=== PATIENT | male | born 1945 | race Caucasian/White ===

== ENCOUNTER → 2020-05-21 13:03 | Outpatient (BNVA) | payer OTHER, SELFPAY | PROVIDERS: PCP Physician Assistant; Visit Provider Urology | DX: N40.1 Benign prostatic hyperplasia with lower urinary tract symptoms (principal); R33.8 Other retention of urine | CPT/HCPCS: 51798; 81002; 99212 ==

== ENCOUNTER → 2020-06-05 10:03 | Outpatient (BNVA) | payer OTHER, SELFPAY | PROVIDERS: PCP Physician Assistant; Visit Provider Urology | DX: N40.1 Benign prostatic hyperplasia with lower urinary tract symptoms (principal); R33.8 Other retention of urine | CPT/HCPCS: 51798; 81002; 99212 ==

== ENCOUNTER → 2020-07-08 15:34 | Outpatient (BNVA) | payer OTHER, SELFPAY | PROVIDERS: PCP Physician Assistant; Visit Provider Urology | DX: R33.9 Retention of urine, unspecified (principal) | CPT/HCPCS: 51798; 81002; 99212 ==

== ENCOUNTER → 2020-08-11 13:32 | Outpatient (BNVA) | payer OTHER, SELFPAY | PROVIDERS: PCP Physician Assistant; Visit Provider Urology | DX: N40.1 Benign prostatic hyperplasia with lower urinary tract symptoms (principal); R33.8 Other retention of urine | CPT/HCPCS: 51798; 99212 ==

== ENCOUNTER 2021-01-05 13:12 | Outpatient (REF) | payer OTHER, SELFPAY ==
--- NOTE | ~2021-01-05 | US_ITS ---
EXAMINATION: US RETROPERITONEAL LIMITED (RENAL ONLY) CLINICAL INFORMATION: Calculus of kidney. COMPARISON: CT abdomen and pelvis with intravenous contrast only dated 03/18/2018. TECHNIQUE: Real-time imaging of the kidneys. FINDINGS: RIGHT KIDNEY: 8.7 x 6.7 x 6.5 cm (SAG x AP x TRV). The kidney is normal in size, contour, and echogenicity. There is severe right hydronephrosis. There is right renal cortical thinning suggestive of long-standing obstruction. The visualized right ureter is dilated. No renal calculi or focal parenchymal lesions. LEFT KIDNEY: 10.1 x 9.6 x 4.6 cm (SAG x AP x TRV). The kidney is normal in size, contour, and echogenicity. Renal cortical thickness is normal. There is moderate to severe left hydronephrosis. The visualized left ureter is dilated. There is a 4.5 x 4.9 x 3.2 cm cyst in the lower pole. No renal calculi or mass. BLADDER: The bladder is well-distended. The bladder wall appears thickened and trabeculated. There are multiple bladder diverticuli seen. Bilateral ureteral jets are not demonstrated. Prevoid bladder volume is 1199 mL. Post void bladder volume is 1158 mL. Prostate volume is 29 mL. US/US renal BI IMPRESSION: Bilateral hydronephrosis and ureteral dilatation, right greater than left. Hydronephrosis is increased from March 2018 scan. 4.5 x 4.9 x 3.2 cm left renal cyst. Very distended bladder with bladder wall thickening, trabeculation and multiple bladder diverticuli. Large 1.2 L post void bladder residual.
== END 2021-01-05 13:13 | disposition home or self-care (01) ==
LOC: HO.US 13:12
PROVIDERS: PCP Physician Assistant; Visit Provider Physician Assistant
DX: N20.0 Calculus of kidney (principal); R33.9 Retention of urine, unspecified; N40.1 Benign prostatic hyperplasia with lower urinary tract symptoms
CPT/HCPCS: 76775

== ENCOUNTER 2021-02-02 14:17 | Inpatient (IN) | payer OTHER, SELFPAY ==
--- NOTE | ~2021-02-02 | XR_ITS ---
EXAMINATION: XR CHEST CLINICAL INFORMATION: Hypertension COMPARISON: Previous chest x-ray May [address] of the abdomen and pelvis March 2018 TECHNIQUE: Frontal view of the chest was obtained. FINDINGS: The cardiac silhouette does not appear enlarged. There is increased density are spine questionable tortuous thoracic aorta versus esophageal hernia. Hilar and mediastinal contours are otherwise unremarkable. The lungs are clear. There is no pleural effusion or pneumothorax. There are degenerative changes of the spine. There are old right posterior fourth and sixth rib fractures. XR/XR chest 1V IMPRESSION: Increased density over the heart and spine questionable ectatic thoracic aorta versus esophageal hernia. Otherwise unremarkable exam.
--- NOTE | ~2021-02-02 | CT_ITS ---
EXAMINATION: CT HEAD WITHOUT CONTRAST CLINICAL INFORMATION: High blood pressure and headache rule out bleed. COMPARISON: None. TECHNIQUE: Contiguous axial imaging was performed from the skull base to vertex without intravenous administration of contrast. Coronal and sagittal reformatted images are performed at the CT scanner. [This CT examination was performed using dose optimization techniques as appropriate, variously including the following: *Automated exposure control *Adjustment of mA and/or kV according to patient size (this includes techniques or standardized protocols for targeted exams where dose is matched to indication/reason for exam; i.e. extremities or head) *Use of iterative reconstruction technique] DLP: 688 mGy-cm. FINDINGS: There is no evidence of acute intracranial hemorrhage or territorial infarction. No abnormal mass-effect or midline shift is seen. Nicole to white matter differentiation is well preserved. No extra-axial fluid collections are identified. There is generalized global volume loss. There is mild prominence of the ventricles and the sulci . There is mild hypodensity of the periventricular white matter due to chronic small vessel ischemic disease. There are vascular calcifications of the internal carotid arteries bilaterally. There is no osseous abnormality. The mastoid air cells and visualized portions of the paranasal sinuses are well-aerated. CT/CT head/brain wo con IMPRESSION: No acute intracranial pathology.
--- NOTE | ~2021-02-02 | CT_ITS ---
EXAMINATION: CT ABDOMEN AND PELVIS WITHOUT CONTRAST CLINICAL INFORMATION: Acute renal failure. Rule out obstructive uropathy COMPARISON: CT abdomen pelvis 03/18/2018 TECHNIQUE: Multidetector volumetric imaging was performed from the superior aspect of the liver through the pubic symphysis. Sagittal and coronal reformatted images were obtained on the technologist's workstation. This CT examination was performed using dose optimization techniques as appropriate, variously including the following: *Automated exposure control *Adjustment of mA and/or kV according to patient size (this includes techniques or standardized protocols for targeted exams where dose is matched to indication/reason for exam; i.e. extremities or head) *Use of iterative reconstruction technique DLP: 491 mGy-cm FINDINGS: LUNG BASES: The visualized lung bases are unremarkable. LIVER, GALLBLADDER, AND BILIARY TREE: The liver is normal in size, shape, and attenuation. No focal hepatic lesion or biliary ductal dilatation is present. The gallbladder is unremarkable with no evidence of radiopaque gallstones, gallbladder wall thickening, or obvious pericholecystic inflammatory changes. PANCREAS: Unremarkable. SPLEEN: Unremarkable. ADRENAL GLANDS: Unremarkable. KIDNEYS, URETERS and BLADDER: There is marked bilateral hydronephrosis with dilatation of both ureters down to the level of the bladder. The bladder is markedly distended, extending above the level of the umbilicus with a huge diverticulum extending up towards the left upper quadrant. There is some trabeculation of the bladder wall. No renal calculi are seen and no ureteral calculi are seen. There is a 4.3 cm lower pole left renal cyst present along with a smaller 2 cm cyst as well. There is abnormality seen at the base of the bladder with asymmetric soft tissue density seen along the right wall of the bladder. GASTROINTESTINAL TRACT: A moderate-sized hiatal hernia is present. Diverticular changes are present in the colon and without evidence of diverticulitis. The small and large bowel are otherwise unremarkable. The appendix is unremarkable. ABDOMINAL WALL: No significant hernia is appreciated. LYMPH NODES: Normal. VASCULAR: Calcific atherosclerotic changes present in the aorta and iliac vessels without aneurysm. PELVIC VISCERA: It is difficult to evaluate the prostate is distortion by the markedly distended bladder. No free fluid is seen. No other pelvic mass is seen. OSSEOUS STRUCTURES: There is marked compression of T9 with the mid vertebral fracture and a kyphosis centered at that level. Similar findings were present on the 03/18/[address]/CT abdomen pelvis wo con IMPRESSION: Severe bilateral hydronephrosis with dilatation of the ureters and marked dilatation of the bladder. Abnormality may be present at the base of the right bladder and cystoscopy is recommended once this patient is stable. The patient's acute renal failure is most likely on the basis of bladder outlet obstruction. Other incidental findings described above including left renal cysts, moderate hiatal hernia and stable compression fracture T9 This critical result was discussed with Dr. Heart at 7:30 PM on the evening of the exam and it was ascertained that the content and urgency of the report was understood at the time of direct communication.
[2021-02-02 14:45] VITALS: BP 194/95; PULSE 91; RESP 18; TEMP 36.1; O2SAT 99; BMI 25.0
--- NOTE | 2021-02-02 15:58 | ECG_ITS ---
Test Reason : GENERAL MEDICAL Blood Pressure : / mmHG Vent. Rate : 076 BPM Atrial Rate : 076 BPM P-R Int : 142 ms QRS Dur : 068 ms QT Int : 356 ms P-R-T Axes : 036 -25 011 degrees QTc Int : 400 ms Normal sinus rhythm Normal ECG When compared with ECG of 12-MAY-2018 12:31, Vent. rate has decreased BY 61 BPM Criteria for Inferior infarct are no longer Present Referred By: Kae Heart Electronically Signed By:LENA HUNTER
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
[2021-02-02 16:09] VITALS: BP 193/97; PULSE 88; O2SAT 99
[2021-02-02 16:23] VITALS: BP 193/97; PULSE 88
[2021-02-02] MEDS: amLODIPine Besylate 10 MG TABLET PO (16:23)
[2021-02-02 16:24] LABS: Eosinophils Absolute Auto 0.3 X10*3/uL (0.0-0.4); Hemoglobin 11.2 g/dl (14.0-18.0); MANUAL DIFF FLAG SCAN; SCAN SMEAR FLAG 1
[2021-02-02 16:25] LABS: Basophils Absolute Auto 0.1 X10*3/uL (0.0-0.2); Basophils Percent Auto 0.9 % (0-2); Hematocrit 33.9 % (42-52); Imm Gran Abs Auto 0.03 X10*3/uL (0.00-0.03); Imm Gran Pct Auto 0.2 % (0.0-0.4); Lymphocytes Absolute Auto 1.6 X10*3/uL (1.2-4.9); Lymphocytes Percent Auto 12.6 % (20-40); Mean Corpuscular Hemoglobin 28.4 pg (27.0-33.0); Mean Corpuscular Volume 85.8 fL (80-98); Monocytes Absolute Auto 0.8 X10*3/uL (0.1-1.2); Monocytes Percent Auto 6.2 % (2-11); Neutrophils Percent Auto 78.1 % (45-73); Red Blood Count 3.95 X10*6/uL (4.60-5.80); Red Cell Distribution Width 13.3 % (11.0-16.0)
[2021-02-02 16:28] LABS: PLT ABN DIST 1
[2021-02-02 16:42] LABS: White Blood Count 12.8 X10*3/uL (4.8-10.8)
[2021-02-02 16:44] LABS: Platelet Count 13 X10*3/uL (160-400); SLIDE REVIEW VERIFIED
[2021-02-02 16:45] LABS: B Type Natriuretic Peptide 31 pg/mL (<100)
[2021-02-02 16:46] LABS: Alanine Aminotransferase 10 U/L (0-40); Albumin Level 4.5 g/dL (3.5-5.0); Alkaline Phosphatase 42 U/L (39-117); Anion Gap 17 (12-20); Aspartate Amino Transferase 12 U/L (5-37); Bilirubin Direct < 0.2 mg/dL (0.0-0.5); Bilirubin Total 0.3 mg/dL (0.0-1.0); Blood Urea Nitrogen 74 mg/dL (9-16); Calcium 9.3 mg/dL (8.4-10.2); Carbon Dioxide 20 mmol/L (22-29); Chloride 110 mmol/L (96-108); Creatinine Clr Calc Pharmacy 11.9; Estimated Glomerular Filt Rate 11; Glucose Random 111 mg/dL (60-115); Lipase 46 U/L (8-78); Potassium 5.7 mmol/L (3.3-5.1); Sodium 141 mmol/L (135-145); Total Protein 7.4 g/dL (6.5-8.0)
[2021-02-02 18:55] VITALS: BP 210/88; PULSE 85; RESP 18; TEMP 36.4; O2SAT 98
[2021-02-02] MEDS: 0.9 % Sodium Chloride 1,000 ML 999 ML IVCONT (19:05)
[2021-02-02 19:12] LABS: Appearance Urine CLEAR; Color Urine YELLOW; Glucose Urine UA NEG (NEG); Leukocyte Esterase Urine NEG (NEG); Nitrite Urine NEG (NEG); Urine Blood NEG (NEG); Urine Ketones NEG (NEG); Urine Protein NEG (NEG-TRACE)
--- NOTE | 2021-02-02 20:19 | P.HPHOSP_ITS ---
History of Present Illness Date of Service: 02/02/21 Chief Complaint: Elevated blood pressure 75-year-old male with a past medical history BPH, severe thrombocytopenia- attributes to agent orange exposure, hypertension presented to the hospital with a chief complaint elevated blood pressure. Patient reports that this morning he went to his PCP where he was noted have elevated blood. Subsequently sent to the ER for further evaluation Patient reports that episodes headaches denies any associated blurry visions d enies any numbness tingling or focal weakness. Mentions that he has a history severe thrombocytopenia many years admitted to boots to agent orange exposure in the past and his levels usually been around 5- 15. Has been following test eng at [facility] Patient reports that he has problems with his prostate and follows with Dr. palencia as outpatient; mentions that he is still able to pee but has pressure sensation in his abdomen; Denies any fever chills cough. Denies any nausea vomiting diarrhea. Denies any frequency urgency or burning. By the time I went in to see the patient patient had a Baker in place and drained about 1800 cc of urine. Review of all other systems is negative except mentioned above ER course: Per ER team patient had a CT head that showed no acute findings; exam was nonfocal; on abdominal examination patient's abdomen is CT abdomen showed severe hydronephrosis urinary bladder distension; labs noted to have severe JESSICA with a creatinine of 5.7 compared to baseline of 1.0. ER team discussed with Dr. palencia Urology who suggested to place the Baker in. ER team placed a Baker successfully and patient drained about 1800-2000ml urine. Admitted to the hospital for further management. [facility] Medical History Benign prostatic hyperplasia with urinary retention Pertinent family history: Reviewed and noncontributory for the current presentation Surgical History (Updated 08/11/20 @ 12:02 by Hannah Shrestha [facility]) No pertinent past surgical history Social History Household Members: None Patient Tobacco Use Status: Never used Tobacco Use of substances other than those prescribed or required for medical reasons: No Have you been hit, kicked, punched, or otherwise hurt by someone within the past year? If so, by whom?: No Do you feel safe in your current relationship?: No Is there a partner from a previous relationship who is making you feel unsafe now?: No Are you made to feel afraid or neglected: No Advance Directives: No Advance Directives Information Provided: No Do you have thoughts of harming others: None Do you have a plan to hurt others: No Plan Recently lost weight without trying: No Nutrition Risks: No Nutritional Risk Poor oral hygiene: No service: Yes Current occupational status: retired Meds Allergies Allergy/AdvReac Type Severity Reaction Status Date / Time No Known Allergies Allergy Verified 02/02/21 14:44 [No Known Allergies*] Active Medications: Current Medications Acetaminophen (Acetaminophen 325 Mg Tablet) 650 mg PO Q6H PRN PRN Reason: Pain, Mild (Pain Scale 1-3) Dextrose/Sodium Chloride (D51/2ns) 1,000 mls @ 75 mls/hr IVCONT .[id number] [facility] Labetalol HCl (Labetalol Hcl 100 Mg/20 Ml Vial) 10 mg IVPUSH Q4H PRN PRN Reason: BP>180/90 Melatonin (Melatonin 3 Mg Tablet) 6 mg PO BEDTIME PRN PRN Reason: Insomnia Oxycodone HCl (Oxycodone Hcl Immed Release 5 Mg Tablet) 5 mg PO Q6H PRN PRN Reason: Pain, Severe (Pain Scale 7-10) Pharmacy Consult (Consult Rx Perform Med Rec) 1 each MISCELLANE ONCE PRN PRN Reason: Consult order Senna (Sennosides 8.6 Mg Tablet) 17.2 mg PO BEDTIME PRN PRN Reason: Constipation Sodium Chloride (0.9 % Sodium Chloride Flush 3 Ml Syringe) 3 ml IVFLUSH QSHIFT [facility] Home Medications Medication Instructions Recorded Confirmed Last Taken Type Lactobacillus acidophilus 1 cap PO DAILY 02/02/21 02/02/21 02/01/21 History beta carotene 25,000 unit capsule 25,000 unit PO DAILY 02/02/21 02/02/21 02/01/21 History glucosamine sulf dipot 1 cap PO DAILY 02/02/21 02/02/21 02/01/21 History chlr,msm,chond 550 mg-C 30 mg-marshal 1 mg capsule (Glucosamine Chondroitin) mirabegron 25 mg tablet,extended 25 mg PO DAILY 02/02/21 02/02/21 02/01/21 History release 24 hr multivitamin 1 tab PO DAILY 02/02/21 02/02/21 02/01/21 History phytonadione (vitamin K1) 100 mcg 100 mcg PO DAILY 02/02/21 02/02/21 02/01/21 History tablet Physical Exam Vital Signs and Narrative: Vital Signs: Last Vital Signs Temp 97.6 F 02/02/21 18:55 Pulse 85 02/02/21 18:55 Resp 18 02/02/21 18:55 BP 210/88 H 02/02/21 18:55 Pulse Ox 98 02/02/21 18:55 Body Mass Index 25.0 Gen: Appears be in no acute distress HEENT: NCAT, Moist mucosa. Pulmonary: Vesicular breath sounds, fair air entry CVS: Normal S1-S2 Abdomen: BS+, Soft, Nontender Extremities: Warm well perfused Neuro: Alert and awake. Grossly nonfocal Results Labs CBC and Chem 7: 02/02/21 22:57 02/02/21 20:29 Labs: Laboratory Results - last 24 hr 02/02/21 02/02/21 02/02/21 16:16 16:16 16:16 MCV 85.8 MCH 28.4 MCHC 33.0 RDW 13.3 Plt Count 13 L* MPV TNP Immature Gran % (Auto) 0.2 Neut % (Auto) 78.1 H Lymph % (Auto) 12.6 L [place] % (Auto) 6.2 Eos % (Auto) 2.0 Baso % (Auto) 0.9 Lymph # (Auto) 1.6 [place] # (Auto) 0.8 Eos # (Auto) 0.3 Baso # (Auto) 0.1 Abs Immat Gran (auto) 0.03 Absolute Neuts (auto) 10.0 H Absolute Nucleated RBC 0.000 Nucleated RBC % (auto) 0.0 Smear Tech's Comments VERIFIED Anion Gap 17 Estim Creat Clear Calc 11.9 Estimated GFR 11 Random Glucose 111 Calcium 9.3 Total Bilirubin 0.3 Direct Bilirubin < 0.2 AST 12 ALT 10 Alkaline Phosphatase 42 B-Natriuretic Peptide 31 Total Protein 7.4 Albumin 4.5 Lipase 46 Urine Color Urine Appearance Urine pH Ur Specific [place] Urine Protein Urine Glucose (UA) Urine Ketones Urine Blood Urine Nitrite Ur Leukocyte Esterase 02/02/21 18:57 MCV MCH MCHC RDW Plt Count MPV Immature Gran % (Auto) Neut % (Auto) Lymph % (Auto) [place] % (Auto) Eos % (Auto) Baso % (Auto) Lymph # (Auto) [place] # (Auto) Eos # (Auto) Baso # (Auto) Abs Immat Gran (auto) Absolute Neuts (auto) Absolute Nucleated RBC Nucleated RBC % (auto) Smear Tech's Comments Anion Gap Estim Creat Clear Calc Estimated GFR Random Glucose Calcium Total Bilirubin Direct Bilirubin AST ALT Alkaline Phosphatase B-Natriuretic Peptide Total Protein Albumin Lipase Urine Color YELLOW Urine Appearance CLEAR Urine pH 6.0 Ur Specific [place] 1.010 Urine Protein NEG Urine Glucose (UA) NEG Urine Ketones NEG Urine Blood NEG Urine Nitrite NEG Ur Leukocyte Esterase NEG Imaging Radiologist's Impressions: Impressions Chest X-Ray 02/02/21 15:58 IMPRESSION: Increased density over the heart and spine questionable ectatic thoracic aorta versus esophageal hernia. Otherwise unremarkable exam. Head CT 02/02/21 16:02 IMPRESSION: No acute intracranial pathology. Abdomen/Pelvis CT 02/02/21 18:18 IMPRESSION: Severe bilateral hydronephrosis with dilatation of the ureters and marked dilatation of the bladder. Abnormality may be present at the base of the right bladder and cystoscopy is recommended once this patient is stable. The patient's acute renal failure is most likely on the basis of bladder outlet obstruction. Other incidental findings described above including left renal cysts, moderate hiatal hernia and stable compression fracture T9 This critical result was discussed with Dr. Heart at 7:30 PM on the evening of the exam and it was ascertained that the content and urgency of the report was understood at the time of direct communication. Assessment and Plan (1) Urinary retention with incomplete bladder emptying: Status: Acute (2) Benign prostatic hyperplasia with urinary retention: Status: Acute (3) JESSICA (acute kidney injury): Status: Acute (4) Hyperkalemia: Status: Acute (5) Thrombocytopenia: Status: Acute 75-year-old male with past medical history of BPH, and severe thrombocytopenia, agent [place] exposure presented chief complaint abdominal discomfort/headaches; noted to urgency urinary retention. Admitted management. Hypertensive urgency: Patient complained of headaches exam nonfocal. CT head showed no acute findings. Symptoms improving. Labetalol p.r.n. for blood pressure than 180/90. Nephrology consulted. Patient was just prescribed clonidine but patient has not picked up yet. JESSICA: Baseline creatinine 1.0 Postrenal. Scan showed hydronephrosis/dilation. Also noted to mild hyperkalemia 5.7 and creatinine 5.7; Discussed with on-call facilities operator who suggested start patient on 2amps of 100 meq sodium bicarb in D5 water. Renal function and improving. Continue to monitor. Urinary retention /BPH: Baker catheter. Urology consult of aware the patient. Patient drained about 2 L of urine Baker placement. Followed by mentioned that patient started to gross hematuria. Gross hematuria: Likely secondary to rapid decompression off urinary bladder in the ER. Will transfuse platelets Serial H&H Renal cysts: urology follow up. Severe thrombocytopenia: Denies any signs of reports been chronic. Patient developed hematuria. Will transfuse platelets 2 units of platelets. Spoke to the blood bank , reported the platelets will be available in couple hours; Hematology consult. Prophylaxis SCD boots Code status: DNR/DNI. Discussed with the patient in detail. Quality Stroke Does the patient have a stroke diagnosis?: No VTE Prior VTE?: No VTE Risk Level:: Medical - moderate - high VTE Device Contraindication: N/A - Device Ordered VTE Drug Contraindication: Treatment Not Indicated
[2021-02-02] MEDS: Lidocaine HCl 2 % Urojet 10 ML JEL.PF.APP TOPICAL (20:54)
--- NOTE | 2021-02-02 20:57 | PHA.MEDREC ---
Pharmacy Consult ? Medication Reconciliation Pharmacy has completed the medication reconciliation. Patient report that he just received a prescription for clonidine 0.2 mg today. He has not started it.
[2021-02-02] MEDS: Dextrose 5 % and 0.45 % NaCl 1,000 ML 75 ML IVCONT (21:00)
[2021-02-02 21:01] LABS: Anion Gap 14 (12-20); Blood Urea Nitrogen 71 mg/dL (9-16); Calcium 8.6 mg/dL (8.4-10.2); Carbon Dioxide 18 mmol/L (22-29); Chloride 115 mmol/L (96-108); Creatinine Clr Calc Pharmacy 12.5; Estimated Glomerular Filt Rate 12; Glucose Random 101 mg/dL (60-115); Potassium 5.3 mmol/L (3.3-5.1); Sodium 142 mmol/L (135-145)
[2021-02-02 21:07] VITALS: BP 154/71; PULSE 85; O2SAT 97
--- NOTE | 2021-02-02 21:09 | PC.NURSE ---
emptied 1849 from [facility] at 2105
[2021-02-02 21:38] LABS: COVID-19 Test Negative (Negative)
--- NOTE | 2021-02-02 22:27 | MHC.CM.PN ---
Addendum entered by Rina Griffith 02/02/21 22:30: Pt uses the [facility] pharmacy in [place] and on [facility] in [facility]. Dr. Garcia is his urologist. HCP is not on file. Copy requested. HCP/son Sam Bianchi ([phone]). Alternate HCP/nephew Thomas Wharton ([phone]). Pt lives alone, uses no DME and has no services. Pt is fully vaccinated with Moderna. D/C plan is home without services. Transportation arranged by pt. CM to follow for d/c needs. Original Note: CM met with admitted patient, with bed assignment pending. A&O x3. Very pleasant [place], who is 100% [employer] and only has Veterans insurance. Pt knox not have Medicare. Pt was exposed to Agent [place] and has his care at the [facility]
--- NOTE | 2021-02-02 22:37 | PC.NURSE ---
Pt roasrio bag putting our bloody urine. call to Dr. Olson who will be down to assess the pt.
[2021-02-02] MEDS: Sodium Bicarbonate 8.4% 100 MEQ in Dextrose 5 % 900 ML IV (22:38)
[2021-02-02 23:06] LABS: Imm Gran Abs Auto 0.03 X10*3/uL (0.00-0.03); Imm Gran Pct Auto 0.3 % (0.0-0.4); Lymphocytes Absolute Auto 1.8 X10*3/uL (1.2-4.9); MANUAL DIFF FLAG SCAN; Mean Corpuscular Volume 85.4 fL (80-98); Red Cell Distribution Width 13.4 % (11.0-16.0); SCAN SMEAR FLAG 1
[2021-02-02 23:08] LABS: Basophils Absolute Auto 0.1 X10*3/uL (0.0-0.2); Basophils Percent Auto 0.9 % (0-2); Eosinophils Absolute Auto 0.3 X10*3/uL (0.0-0.4); Eosinophils Percent Auto 2.7 % (0-4); Hematocrit 30.9 % (42-52); Hemoglobin 10.6 g/dl (14.0-18.0); Lymphocytes Percent Auto 15.5 % (20-40); Mean Corpuscular HGB Conc 34.3 g/dl (31.0-36.0); Mean Corpuscular Hemoglobin 29.3 pg (27.0-33.0); Mean Platelet Volume 13.1 fL (9.4-12.4); Monocytes Absolute Auto 0.8 X10*3/uL (0.1-1.2); Monocytes Percent Auto 6.8 % (2-11); Neutrophils Absolute Auto 8.7 X10*3/uL (2.0-8.3); Neutrophils Percent Auto 73.8 % (45-73); Red Blood Count 3.62 X10*6/uL (4.60-5.80); White Blood Count 11.7 X10*3/uL (4.8-10.8)
[2021-02-02 23:12] LABS: PLT ABN DIST 1
[2021-02-02 23:14] LABS: Platelet Count 12 X10*3/uL (160-400)
[2021-02-03] VITALS (16 sets, daily range): BP systolic 136–187; BP diastolic 62–81; PULSE 79–94; RESP 16–18; TEMP 36.4–37.4; O2SAT 96–99
[2021-02-03 05:44] LABS: MANUAL DIFF FLAG NO
[2021-02-03 05:53] LABS: Basophils Absolute Auto 0.1 X10*3/uL (0.0-0.2); Basophils Percent Auto 0.6 % (0-2); Eosinophils Absolute Auto 0.3 X10*3/uL (0.0-0.4); Eosinophils Percent Auto 2.1 % (0-4); Hemoglobin 9.7 g/dl (14.0-18.0); Imm Gran Abs Auto 0.08 X10*3/uL (0.00-0.03); Imm Gran Pct Auto 0.5 % (0.0-0.4); Lymphocytes Absolute Auto 1.8 X10*3/uL (1.2-4.9); Lymphocytes Percent Auto 11.4 % (20-40); Mean Corpuscular HGB Conc 34.6 g/dl (31.0-36.0); Mean Corpuscular Volume 83.8 fL (80-98); Mean Platelet Volume 12.8 fL (9.4-12.4); Monocytes Absolute Auto 1.1 X10*3/uL (0.1-1.2); Monocytes Percent Auto 7.2 % (2-11); Neutrophils Absolute Auto 12.3 X10*3/uL (2.0-8.3); Neutrophils Percent Auto 78.2 % (45-73); Red Blood Count 3.34 X10*6/uL (4.60-5.80); Red Cell Distribution Width 13.3 % (11.0-16.0); White Blood Count 15.7 X10*3/uL (4.8-10.8)
[2021-02-03 05:55] LABS: Platelet Count 22 X10*3/uL (160-400)
[2021-02-03 06:08] LABS: Anion Gap 12 (12-20); Blood Urea Nitrogen 61 mg/dL (9-16); Calcium 7.9 mg/dL (8.4-10.2); Carbon Dioxide 22 mmol/L (22-29); Chloride 112 mmol/L (96-108); Creatinine Clr Calc Pharmacy 13.9; Estimated Glomerular Filt Rate 13; Glucose Random 117 mg/dL (60-115); Potassium 4.4 mmol/L (3.3-5.1); Sodium 142 mmol/L (135-145)
--- NOTE | 2021-02-03 08:26 | PM.UROCN ---
History of Present Illness Consult details Consult date: 02/03/21 Narrative: Grabiel is a pleasant male known to Urology. He is followed for a large dilated bladder with high residual. Has failed bethanechol previously and currently on tamsulosin. Admitted to hospital last night with elevated creatinine Baker catheter placed Hematuria started hematuria resolving with platelets - did discuss use of tranexamic acid with attending physician hold mirabegron add finasteride Voiding trial once creatinine has normalized Review of Systems Constitutional: Constitutional: Denies chills and Denies fever(s) Cardiovascular: Cardiovascular: Reports no additional cardiovascular complaints and Denies syncope Respiratory: Respiratory: Denies cough Gastrointestinal: Gastrointestinal: Denies abdominal pain and Denies heartburn Genitourinary: Genitourinary: Reports as per HPI and Denies change in libido Neurologic: Denies syncope Psychiatric: Psychiatric: Denies change in libido Endocrine: Endocrine: Denies change in libido [facility] Past Medical History Medical History Benign prostatic hyperplasia with urinary retention Surgical History Surgical History (Updated 08/11/20 @ 12:02 by Hannah Shrestha [facility]) No pertinent past surgical history Social History Social History Household Members: None Patient Tobacco Use Status: Never used Tobacco Use of substances other than those prescribed or required for medical reasons: No Have you been hit, kicked, punched, or otherwise hurt by someone within the past year? If so, by whom?: No Do you feel safe in your current relationship?: No Is there a partner from a previous relationship who is making you feel unsafe now?: No Are you made to feel afraid or neglected: No Advance Directives: No Advance Directives Information Provided: No Do you have thoughts of harming others: None Do you have a plan to hurt others: No Plan Recently lost weight without trying: No Nutrition Risks: No Nutritional Risk Poor oral hygiene: No service: Yes Current occupational status: retired [employer] Allergies Allergy/AdvReac Type Severity Reaction Status Date / Time No Known Allergies Allergy Verified 02/02/21 14:44 [No Known Allergies*] Active Medications: Current Medications Acetaminophen (Acetaminophen 325 Mg Tablet) 650 mg PO Q6H PRN PRN Reason: Pain, Mild (Pain Scale 1-3) Labetalol HCl (Labetalol Hcl 100 Mg/20 Ml Vial) 10 mg IVPUSH Q4H PRN PRN Reason: BP>180/90 Melatonin (Melatonin 3 Mg Tablet) 6 mg PO BEDTIME PRN PRN Reason: Insomnia Mirabegron (Mirabegron 25 Mg Tab.Er.24h) 25 mg PO DAILY [facility] Multivitamins/Vitamin C (Multivitamin Tablet) 1 tab PO DAILY [facility] Oxycodone HCl (Oxycodone Hcl Immed Release 5 Mg Tablet) 5 mg PO Q6H PRN PRN Reason: Pain, Severe (Pain Scale 7-10) Pharmacy Consult (Consult Rx Perform Med Rec) 1 each MISCELLANE ONCE PRN PRN Reason: Consult order Senna (Sennosides 8.6 Mg Tablet) 17.2 mg PO BEDTIME PRN PRN Reason: Constipation Simethicone (Simethicone 80 Mg Tab.Chew) 80 mg PO QIDWMHS PRN PRN Reason: Gas Sodium Chloride (0.9 % Sodium Chloride Flush 3 Ml Syringe) 3 ml IVFLUSH QSHIFT [facility] Last Admin: 02/03/21 00:51 Dose: Not Given Documented by: Tamsulosin HCl (Tamsulosin Hcl 0.4 Mg Capsule) 0.8 mg PO BEDTIME [facility] Home Medications Medication Instructions Recorded Confirmed Last Taken Type Lactobacillus acidophilus 1 cap PO DAILY 02/02/21 02/02/21 02/01/21 History beta carotene 25,000 unit capsule 25,000 unit PO DAILY 02/02/21 02/02/21 02/01/21 History glucosamine sulf dipot 1 cap PO DAILY 02/02/21 02/02/21 02/01/21 History chlr,msm,chond 550 mg-C 30 mg-marshal 1 mg capsule (Glucosamine Chondroitin) mirabegron 25 mg tablet,extended 25 mg PO DAILY 02/02/21 02/02/21 02/01/21 History release 24 hr multivitamin 1 tab PO DAILY 02/02/21 02/02/21 02/01/21 History phytonadione (vitamin K1) 100 mcg 100 mcg PO DAILY 02/02/21 02/02/21 02/01/21 History tablet Physical Exam Vital Signs: Vital Signs: Last Vital Signs Temp 97.6 F 02/03/21 08:00 Pulse 80 02/03/21 08:00 Resp 16 02/03/21 08:00 BP 161/100 H 02/03/21 08:00 Pulse Ox 99 02/03/21 08:00 Body Mass Index 25.0 Const: General: cooperative, healthy appearing, comfortable and no acute distress Orientation/consciousness: patient oriented x3 HENMT: Face and sinus: Yes normal facial exam Mouth: moist mucous membranes Neck: Neck: Yes normal visual inspection, Yes full ROM and Yes trachea midline Chest: Chest palpation & inspection: normal inspection of the chest Resp: Effort & Inspection: normal respiratory effort, able to speak in complete sentences and no respiratory distress GI: Inspection: Yes normal to inspection Back/Spine/Pelvis: Cervical Spine: normal cervical lordosis Thoracic/Lumbar Spine: thoracic and lumbar spine normal to inspection Skin: General skin exam: no rashes or lesions noted Neuro: General: patient oriented x3, gait normal, tone normal and moves all extremities Extrem: General: Yes normal to inspection and Yes capillary refill normal Results Labs Result diagrams: 02/03/21 05:20 02/03/21 05:20 Labs: Abnormal lab results 02/02/21 02/02/21 02/02/21 Range/Units 16:16 16:16 20:29 WBC 12.8 H (4.8-10.8) X10*3/uL RBC 3.95 L (4.60-5.80) X10*6/uL Hgb 11.2 L (14.0-18.0) g/dl Hct 33.9 L (42-52) % Plt Count 13 L* (160-400) X10*3/uL MPV (9.4-12.4) fL Immature Gran % (Auto) (0.0-0.4) % Neut % (Auto) 78.1 H (45-73) % Lymph % (Auto) 12.6 L (20-40) % Abs Immat Gran (auto) (0.00-0.03) X10*3/uL Absolute Neuts (auto) 10.0 H (2.0-8.3) X10*3/uL Potassium 5.7 H 5.3 H (3.3-5.1) mmol/L Chloride 110 H 115 H (96-108) mmol/L Carbon Dioxide 20 L 18 L (22-29) mmol/L BUN 74 H 71 H (9-16) mg/dL Creatinine 5.17 H* 4.92 H* (0.5-1.4) mg/dL Random Glucose (60-115) mg/dL Calcium (8.4-10.2) mg/dL 02/02/21 02/03/21 02/03/21 Range/Units 22:57 05:20 05:20 WBC 11.7 H 15.7 H (4.8-10.8) X10*3/uL RBC 3.62 L 3.34 L (4.60-5.80) X10*6/uL Hgb 10.6 L 9.7 L (14.0-18.0) g/dl Hct 30.9 L 28.0 L (42-52) % Plt Count 12 L* 22 L D (160-400) X10*3/uL MPV 13.1 H 12.8 H (9.4-12.4) fL Immature Gran % (Auto) 0.5 H (0.0-0.4) % Neut % (Auto) 73.8 H 78.2 H (45-73) % Lymph % (Auto) 15.5 L 11.4 L (20-40) % Abs Immat Gran (auto) 0.08 H (0.00-0.03) X10*3/uL Absolute Neuts (auto) 8.7 H 12.3 H (2.0-8.3) X10*3/uL Potassium (3.3-5.1) mmol/L Chloride 112 H (96-108) mmol/L Carbon Dioxide (22-29) mmol/L BUN 61 H (9-16) mg/dL Creatinine 4.44 H* (0.5-1.4) mg/dL Random Glucose 117 H (60-115) mg/dL Calcium 7.9 L D (8.4-10.2) mg/dL Short CBC 02/02/21 02/02/21 02/03/21 Range/Units 16:16 22:57 05:20 WBC 12.8 H 11.7 H 15.7 H (4.8-10.8) X10*3/uL Hgb 11.2 L 10.6 L 9.7 L (14.0-18.0) g/dl Hct 33.9 L 30.9 L 28.0 L (42-52) % Plt Count 13 L* 12 L* 22 L D (160-400) X10*3/uL BMP 02/02/21 02/02/21 02/03/21 16:16 20:29 05:20 Sodium 141 142 142 Potassium 5.7 H 5.3 H 4.4 Chloride 110 H 115 H 112 H Carbon Dioxide 20 L 18 L 22 BUN 74 H 71 H 61 H Creatinine 5.17 H* 4.92 H* 4.44 H* Calcium 9.3 8.6 D 7.9 L D Liver Function 02/02/21 Range/Units 16:16 Total Bilirubin 0.3 (0.0-1.0) mg/dL Direct Bilirubin < 0.2 (0.0-0.5) mg/dL AST 12 (5-37) U/L ALT 10 (0-40) U/L Alkaline Phosphatase 42 (39-117) U/L Albumin 4.5 (3.5-5.0) g/dL Urine 02/02/21 Range/Units 18:57 Urine Color YELLOW Urine Appearance CLEAR Urine pH 6.0 (5.0-8.0) Ur Specific [place] 1.010 (1.005-1.025) Urine Protein NEG (NEG-TRACE) MG/DL Urine Glucose (UA) NEG (NEG) MG/DL All other labs normal. Assessment and Plan (1) Urinary retention with incomplete bladder emptying: Status: Acute (2) JESSICA (acute kidney injury): Status: Acute Baker catheter until normalization of creatinine Stop Myrbetriq Add finasteride Procedures Date of Service Date of Service: 02/03/21
[2021-02-03] MEDS: Acetaminophen 325 MG TABLET 650 MG PO ×2 (08:42→23:46)
[2021-02-03] MEDS: Multivitamin TABLET 1 TAB PO (08:42)
--- NOTE | 2021-02-03 09:44 | HO.PM.IMPN ---
Subjective Subjective Date of Service: 02/03/21 Interval History: cc: headache, sent for high bp interval history: feeling weak Cardiovascular Cardiovascular: Reports no additional cardiovascular complaints Respiratory Respiratory: Reports no additional respiratory complaints Physical Exam Vital Signs: Vital Signs: Last Vital Signs Temp 97.6 F 02/03/21 09:32 Pulse 94 02/03/21 09:32 Resp 18 02/03/21 09:32 BP 153/70 H 02/03/21 09:32 Pulse Ox 97 02/03/21 08:00 Body Mass Index 25.0 General: AO X 3, no acute distress, weak appearing Resp: CTA bilateral, no accessory muscles used CVS: S1,S2,RRR GI: soft, non tender, non distended : rosario in place, draining dark yellow urine, no gross hematuria Neuro: motor grossly intact, alert Psych: appropriate affect, appropriate insight Objective Data Active Medications Acetaminophen (Acetaminophen 325 Mg Tablet) 650 mg PO Q6H PRN PRN Reason: Pain, Mild (Pain Scale 1-3) Last Admin: 02/03/21 08:42 Dose: 650 mg Documented by: JESUS Finasteride (Finasteride 5 Mg Tablet) 5 mg PO DAILY [facility] Labetalol HCl (Labetalol Hcl 100 Mg/20 Ml Vial) 10 mg IVPUSH Q4H PRN PRN Reason: BP>180/90 Melatonin (Melatonin 3 Mg Tablet) 6 mg PO BEDTIME PRN PRN Reason: Insomnia Multivitamins/Vitamin C (Multivitamin Tablet) 1 tab PO DAILY [facility] Last Admin: 02/03/21 08:42 Dose: 1 tab Documented by: JESUS Oxycodone HCl (Oxycodone Hcl Immed Release 5 Mg Tablet) 5 mg PO Q6H PRN PRN Reason: Pain, Severe (Pain Scale 7-10) Pharmacy Consult (Consult Rx Perform Med Rec) 1 each MISCELLANE ONCE PRN PRN Reason: Consult order Senna (Sennosides 8.6 Mg Tablet) 17.2 mg PO BEDTIME PRN PRN Reason: Constipation Simethicone (Simethicone 80 Mg Tab.Chew) 80 mg PO QIDWMHS PRN PRN Reason: Gas Sodium Chloride (0.9 % Sodium Chloride Flush 3 Ml Syringe) 3 ml IVFLUSH QSHIFT [facility] Last Admin: 09/29/21 08:39 Dose: Not Given Documented by: JESUS Non-Admin Reason: Headache Tamsulosin HCl (Tamsulosin Hcl 0.4 Mg Capsule) 0.8 mg PO BEDTIME [facility] Labs CBC & Chem 7: 02/03/21 05:20 02/03/21 05:20 Labs: Laboratory Results - last 24 hr 02/02/21 02/02/21 02/02/21 16:16 16:16 16:16 MCV 85.8 MCH 28.4 MCHC 33.0 RDW 13.3 Plt Count 13 L* MPV TNP Immature Gran % (Auto) 0.2 Neut % (Auto) 78.1 H Lymph % (Auto) 12.6 L [place] % (Auto) 6.2 Eos % (Auto) 2.0 Baso % (Auto) 0.9 Lymph # (Auto) 1.6 [place] # (Auto) 0.8 Eos # (Auto) 0.3 Baso # (Auto) 0.1 Abs Immat Gran (auto) 0.03 Absolute Neuts (auto) 10.0 H Absolute Nucleated RBC 0.000 Nucleated RBC % (auto) 0.0 Smear Tech's Comments VERIFIED Smear Path Review SEE NOTE Anion Gap 17 Estim Creat Clear Calc 11.9 Estimated GFR 11 Random Glucose 111 Calcium 9.3 Total Bilirubin 0.3 Direct Bilirubin < 0.2 AST 12 ALT 10 Alkaline Phosphatase 42 B-Natriuretic Peptide 31 Total Protein 7.4 Albumin 4.5 Lipase 46 Urine Color Urine Appearance Urine pH Ur Specific [place] Urine Protein Urine Glucose (UA) Urine Ketones Urine Blood Urine Nitrite Ur Leukocyte Esterase COVID-19 ([facility]) COVID-19 Clin Com Blood Type Antibody Screen 02/02/21 02/02/21 02/02/21 18:57 20:29 21:20 MCV MCH MCHC RDW Plt Count MPV Immature Gran % (Auto) Neut % (Auto) Lymph % (Auto) [place] % (Auto) Eos % (Auto) Baso % (Auto) Lymph # (Auto) [place] # (Auto) Eos # (Auto) Baso # (Auto) Abs Immat Gran (auto) Absolute Neuts (auto) Absolute Nucleated RBC Nucleated RBC % (auto) Smear Tech's Comments Smear Path Review Anion Gap 14 Estim Creat Clear Calc 12.5 Estimated GFR 12 Random Glucose 101 Calcium 8.6 D Total Bilirubin Direct Bilirubin AST ALT Alkaline Phosphatase B-Natriuretic Peptide Total Protein Albumin Lipase Urine Color YELLOW Urine Appearance CLEAR Urine pH 6.0 Ur Specific [place] 1.010 Urine Protein NEG Urine Glucose (UA) NEG Urine Ketones NEG Urine Blood NEG Urine Nitrite NEG Ur Leukocyte Esterase NEG COVID-19 ([facility]) Negative COVID-19 Clin Com See Note Blood Type Antibody Screen 02/02/21 02/02/21 02/03/21 22:57 22:57 05:20 MCV 85.4 83.8 MCH 29.3 29.0 MCHC 34.3 34.6 RDW 13.4 13.3 Plt Count 12 L* 22 L D MPV 13.1 H 12.8 H Immature Gran % (Auto) 0.3 0.5 H Neut % (Auto) 73.8 H 78.2 H Lymph % (Auto) 15.5 L 11.4 L [place] % (Auto) 6.8 7.2 Eos % (Auto) 2.7 2.1 Baso % (Auto) 0.9 0.6 Lymph # (Auto) 1.8 1.8 [place] # (Auto) 0.8 1.1 Eos # (Auto) 0.3 0.3 Baso # (Auto) 0.1 0.1 Abs Immat Gran (auto) 0.03 0.08 H Absolute Neuts (auto) 8.7 H 12.3 H Absolute Nucleated RBC 0.000 0.000 Nucleated RBC % (auto) 0.0 0.0 Smear Tech's Comments Smear Path Review Anion Gap Estim Creat Clear Calc Estimated GFR Random Glucose Calcium Total Bilirubin Direct Bilirubin AST ALT Alkaline Phosphatase B-Natriuretic Peptide Total Protein Albumin Lipase Urine Color Urine Appearance Urine pH Ur Specific [place] Urine Protein Urine Glucose (UA) Urine Ketones Urine Blood Urine Nitrite Ur Leukocyte Esterase COVID-19 ([facility]) COVID-19 Clin Com Blood Type A Positive Antibody Screen NEGATIVE 02/03/21 05:20 MCV MCH MCHC RDW Plt Count MPV Immature Gran % (Auto) Neut % (Auto) Lymph % (Auto) [place] % (Auto) Eos % (Auto) Baso % (Auto) Lymph # (Auto) [place] # (Auto) Eos # (Auto) Baso # (Auto) Abs Immat Gran (auto) Absolute Neuts (auto) Absolute Nucleated RBC Nucleated RBC % (auto) Smear Tech's Comments Smear Path Review Anion Gap 12 Estim Creat Clear Calc 13.9 Estimated GFR 13 Random Glucose 117 H Calcium 7.9 L D Total Bilirubin Direct Bilirubin AST ALT Alkaline Phosphatase B-Natriuretic Peptide Total Protein Albumin Lipase Urine Color Urine Appearance Urine pH Ur Specific [place] Urine Protein Urine Glucose (UA) Urine Ketones Urine Blood Urine Nitrite Ur Leukocyte Esterase COVID-19 ([facility]) COVID-19 Clin Com Blood Type Antibody Screen Assessment and Plan (1) Obstructed, uropathy: Status: Acute (2) JESSICA (acute kidney injury): Status: Acute (3) Thrombocytopenia: Status: Acute Assessment and Plan: 75M presented with headache and htn, found to have severe obstructive uropathy severe JESSICA due to obstructive uropathy from bph continue rosario monitor bmp, is and os, nephro IV fluids added proscar, stopped mirabegron hematuria resolved voiding trial when creatinine normalized hypertension will start daily amlodipine 10mg chronic thrombocytopenia s/p platelets around baseline dvt prophylaxis - mechanical due to thrombocytopenia Quality Stroke Does the patient have a stroke diagnosis?: No VTE Prior VTE?: No VTE Risk Level:: Medical - moderate - high VTE Device Contraindication: N/A - Device Ordered VTE Drug Contraindication: Treatment Not Tolerated
[2021-02-03] MEDS: Finasteride 5 MG TABLET PO (10:34)
[2021-02-03] MEDS: Lactated Ringers 1,000 ML 100 ML IVCONT ×2 (10:34→19:56)
[2021-02-03] MEDS: amLODIPine Besylate 10 MG TABLET PO (10:34)
--- NOTE | 2021-02-03 15:00 | CONS_ITS ---
DATE OF SERVICE: 02/03/2021 REASON FOR CONSULTATION: I was asked to see the patient to assist in evaluation and management of the patient's acute kidney injury as reflected by a serum creatinine of 4.4 today, on admission yesterday was 5.17. His baseline creatinine back in May 2018 was 1.0. HISTORY OF PRESENT ILLNESS: In summary, the patient is a 75-year-old gentleman with a history of BPH, severe thrombocytopenia, for which he sees Dr. Karimi at [facility] and says it has been ongoing for over 10 years and probably much longer, not requiring any specific treatment other than occasional platelet transfusions when he has bleeding problems, history of hypertension, who presented to the hospital with several days of feeling unwell, decreased urine output and urinary incontinence. He does see Dr. Garcia for his urologic issues and on admission was noted to have significant obstructive uropathy with acute kidney injury and bilateral hydro, and a Baker was placed. He was given some platelets because he had gross hematuria. He is overall feeling a bit better today. He denies any chest pain, shortness of breath, fever, sweats, or chills. PAST MEDICAL HISTORY: As mentioned, includes BPH with history of urinary retention along with hypertension and thrombocytopenia, which he attributes to exposure to Agent [place]. MEDICATIONS: His medications on admission are listed as including labetalol. His home medications apparently include mirabegron, this is only home medication. Current medications are noted in the MAR and include, he is getting some LR infusion along with Flomax and Proscar and amlodipine 10 mg once a day. ALLERGIES: HE HAS NO KNOWN DRUG ALLERGIES. SOCIAL HISTORY: He is a nonsmoker, nondrinker. No illicit drug use. Denies taking NSAIDs. PHYSICAL EXAMINATION: VITAL SIGNS: Blood pressure 150/70 with a heart rate in the 90s. HEENT: Head is atraumatic and normocephalic. NECK: Supple. Mucous membranes are moist. LUNGS: Clear. CARDIAC: Regular rate and rhythm without rub. ABDOMEN: Soft, nontender. Good bowel sounds. No CVA tenderness. EXTREMITIES: Show no edema. LABORATORY DATA: Show sodium 142, potassium 4.4, chloride 112, bicarb 22, BUN 61, creatinine 4.4 that is from today and as mentioned, it was 5.17 on admission yesterday, and his creatinine back in May 2018 was 1.0. His calcium today was 7.9, albumin 4.5. Hemoglobin 9.7, hematocrit 28, white blood cell count 15, platelet count 22,000, was as low as 12,000 yesterday before transfusion. He had a CAT scan of the abdomen and pelvis, which showed severe bilateral hydronephrosis with dilatation of the ureters and marked dilatation of bladder with an abnormality in the right part of the bladders and they recommended getting cystoscopy at some point. IMPRESSION: A 75-year-old with acute kidney injury due to bladder outlet obstruction with bilateral obstructive uropathy and gradual renal improvement with Baker catheter in place. 1. Acute kidney injury. This is due to obstructive uropathy and now Baker in place and good urine output. We would anticipate continued renal improvement. 1. Risk of hypovolemia from postobstructive diuresis. Need to monitor his urine output to make sure he does not become intravascularly volume depleted. At this point, we would continue which is maintenance IV fluids and not replace his ongoing urine output as this can perpetuate the polyuric postobstructive state. 2. Thrombocytopenia. 3. Anemia. We will monitor his hemoglobin. SUGGESTIONS: At this time include continue on LR. Monitor his electrolytes and renal function. Avoid nephrotoxins. We will see over what time course his renal function improves. Often it can be very rapid, other times it could be more delayed. Urology is on the case in terms of further interventions, for now he has a Baker. MD [facility]/WILL / [id number]
--- NOTE | 2021-02-03 15:04 | MHC.CM.PN ---
PER PHYSICIAN ROUNDS, PLAN IS FOR PATIENT TO REMAIN ONE MORE DAY AND DC HOME Monday02/04/21
[2021-02-03] MEDS: Calcium Carbonate 750 MG TAB.CHEW PO (17:54)
[2021-02-03] MEDS: Tamsulosin HCL 0.4 MG CAPSULE 0.8 MG PO (19:56)
[2021-02-04] MEDS: Lactated Ringers 1,000 ML 100 ML IVCONT ×2 (03:09→15:54)
[2021-02-04 03:36] VITALS: BP 103/48; PULSE 75; RESP 14; TEMP 36.4; O2SAT 97
[2021-02-04 05:54] LABS: Mean Corpuscular HGB Conc 33.7 g/dl (31.0-36.0); PLT ABN DIST 1
[2021-02-04 05:56] LABS: Hematocrit 28.5 % (42-52); Hemoglobin 9.6 g/dl (14.0-18.0); Mean Corpuscular Hemoglobin 28.5 pg (27.0-33.0); Mean Corpuscular Volume 84.6 fL (80-98); Red Blood Count 3.37 X10*6/uL (4.60-5.80); Red Cell Distribution Width 13.4 % (11.0-16.0); White Blood Count 10.7 X10*3/uL (4.8-10.8)
[2021-02-04 06:28] LABS: Anion Gap 13 (12-20); Blood Urea Nitrogen 51 mg/dL (9-16); Calcium 8.4 mg/dL (8.4-10.2); Carbon Dioxide 22 mmol/L (22-29); Chloride 110 mmol/L (96-108); Creatinine Clr Calc Pharmacy 15.1; Estimated Glomerular Filt Rate 14; Glucose Fasting 101 mg/dL (60-99); Potassium 4.4 mmol/L (3.3-5.1); Sodium 141 mmol/L (135-145)
[2021-02-04 06:34] LABS: Platelet Count 14 X10*3/uL (160-400)
--- NOTE | 2021-02-04 06:39 | MHC.PIE ---
p; critical lab; cr 4.08, plt 14. i dr zapata notified e; will cont to monitor
[2021-02-04 07:56] VITALS: BP 145/67; PULSE 83; RESP 16; TEMP 36.3; O2SAT 98
--- NOTE | 2021-02-04 09:29 | HO.PM.IMPN ---
Subjective Subjective Date of Service: 02/04/21 Interval History: cc: htn interval history: continues to have punch colored hematuria, overall weak Cardiovascular Cardiovascular: Reports no additional cardiovascular complaints Respiratory Respiratory: Reports no additional respiratory complaints Physical Exam Vital Signs: Vital Signs: Last Vital Signs Temp 97.3 F 02/04/21 07:56 Pulse 83 02/04/21 07:56 Resp 16 02/04/21 07:56 BP 145/67 H 02/04/21 07:56 Pulse Ox 98 02/04/21 07:56 Body Mass Index 25.0 General: AO X 3, no acute distress, weak appearing Resp:? CTA bilateral, no accessory muscles used CVS: S1,S2,RRR GI: soft, non tender, non distended : rosario in place, fruit punch colored urine Neuro:? motor grossly intact, alert Psych: appropriate affect, appropriate insight? Objective Data Active Medications Acetaminophen (Acetaminophen 325 Mg Tablet) 650 mg PO Q6H PRN PRN Reason: Pain, Mild (Pain Scale 1-3) Last Admin: 02/03/21 23:46 Dose: 650 mg Documented by: JUNIOR Amlodipine Besylate (Amlodipine Besylate 10 Mg Tablet) 10 mg PO DAILY [facility]; Protocol Last Admin: 02/03/21 10:34 Dose: 10 mg Documented by: MG Finasteride (Finasteride 5 Mg Tablet) 5 mg PO DAILY [facility] Last Admin: 02/03/21 10:34 Dose: 5 mg Documented by: MG Lactated Ringer's (Lr) 1,000 mls @ 100 mls/hr IVCONT .Q10H [facility] Last Admin: 02/04/21 03:09 Dose: 100 mls/hr Documented by: JUNIOR Melatonin (Melatonin 3 Mg Tablet) 6 mg PO BEDTIME PRN PRN Reason: Insomnia Multivitamins/Vitamin C (Multivitamin Tablet) 1 tab PO DAILY [facility] Last Admin: 02/03/21 08:42 Dose: 1 tab Documented by: JESUS Oxycodone HCl (Oxycodone Hcl Immed Release 5 Mg Tablet) 5 mg PO Q6H PRN PRN Reason: Pain, Severe (Pain Scale 7-10) Pharmacy Consult (Consult Rx Perform Med Rec) 1 each MISCELLANE ONCE PRN PRN Reason: Consult order Senna (Sennosides 8.6 Mg Tablet) 17.2 mg PO BEDTIME PRN PRN Reason: Constipation Simethicone (Simethicone 80 Mg Tab.Chew) 80 mg PO QIDWMHS PRN PRN Reason: Gas Sodium Chloride (0.9 % Sodium Chloride Flush 3 Ml Syringe) 3 ml IVFLUSH QSHIFT [facility] Last Admin: 02/03/21 19:59 Dose: Not Given Documented by: JUNIOR Non-Admin Reason: IV Running Tamsulosin HCl (Tamsulosin Hcl 0.4 Mg Capsule) 0.8 mg PO BEDTIME [facility] Last Admin: 02/03/21 19:56 Dose: 0.8 mg Documented by: JUNIOR Labs CBC & Chem 7: 02/04/21 05:16 02/04/21 05:16 Labs: Laboratory Results - last 24 hr 02/02/21 02/04/21 02/04/21 16:16 05:16 05:16 MCV 84.6 MCH 28.5 MCHC 33.7 RDW 13.4 Plt Count 14 L* MPV Not Reportable Absolute Nucleated RBC 0.000 Nucleated RBC % (auto) 0.0 Smear Path Review SEE NOTE Anion Gap 13 Estim Creat Clear Calc 15.1 Estimated GFR 14 Fasting Glucose 101 H Calcium 8.4 D Assessment and Plan (1) Obstructed, uropathy: Status: Acute (2) JESSICA (acute kidney injury): Status: Acute (3) Thrombocytopenia: Status: Acute Assessment and Plan: 75M presented with headache and htn, found to have severe obstructive uropathy severe JESSICA due to obstructive uropathy from bph continue rosario monitor bmp -iproving slowly, is and os, nephro IV fluids added proscar, stopped mirabegron hematuria recurred, monitor cbc, no significant blood loss voiding trial when creatinine normalized hypertension started amlodipine 10mg improved chronic thrombocytopenia s/p platelets back down to 14, would hold off on transfusion unless significant bleeding or procedure planned as patient appears to quickly consume platelets dvt prophylaxis - mechanical due to thrombocytopenia Quality Stroke Does the patient have a stroke diagnosis?: No VTE Prior VTE?: No VTE Risk Level:: Medical - moderate - high VTE Device Contraindication: N/A - Device Ordered VTE Drug Contraindication: Treatment Not Tolerated
[2021-02-04] MEDS: Multivitamin TABLET 1 TAB PO (09:31)
[2021-02-04] MEDS: Finasteride 5 MG TABLET PO (09:31)
[2021-02-04] MEDS: amLODIPine Besylate 10 MG TABLET PO (09:31)
[2021-02-04 11:50] VITALS: BP 141/69; PULSE 86; RESP 16; TEMP 37.1; O2SAT 97
--- NOTE | 2021-02-04 12:40 | PM.PNNEP ---
Subjective Subjective Date of Service: 02/04/21 Principal diagnosis: jessica Interval history: Seen and examined, events noted Physical Exam Vital Signs: Vital Signs: Last Vital Signs Temp 98.7 F 02/04/21 11:50 Pulse 86 02/04/21 11:50 Resp 16 02/04/21 11:50 BP 141/69 H 02/04/21 11:50 Pulse Ox 97 02/04/21 11:50 Body Mass Index 25.0 Const: General: cooperative, healthy appearing, comfortable and no acute distress Orientation/consciousness: patient oriented x3 HENMT: Face and sinus: Yes normal facial exam Mouth: moist mucous membranes Neck: Neck: Yes normal visual inspection, Yes full ROM and Yes trachea midline Chest: Chest palpation & inspection: normal inspection of the chest Resp: Effort & Inspection: normal respiratory effort, able to speak in complete sentences and no respiratory distress GI: Inspection: Yes normal to inspection Back/Spine/Pelvis: Cervical Spine: normal cervical lordosis Thoracic/Lumbar Spine: thoracic and lumbar spine normal to inspection Skin: General skin exam: no rashes or lesions noted Neuro: General: patient oriented x3, gait normal, tone normal and moves all extremities Extrem: General: Yes normal to inspection and Yes capillary refill normal Objective Data Labs CBC & Chem 7: 02/04/21 05:16 02/04/21 05:16 Labs: Laboratory Results - last 24 hr 02/04/21 02/04/21 05:16 05:16 WBC 10.7 RBC 3.37 L Hgb 9.6 L Hct 28.5 L MCV 84.6 MCH 28.5 MCHC 33.7 RDW 13.4 Plt Count 14 L* MPV Not Reportable Absolute Nucleated RBC 0.000 Nucleated RBC % (auto) 0.0 Sodium 141 Potassium 4.4 Chloride 110 H Carbon Dioxide 22 Anion Gap 13 BUN 51 H Creatinine 4.08 H* Estim Creat Clear Calc 15.1 Estimated GFR 14 Fasting Glucose 101 H Calcium 8.4 D Procedures Date of Service Date of Service: 02/04/21 Assessment & Plan Assessment and plan (1) Obstructed, uropathy: Start date: 02/04/21 Start time: 12:41 Status: Acute (2) JESSICA (acute kidney injury): Start date: 02/04/21 Start time: 12:41 Status: Acute Assessment and Plan: 1. JESSICA d/t WATERMAN with derick hydroureternephrosis and now s/p foly and grad renal func improvement---may take several days ovr even longer to get to SCr nuria; unlikely any superimposed contributor as does NOT seem hypovolemic 2. CKD ?: only prior SCr is from 2019 of 1.0 ---SO, its possible he has develop some degree of CKD over the past 2 yrs prior to this adm where SCr was 5 3. Hematuria: d/t low PLTS and BPH 4.Thrombocytopenia: longstandingprob ( see Brodyt and has not beengetting any specific Tx so presunmably TTPandaHUS have been r/o. REC: cont to track uop and renal func; heme consult to r/o TMA (aHUS, TTP) etc (3) Thrombocytopenia: Start date: 02/04/21 Start time: 12:49 Status: Acute Assessment and Plan: a Time Spent With Patient Time: Total time spent is greater than 50% in coordination of care (as documented) at patient's floor/unit and/or counseling patient: Progress Note: Quality Stroke Does the patient have a stroke diagnosis?: No
[2021-02-04 14:26] LABS: Lactate Dehydrogenase 157 U/L (118-273)
--- NOTE | 2021-02-04 15:07 | P.CNHO_ITS ---
Subjective - Subjective Chief complaint: Consult for: Thrombocytopenia. Patient: new to practice Consult date: 02/04/21 Requesting Physician: Wesley. Primary Care Provider: BRADLEY Smart Medical Summary: DIAGNOSIS: THROMBOCYTOPENIA. HPI - Consult Narrative Reason for consult: Consult for: Thrombocytopenia. Narrative: Grabiel Bianchi is a pleasant 75 year old gentleman, presented to the hospital with a chief complaint elevated blood pressure. Patient reports that the morning of admission, he went to his PCP where he was noted have elevated blood. Subsequently sent to the ER for further evaluation He reported episodic headaches. Denies any associated blurry visions. Denies any numbness tingling or focal weakness. Neurologic exam was nonfocal. Serial CBC: 02/02: 19/04/22. Labs also noted to have severe JESSICA with a creatinine of 5.7, compared to baseline of 1.0. He had a CT head that showed no acute findings. CAT scan of abdomen: Showed severe hydronephrosis urinary bladder distension; ER team discussed with Dr. palencia Urology who suggested to place the Baker in. ER team placed a Baker successfully and patient drained about 1800-2000ml urine. Admitted to the hospital for further management. Mentions that he has a history severe thrombocytopenia many years, admitted to having been exposed to Agent orange in the past. His platelet level usually runs around 5-15. 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 Review of all other systems: Denies any fever chills cough. Denies any nausea vomiting diarrhea. Denies any frequency urgency or burning. He had a Baker in place and drained about 1800 cc of urine. Past medical history: BPH, Severe thrombocytopenia-attributes to agent orange exposure, Hypertension. Patient reports that he has problems with his prostate and follows with Dr. palencia as outpatient; mentions that he is still able to pee but has pressure sensation in his abdomen; Review of Systems - Constitutional Reports system reviewed and no additional complaints, except as documented, Reports lack of energy, Reports malaise - Eyes Reports system reviewed and no additional complaints, except as documented - ENT Reports system reviewed and no additional complaints, except as documented - Cardiovascular Reports system reviewed and no additional complaints, except as documented - Respiratory Reports no additional respiratory complaints - Gastrointestinal Reports system reviewed and no additional complaints, except as documented - Genitourinary Genitourinary: Reports no additional male genitourinary complaints - Musculoskeletal Reports system reviewed and no additional complaints, except as documented - Integumentary/Breasts Skin/Breast: Reports no additional skin complaints - Neurologic Denies syncope - Psychiatric Reports system reviewed and no additional complaints, except as documented - Endocrine Reports no additional endocrine complaints - Hematologic/Lymphatic Reports system reviewed and no additional complaints, except as documented - Allergic/Immunologic Reports system reviewed and no additional complaints, except as documented Oncology Screenings - ECOG Performance Status ECOG Performance Status: 1 [facility] Medical History: Medical History (Last Reviewed 02/02/21 @ 16:07 by Kae Heart MD) Benign prostatic hyperplasia with urinary retention Functional capacity: uses cane/walker Patient : No Surgical History: Surgical History (Last Updated 08/11/20 @ 12:02 by Hannah Shrestha [facility]) No pertinent past surgical history Social History: Social History (Last Reviewed 02/02/21 @ 16:07 by Kae Heart MD) Living Situation History: Household Members: None Alcohol History Details: Alcohol intake frequency: holiday/special occasion Tobacco History: Patient Tobacco Use Status: Never used Tobacco 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 Home Medications and Allergies Current Medications: Current Medications Acetaminophen (Acetaminophen 325 Mg Tablet) 650 mg PO Q6H PRN PRN Reason: Pain, Mild (Pain Scale 1-3) Last Admin: 02/03/21 23:46 Dose: 650 mg Documented by: Amlodipine Besylate (Amlodipine Besylate 10 Mg Tablet) 10 mg PO DAILY [facility]; Protocol Last Admin: 02/04/21 09:31 Dose: 10 mg Documented by: Finasteride (Finasteride 5 Mg Tablet) 5 mg PO DAILY [facility] Last Admin: 02/04/21 09:31 Dose: 5 mg Documented by: Lactated Ringer's (Lr) 1,000 mls @ 100 mls/hr IVCONT .Q10H [facility] Last Admin: 02/04/21 15:06 Dose: Not Given Documented by: Melatonin (Melatonin 3 Mg Tablet) 6 mg PO BEDTIME PRN PRN Reason: Insomnia Multivitamins/Vitamin C (Multivitamin Tablet) 1 tab PO DAILY [facility] Last Admin: 02/04/21 09:31 Dose: 1 tab Documented by: Oxycodone HCl (Oxycodone Hcl Immed Release 5 Mg Tablet) 5 mg PO Q6H PRN PRN Reason: Pain, Severe (Pain Scale 7-10) Pharmacy Consult (Consult Rx Perform Med Rec) 1 each MISCELLANE ONCE PRN PRN Reason: Consult order Senna (Sennosides 8.6 Mg Tablet) 17.2 mg PO BEDTIME PRN PRN Reason: Constipation Simethicone (Simethicone 80 Mg Tab.Chew) 80 mg PO QIDWMHS PRN PRN Reason: Gas Sodium Chloride (0.9 % Sodium Chloride Flush 3 Ml Syringe) 3 ml IVFLUSH QSHIFT [facility] Last Admin: 02/04/21 15:06 Dose: Not Given Documented by: Tamsulosin HCl (Tamsulosin Hcl 0.4 Mg Capsule) 0.8 mg PO BEDTIME [facility] Last Admin: 02/03/21 19:56 Dose: 0.8 mg Documented by: Home Medications Medication Instructions Recorded Confirmed Type Lactobacillus acidophilus 1 cap PO DAILY 02/02/21 02/02/21 History beta carotene 25,000 unit capsule 25,000 unit PO DAILY 02/02/21 02/02/21 History glucosamine sulf dipot 1 cap PO DAILY 02/02/21 02/02/21 History chlr,msm,chond 550 mg-C 30 mg-marshal 1 mg capsule (Glucosamine Chondroitin) multivitamin 1 tab PO DAILY 02/02/21 02/02/21 History phytonadione (vitamin K1) 100 mcg 100 mcg PO DAILY 02/02/21 02/02/21 History tablet Allergies Allergy/AdvReac Type Severity Reaction Status Date / Time No Known Allergies Allergy Verified 02/02/21 14:44 [No Known Allergies*] Physical Exam Vital signs: Vital Signs Temp 98.7 F 02/04/21 11:50 Pulse 86 02/04/21 11:50 Resp 16 02/04/21 11:50 BP 141/69 H 02/04/21 11:50 Pulse Ox 97 02/04/21 11:50 Intake & Output 02/03/21 02/04/21 02/04/21 18:59 06:59 18:59 Intake Total 2454 / 4592.334 2138.334 / 4592.334 720 / 720 Output Total 1800 / 3650 1850 / 3650 1800 / 1800 Balance 654 / 942.334 288.334 / 942.334 -1080 / -1080 Urine Output (Average ml/kg/hr) 2.00 2.06 2.00 Intake: Intake, Oral Amount 360 / 840 480 / 840 720 / 720 Intake (Blood Product) Amount 214 / 214 Aph Plts Pas Lvds ([id number]) Unit 214 / 214 [id number] Intake, IV Amount 1880 / 3538.334 1658.334 / 3538.334 Sodium Bicarbonate 8.4% 100 meq 1000 / 1000 In Dextrose 5 % 900 ml @ 100 mls/hr IV .Q10H [facility] Rx#: [id number] Dextrose 5 % and 0.45 % NaCl 1, 880 / 880 000 ml @ 75 mls/hr IVCONT . [id number] [facility] Rx#:[id number] Lactated Ringers 1,000 ml @ 100 1658.334 / 1658.334 mls/hr IVCONT .Q10H [facility] Rx#: [id number] Output: Output, Urine Amount 150 / 150 Output, Urine Amount (Catheter) 1800 / 3500 1700 / 3500 1800 / 1800 Urethral 1800 / 3500 1700 / 3500 1800 / 1800 Other: Meal Refused No NPO No Breakfast % Eaten 75% 100% Lunch % Eaten 50% 100% Dinner % Eaten 100% Urine Urinal Urine Color Red Tinged Yellow Punch Weight 74.843 kg - Constitutional Present: mild distress - Routine HEENT Exam Head: Present: normal inspection, normocephalic Eye: Present: normal appearance ENT: Present: mucous membranes moist - Routine Neck Exam Present: supple. Absent: lymphadenopathy - Routine Respiratory Exam Present: CTAB - Routine Cardiovascular Exam Cardiovascular: Present: RRR, S1, S2 - Routine Abdominal Exam Present: nontender - Routine Extremities Exam Present: nontender - Routine Neurological Exam Present: alert, oriented X3 - Detailed Neurological Exam: Coma Scale Eye Opening: Spontaneous (4) Verbal Response: Oriented (5) - Routine Psychiatric Exam Present: normal mood Hem/Onc Consult Result - Labs CBC & Chem 7: 02/08/21 05:26 02/08/21 05:26 Labs: Short CBC 02/04/21 Range/Units 05:16 WBC 10.7 (4.8-10.8) X10*3/uL Hgb 9.6 L (14.0-18.0) g/dl Hct 28.5 L (42-52) % Plt Count 14 L* (160-400) X10*3/uL BMP 02/04/21 05:16 Sodium 141 Potassium 4.4 Chloride 110 H Carbon Dioxide 22 BUN 51 H Creatinine 4.08 H* Calcium 8.4 D Assessment and Plan Patient Active problem list reviewed?: Yes (1) Thrombocytopenia Start date: 02/04/21 Status: Acute Assessment and plan: 75-year-old gentleman with a history of chronic Thrombocytopenia. Allegedly related to agent orange exposure. He does not have any obvious bruising nor bleeding problems. He did have some hematuria but that was related to the Baker insertion. He was given platelet transfusion however the platelets went up transiently and then came down to the baseline, 10-20 again. It has been quite Longstanding. It appears that he has had such a low platelet count chronically. Without it being of clinical significance. He has been following with Dr. Karimi and has not been getting any specific Tx. So presumably, any serious underlying cause like TTP and HUS have been ruled out. PLAN: I will get records from [facility] hematology. He will continue to be monitored. He will follow-up with Dr. Thais randolph as an outpatient. Thank you for the consult, Will follow along with you. CC: - Time Spent With Patient Time Spent with Patient (in minutes): 30
[2021-02-04 15:16] VITALS: BP 110/58; PULSE 93; RESP 18; TEMP 37; O2SAT 97
[2021-02-04 19:41] VITALS: BP 152/72; PULSE 93; RESP 18; TEMP 36.8; O2SAT 98
[2021-02-04] MEDS: Tamsulosin HCL 0.4 MG CAPSULE 0.8 MG PO (22:53)
[2021-02-04 23:53] VITALS: BP 123/61; PULSE 83; RESP 16; TEMP 36.7; O2SAT 98
[2021-02-05] MEDS: Lactated Ringers 1,000 ML 100 ML IVCONT ×2 (01:42→16:07)
[2021-02-05 04:00] VITALS: BP 124/58; PULSE 77; RESP 16; TEMP 37.2; O2SAT 98
[2021-02-05 06:13] LABS: Red Cell Distribution Width 13.2 % (11.0-16.0)
[2021-02-05 06:15] LABS: Hematocrit 31.6 % (42-52); Mean Corpuscular HGB Conc 34.8 g/dl (31.0-36.0); Mean Corpuscular Hemoglobin 29.3 pg (27.0-33.0); Red Blood Count 3.76 X10*6/uL (4.60-5.80); White Blood Count 11.8 X10*3/uL (4.8-10.8)
[2021-02-05 06:36] LABS: PLT ABN DIST 1
[2021-02-05 06:40] LABS: Platelet Count 15 X10*3/uL (160-400)
[2021-02-05 06:55] LABS: Anion Gap 13 (12-20); Blood Urea Nitrogen 44 mg/dL (9-16); Calcium 8.7 mg/dL (8.4-10.2); Carbon Dioxide 24 mmol/L (22-29); Chloride 108 mmol/L (96-108); Creatinine Clr Calc Pharmacy 16.3; Estimated Glomerular Filt Rate 16; Glucose Fasting 94 mg/dL (60-99); Potassium 4.7 mmol/L (3.3-5.1); Sodium 140 mmol/L (135-145)
[2021-02-05 07:44] VITALS: BP 156/77; PULSE 82; RESP 16; TEMP 36.4; O2SAT 99
[2021-02-05 08:28] VITALS: BP 156/77; PULSE 82
[2021-02-05] MEDS: Multivitamin TABLET 1 TAB PO (08:28)
[2021-02-05] MEDS: Finasteride 5 MG TABLET PO (08:28)
[2021-02-05] MEDS: amLODIPine Besylate 10 MG TABLET PO (08:28)
--- NOTE | 2021-02-05 09:10 | HO.PM.IMPN ---
Subjective Subjective Date of Service: 02/05/21 Interval History: cc: htn no pain, no headache Cardiovascular Cardiovascular: Reports no additional cardiovascular complaints Respiratory Respiratory: Reports no additional respiratory complaints Physical Exam Vital Signs: Vital Signs: Last Vital Signs Temp 97.6 F 02/05/21 07:44 Pulse 82 02/05/21 08:28 Resp 16 02/05/21 07:44 BP 156/77 H 02/05/21 08:28 Pulse Ox 99 02/05/21 07:44 Body Mass Index 25.0 General: AO X 3, no acute distress, weak appearing Resp:? CTA bilateral, no accessory muscles used CVS: S1,S2,RRR GI: soft, non tender, non distended : rosario in place, hematuria more clear today Neuro:? motor grossly intact, alert Psych: appropriate affect, appropriate insight? Objective Data Active Medications Acetaminophen (Acetaminophen 325 Mg Tablet) 650 mg PO Q6H PRN PRN Reason: Pain, Mild (Pain Scale 1-3) Last Admin: 02/03/21 23:46 Dose: 650 mg Documented by: JUNIOR Amlodipine Besylate (Amlodipine Besylate 10 Mg Tablet) 10 mg PO DAILY [facility]; Protocol Last Admin: 02/05/21 08:28 Dose: 10 mg Documented by: MIKIE Finasteride (Finasteride 5 Mg Tablet) 5 mg PO DAILY [facility] Last Admin: 02/05/21 08:28 Dose: 5 mg Documented by: MIKIE Lactated Ringer's (Lr) 1,000 mls @ 100 mls/hr IVCONT .Q10H [facility] Last Admin: 02/05/21 01:42 Dose: 100 mls/hr Documented by: LEONARD Melatonin (Melatonin 3 Mg Tablet) 6 mg PO BEDTIME PRN PRN Reason: Insomnia Multivitamins/Vitamin C (Multivitamin Tablet) 1 tab PO DAILY [facility] Last Admin: 02/05/21 08:28 Dose: 1 tab Documented by: MIKIE Oxycodone HCl (Oxycodone Hcl Immed Release 5 Mg Tablet) 5 mg PO Q6H PRN PRN Reason: Pain, Severe (Pain Scale 7-10) Pharmacy Consult (Consult Rx Perform Med Rec) 1 each MISCELLANE ONCE PRN PRN Reason: Consult order Senna (Sennosides 8.6 Mg Tablet) 17.2 mg PO BEDTIME PRN PRN Reason: Constipation Simethicone (Simethicone 80 Mg Tab.Chew) 80 mg PO QIDWMHS PRN PRN Reason: Gas Sodium Chloride (0.9 % Sodium Chloride Flush 3 Ml Syringe) 3 ml IVFLUSH QSHIFT [facility] Last Admin: 02/05/21 08:22 Dose: Not Given Documented by: COTEMA Non-Admin Reason: IV Running Tamsulosin HCl (Tamsulosin Hcl 0.4 Mg Capsule) 0.8 mg PO BEDTIME [facility] Last Admin: 02/04/21 22:53 Dose: 0.8 mg Documented by: LEONARD Labs CBC & Chem 7: 02/05/21 05:42 02/05/21 05:42 Labs: Laboratory Results - last 24 hr 02/04/21 02/04/21 02/05/21 05:16 14:04 05:42 MCV 84.0 MCH 29.3 MCHC 34.8 RDW 13.2 Plt Count 15 L* MPV Not Reportable Absolute Nucleated RBC 0.000 Nucleated RBC % (auto) 0.0 Smear Path Review Cancelled Anion Gap Estim Creat Clear Calc Estimated GFR Fasting Glucose Calcium Lactate Dehydrogenase 157 02/05/21 05:42 MCV MCH MCHC RDW Plt Count MPV Absolute Nucleated RBC Nucleated RBC % (auto) Smear Path Review Anion Gap 13 Estim Creat Clear Calc 16.3 Estimated GFR 16 Fasting Glucose 94 Calcium 8.7 Lactate Dehydrogenase Assessment and Plan (1) Obstructed, uropathy: Status: Acute (2) JESSICA (acute kidney injury): Status: Acute (3) Thrombocytopenia: Status: Acute Assessment and Plan: 75M presented with headache and htn, found to have severe obstructive uropathy severe JESSICA due to obstructive uropathy from bph continue rosario monitor bmp -iproving slowly, is and os, nephro IV fluids added proscar, stopped mirabegron hematuria improved, monitor cbc, no significant blood loss voiding trial when creatinine normalized hypertension started amlodipine 10mg improved chronic thrombocytopenia s/p platelets stable around 10-20, would hold off on transfusion unless significant bleeding or procedure planned as patient appears to quickly consume platelets dvt prophylaxis - mechanical due to thrombocytopenia Quality Stroke Does the patient have a stroke diagnosis?: No VTE Prior VTE?: No VTE Risk Level:: Medical - moderate - high VTE Device Contraindication: N/A - Device Ordered VTE Drug Contraindication: Treatment Not Tolerated
--- NOTE | 2021-02-05 10:41 | PM.PNNEP ---
Subjective Subjective Date of Service: 02/05/21 Principal diagnosis: jessica Physical Exam Vital Signs: Vital Signs: Last Vital Signs Temp 97.6 F 02/05/21 07:44 Pulse 82 02/05/21 08:28 Resp 16 02/05/21 07:44 BP 156/77 H 02/05/21 08:28 Pulse Ox 99 02/05/21 07:44 Body Mass Index 25.0 Const: General: cooperative, healthy appearing, comfortable and no acute distress Orientation/consciousness: patient oriented x3 HENMT: Face and sinus: Yes normal facial exam Mouth: moist mucous membranes Neck: Neck: Yes normal visual inspection, Yes full ROM and Yes trachea midline Chest: Chest palpation & inspection: normal inspection of the chest Resp: Effort & Inspection: normal respiratory effort, able to speak in complete sentences and no respiratory distress GI: Inspection: Yes normal to inspection Back/Spine/Pelvis: Cervical Spine: normal cervical lordosis Thoracic/Lumbar Spine: thoracic and lumbar spine normal to inspection Skin: General skin exam: no rashes or lesions noted Neuro: General: patient oriented x3, gait normal, tone normal and moves all extremities Extrem: General: Yes normal to inspection and Yes capillary refill normal Objective Data Labs CBC & Chem 7: 02/05/21 05:42 02/05/21 05:42 Labs: Laboratory Results - last 24 hr 02/04/21 02/04/21 02/05/21 05:16 14:04 05:42 WBC 11.8 H RBC 3.76 L Hgb 11.0 L Hct 31.6 L MCV 84.0 MCH 29.3 MCHC 34.8 RDW 13.2 Plt Count 15 L* MPV Not Reportable Absolute Nucleated RBC 0.000 Nucleated RBC % (auto) 0.0 Smear Path Review Cancelled Sodium Potassium Chloride Carbon Dioxide Anion Gap BUN Creatinine Estim Creat Clear Calc Estimated GFR Fasting Glucose Calcium Lactate Dehydrogenase 157 02/05/21 05:42 WBC RBC Hgb Hct MCV MCH MCHC RDW Plt Count MPV Absolute Nucleated RBC Nucleated RBC % (auto) Smear Path Review Sodium 140 Potassium 4.7 Chloride 108 Carbon Dioxide 24 Anion Gap 13 BUN 44 H Creatinine 3.78 H Estim Creat Clear Calc 16.3 Estimated GFR 16 Fasting Glucose 94 Calcium 8.7 Lactate Dehydrogenase Assessment & Plan Assessment and plan (1) Obstructed, uropathy: Status: Acute (2) JESSICA (acute kidney injury): Status: Acute Assessment and Plan: 1. JESSICA d/t WATERMAN with derick hydroureternephrosis and now s/p foly and grad renal func improvement---may take several days ovr even longer to get to SCr nuria; unlikely any superimposed contributor as does NOT seem hypovolemic 2. CKD ?: only prior SCr is from 2019 of 1.0 ---SO, its possible he has develop some degree of CKD over the past 2 yrs prior to this adm where SCr was 5 3. Hematuria: d/t low PLTS and BPH 4.Thrombocytopenia: longstandingprob ( see Brodyt and has not beengetting any specific Tx so presunmably TTPandaHUS have been r/o. REC: cont to track uop and renal func; heme consult to r/o TMA (aHUS, TTP) etc (3) Thrombocytopenia: Status: Acute Assessment and Plan: a Time Spent With Patient Time: Total time spent is greater than 50% in coordination of care (as documented) at patient's floor/unit and/or counseling patient: Progress Note: Quality Stroke Does the patient have a stroke diagnosis?: No
--- NOTE | 2021-02-05 10:42 | PM.PNNEP ---
Subjective Subjective Date of Service: 02/05/21 Principal diagnosis: jessica Interval history: Seen and examined, events noted Physical Exam Vital Signs: Vital Signs: Last Vital Signs Temp 97.6 F 02/05/21 07:44 Pulse 82 02/05/21 08:28 Resp 16 02/05/21 07:44 BP 156/77 H 02/05/21 08:28 Pulse Ox 99 02/05/21 07:44 Body Mass Index 25.0 Const: General: cooperative, healthy appearing, comfortable and no acute distress Orientation/consciousness: patient oriented x3 HENMT: Face and sinus: Yes normal facial exam Mouth: moist mucous membranes Neck: Neck: Yes normal visual inspection, Yes full ROM and Yes trachea midline Chest: Chest palpation & inspection: normal inspection of the chest Resp: Effort & Inspection: normal respiratory effort, able to speak in complete sentences and no respiratory distress GI: Inspection: Yes normal to inspection Back/Spine/Pelvis: Cervical Spine: normal cervical lordosis Thoracic/Lumbar Spine: thoracic and lumbar spine normal to inspection Skin: General skin exam: no rashes or lesions noted Neuro: General: patient oriented x3, gait normal, tone normal and moves all extremities Extrem: General: Yes normal to inspection and Yes capillary refill normal Objective Data Labs CBC & Chem 7: 02/05/21 05:42 02/05/21 05:42 Labs: Laboratory Results - last 24 hr 02/04/21 02/04/21 02/05/21 05:16 14:04 05:42 WBC 11.8 H RBC 3.76 L Hgb 11.0 L Hct 31.6 L MCV 84.0 MCH 29.3 MCHC 34.8 RDW 13.2 Plt Count 15 L* MPV Not Reportable Absolute Nucleated RBC 0.000 Nucleated RBC % (auto) 0.0 Smear Path Review Cancelled Sodium Potassium Chloride Carbon Dioxide Anion Gap BUN Creatinine Estim Creat Clear Calc Estimated GFR Fasting Glucose Calcium Lactate Dehydrogenase 157 02/05/21 05:42 WBC RBC Hgb Hct MCV MCH MCHC RDW Plt Count MPV Absolute Nucleated RBC Nucleated RBC % (auto) Smear Path Review Sodium 140 Potassium 4.7 Chloride 108 Carbon Dioxide 24 Anion Gap 13 BUN 44 H Creatinine 3.78 H Estim Creat Clear Calc 16.3 Estimated GFR 16 Fasting Glucose 94 Calcium 8.7 Lactate Dehydrogenase Procedures Date of Service Date of Service: 02/05/21 Assessment & Plan Assessment and plan (1) Obstructed, uropathy: Start date: 02/05/21 Start time: 10:43 Status: Acute (2) JESSICA (acute kidney injury): Start date: 02/05/21 Start time: 10:43 Status: Acute Assessment and Plan: 1. JESSICA d/t WATERMAN with derick hydroureternephrosis and now s/p foly and grad renal func improvement---may take several days ovr even longer to get to SCr nuria; unlikely any superimposed contributor as does NOT seem hypovolemic 2. CKD ?: only prior SCr is from 2019 of 1.0 ---SO, its possible he has develop some degree of CKD over the past 2 yrs prior to this adm where SCr was 5 3. Hematuria: d/t low PLTS and BPH 4.Thrombocytopenia: longstandingprob ( see Brodyt and has not beengetting any specific Tx so presunmably TTPandaHUS have been r/o. Doubt DDAVP will help with bleeding given main issue is low PLT not dysfunctional ply assoc with uremia REC: cont to track uop and renal func; heme consult to r/o TMA (aHUS, TTP) (3) Thrombocytopenia: Status: Acute Assessment and Plan: a Time Spent With Patient Time: Total time spent is greater than 50% in coordination of care (as documented) at patient's floor/unit and/or counseling patient: Progress Note: Quality Stroke Does the patient have a stroke diagnosis?: No
--- NOTE | 2021-02-05 10:43 | PM.UROPN ---
Subjective Subjective Date of Service: 02/05/21 Interval history: Hematuria has resolved Discussion regarding large bladder Options are only intermittent catheterization versus catheter for a week Given situation with platelets we can trial a catheter with a catheter cap This will allow him to empty his bladder every 3-4 hrs in get sufficient bladder rest before a voiding trial in a week's time Physical Exam Vital Signs: Vital Signs: Last Vital Signs Temp 97.6 F 02/05/21 07:44 Pulse 82 02/05/21 08:28 Resp 16 02/05/21 07:44 BP 156/77 H 02/05/21 08:28 Pulse Ox 99 02/05/21 07:44 Body Mass Index 25.0 Const: General: cooperative, healthy appearing, comfortable and no acute distress Orientation/consciousness: patient oriented x3 HENMT: Face and sinus: Yes normal facial exam Mouth: moist mucous membranes Neck: Neck: Yes normal visual inspection, Yes full ROM and Yes trachea midline Chest: Chest palpation & inspection: normal inspection of the chest Resp: Effort & Inspection: normal respiratory effort, able to speak in complete sentences and no respiratory distress GI: Inspection: Yes normal to inspection Back/Spine/Pelvis: Cervical Spine: normal cervical lordosis Thoracic/Lumbar Spine: thoracic and lumbar spine normal to inspection Skin: General skin exam: no rashes or lesions noted Neuro: General: patient oriented x3, gait normal, tone normal and moves all extremities Extrem: General: Yes normal to inspection and Yes capillary refill normal Urology Results Labs CBC & Chem 7: 02/05/21 05:42 02/05/21 05:42 Labs: Laboratory Results - last 24 hr 02/04/21 02/04/21 02/05/21 05:16 14:04 05:42 WBC 11.8 H RBC 3.76 L Hgb 11.0 L Hct 31.6 L MCV 84.0 MCH 29.3 MCHC 34.8 RDW 13.2 Plt Count 15 L* MPV Not Reportable Absolute Nucleated RBC 0.000 Nucleated RBC % (auto) 0.0 Smear Path Review Cancelled Sodium Potassium Chloride Carbon Dioxide Anion Gap BUN Creatinine Estim Creat Clear Calc Estimated GFR Fasting Glucose Calcium Lactate Dehydrogenase 157 02/05/21 05:42 WBC RBC Hgb Hct MCV MCH MCHC RDW Plt Count MPV Absolute Nucleated RBC Nucleated RBC % (auto) Smear Path Review Sodium 140 Potassium 4.7 Chloride 108 Carbon Dioxide 24 Anion Gap 13 BUN 44 H Creatinine 3.78 H Estim Creat Clear Calc 16.3 Estimated GFR 16 Fasting Glucose 94 Calcium 8.7 Lactate Dehydrogenase Progress Note: A&P Assessment and plan (1) Obstructed, uropathy: Status: Acute (2) JESSICA (acute kidney injury): Status: Acute Assessment and Plan: Baker catheter cap Fall Risk Details Current Medications: Current Medications Acetaminophen (Acetaminophen 325 Mg Tablet) 650 mg PO Q6H PRN PRN Reason: Pain, Mild (Pain Scale 1-3) Last Admin: 02/03/21 23:46 Dose: 650 mg Documented by: Amlodipine Besylate (Amlodipine Besylate 10 Mg Tablet) 10 mg PO DAILY [facility]; Protocol Last Admin: 02/05/21 08:28 Dose: 10 mg Documented by: Finasteride (Finasteride 5 Mg Tablet) 5 mg PO DAILY [facility] Last Admin: 02/05/21 08:28 Dose: 5 mg Documented by: Lactated Ringer's (Lr) 1,000 mls @ 100 mls/hr IVCONT .Q10H [facility] Last Admin: 02/05/21 01:42 Dose: 100 mls/hr Documented by: Melatonin (Melatonin 3 Mg Tablet) 6 mg PO BEDTIME PRN PRN Reason: Insomnia Multivitamins/Vitamin C (Multivitamin Tablet) 1 tab PO DAILY [facility] Last Admin: 02/05/21 08:28 Dose: 1 tab Documented by: Oxycodone HCl (Oxycodone Hcl Immed Release 5 Mg Tablet) 5 mg PO Q6H PRN PRN Reason: Pain, Severe (Pain Scale 7-10) Pharmacy Consult (Consult Rx Perform Med Rec) 1 each MISCELLANE ONCE PRN PRN Reason: Consult order Senna (Sennosides 8.6 Mg Tablet) 17.2 mg PO BEDTIME PRN PRN Reason: Constipation Simethicone (Simethicone 80 Mg Tab.Chew) 80 mg PO QIDWMHS PRN PRN Reason: Gas Sodium Chloride (0.9 % Sodium Chloride Flush 3 Ml Syringe) 3 ml IVFLUSH QSHIFT [facility] Last Admin: 02/05/21 08:22 Dose: Not Given Documented by: Tamsulosin HCl (Tamsulosin Hcl 0.4 Mg Capsule) 0.8 mg PO BEDTIME [facility] Last Admin: 02/04/21 22:53 Dose: 0.8 mg Documented by: Time Spent With Patient Time: Total time spent is greater than 50% in coordination of care (as documented) at patient's floor/unit and/or counseling patient: Time with patient: less than 15 minutes Progress Note: Quality Stroke Does the patient have a stroke diagnosis?: No
[2021-02-05 11:16] LABS: Complement C3 76 mg/dL (82-185)
[2021-02-05 11:41] VITALS: BP 144/63; PULSE 88; RESP 17; TEMP 36.2; O2SAT 98
[2021-02-05 15:34] VITALS: BP 153/79; PULSE 93; RESP 19; TEMP 37.2; O2SAT 99
[2021-02-05 19:57] VITALS: BP 147/72; PULSE 89; RESP 19; TEMP 37.2; O2SAT 97
[2021-02-05] MEDS: Tamsulosin HCL 0.4 MG CAPSULE 0.8 MG PO (20:46)
[2021-02-06] VITALS: BP 139/66; PULSE 85; RESP 19; TEMP 36.5; O2SAT 98
[2021-02-06] MEDS: Lactated Ringers 1,000 ML 100 ML IVCONT ×3 (00:26→20:16)
[2021-02-06 04:00] VITALS: BP 114/57; PULSE 80; RESP 19; TEMP 36.5; O2SAT 97
[2021-02-06 06:08] LABS: PLT ABN DIST 1; Red Blood Count 4.01 X10*6/uL (4.60-5.80)
[2021-02-06 06:10] LABS: Hemoglobin 11.4 g/dl (14.0-18.0); Mean Corpuscular HGB Conc 33.5 g/dl (31.0-36.0); Mean Corpuscular Hemoglobin 28.4 pg (27.0-33.0); Mean Corpuscular Volume 84.8 fL (80-98); Mean Platelet Volume 15.4 fL (9.4-12.4); Red Cell Distribution Width 13.1 % (11.0-16.0); White Blood Count 11.6 X10*3/uL (4.8-10.8)
[2021-02-06 06:20] LABS: Platelet Count 14 X10*3/uL (160-400)
[2021-02-06 06:45] LABS: Anion Gap 16 (12-20); Blood Urea Nitrogen 46 mg/dL (9-16); Calcium 8.6 mg/dL (8.4-10.2); Carbon Dioxide 19 mmol/L (22-29); Chloride 108 mmol/L (96-108); Creatinine Clr Calc Pharmacy 18.2; Estimated Glomerular Filt Rate 18; Glucose Fasting 102 mg/dL (60-99); Potassium 4.4 mmol/L (3.3-5.1); Sodium 139 mmol/L (135-145)
[2021-02-06 07:08] VITALS: BP 134/71; PULSE 84; RESP 18; TEMP 36.7; O2SAT 99
--- NOTE | 2021-02-06 08:15 | HO.PM.IMPN ---
Subjective Subjective Date of Service: 02/06/21 Interval History: cc: htn, headache interval history: headache resolved Cardiovascular Cardiovascular: Reports no additional cardiovascular complaints Respiratory Respiratory: Reports no additional respiratory complaints Physical Exam Vital Signs: Vital Signs: Last Vital Signs Temp 98.1 F 02/06/21 07:08 Pulse 84 02/06/21 07:08 Resp 18 02/06/21 07:08 BP 134/71 02/06/21 07:08 Pulse Ox 99 02/06/21 07:08 Body Mass Index 25.0 General: AO X 3, no acute distress Resp:? CTA bilateral, no accessory muscles used CVS: S1,S2,RRR GI: soft, non tender, non distended : rosario in place, clamped, bag unattatched Neuro:? motor grossly intact, alert Psych: appropriate affect, appropriate insight? Objective Data Active Medications Acetaminophen (Acetaminophen 325 Mg Tablet) 650 mg PO Q6H PRN PRN Reason: Pain, Mild (Pain Scale 1-3) Last Admin: 02/03/21 23:46 Dose: 650 mg Documented by: JUNIOR Amlodipine Besylate (Amlodipine Besylate 10 Mg Tablet) 10 mg PO DAILY [facility]; Protocol Last Admin: 02/05/21 08:28 Dose: 10 mg Documented by: COTBLAS Finasteride (Finasteride 5 Mg Tablet) 5 mg PO DAILY [facility] Last Admin: 02/05/21 08:28 Dose: 5 mg Documented by: MIKIE Lactated Ringer's (Lr) 1,000 mls @ 100 mls/hr IVCONT .Q10H [facility] Last Admin: 02/06/21 00:26 Dose: 100 mls/hr Documented by: ODRISM Melatonin (Melatonin 3 Mg Tablet) 6 mg PO BEDTIME PRN PRN Reason: Insomnia Multivitamins/Vitamin C (Multivitamin Tablet) 1 tab PO DAILY [facility] Last Admin: 02/05/21 08:28 Dose: 1 tab Documented by: MIKIE Oxycodone HCl (Oxycodone Hcl Immed Release 5 Mg Tablet) 5 mg PO Q6H PRN PRN Reason: Pain, Severe (Pain Scale 7-10) Pharmacy Consult (Consult Rx Perform Med Rec) 1 each MISCELLANE ONCE PRN PRN Reason: Consult order Senna (Sennosides 8.6 Mg Tablet) 17.2 mg PO BEDTIME PRN PRN Reason: Constipation Simethicone (Simethicone 80 Mg Tab.Chew) 80 mg PO QIDWMHS PRN PRN Reason: Gas Sodium Chloride (0.9 % Sodium Chloride Flush 3 Ml Syringe) 3 ml IVFLUSH QSHIFT [facility] Last Admin: 02/06/21 00:02 Dose: Not Given Documented by: CARLA Non-Admin Reason: IV Running Tamsulosin HCl (Tamsulosin Hcl 0.4 Mg Capsule) 0.8 mg PO BEDTIME [facility] Last Admin: 02/05/21 20:46 Dose: 0.8 mg Documented by: CARLA Labs CBC & Chem 7: 02/06/21 05:11 02/06/21 05:11 Labs: Laboratory Results - last 24 hr 02/04/21 02/06/21 02/06/21 14:04 05:11 05:11 MCV 84.8 MCH 28.4 MCHC 33.5 RDW 13.1 Plt Count 14 L* MPV 15.4 H Absolute Nucleated RBC 0.000 Nucleated RBC % (auto) 0.0 Anion Gap 16 Estim Creat Clear Calc 18.2 Estimated GFR 18 Fasting Glucose 102 H Calcium 8.6 Complement C3 76 L Complement C4 26 Assessment and Plan (1) Obstructed, uropathy: Status: Acute (2) JESSICA (acute kidney injury): Status: Acute (3) Thrombocytopenia: Status: Acute Assessment and Plan: 75M presented with headache and htn, found to have severe obstructive uropathy severe JESSICA due to obstructive uropathy from bph continue rosario monitor bmp -improving slowly (creatinine 5.17 on admission, 3.39 today), is and os IV fluids added proscar, stopped mirabegron hematuria improved, monitor cbc, no significant blood loss following hypertension started amlodipine 10mg improved chronic thrombocytopenia s/p platelets stable around 10-20, would hold off on transfusion unless significant bleeding or procedure planned as patient appears to quickly consume platelets dvt prophylaxis - mechanical due to thrombocytopenia Quality Stroke Does the patient have a stroke diagnosis?: No VTE Prior VTE?: No VTE Risk Level:: Medical - moderate - high VTE Device Contraindication: N/A - Device Ordered VTE Drug Contraindication: Treatment Not Tolerated
[2021-02-06] MEDS: Multivitamin TABLET 1 TAB PO (08:52)
[2021-02-06] MEDS: Finasteride 5 MG TABLET PO (08:52)
[2021-02-06] MEDS: amLODIPine Besylate 10 MG TABLET PO (08:52)
--- NOTE | 2021-02-06 11:33 | PM.PNNEP ---
Subjective Subjective Date of Service: 02/07/21 Principal diagnosis: jessica Interval history: Events noted Physical Exam Vital Signs: Vital Signs: Last Vital Signs Temp 98.1 F 02/06/21 07:08 Pulse 84 02/06/21 07:08 Resp 18 02/06/21 07:08 BP 134/71 02/06/21 07:08 Pulse Ox 99 02/06/21 07:08 Body Mass Index 25.0 Const: General: comfortable and no acute distress Orientation/consciousness: patient oriented x3 HENMT: Face and sinus: Yes normal facial exam Mouth: moist mucous membranes Neck: Neck: Yes normal visual inspection and Yes full ROM Resp: Effort & Inspection: normal respiratory effort and no respiratory distress GI: Inspection: Yes normal to inspection Back/Spine/Pelvis: Cervical Spine: normal cervical lordosis Thoracic/Lumbar Spine: thoracic and lumbar spine normal to inspection Skin: General skin exam: no rashes or lesions noted Neuro: General: patient oriented x3, gait normal, tone normal and moves all extremities Extrem: General: Yes normal to inspection and Yes capillary refill normal Objective Data Labs CBC & Chem 7: 02/07/21 05:41 02/07/21 05:41 Labs: Laboratory Results - last 24 hr 02/06/21 02/06/21 05:11 05:11 WBC 11.6 H RBC 4.01 L Hgb 11.4 L Hct 34.0 L MCV 84.8 MCH 28.4 MCHC 33.5 RDW 13.1 Plt Count 14 L* MPV 15.4 H Absolute Nucleated RBC 0.000 Nucleated RBC % (auto) 0.0 Sodium 139 Potassium 4.4 Chloride 108 Carbon Dioxide 19 L Anion Gap 16 BUN 46 H Creatinine 3.39 H Estim Creat Clear Calc 18.2 Estimated GFR 18 Fasting Glucose 102 H Calcium 8.6 Procedures Date of Service Date of Service: 02/06/21 Assessment & Plan Assessment and plan (1) JESSICA (acute kidney injury): Status: Acute Assessment and Plan: 1. JESSICA d/t WATERMAN with derick hydroureternephrosis and now s/p rosario and grad renal func improvement---may take several days over even longer to get to SCr nuria; unlikely any superimposed contributor as does NOT seem hypovolemic 2. CKD ?: only prior SCr is from 2019 of 1.0 ---SO, its possible he has develop some degree of CKD over the past 2 yrs prior to this adm where SCr was 5 3. Hematuria: d/t low PLTS and BPH 4.Thrombocytopenia: longstanding prob ( see Trev and has not been getting any specific Tx so presunmably TTPandaHUS have been r/o. Doubt DDAVP will help with bleeding given main issue is low PLT not dysfunctional ply assoc with uremia REC: Cont to track uop and renal func; Keep I > O Concur with rest of the management Time Spent With Patient Time: Total time spent is greater than 50% in coordination of care (as documented) at patient's floor/unit and/or counseling patient: Time with patient: 15 - 24 minutes Progress Note: Quality Stroke Does the patient have a stroke diagnosis?: No
[2021-02-06 11:40] VITALS: BP 141/72; PULSE 112; RESP 18; TEMP 37; O2SAT 98
[2021-02-06 13:40] LABS: Haptoglobin 131 mg/dL (43-212)
[2021-02-06 16:00] VITALS: BP 135/61; PULSE 83; RESP 18; TEMP 37.1; O2SAT 98
[2021-02-06 19:45] VITALS: BP 141/65; PULSE 93; RESP 18; TEMP 36.9; O2SAT 97
[2021-02-06] MEDS: Tamsulosin HCL 0.4 MG CAPSULE 0.8 MG PO (20:43)
[2021-02-07] VITALS (7 sets, daily range): BP systolic 123–149; BP diastolic 59–68; PULSE 65–92; RESP 16–18; TEMP 36.3–37.2; O2SAT 97–99
[2021-02-07 05:59] LABS: Hemoglobin 9.9 g/dl (14.0-18.0)
[2021-02-07] MEDS: Lactated Ringers 1,000 ML 100 ML IVCONT ×2 (06:00→16:53)
[2021-02-07 06:01] LABS: Mean Corpuscular HGB Conc 34.1 g/dl (31.0-36.0); Mean Corpuscular Hemoglobin 28.9 pg (27.0-33.0); Mean Corpuscular Volume 84.5 fL (80-98); Red Blood Count 3.43 X10*6/uL (4.60-5.80); Red Cell Distribution Width 13.1 % (11.0-16.0); White Blood Count 9.9 X10*3/uL (4.8-10.8)
[2021-02-07 06:16] LABS: Anion Gap 12 (12-20); Blood Urea Nitrogen 47 mg/dL (9-16); Calcium 8.2 mg/dL (8.4-10.2); Carbon Dioxide 24 mmol/L (22-29); Chloride 110 mmol/L (96-108); Creatinine Clr Calc Pharmacy 19.1; Estimated Glomerular Filt Rate 19; Glucose Fasting 101 mg/dL (60-99); Potassium 4.6 mmol/L (3.3-5.1); Sodium 141 mmol/L (135-145)
[2021-02-07 06:21] LABS: PLT ABN DIST 1
[2021-02-07 06:22] LABS: Platelet Count 10 X10*3/uL (160-400)
--- NOTE | 2021-02-07 09:25 | P.PNIM_ITS ---
Subjective Subjective Date of Service: 02/07/21 Interval History: cc: headache no further headaches Cardiovascular Cardiovascular: Reports no additional cardiovascular complaints Respiratory Respiratory: Reports no additional respiratory complaints Physical Exam Vital Signs: Vital Signs: Last Vital Signs Temp 98.9 F 02/07/21 07:13 Pulse 90 02/07/21 07:13 Resp 18 02/07/21 07:13 BP 126/67 02/07/21 07:13 Pulse Ox 98 02/07/21 07:13 Body Mass Index 25.0 General: AO X 3, no acute distress Resp:? CTA bilateral, no accessory muscles used CVS: S1,S2,RRR GI: soft, non tender, non distended : rosario in place, clamped, bag unattatched Neuro:? motor grossly intact, alert Psych: appropriate affect, appropriate insight? Objective Data Active Medications Acetaminophen (Acetaminophen 325 Mg Tablet) 650 mg PO Q6H PRN PRN Reason: Pain, Mild (Pain Scale 1-3) Last Admin: 02/03/21 23:46 Dose: 650 mg Documented by: JUNIOR Amlodipine Besylate (Amlodipine Besylate 10 Mg Tablet) 10 mg PO DAILY [facility]; Protocol Last Admin: 02/06/21 08:52 Dose: 10 mg Documented by: JENNY Finasteride (Finasteride 5 Mg Tablet) 5 mg PO DAILY [facility] Last Admin: 02/06/21 08:52 Dose: 5 mg Documented by: JENNY Lactated Ringer's (Lr) 1,000 mls @ 100 mls/hr IVCONT .Q10H [facility] Last Admin: 02/07/21 06:00 Dose: 100 mls/hr Documented by: ODRISM Melatonin (Melatonin 3 Mg Tablet) 6 mg PO BEDTIME PRN PRN Reason: Insomnia Multivitamins/Vitamin C (Multivitamin Tablet) 1 tab PO DAILY [facility] Last Admin: 02/06/21 08:52 Dose: 1 tab Documented by: JENNY Oxycodone HCl (Oxycodone Hcl Immed Release 5 Mg Tablet) 5 mg PO Q6H PRN PRN Reason: Pain, Severe (Pain Scale 7-10) Pharmacy Consult (Consult Rx Perform Med Rec) 1 each MISCELLANE ONCE PRN PRN Reason: Consult order Senna (Sennosides 8.6 Mg Tablet) 17.2 mg PO BEDTIME PRN PRN Reason: Constipation Simethicone (Simethicone 80 Mg Tab.Chew) 80 mg PO QIDWMHS PRN PRN Reason: Gas Sodium Chloride (0.9 % Sodium Chloride Flush 3 Ml Syringe) 3 ml IVFLUSH QSHIFT [facility] Last Admin: 02/07/21 00:18 Dose: Not Given Documented by: CARLA Non-Admin Reason: IV Running Tamsulosin HCl (Tamsulosin Hcl 0.4 Mg Capsule) 0.8 mg PO BEDTIME [facility] Last Admin: 02/06/21 20:43 Dose: 0.8 mg Documented by: CARLA Labs CBC & Chem 7: 02/07/21 05:41 02/07/21 05:41 Labs: Laboratory Results - last 24 hr 02/04/21 02/07/21 02/07/21 14:04 05:41 05:41 MCV 84.5 MCH 28.9 MCHC 34.1 RDW 13.1 Plt Count 10 L* MPV Not Reportable Absolute Nucleated RBC 0.000 Nucleated RBC % (auto) 0.0 Haptoglobin 131 Anion Gap 12 Estim Creat Clear Calc 19.1 Estimated GFR 19 Fasting Glucose 101 H Calcium 8.2 L Assessment and Plan (1) Obstructed, uropathy: Status: Acute (2) JESSICA (acute kidney injury): Status: Acute (3) Thrombocytopenia: Status: Acute Assessment and Plan: 75M presented with headache and htn, found to have severe obstructive uropathy severe JESSICA due to obstructive uropathy from bph continue rosario monitor bmp -improving slowly (creatinine 5.17 on admission, 3.22 today), is and os IV fluids added proscar, stopped mirabegron hematuria improved, monitor cbc, no significant blood loss following hypertension started amlodipine 10mg improved chronic thrombocytopenia s/p platelets stable around 10-20, would hold off on transfusion unless significant bleeding or procedure planned as patient appears to quickly consume platelets dvt prophylaxis - mechanical due to thrombocytopenia Quality Stroke Does the patient have a stroke diagnosis?: No VTE Prior VTE?: No VTE Risk Level:: Medical - moderate - high VTE Device Contraindication: N/A - Device Ordered VTE Drug Contraindication: Treatment Not Tolerated
[2021-02-07] MEDS: amLODIPine Besylate 10 MG TABLET PO (09:36)
[2021-02-07] MEDS: Multivitamin TABLET 1 TAB PO (09:36)
[2021-02-07] MEDS: Finasteride 5 MG TABLET PO (09:36)
--- NOTE | 2021-02-07 11:35 | P.PNNP_ITS ---
Subjective Subjective Date of Service: 02/22/21 Principal diagnosis: jessica Interval history: cc: headache no further headaches Physical Exam Vital Signs: Vital Signs: Last Vital Signs Temp 98.9 F 02/07/21 07:13 Pulse 90 02/07/21 07:13 Resp 18 02/07/21 07:13 BP 126/67 02/07/21 07:13 Pulse Ox 98 02/07/21 07:13 Body Mass Index 25.0 Const: General: comfortable and no acute distress Orientation/consciousness: patient oriented x3 HENMT: Face and sinus: Yes normal facial exam Mouth: moist mucous membranes Neck: Neck: Yes normal visual inspection and Yes full ROM Resp: Effort & Inspection: normal respiratory effort and no respiratory d istress GI: Inspection: Yes normal to inspection Back/Spine/Pelvis: Cervical Spine: normal cervical lordosis Thoracic/Lumbar Spine: thoracic and lumbar spine normal to inspection Skin: General skin exam: no rashes or lesions noted Neuro: General: patient oriented x3, gait normal, tone normal and moves all extremities Extrem: General: Yes normal to inspection and Yes capillary refill normal Objective Data Labs CBC & Chem 7: 02/08/21 05:26 02/08/21 05:26 Labs: Laboratory Results - last 24 hr 02/04/21 02/07/21 02/07/21 14:04 05:41 05:41 WBC 9.9 RBC 3.43 L Hgb 9.9 L Hct 29.0 L MCV 84.5 MCH 28.9 MCHC 34.1 RDW 13.1 Plt Count 10 L* MPV Not Reportable Absolute Nucleated RBC 0.000 Nucleated RBC % (auto) 0.0 Haptoglobin 131 Sodium 141 Potassium 4.6 Chloride 110 H Carbon Dioxide 24 Anion Gap 12 BUN 47 H Creatinine 3.22 H Estim Creat Clear Calc 19.1 Estimated GFR 19 Fasting Glucose 101 H Calcium 8.2 L Procedures Date of Service Date of Service: 02/07/21 Assessment & Plan Assessment and plan (1) JESSICA (acute kidney injury): Status: Acute Assessment and Plan: 1. JESSICA d/t WATERMAN with derick hydroureternephrosis and now s/p rosario and grad renal func improvement---may take several days over even longer to get to SCr nuria; unlikely any superimposed contributor as does NOT seem hypovolemic 2. CKD ?: only prior SCr is from 2019 of 1.0 ---SO, its possible he has develop some degree of CKD over the past 2 yrs prior to this adm where SCr was 5 3. Hematuria: d/t low PLTS and BPH 4.Thrombocytopenia: longstanding prob ( see Brodyt and has not been getting any specific Tx so presunmably TTPandaHUS have been r/o. Renal fx is slowly improving REC: Cont to track uop and renal func; Keep I > O Concur with rest of the management Time Spent With Patient Time: Total time spent is greater than 50% in coordination of care (as documented) at patient's floor/unit and/or counseling patient: Time with patient: 15 - 24 minutes Progress Note: Quality Stroke Does the patient have a stroke diagnosis?: No
[2021-02-07] MEDS: Tamsulosin HCL 0.4 MG CAPSULE 0.8 MG PO (21:53)
[2021-02-08 00:05] VITALS: BP 118/69; PULSE 84; RESP 17; TEMP 37.1; O2SAT 98
[2021-02-08 05:47] LABS: Hemoglobin 10.1 g/dl (14.0-18.0); Red Cell Distribution Width 13.1 % (11.0-16.0)
[2021-02-08 05:49] LABS: Hematocrit 29.4 % (42-52); Mean Corpuscular HGB Conc 34.4 g/dl (31.0-36.0); Mean Corpuscular Hemoglobin 28.7 pg (27.0-33.0); Mean Corpuscular Volume 83.5 fL (80-98); Mean Platelet Volume 14.1 fL (9.4-12.4); Red Blood Count 3.52 X10*6/uL (4.60-5.80); White Blood Count 10.9 X10*3/uL (4.8-10.8)
[2021-02-08 05:57] LABS: PLT ABN DIST 1; Platelet Count 10 X10*3/uL (160-400)
[2021-02-08 06:15] LABS: Anion Gap 13 (12-20); Blood Urea Nitrogen 42 mg/dL (9-16); Calcium 8.4 mg/dL (8.4-10.2); Carbon Dioxide 24 mmol/L (22-29); Chloride 109 mmol/L (96-108); Creatinine Clr Calc Pharmacy 20.7; Estimated Glomerular Filt Rate 21; Glucose Fasting 96 mg/dL (60-99); Potassium 4.5 mmol/L (3.3-5.1); Sodium 141 mmol/L (135-145)
[2021-02-08] MEDS: 0.9 % Sodium Chloride Flush 3 ML SYRINGE IVFLUSH (07:50)
[2021-02-08] MEDS: Lactated Ringers 1,000 ML 100 ML IVCONT (07:50)
[2021-02-08 07:51] VITALS: BP 159/76; PULSE 92; RESP 18; TEMP 37.2; O2SAT 99
[2021-02-08 09:17] VITALS: BP 159/76; PULSE 93
[2021-02-08] MEDS: amLODIPine Besylate 10 MG TABLET PO (09:17)
[2021-02-08] MEDS: Multivitamin TABLET 1 TAB PO (09:18)
[2021-02-08] MEDS: Finasteride 5 MG TABLET PO (09:18)
[2021-02-08 11:38] VITALS: BP 130/60; PULSE 89; RESP 18; TEMP 37.3; O2SAT 98
--- NOTE | 2021-02-08 13:52 | W.MHC.F2F ---
Service Date Service Date: 02/08/21 Reasons for Services Reason for residential: teach disease management and GI/ assessment (flush with 30-60cc steril h2o for increased sediment/blockage, if comes out, contact urology - dr Garcia) Homebound: Leaving the home is medically contraindicated at this time without the asist of a device and/or another person due th the listed conditions above and below. Certification: Based on the above findings, I certify that this patient is confined to the home and needs intermittent residential care, physical therapy and/or speech therapy, or continues to need occupational therapy. The patient is under my care, and I have initiated the establishment of the plan of care. The patient will be followed by a physician who will periodically review the plan of care.
--- NOTE | 2021-02-08 13:53 | PM.DS ---
DS: Providers Provider Date of Service: 02/08/21 Date of admission: 02/02/21 20:12 Primary care physician: BRADLEY Smart Consults: 02/02/21 20:09 Consult to Hematology / Oncology Routine Consulting Provider: Stefan Sutton Reason for consultation: severe thrombocytopenia Consult to Urology Routine Consulting Provider: Jose Garcia Reason for consultation: Hydronephrosis; 02/02/21 20:11 Consult to Nephrology Stat Consulting Provider: Francisco Davis Reason for consultation: JESSICA DS: Diagnosis Discharge Diagnosis (1) JESSICA (acute kidney injury): Status: Acute DS: Summary Hospital Course Hospital Course: Patient was admitted for severe acute kidney injury due to obstructive uropathy. Creatinine at admission was 5.17, his baseline is unknown, his last creatinine in our system is from 2019 was 1. At discharge creatinine is 2.9. Baker was inserted, he was given IV fluids, Proscar was added, Mirabegron was discontinued. Patient did have some hematuria due to longstanding thrombocytopenia and Baker insertion. This cleared up without significant blood loss. He did receive some platelets, however, post decreased again and have remained stable around 10-20 which patient states is his baseline. He was seen by Urology, due to high risk of hematuria because of chronic thrombocytopenia decision was made to keep Baker catheter in with cap on and to drain every 3-4 hours. He will follow up with Urology this week for voiding trial. Patient was also noted to have uncontrolled hypertension was started on amlodipine 10 mg daily. Time Spent with Patient Time attestation: Total time spent providing and/or coordinating discharge services: Discharge coordination time: Greater than 30 minutes Quality: Stroke Does the patient have a stroke diagnosis?: No Physical Exam Vital Signs: Vital Signs: Last Vital Signs Temp 99.2 F 02/08/21 11:38 Pulse 89 02/08/21 11:38 Resp 18 02/08/21 11:38 BP 130/60 02/08/21 11:38 Pulse Ox 98 02/08/21 11:38 Body Mass Index 25.0 General: AO X 3, no acute distress Resp: CTA bilateral, no accessory muscles used CVS: S1,S2,RRR GI: soft, non tender, non distended Neuro: motor grossly intact, alert Psych: appropriate affect, appropriate insight DS: Data Data Completed and Pending Labs on day of discharge: Laboratory Results - last 24 hr 02/08/21 02/08/21 05:26 05:26 WBC 10.9 H RBC 3.52 L Hgb 10.1 L Hct 29.4 L MCV 83.5 MCH 28.7 MCHC 34.4 RDW 13.1 Plt Count 10 L* MPV 14.1 H Absolute Nucleated RBC 0.000 Nucleated RBC % (auto) 0.0 Sodium 141 Potassium 4.5 Chloride 109 H Carbon Dioxide 24 Anion Gap 13 BUN 42 H Creatinine 2.98 H Estim Creat Clear Calc 20.7 Estimated GFR 21 Fasting Glucose 96 Calcium 8.4 Discharge Plan Discharge Patient Disposition: Home Health Service Discharge Diagnosis: jessica Referrals: Jose Garcia MD [Physician] - 1 Week Francisco Davis MD [Physician] - 1 Week Enrique Arrington PA [Primary Care Provider] - 1 Week Discharge Medications: New amlodipine 10 mg Tablet 10 mg PO DAILY Qty: 30 RF: 0 finasteride [Proscar] 5 mg Tablet 5 mg PO DAILY Qty: 30 RF: 0 Continued multivitamin Tablet 1 tab PO DAILY RF: 0 beta carotene 25,000 unit Capsule 25,000 unit PO DAILY RF: 0 phytonadione (vitamin K1) 100 mcg Tablet 100 mcg PO DAILY RF: 0 Lactobacillus acidophilus Capsule 1 cap PO DAILY RF: 0 Glucosamine Chondroitin 550-30-1 mg Capsule 1 cap PO DAILY RF: 0 mirabegron 25 mg Tablet Extended Release 24 Hr 25 mg PO DAILY RF: 0 tamsulosin 0.4 mg capsule 0.8 mg PO BEDTIME Qty: 60 RF: 6 Discharge Orders: Discharge Order (Routine); Ordered 02/08/21 Ordered By: Saturnino Infante Diet: advance to usual diet Activity on Discharge: As tolerated Stand Alone Forms: Patient Portal Discharge page Other Ambulatory Orders: Basic Metabolic Panel Fasting (Routine) Timeframe: 1 Week Facility: [facility] - Location: Laboratory Ordered By: Saturnino Infante Care Plan Goals: manage jessica, obstruction Health Concerns: jessica, obstruction, htn Plan of Treatment: Started amlodipine 10 mg daily, keep Baker catheter with cap on, drain every 3-4 hours, follow-up with Urology this week for voiding trial, follow-up with Nephrology, check BMP Assessment: see above
--- NOTE | 2021-02-08 14:09 | MHC.CM.PN ---
PATIENT IS DISCHARGED HOME WITH [facility] FOR MENDOZA CARE. PATIENT IS AWARE THAT IF MENDOZA BECOMES DISLODGED, HE IS TO LEAVE IT OUT AND FOLLOW UP WITH UROLOGIST. VNA MADE AWARE WELL.
[2021-02-09 15:07] LABS: ADAMTS13 Activity 0.81 IU/mL (0.68-1.63)
== END 2021-02-08 14:40 | disposition home health service (06) | DRG 683 ==
LOC: HO.ED 20:44 → HO.EDOVER 20:54 → HO.S3 23:25
PROVIDERS: Internal Medicine Nephrology; Admitting Provider Hospitalist; Emergency Provider Emergency Medicine; PCP Physician Assistant; Visit Provider Internal Medicine
DX: N17.9 Acute kidney failure, unspecified (principal); N13.8 Other obstructive and reflux uropathy; E87.5 Hyperkalemia; D69.6 Thrombocytopenia, unspecified; R31.9 Hematuria, unspecified; N40.1 Benign prostatic hyperplasia with lower urinary tract symptoms; N18.9 Chronic kidney disease, unspecified; R33.8 Other retention of urine; R39.14 Feeling of incomplete bladder emptying; Z20.822 Contact with and (suspected) exposure to COVID-19; Z77.098 Contact with and (suspected) exposure to other hazardous, chiefly nonmedicinal, chemicals; Z79.899 Other long term (current) drug therapy; Z66 Do not resuscitate
CPT/HCPCS: 36415; 70450; 71045; 74176; 80048; 80076; 81003; 83010; 83615; 83690; 83880; 85025; 85027; 85335; 85397; 86160; 86850; 86900; 86901; 87635; 93005; 96360; 99285; P9035; P9073

== ENCOUNTER 2021-02-12 13:05 | Outpatient (REF) | payer OTHER, SELFPAY ==
[2021-02-12 13:49] LABS: Anion Gap 15 (12-20); Blood Urea Nitrogen 67 mg/dL (9-16); Calcium 8.7 mg/dL (8.4-10.2); Carbon Dioxide 20 mmol/L (22-29); Chloride 105 mmol/L (96-108); Estimated Glomerular Filt Rate 17; Glucose Random 156 mg/dL (60-115); Potassium 4.1 mmol/L (3.3-5.1); Sodium 136 mmol/L (135-145)
== END 2021-02-12 13:06 | disposition home or self-care (01) ==
LOC: HO.HVNA 13:05
PROVIDERS: Visit Provider Urology
DX: S37.009A Unspecified injury of unspecified kidney, initial encounter (principal)
CPT/HCPCS: 36415; 80048

== ENCOUNTER → 2021-02-16 08:43 | Outpatient (BNVA) | payer OTHER, SELFPAY | PROVIDERS: PCP Physician Assistant; Visit Provider Urology | DX: N40.1 Benign prostatic hyperplasia with lower urinary tract symptoms (principal); R33.8 Other retention of urine | CPT/HCPCS: 51700; 51798 ==

== ENCOUNTER → 2021-03-24 13:11 | Outpatient (BNVA) | payer OTHER, SELFPAY | PROVIDERS: PCP Physician Assistant; Visit Provider Urology ==

== ENCOUNTER → 2021-09-28 10:00 | Outpatient (BNVA) | payer OTHER, SELFPAY | PROVIDERS: PCP Physician Assistant; Visit Provider Urology | DX: N31.9 Neuromuscular dysfunction of bladder, unspecified (principal); N40.1 Benign prostatic hyperplasia with lower urinary tract symptoms; R33.8 Other retention of urine | CPT/HCPCS: 51798; 99212 ==

== ENCOUNTER 2022-02-16 14:26 | Emergency (ER) | payer OTHER, SELFPAY ==
--- NOTE | ~2022-02-16 | XR_ITS ---
EXAMINATION: XR CHEST CLINICAL INFORMATION: Fever, rule out pneumonia. COMPARISON: 01/25/[address] scan of the abdomen and pelvis dated 01/25/2021. TECHNIQUE: 2 views of the chest were obtained. FINDINGS: The lungs are clear. There are no pleural effusions. The heart and mediastinal structures are unremarkable. There is a moderate-sized hiatal hernia. T9 vertebral body anterior compression deformity without interval change. XR/XR chest 2V IMPRESSION: 1. No acute cardiopulmonary process. 2. Moderate hiatal hernia.
[2022-02-16 15:34] VITALS: BP 138/99; PULSE 120; RESP 16; TEMP 36.9; O2SAT 98; BMI 25.0
[2022-02-16 16:26] LABS: Appearance Urine Clear; Color Urine Yellow; Glucose Urine UA Negative (Negative); Leukocyte Esterase Urine Negative (Negative); Nitrite Urine Negative (Negative); PH 6.5 (5.0-9.0); Urine Blood Negative (Negative); Urine Ketones Negative (Negative); Urine Protein Trace mg/dL (Neg-Trace)
[2022-02-16 16:37] LABS: Lactic Acid 1.9 mmol/L (0.5-2.0)
[2022-02-16 16:39] LABS: COVID-19 Test Negative (Negative)
[2022-02-16 16:41] LABS: Alanine Aminotransferase 28 U/L (0-40); Albumin Level 4.2 g/dL (3.5-5.0); Alkaline Phosphatase 53 U/L (39-117); Anion Gap 19 (12-20); Aspartate Amino Transferase 20 U/L (5-37); Bilirubin Total 0.5 mg/dL (0.0-1.0); Blood Urea Nitrogen 27 mg/dL (9-16); C Reactive Protein 10.91 mg/dL (< or = 0.50); Calcium 9.1 mg/dL (8.4-10.2); Carbon Dioxide 20 mmol/L (22-29); Chloride 104 mmol/L (96-108); Creatinine Clr Calc Pharmacy 26.3; Estimated Glomerular Filt Rate 29; Glucose Random 125 mg/dL (60-115); Lipase 13 U/L (8-78); Potassium 4.5 mmol/L (3.3-5.1); Sodium 138 mmol/L (135-145); Total Protein 7.5 g/dL (6.5-8.0)
[2022-02-16 16:44] LABS: IDNOW Serial# 55D5AD1C; Influenza A Negative (Negative); Influenza B2 Negative (Negative)
[2022-02-16 17:01] LABS: Erythrocyte Sedimentation Rate 10 MM/HR (0-15)
[2022-02-16 17:06] VITALS: BP 163/92; PULSE 104; RESP 18; TEMP 36.9; O2SAT 99
--- NOTE | 2022-02-16 17:16 | ED.FEVER ---
HPI - Fever General Chief Complaint: Fever Stated Complaint: sent from doctors. unsure what hes here for Time Seen by Provider: 02/16/22 16:43 Source: patient and family (Son, Sam) Mode of arrival: ambulatory Limitations: no limitations History of Present Illness HPI Narrative: 76-year-old male referred to emergency department from urgent care for evaluation of fever, chills, nausea, weakness, myalgias arthralgias for approximately 10-12 days. The patient states that 10-12 days prior he had a sudden onset of shaking chills and subjective fever. He states that he also developed nausea, vomiting. He states that he has been vomiting daily and has only been able to eat small amounts of food and fluid. He has not noticed any diarrhea. He states that he does have abdominal pain any points to the right side of his abdomen. He describes as a pressure pain the trip beats the pain to the fact that he has been vomiting. The pain is 6/10 at its worst. He denied cough, chest pain or shortness of breath. He states that he has urinary frequency but no dysuria. He believes that he has lost 10-12 lb over the past 12 days. He states that his whole body hurts including his muscles in his joints. He has not noticed any rash. 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 He has not noticed any tick bites. 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 ) Exacerbating factors: nothing Relieving factors: nothing Associated symptoms: chills, myalgias, abdominal pain, nausea, vomiting and weight loss Treatments prior to arrival fever: none Related Data Home Medications Medication Instructions Recorded Confirmed Lactobacillus acidophilus 1 cap PO DAILY 02/02/21 02/02/21 beta carotene 25,000 unit capsule 25,000 unit PO DAILY 02/02/21 02/02/21 glucosamine sulf dipot 1 cap PO DAILY 02/02/21 02/02/21 chlr,msm,chond 550 mg-C 30 mg-marshal 1 mg capsule (Glucosamine Chondroitin) multivitamin 1 tab PO DAILY 02/02/21 02/02/21 phytonadione (vitamin K1) 100 mcg 100 mcg PO DAILY 02/02/21 02/02/21 tablet Previous Rx's Medication Instructions Recorded tamsulosin 0.4 mg capsule 0.8 mg PO BEDTIME #60 caps 05/21/20 amlodipine 10 mg tablet 10 mg PO DAILY #30 tabs 02/08/21 finasteride 5 mg tablet (Proscar) 5 mg PO DAILY #30 tabs 02/08/21 doxycycline hyclate 100 mg tablet 100 mg PO Q12H 10 days #20 tabs 02/16/22 ondansetron 4 mg disintegrating 4 mg PO Q6-8H PRN nausea and 02/16/22 tablet vomiting #14 tabs Allergies Allergy/AdvReac Type Severity Reaction Status Date / Time No Known Allergies Allergy Verified 09/28/21 10:13 [No Known Allergies*] [facility] Past Medical History [facility] Narrative: Past medical history: Hypertension, obstructive uropathy, thrombocytopenia, elevated potassium, BPH, fall with multiple rib fractures and T9 vertebral fracture. Social history: He denies tobacco, alcohol and drug use. Medical History Benign prostatic hyperplasia with urinary retention Hypertension Surgical History No pertinent past surgical history Social History Social History Household Members: None Alcohol intake: current Alcohol intake frequency: a few times a month Alcohol type: beer Patient Tobacco Use Status: Never used Tobacco Use of substances other than those prescribed or required for medical reasons: No Advance Directives: No Advance Directives Information Provided: No service: Yes Current occupational status: retired Physical Exam Vital Signs: Vital Signs: Last Vital Signs Temp 98.4 F 02/16/22 17:06 Pulse 104 H 02/16/22 17:06 Resp 18 02/16/22 17:06 BP 163/92 H 02/16/22 17:06 Pulse Ox 99 02/16/22 17:06 O2 Del Method 02/16/22 17:06 BMI result Body Mass Index 25.0 Const: General: cooperative and no acute distress Orientation/consciousness: oriented to person and oriented to place Limitations: no limitations HEENT: Head: Yes normal to inspection, Yes normocephalic and Yes atraumatic Ears: external ears normal General nose exam: Normal external nose present Face and sinus: Yes normal facial exam Mouth: Normal oral and palatal mucosa present Throat: Yes posterior oropharynx normal Eyes: General: appearance normal, both eyes and all related structures Pupils: Equal, round and reactive pupils present Neck: Neck: Yes normal visual inspection, Yes no lymphadenopathy, Yes trachea midline and Yes supple Chest: Chest palpation & inspection: normal inspection of the chest and normal palpation of entire chest wall Resp: Effort & Inspection: normal respiratory effort and able to speak in complete sentences Auscultation: clear to auscultation bilaterally Cardio: Rate: regular rate Rhythm: regular rhythm Heart sounds: S1 normal heart sound present, S2 normal heart sound present and no murmurs GI: Inspection: Yes normal to inspection Palpation (GI): Soft to palpation, nontender and no guarding Auscultation: normal bowel sounds : General: Yes no CVA tenderness Back/Spine/Pelvis: Back: no CVA tenderness Skin: General skin exam: no rashes or lesions noted Neuro: General: oriented to person and oriented to place Cranial nerves: Yes CN's II-XII intact bilaterally and Yes Equal, round and reactive pupils present Cognition (Neuro): normal cognition Motor exam (neuro): 5/5 motor strength present throughout Extrem: General: Yes normal to inspection Psych: Appearance: grossly normal Speech and movement: Normal speech and movement present Affect: normal affect Attitude: cooperative Thought process: Normal thought process present Thought content: Normal thought content present Course Course Course Narrative: 76-year-old male who presents emergency department for evaluation fever, chills, nausea, vomiting, abdominal pain, myalgias and arthralgias times 10-12 days. Patient did have a documented fever at home as high as 101 degrees F. the patient's vital signs here in the emergency department significant for tachycardia with a pulse of 120 otherwise unremarkable. The patient physical examination was unremarkable did not reveal a clear cause for his fever. Did order laboratory evaluation to include CBC, CMP, PT/INR, PTT, lipase, lactate, troponin, CK, CRP, ESR, urinalysis, tick-borne illness panel. 1830: Laboratory evaluation: WBC elevated 12,600. Platelet count low 2000, this is chronic. BUN creatinine elevated 27 and 2.23, this is chronic but improved compared to previous values. Glucose elevated 123. LFTs normal. Lipase normal. Lactate normal 1.9. CK normal 21. Urinalysis negative. COVID-19 and influenza negative. ESR normal 10, CRP elevated 10.9. Radiology evaluation: Chest x-ray no acute pulmonary process. The patient's laboratory evaluation is consistent with his chronic kidney disease and chronic thrombocytopenia. Patient told me that he has gotten platelet transfusions in the past but she usually does not bring up his platelet count. At this time I do not think the patient is actively bleeding and I do not think that he needs platelets. My impression is the patient has a tick-borne illness most likely and applies most likely anaplasmosis. The patient is feeling better after the above treatment. He was able to eat saltine crackers and drinking belia gauri pain. I ordered a 2 L of lactated Ringer's. MDM - Fever Lab Data Result diagrams: 02/16/22 17:38 02/16/22 16:12 Labs: Lab Results 02/16/22 02/16/22 02/16/22 Range/Units 16:12 16:12 16:12 WBC (4.8-10.8) X10*3/uL RBC (4.60-5.80) X10*6/uL Hgb (14.0-18.0) g/dl Hct (42.0-52.0) % MCV (80.0-98.0) fL MCH (27.0-33.0) pg MCHC (31.0-36.0) g/dl RDW (11.0-16.0) % Plt Count (160-400) X10*3/uL MPV Immature Gran % (Auto) (0.0-0.4) % Neut % (Auto) (45-73) % Lymph % (Auto) (20-40) % [place] % (Auto) (2-11) % Eos % (Auto) (0-4) % Baso % (Auto) (0-2) % Lymph # (Auto) (1.2-4.9) X10*3/uL [place] # (Auto) (0.1-1.2) X10*3/uL Eos # (Auto) (0.0-0.4) X10*3/uL Baso # (Auto) (0.0-0.2) X10*3/uL Abs Immat Gran (auto) (0.00-0.03) X10*3/uL Absolute Neuts (auto) (2.0-8.3) x10*3/uL Absolute Nucleated RBC (0.0-0.012) X10*3/uL Nucleated RBC % (auto) (0.0-0.2) /100WBC Smear Tech's Comments ESR 10 (0-15) MM/HR Sodium 138 (135-145) mmol/L Potassium 4.5 (3.3-5.1) mmol/L Chloride 104 (96-108) mmol/L Carbon Dioxide 20 L (22-29) mmol/L Anion Gap 19 (12-20) BUN 27 H (9-16) mg/dL Creatinine 2.23 H (0.5-1.4) mg/dL Estim Creat Clear Calc 26.3 Estimated GFR 29 Random Glucose 125 H (60-115) mg/dL Lactic Acid (0.5-2.0) mmol/L Calcium 9.1 (8.4-10.2) mg/dL Total Bilirubin 0.5 (0.0-1.0) mg/dL AST 20 D (5-37) U/L ALT 28 (0-40) U/L Alkaline Phosphatase 53 D (39-117) U/L Total Creatine Kinase 21 L (38-174) U/L Troponin I High Sens (<3.5-35.0) ng/L C-Reactive Protein 10.91 H (< or = 0.50) mg/dL Total Protein 7.5 (6.5-8.0) g/dL Albumin 4.2 (3.5-5.0) g/dL Lipase 13 (8-78) U/L Urine Color Urine Appearance Urine pH (5.0-9.0) Ur Specific [place] (1.005-1.025) Urine Protein (Neg-Trace) mg/dL Urine Glucose (UA) (Negative) mg/dL Urine Ketones (Negative) mg/dL Urine Blood (Negative) Urine Nitrite (Negative) Ur Leukocyte Esterase (Negative) COVID-19 (MASON) Negative (Negative) COVID-19 Clin Com See Note Influenza Type A (JESSICA) (Negative) Influenza Type B (JESSICA) (Negative) Influenza A & B Note 02/16/22 02/16/22 02/16/22 Range/Units 16:12 16:12 16:12 WBC (4.8-10.8) X10*3/uL RBC (4.60-5.80) X10*6/uL Hgb (14.0-18.0) g/dl Hct (42.0-52.0) % MCV (80.0-98.0) fL MCH (27.0-33.0) pg MCHC (31.0-36.0) g/dl RDW (11.0-16.0) % Plt Count (160-400) X10*3/uL MPV Immature Gran % (Auto) (0.0-0.4) % Neut % (Auto) (45-73) % Lymph % (Auto) (20-40) % [place] % (Auto) (2-11) % Eos % (Auto) (0-4) % Baso % (Auto) (0-2) % Lymph # (Auto) (1.2-4.9) X10*3/uL [place] # (Auto) (0.1-1.2) X10*3/uL Eos # (Auto) (0.0-0.4) X10*3/uL Baso # (Auto) (0.0-0.2) X10*3/uL Abs Immat Gran (auto) (0.00-0.03) X10*3/uL Absolute Neuts (auto) (2.0-8.3) x10*3/uL Absolute Nucleated RBC (0.0-0.012) X10*3/uL Nucleated RBC % (auto) (0.0-0.2) /100WBC Smear Tech's Comments ESR (0-15) MM/HR Sodium (135-145) mmol/L Potassium (3.3-5.1) mmol/L Chloride (96-108) mmol/L Carbon Dioxide (22-29) mmol/L Anion Gap (12-20) BUN (9-16) mg/dL Creatinine (0.5-1.4) mg/dL Estim Creat Clear Calc Estimated GFR Random Glucose (60-115) mg/dL Lactic Acid 1.9 (0.5-2.0) mmol/L Calcium (8.4-10.2) mg/dL Total Bilirubin (0.0-1.0) mg/dL AST (5-37) U/L ALT (0-40) U/L Alkaline Phosphatase (39-117) U/L Total Creatine Kinase (38-174) U/L Troponin I High Sens (<3.5-35.0) ng/L C-Reactive Protein (< or = 0.50) mg/dL Total Protein (6.5-8.0) g/dL Albumin (3.5-5.0) g/dL Lipase (8-78) U/L Urine Color Yellow Urine Appearance Clear Urine pH 6.5 (5.0-9.0) Ur Specific [place] 1.010 (1.005-1.025) Urine Protein Trace (Neg-Trace) mg/dL Urine Glucose (UA) Negative (Negative) mg/dL Urine Ketones Negative (Negative) mg/dL Urine Blood Negative (Negative) Urine Nitrite Negative (Negative) Ur Leukocyte Esterase Negative (Negative) COVID-19 (MASON) (Negative) COVID-19 Clin Com Influenza Type A (JESSICA) Negative (Negative) Influenza Type B (JESSICA) Negative (Negative) Influenza A & B Note See Note 02/16/22 02/16/22 Range/Units 16:12 17:38 WBC 12.6 H (4.8-10.8) X10*3/uL RBC 5.75 (4.60-5.80) X10*6/uL Hgb 15.7 (14.0-18.0) g/dl Hct 46.8 (42.0-52.0) % MCV 81.4 (80.0-98.0) fL MCH 27.3 (27.0-33.0) pg MCHC 33.5 (31.0-36.0) g/dl RDW 13.2 (11.0-16.0) % Plt Count 2 L* (160-400) X10*3/uL MPV TNP Immature Gran % (Auto) 0.8 H (0.0-0.4) % Neut % (Auto) 78.2 H (45-73) % Lymph % (Auto) 10.4 L (20-40) % [place] % (Auto) 10.2 (2-11) % Eos % (Auto) 0.0 (0-4) % Baso % (Auto) 0.4 (0-2) % Lymph # (Auto) 1.3 (1.2-4.9) X10*3/uL [place] # (Auto) 1.3 H (0.1-1.2) X10*3/uL Eos # (Auto) 0.0 (0.0-0.4) X10*3/uL Baso # (Auto) 0.1 (0.0-0.2) X10*3/uL Abs Immat Gran (auto) 0.10 H (0.00-0.03) X10*3/uL Absolute Neuts (auto) 9.8 H (2.0-8.3) x10*3/uL Absolute Nucleated RBC 0.000 (0.0-0.012) X10*3/uL Nucleated RBC % (auto) 0.0 (0.0-0.2) /100WBC Smear Tech's Comments VERIFIED ESR (0-15) MM/HR Sodium (135-145) mmol/L Potassium (3.3-5.1) mmol/L Chloride (96-108) mmol/L Carbon Dioxide (22-29) mmol/L Anion Gap (12-20) BUN (9-16) mg/dL Creatinine (0.5-1.4) mg/dL Estim Creat Clear Calc Estimated GFR Random Glucose (60-115) mg/dL Lactic Acid (0.5-2.0) mmol/L Calcium (8.4-10.2) mg/dL Total Bilirubin (0.0-1.0) mg/dL AST (5-37) U/L ALT (0-40) U/L Alkaline Phosphatase (39-117) U/L Total Creatine Kinase (38-174) U/L Troponin I High Sens 5.3 (<3.5-35.0) ng/L C-Reactive Protein (< or = 0.50) mg/dL Total Protein (6.5-8.0) g/dL Albumin (3.5-5.0) g/dL Lipase (8-78) U/L Urine Color Urine Appearance Urine pH (5.0-9.0) Ur Specific [place] (1.005-1.025) Urine Protein (Neg-Trace) mg/dL Urine Glucose (UA) (Negative) mg/dL Urine Ketones (Negative) mg/dL Urine Blood (Negative) Urine Nitrite (Negative) Ur Leukocyte Esterase (Negative) COVID-19 (MASON) (Negative) COVID-19 Clin Com Influenza Type A (JESSICA) (Negative) Influenza Type B (JESSICA) (Negative) Influenza A & B Note Discharge Plan Discharge Clinical Impression: Myalgia, At high risk for tick borne illness Fever Qualifiers: Encounter type: initial encounter Nausea & vomiting Qualifiers: Vomiting type: unspecified Qualified Code(s): R11.2 - Nausea with vomiting, unspecified Patient Disposition: Home, Self-Care Additional Instructions: Your blood work did reveal a very low platelet count however I think this is consistent with your chronic thrombocytopenia and I do not think that you need platelets at this time since you are not bleeding. Your kidney function is slightly better than your baseline values. Your COVID-19 and influenza tests were negative. Your urine test were negative for urine infection. Your CRP (an inflammatory marker) was elevated at 10.9 with a normal value being less than 0.5. Your sedimentation rate (an inflammatory marker) was normal. Your chest x-ray was unremarkable. At this time, I suspect that you have a tick-borne illness. There are 3 common tick-borne illnesses in [place] (Lyme disease, Anaplasmsis,erhlicosis). All through treated with doxycycline. We tested you for these illnesses, these tests come back in 1-2 weeks. Take doxycycline 100 mg pills, 1 pill twice a day for 10 days. If you have Lyme disease then you need to be on this medication for 21 days. Take Tylenol (acetaminophen) 500 mg pills, 2 pills every 4 to 6 hours as needed for pain or fever. Take Zofran ODT 4 mg pills, 1 pill dissolved in your mouth every 8 hours as needed for nausea and vomiting. Follow-up with your doctor in 2 days. Please return to the emergency department if your symptoms get worse or if you develop any symptoms that are concerning to you. Prescriptions: New doxycycline hyclate 100 mg tablet 100 mg PO Q12H 10 Days Qty: 20 0RF ondansetron 4 mg tablet,disintegrating 4 mg PO Q6-8H PRN (Reason: nausea and vomiting) Qty: 14 0RF No Action multivitamin Tablet 1 tab PO DAILY beta carotene 25,000 unit Capsule 25,000 unit PO DAILY phytonadione (vitamin K1) 100 mcg Tablet 100 mcg PO DAILY Lactobacillus acidophilus Capsule 1 cap PO DAILY Glucosamine Chondroitin 550-30-1 mg Capsule 1 cap PO DAILY amlodipine 10 mg Tablet 10 mg PO DAILY Qty: 30 0RF Protocol: Hold for SBP< HOLD for SBP < : 90 finasteride [Proscar] 5 mg Tablet 5 mg PO DAILY Qty: 30 0RF tamsulosin 0.4 mg capsule 0.8 mg PO BEDTIME Qty: 60 6RF
[2022-02-16 17:50] LABS: MANUAL DIFF FLAG SCAN; Mean Corpuscular HGB Conc 33.5 g/dl (31.0-36.0); Mean Corpuscular Hemoglobin 27.3 pg (27.0-33.0); Red Cell Distribution Width 13.2 % (11.0-16.0); SCAN SMEAR FLAG 1
[2022-02-16] MEDS: Acetaminophen 325 MG TABLET 975 MG PO (17:50)
[2022-02-16] MEDS: 0.9 % Sodium Chloride 1,000 ML 999 ML IV (17:50)
[2022-02-16] MEDS: ondansetron HCL 4 MG/2 ML VIAL IVPUSH (17:51)
[2022-02-16 17:52] LABS: Basophils Absolute Auto 0.1 X10*3/uL (0.0-0.2); Basophils Percent Auto 0.4 % (0-2); Hematocrit 46.8 % (42.0-52.0); Hemoglobin 15.7 g/dl (14.0-18.0); Imm Gran Pct Auto 0.8 % (0.0-0.4); Lymphocytes Absolute Auto 1.3 X10*3/uL (1.2-4.9); Lymphocytes Percent Auto 10.4 % (20-40); Mean Corpuscular Volume 81.4 fL (80.0-98.0); Monocytes Absolute Auto 1.3 X10*3/uL (0.1-1.2); Monocytes Percent Auto 10.2 % (2-11); Neutrophils Absolute Auto 9.8 x10*3/uL (2.0-8.3); Neutrophils Percent Auto 78.2 % (45-73); Red Blood Count 5.75 X10*6/uL (4.60-5.80); White Blood Count 12.6 X10*3/uL (4.8-10.8)
--- NOTE | 2022-02-16 17:54 | PC.NURSE ---
patient a&ox3, iv inserted, labs previously drawn, ivf started per order, pt medicated per order, will hold off on doxy until rusty kicks in, call gonzales within reach, will continue to monitor
[2022-02-16 17:59] VITALS: TEMP 38.3
[2022-02-16 18:11] LABS: PLT ABN DIST 1; Platelet Count 2 X10*3/uL (160-400)
[2022-02-16 18:12] LABS: SLIDE REVIEW VERIFIED
[2022-02-16 18:16] LABS: Troponin-I High Sensitivity 5.3 ng/L (<3.5-35.0)
[2022-02-16] MEDS: Lactated Ringers 1,000 ML 999 ML IV (18:43)
[2022-02-24 17:06] LABS: A. Phagocytphilium DNA,RT-PCR DETECTED (NOT DETECTED); Babesia Microti DNA, RT-PCR NOT DETECTED (NOT DETECTED); Borrelia Miyamotoi,DNA RT-PCR NOT DETECTED (NOT DETECTED); E.Chaffeensis DNA RT-PCR NOT DETECTED (NOT DETECTED); Lyme(Borrelia ssp)DNA RT-PCR NOT DETECTED (NOT DETECTED)
[2022-02-25 12:52] LABS: Source-Tick borne disease BLOOD
== END 2022-02-16 19:31 | disposition home or self-care (01) ==
PROVIDERS: Emergency Provider Emergency Medicine Emergency Medical Services; PCP Physician Assistant
DX: R50.9 Fever, unspecified (principal); M79.10 Myalgia, unspecified site; R11.2 Nausea with vomiting, unspecified; Z20.822 Contact with and (suspected) exposure to COVID-19; Z79.899 Other long term (current) drug therapy
CPT/HCPCS: 71046; 80053; 81003; 82550; 83605; 83690; 84484; 85025; 85652; 86140; 87040; 87502; 87635; 87798; 87801; 96361; 96374; 99284; J2405

== ENCOUNTER 2022-02-26 11:56 | Emergency (ER) | payer OTHER, SELFPAY ==
[2022-02-26 12:07] VITALS: BP 165/88; PULSE 69; RESP 18; TEMP 36.9; O2SAT 98; BMI 25.0
--- NOTE | 2022-02-26 12:46 | ED_ITS ---
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 complaint: abnormal lab Initial visit (ago): day(s) (10) Initial visit for: other (tick bite) Returns today for: called because of abnormal lab/test (feeling unwell last visit 2,000) Symptoms since prior visit: no new symptoms (body aches) Context: other Associated symptoms: malaise (body aches) Treatments prior to arrival: other (doxycycline 100mg BID ) Related Data Home Medications Medication Instructions Recorded Confirmed Lactobacillus acidophilus 1 cap PO DAILY 02/02/21 02/02/21 beta carotene 25,000 unit capsule 25,000 unit PO DAILY 02/02/21 02/02/21 glucosamine sulf dipot 1 cap PO DAILY 02/02/21 02/02/21 chlr,msm,chond 550 mg-C 30 mg-marshal 1 mg capsule (Glucosamine Chondroitin) multivitamin 1 tab PO DAILY 02/02/21 02/02/21 phytonadione (vitamin K1) 100 mcg 100 mcg PO DAILY 02/02/21 02/02/21 tablet Previous Rx's Medication Instructions Recorded tamsulosin 0.4 mg capsule 0.8 mg PO BEDTIME #60 caps 05/21/20 amlodipine 10 mg tablet 10 mg PO DAILY #30 tabs 02/08/21 finasteride 5 mg tablet (Proscar) 5 mg PO DAILY #30 tabs 02/08/21 doxycycline hyclate 100 mg tablet 100 mg PO Q12H 10 days #20 tabs 02/16/22 ondansetron 4 mg disintegrating 4 mg PO Q6-8H PRN nausea and 02/16/22 tablet vomiting #14 tabs doxycycline hyclate 100 mg capsule 100 mg PO BID 4 days #8 caps 02/26/22 Allergies Allergy/AdvReac Type Severity Reaction Status Date / Time No Known Allergies Allergy Verified 02/26/22 12:07 [No Known Allergies*] Review of Systems Review of Systems: Constitutional : No Fever, No Chills, pos Fatigue, No Malaise Cardiovascular : No Chest Pain, No SOB Respiratory : No Cough, No Sputum, No Wheezing Gastrointestinal : No Nausea, No Vomiting, No Diarrhea, No Constipation, No abdominal Pain, No Hematochezia, No Melena Musculoskeletal : No joint pain, pos Myalgias, No Joint Swelling Skin : No Skin Lesions, No rash Neuro : No Weakness, No Numbness, No Dizziness, No Headache PMFSH Past Medical History Attestation statement: The following information was validated with the patient. Medical History Benign prostatic hyperplasia with urinary retention CKD (chronic kidney disease) Hypertension Thrombocytopenia Surgical History No pertinent past surgical history Social History Social History Household Members: None Alcohol intake: current Alcohol intake frequency: a few times a month Alcohol type: beer Patient Tobacco Use Status: Never used Tobacco Advance Directives: No Advance Directives Information Provided: Yes service: Yes Current occupational status: retired Physical Exam Vital Signs: Vital Signs: Last Vital Signs Temp 98.4 F 02/26/22 12:07 Pulse 69 02/26/22 12:07 Resp 18 02/26/22 12:07 BP 165/88 H 02/26/22 12:07 Pulse Ox 98 02/26/22 12:07 O2 Del Method 02/26/22 12:07 BMI result Body Mass Index 25.0 Appearance: Alert. Oriented X3. No acute distress. Eyes: Pupils equal, round and reactive to light. ENT: Pharynx normal. Neck: Normal inspection. Neck supple. CVS: Normal heart rate and rhythm. Pulses normal. Respiratory: No respiratory distress. Breath sounds normal. Abdomen: Soft and non-tender. Skin: Skin warm and dry. Normal skin color. Normal skin turgor. Extremities: No lower extremity edema. No calf ttp Neuro: Oriented X 3. No motor deficit. No sensory deficit. Course Course Course Narrative: plts 15, CRP improved, Cr improved other than body aches he is feeling well can be discharged at this time afebrile VS stable, has declined pain medications MDM - Recheck/Abnormal Lab/Rx MDM Narrative Medical decision making narrative: 76 yo male with hx of CKD, BPH, chronic low plts here with c/o feeling unwell from tick bite known anaplasmosis told to come back in given last visit 2,000 plts denies headaches. At this time will repeat labs, plts and likely increase course to 14 days. Has good outpatient follow up if labs stable, declines pain medications. Lab Data Result diagrams: 02/26/22 12:54 02/26/22 12:54 Labs: Lab Results 02/26/22 02/26/22 02/26/22 Range/Units 12:54 12:54 12:54 WBC 12.1 H (4.8-10.8) X10*3/uL RBC 5.14 (4.60-5.80) X10*6/uL Hgb 13.9 L (14.0-18.0) g/dl Hct 42.8 (42.0-52.0) % MCV 83.3 (80.0-98.0) fL MCH 27.0 (27.0-33.0) pg MCHC 32.5 (31.0-36.0) g/dl RDW 13.3 (11.0-16.0) % Plt Count 15 L* D (160-400) X10*3/uL MPV 12.6 H (9.4-12.4) fL Immature Gran % (Auto) 0.7 H (0.0-0.4) % Neut % (Auto) 69.1 (45-73) % Lymph % (Auto) 19.6 L (20-40) % [place] % (Auto) 7.7 (2-11) % Eos % (Auto) 1.4 (0-4) % Baso % (Auto) 1.5 (0-2) % Lymph # (Auto) 2.4 (1.2-4.9) X10*3/uL [place] # (Auto) 0.9 (0.1-1.2) X10*3/uL Eos # (Auto) 0.2 (0.0-0.4) X10*3/uL Baso # (Auto) 0.2 (0.0-0.2) X10*3/uL Abs Immat Gran (auto) 0.09 H (0.00-0.03) X10*3/uL Absolute Neuts (auto) 8.4 H (2.0-8.3) x10*3/uL Absolute Nucleated RBC 0.000 (0.0-0.012) X10*3/uL Nucleated RBC % (auto) 0.0 (0.0-0.2) /100WBC ESR 6 (0-15) MM/HR PT 11.1 (10.0-13.1) SEC INR 1.0 (0.9-1.1) Sodium (135-145) mmol/L Potassium (3.3-5.1) mmol/L Chloride (96-108) mmol/L Carbon Dioxide (22-29) mmol/L Anion Gap (12-20) BUN (9-16) mg/dL Creatinine (0.5-1.4) mg/dL Estim Creat Clear Calc Estimated GFR Random Glucose (60-115) mg/dL Calcium (8.4-10.2) mg/dL Magnesium (1.6-2.6) mg/dL Total Bilirubin (0.0-1.0) mg/dL Direct Bilirubin (0.0-0.5) mg/dL AST (5-37) U/L ALT (0-40) U/L Alkaline Phosphatase (39-117) U/L Total Creatine Kinase (38-174) U/L C-Reactive Protein (< or = 0.50) mg/dL Total Protein (6.5-8.0) g/dL Albumin (3.5-5.0) g/dL Blood Type Antibody Screen 02/26/22 02/26/22 02/26/22 Range/Units 12:54 12:54 12:58 WBC (4.8-10.8) X10*3/uL RBC (4.60-5.80) X10*6/uL Hgb (14.0-18.0) g/dl Hct (42.0-52.0) % MCV (80.0-98.0) fL MCH (27.0-33.0) pg MCHC (31.0-36.0) g/dl RDW (11.0-16.0) % Plt Count (160-400) X10*3/uL MPV (9.4-12.4) fL Immature Gran % (Auto) (0.0-0.4) % Neut % (Auto) (45-73) % Lymph % (Auto) (20-40) % [place] % (Auto) (2-11) % Eos % (Auto) (0-4) % Baso % (Auto) (0-2) % Lymph # (Auto) (1.2-4.9) X10*3/uL [place] # (Auto) (0.1-1.2) X10*3/uL Eos # (Auto) (0.0-0.4) X10*3/uL Baso # (Auto) (0.0-0.2) X10*3/uL Abs Immat Gran (auto) (0.00-0.03) X10*3/uL Absolute Neuts (auto) (2.0-8.3) x10*3/uL Absolute Nucleated RBC (0.0-0.012) X10*3/uL Nucleated RBC % (auto) (0.0-0.2) /100WBC ESR (0-15) MM/HR PT (10.0-13.1) SEC INR (0.9-1.1) Sodium 139 (135-145) mmol/L Potassium 4.8 (3.3-5.1) mmol/L Chloride 103 (96-108) mmol/L Carbon Dioxide 25 (22-29) mmol/L Anion Gap 16 (12-20) BUN 38 H (9-16) mg/dL Creatinine 1.98 H (0.5-1.4) mg/dL Estim Creat Clear Calc 30.7 Estimated GFR 33 Random Glucose 98 (60-115) mg/dL Calcium 9.3 (8.4-10.2) mg/dL Magnesium 2.1 (1.6-2.6) mg/dL Total Bilirubin 0.5 (0.0-1.0) mg/dL Direct Bilirubin 0.2 (0.0-0.5) mg/dL AST 17 (5-37) U/L ALT 21 (0-40) U/L Alkaline Phosphatase 49 (39-117) U/L Total Creatine Kinase 31 L D (38-174) U/L C-Reactive Protein 0.18 (< or = 0.50) mg/dL Total Protein 7.0 (6.5-8.0) g/dL Albumin 4.1 (3.5-5.0) g/dL Blood Type A Positive Antibody Screen NEGATIVE Discharge Plan Discharge Clinical Impression: Anaplasmosis Patient Disposition: Home, Self-Care Instructions: Tick Bite (ED) Additional Instructions: return to ED for any worsening symptoms or concerns your labs plts 15, Creatinine 1.98 otherwise all stable please follow up with your doctor Prescriptions: New doxycycline hyclate 100 mg capsule 100 mg PO BID 4 Days Qty: 8 0RF No Action multivitamin Tablet 1 tab PO DAILY beta carotene 25,000 unit Capsule 25,000 unit PO DAILY phytonadione (vitamin K1) 100 mcg Tablet 100 mcg PO DAILY Lactobacillus acidophilus Capsule 1 cap PO DAILY Glucosamine Chondroitin 550-30-1 mg Capsule 1 cap PO DAILY amlodipine 10 mg Tablet 10 mg PO DAILY Qty: 30 0RF Protocol: Hold for SBP< HOLD for SBP < : 90 finasteride [Proscar] 5 mg Tablet 5 mg PO DAILY Qty: 30 0RF doxycycline hyclate 100 mg tablet 100 mg PO Q12H 10 Days Qty: 20 0RF ondansetron 4 mg tablet,disintegrating 4 mg PO Q6-8H PRN (Reason: nausea and vomiting) Qty: 14 0RF tamsulosin 0.4 mg capsule 0.8 mg PO BEDTIME Qty: 60 6RF Referrals: Enrique Arrington PA [Primary Care Provider] - 5 days Interventions: ED Discharge Assessment Last Done: 02/26/22 13:48 Discharge Date/Time: 02/26/22 13:49
[2022-02-26 12:58] LABS: Basophils Absolute Auto 0.2 X10*3/uL (0.0-0.2); Basophils Percent Auto 1.5 % (0-2); Hemoglobin 13.9 g/dl (14.0-18.0)
[2022-02-26 13:00] LABS: Eosinophils Absolute Auto 0.2 X10*3/uL (0.0-0.4); Eosinophils Percent Auto 1.4 % (0-4); Hematocrit 42.8 % (42.0-52.0); Imm Gran Abs Auto 0.09 X10*3/uL (0.00-0.03); Imm Gran Pct Auto 0.7 % (0.0-0.4); Lymphocytes Absolute Auto 2.4 X10*3/uL (1.2-4.9); Lymphocytes Percent Auto 19.6 % (20-40); Mean Corpuscular HGB Conc 32.5 g/dl (31.0-36.0); Mean Corpuscular Volume 83.3 fL (80.0-98.0); Mean Platelet Volume 12.6 fL (9.4-12.4); Monocytes Absolute Auto 0.9 X10*3/uL (0.1-1.2); Monocytes Percent Auto 7.7 % (2-11); Neutrophils Absolute Auto 8.4 x10*3/uL (2.0-8.3); Neutrophils Percent Auto 69.1 % (45-73); Red Blood Count 5.14 X10*6/uL (4.60-5.80); Red Cell Distribution Width 13.3 % (11.0-16.0); White Blood Count 12.1 X10*3/uL (4.8-10.8)
[2022-02-26 13:04] LABS: Platelet Count 15 X10*3/uL (160-400)
[2022-02-26 13:08] LABS: Prothrombin Time 11.1 SEC (10.0-13.1)
[2022-02-26 13:16] LABS: Alanine Aminotransferase 21 U/L (0-40); Albumin Level 4.1 g/dL (3.5-5.0); Alkaline Phosphatase 49 U/L (39-117); Anion Gap 16 (12-20); Aspartate Amino Transferase 17 U/L (5-37); Bilirubin Direct 0.2 mg/dL (0.0-0.5); Bilirubin Total 0.5 mg/dL (0.0-1.0); Blood Urea Nitrogen 38 mg/dL (9-16); C Reactive Protein 0.18 mg/dL (< or = 0.50); Calcium 9.3 mg/dL (8.4-10.2); Carbon Dioxide 25 mmol/L (22-29); Chloride 103 mmol/L (96-108); Creatinine Clr Calc Pharmacy 30.7; Estimated Glomerular Filt Rate 33; Glucose Random 98 mg/dL (60-115); Magnesium 2.1 mg/dL (1.6-2.6); Potassium 4.8 mmol/L (3.3-5.1); Sodium 139 mmol/L (135-145)
[2022-02-26 13:34] LABS: Erythrocyte Sedimentation Rate 6 MM/HR (0-15)
== END 2022-02-26 13:49 | disposition home or self-care (01) ==
PROVIDERS: Physician Assistant; Emergency Provider Emergency Medicine; PCP Physician Assistant
DX: A79.82 Anaplasmosis [A. phagocytophilum] (principal); D69.6 Thrombocytopenia, unspecified; Z79.899 Other long term (current) drug therapy
CPT/HCPCS: 36415; 80048; 80076; 82550; 83735; 85025; 85610; 85652; 86140; 86850; 86900; 86901; 99283

== ENCOUNTER → 2022-04-06 10:01 | Outpatient (BNVA) | payer OTHER, SELFPAY | PROVIDERS: PCP Physician Assistant; Visit Provider Urology | DX: N17.9 Acute kidney failure, unspecified (principal); R33.9 Retention of urine, unspecified | CPT/HCPCS: 51798 ==

== ENCOUNTER → 2022-10-20 11:31 | Outpatient (BNVA) | payer OTHER, SELFPAY | PROVIDERS: PCP Physician Assistant; Visit Provider Urology | DX: R33.9 Retention of urine, unspecified (principal) | CPT/HCPCS: 51798; 99212 ==

== ENCOUNTER 2022-12-28 08:19 | Outpatient (AMB) | payer OTHER, SELFPAY ==
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
== END 2022-12-28 09:28 | disposition home or self-care (01) ==
PROVIDERS: PCP Physician Assistant; Visit Provider Urology
DX: N40.1 Benign prostatic hyperplasia with lower urinary tract symptoms (principal); R33.8 Other retention of urine; R33.9 Retention of urine, unspecified; Z13.9 Encounter for screening, unspecified
CPT/HCPCS: 99213

== ENCOUNTER → 2022-12-28 08:19 | Outpatient (BNVA) | payer OTHER, SELFPAY | PROVIDERS: PCP Physician Assistant; Visit Provider Urology | DX: N40.1 Benign prostatic hyperplasia with lower urinary tract symptoms (principal); R33.8 Other retention of urine | CPT/HCPCS: 51798; 81003; 99212 ==

== ENCOUNTER 2023-07-04 14:49 | Outpatient (AMB) | payer OTHER, SELFPAY ==
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
== END 2023-07-04 16:03 | disposition home or self-care (01) ==
PROVIDERS: PCP Physician Assistant; Referring Provider Physician Assistant; Visit Provider Urology
DX: N40.1 Benign prostatic hyperplasia with lower urinary tract symptoms (principal); R33.8 Other retention of urine; R33.9 Retention of urine, unspecified
CPT/HCPCS: 99213

== ENCOUNTER → 2023-07-04 14:49 | Outpatient (BNVA) | payer OTHER, SELFPAY | PROVIDERS: PCP Physician Assistant; Visit Provider Urology | DX: N40.1 Benign prostatic hyperplasia with lower urinary tract symptoms (principal); R33.8 Other retention of urine | CPT/HCPCS: 51798; 99212 ==

== ENCOUNTER 2024-01-05 09:18 | Outpatient (AMB) | payer OTHER, SELFPAY ==
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
== END 2024-01-05 10:26 | disposition home or self-care (01) ==
PROVIDERS: PCP Physician Assistant; Referring Provider Physician Assistant; Visit Provider Urology
DX: R33.9 Retention of urine, unspecified (principal); N17.9 Acute kidney failure, unspecified; N40.1 Benign prostatic hyperplasia with lower urinary tract symptoms; R33.8 Other retention of urine
CPT/HCPCS: 99213

== ENCOUNTER → 2024-01-05 09:18 | Outpatient (BNVA) | payer OTHER, SELFPAY | PROVIDERS: PCP Physician Assistant; Visit Provider Urology | DX: N40.1 Benign prostatic hyperplasia with lower urinary tract symptoms (principal); R33.8 Other retention of urine; N31.9 Neuromuscular dysfunction of bladder, unspecified; N17.9 Acute kidney failure, unspecified | CPT/HCPCS: 51798; 99212 ==

== ENCOUNTER 2024-07-09 08:46 | Outpatient (AMB) | payer OTHER, SELFPAY ==
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
--- OUTSIDE RECORDS SUMMARY | 2024-07-09 09:25 | XMS_ITS | Encounter Summary ---
Author Name [facility] [place] [facility] [place] Address [address] [place] [address] Care Team Providers Care Hay Stacker Name Role Phone ENRIQUE BHANDARI Primary Care Provider Unavail able Insurance Providers: All historical and current Section Date Range: From patient's date of to the date document was created. This section includes the names of all active insurance providers for the patient. Insurance Provider Type of Coverage Plan Name Start of Policy Coverage End of Policy Coverage Group Number Member ID Insurance Provider's Telephone Number Policy Ordaz's Name Patient's Relationship to Policy Ordaz [facility] ([facility] MEDICARE ADVANTAGE [facility] ([facility]) May 08, 2002 [id number] ALEXIS RIVERA PATIENT MEDICARE ([facility]) MEDICARE () PART A Jun 08, 2010 PART A [id number] [phone] ALEXIS RIVERA PATIENT MEDICARE ([facility]) MEDICARE (M) PART B Jun 08, 2010 PART B [id number] [phone] ALEXIS RIVERA PATIENT MEDICARE ([facility]) MEDICARE () PART A Jun 08, 2010 PART A [id number] [phone] [id number] MIGUEL ALEXIS PATIENT MEDICARE (R) MEDICARE (M) PART B Jun 08, 2010 PART B [id number] ALEXIS RIVERA PATIENT MEDICARE ([facility]) MEDICARE (M) PART A Jun 08, 2010 PART A [id number] ALEXIS RIVERA PATIENT MEDICARE (WNR) MEDICARE (M) PART A Jun 08, 2010 PART A [id number] ALEXIS RIVERA PATIENT MEDICARE (WNR) MEDICARE (M) PART B Jun 08, 2010 PART B [id number] ALEXIS RIVERA PATIENT MEDICARE (WNR) MEDICARE (M) PART A Jun 08, 2010 PART A [id number] ALEXIS RIVERA PATIENT MEDICARE (WNR) MEDICARE (M) PART B Jun 08, 2010 PART B [id number] ALEXIS RIVERA PATIENT MEDICARE (WNR) MEDICARE (M) PART B Jun 08, 2010 PART B [id number] ALEXIS RIVERA PATIENT Selected Encounter This section includes the information on record at [place] for the Encounter. Date/Time Encounter Type Encounter Description Reason Provider Source Jun 12, 2024 09:30 AM OFFICE O/P EST LOW 20 MIN PRIMARY CARE/MEDICINE ICD-10-CM I10 Essential (primary) hypertension TIKI BHANDARI [facility] Encounter Template Text not used by [place] Assessments - Encounter Diagnoses This section includes the primary and secondary diagnoses documented for the Encounter. Date/Time Primary/Secondary Diagnosis Diagnosis Name Provider Source Jun 12, 2024 09:57 AM PRIMARY Essential (primary) hypertension [facility] [place] [facility] Jun 12, 2024 09:57 AM SECONDARY Other primary thrombocytopenia TIKI BHANDARI [facility] [place] [facility] Plan of Treatment: Future Appointments (+ 6 months) and Future Tests (+/- 45 days) The Plan of Treatment section includes future care activities for the patient from all [place] treatmentfacilities. This section includes future appointments and future orders which are active, pending or scheduled. Future Appointments This section includes appointments that were scheduled to occur 6 months from the date of the Encounter, up to a maximum of 20 appointments. The data comes from all [place] treatment facilities. Appointment Date/Time Appointment Type Appointme nt Facility Name Jun 19, 2024 10:15 AM AMBULATORY - MEDICINE [place] [facility] 09:00 AM AMBULATORY - PSYCHIATRY [facility] Jul 09, 2024 09:00 AM AMBULATORY - MEDICINE [place] [facility] [place] [facility] September 16, 2024 09:45 AM AMBULATORY - MEDICINE [place] [facility] Dec 10, 2024 09:00 AM AMBULATORY - PSYCHIATRY [facility] Active, Pending, and Scheduled Orders This section includes a listing of several types of active, pending, and scheduled orders, including clinic medications orders, diagnostic test orders, procedure orders and consult orders; where the start date of the order is 45 days before the date of the Encounter or 45 days after the date of theEncounter. The data comes from all [place] treatment facilities. Test Date/Time Test Type Test Details Facility Name Jun 21, 2024 01:15 PM Consult Order [facility] Cons Screen [facility] Jul 08, 2024 09:42 AM Consult Order [facility] Cons Screen Maker's [facility] Lab Results: +/- 30 days of the encounter This section includes the Chemistry and Hematology Lab Results on record with [place] for the patient. Radiology Reports and Pathology Reports are provided separately, in subsequent sections. Lab Results This section contains the Chemistry/Hematology Results that were resulted 30 days before or 30 daysafter the date of the Encounter. Date/Time Source Result Type Result - Unit Interpretation Reference Range Comment Jun 05, 2024 12:38 PM [facility] PSA Specimen Type: SERUM No comment entered. Ordering Provider: TIKI BHANDARI Report Released Date/Time: Dec 19, 2023 09:37 AM Reporting Lab: [address] [address] Performing Lab: [address] [address] PSA 0.81 ng/mL 0.00-4.00 Jun 05, 2024 12:38 PM [facility] LIPID PANEL FASTING Specimen Type: SERUM No comment entered. Ordering Provider: TIKI BHANDARI Report Released Date/Time: Dec 19, 2023 09:37 AM Reporting Lab: [facility] [address] [facility] [address] Performing Lab: [facility] [address] [facility] [facility] [address] CHOLESTEROL 206 mg/dL H TRIGLYCERIDE 114 mg/dL 0-150 LDL calculated 119 mg/dL 0-129 CHOL/HDL 3.2 HDL CHOLESTEROL 64 mg/dL H 40-60 Jun 05, 2024 12:38 PM [facility] LIVER FUNCTION Specimen Type: SERUM No comment entered. Ordering Provider: TIKI BHANDARI Report Released Date/Time: Dec 19, 2023 09:37 AM Reporting Lab: [facility] [address] [facility] [address] Performing Lab: [address] [address] PROTEIN,TOTAL 7.0 g/dL 6.0-8.3 ALBUMIN 3.9 g/dL 3.5-5.0 ALKALINE PHOSPHATASE 50 U/L 40-150 AST 14 U/L 5-34 ALT 15 U/L BILIRUBIN, TOTAL 0.4 mg/dL 0.2-1.2 Jun 05, 2024 12:38 PM [facility] BASIC METABOLIC PANEL (fasting) Specimen Type: SERUM No comment entered. Ordering Provider: TIKI BHANDARI Report Released Date/Time: Dec 19, 2023 09:37 AM Reporting Lab: [facility] [address] [facility] [address] Performing Lab: [address] [address] UREA NITROGEN 27 mg/dL H 7-25 GLUCOSE 104 mg/dL H 65-100 SODIUM 139 mmol/L 135-145 POTASSIUM 5.0 mmol/L 3.5-5.0 CHLORIDE 106 mmol/L 100-110 CO2 26 meq/L 20-30 CREATININE, Serum 1.98 mg/dL H 0.50-1.40 eGFR(CKD-EPI 2020) 34 mL/min L >60 Jun 05, 2024 12:38 PM [facility] CBC AND DIFF (AUTO) Specimen Type: BLOOD Comment: Verified by repeat analysis. Platelet. Ordering Provider: TIKI BHANDARI Report Released Date/Time: Dec 19, 2023 09:37 AM Reporting Lab: [facility] [address] [facility] [address] Performing Lab: [facility] [address] [facility] [address] WBC 11.26 10*3/uL H 4.50-11.00 RBC 5.17 10*6/uL 4.23-5.66 HGB 14.3 g/dL 12.8-17 HCT 42.9 39.2-50.4 MCV 83.0 fL 82-99 MCHC 33.3 g/dL 30.8-35.1 PLT 18 10*3/uL LL 140-360 RDW-CV 13.7 12.0-16.0 MONO, ABS 1.01 10*3/uL 0.30-1.10 MCH 27.7 pg 26.2-32.6 NEUT % 68.9 43.7-75.8 LYMPH % 18.5 14.0-42.3 MONO % 9.0 5.1-13.7 EOS % 1.9 0.4-6.8 BASO % 1.3 0.1-2.0 NEUT, ABS 7.76 10*3/uL H 2.20-7.60 LYMPH, ABS 2.08 10*3/uL 1.00-3.20 EOS, ABS 0.21 10*3/uL 0.03-0.44 BASO, ABS 0.15 10*3/uL H 0.01-0.13 IMMATURE GRAN % 0.4 0.0-0.7 IMMATURE GRAN, ABS 0.05 10*3/uL 0.00-0.06 NRBC % 0.0 0.0-0.0 NRBC, ABS 0.00 10*3/uL 0.00-0.00 Vital Signs: All taken on the encounter date This section contains inpatient and outpatient Vital Signs collected on the date of the Encounter. Date/Time Temperature Pulse Blood Pressure Respiratory Rate SP02 Pain Height Weight Body Mass Index Source Jun 12, 2024 09:28 AM 97.9 61 164/82 16 98 7 170 26 [place] [facility] [place] [facility] Social History: Smoking Status (Most current) and Tobacco Use (All prior to encounter date) This section includes the most current, and the historical, smoking and tobacco- related health factors from the [place] facility where the Encounter took place. Current Smoking Status This section includes the most current smoking, or tobacco-related health factor, from the [place] facility where the Encounter took place. Date/Time Current Smoking Status Comment Facil ity September 22, 2023 11:23 AM [facility]ACCO [facility] Tobacco Use History This section includes a history of the smoking, or tobacco-related health factors, that were collected on or before the date of the Encounter. The data comes from the [place] facility where the Encounter took place. Date/Time Smoking Status/Tobacco Use Comment F acility September 22, 2023 11:23 AM VA-TOBACCO QUIT 15 YRS OR MORE [facility] [place] [facility] Aug 22, 2022 11:35 AM VA-TOBACCO FORMER USER [facility] [place] [facility] Aug 22, 2022 11:35 AM VA-TOBACCO QUIT 15 YRS OR MORE [place] [facility] [place] [facility] Aug 02, 2021 03:30 PM VA-TOBACCO FORMER USER [facility] [place] [facility] Aug 02, 2021 03:30 PM VA-TOBACCO QUIT 15 YRS OR MORE [place] [facility] [place] [facility] Jun 27, 2018 10:47 AM VA-TOBACCO FORMER USER [facility] [place] [facility] Jun 27, 2018 10:47 AM VA-TOBACCO QUIT 15 YRS OR MORE [facility] [place] [facility] September 06, 2017 08:50 AM CURRENT SMOKER [facility] [place] [facility] September 06, 2017 08:50 AM V1-PT NOT INTEREST ED IN QUIT TOBACCO USE [facility] [place] [facility] Jun 03, 2015 10:19 AM LIFETIME NON-TOBACCO USER [place] [facility] [place] [facility] Advance Directives: All historical and current Section Date Range: From patient's date of to the date document was created. This section includes ALL of a patient's completed or amended [place] Advance and Rescinded Directives. The entries below indicate that a directive exists for the patient, but an actual copy is not included with this document. The data comes from all [place] facilities. Date Advance Directives Provider Source Dec 14, 2022 ADVANCE DIRECTIVE KEELEY JONES [facility] Radiology Reports: +/- 30 days of the encounter Radiology Reports For cases when an order for radiology services may have been completed prior to the date of the Encounter, the report list includes the Radiology Reports that were completed up to 30 days before dateof the Encounter. For cases when an order for radiology services may have been completed after the date of the Encounter, the report list also includes the Radiology Reports that were completed up to30 days after date of the Encounter. The data comes from all [place] treatment facilities. Date/Time Radiology Report Provider Source Jun 05, 2024 01:19 PM FLUOROSCOPIC MARIA INES NCE OF NEEDLE/SPINE: ALEXIS RIVERA [id number] -[phone] M Exm Date: JUN 05, 2024@13:19 Req Phys: LIT MCKEON THI Pat Loc: [facility] MED REHAB SPN INJ (Req' Img Loc: [facility]/BUILDING 1 Service: [place] [address] (Case [id number] COMPLETE) FLUOROSCOPIC GUIDANCE OF NEEDLE/S(RAD Detailed) CPT:88962 Reason for Study: Facet joint injections Clinical History: Report Status: Verified Date Reported: JUN 05, 2024 Date Verified: JUN 05, 2024 Skates Operator E-Sig:/ES/DEJAN TENORIO JR Report: Study: Pain injection of the lumbar spine. Findings: Fluoroscopic guidance was provided to Pain Management for interventional pain injection. No dictation provided for this study. Images captured for documentation only. Total fluoroscopy time used was 52.7 seconds. Total cumulative air kerma dose is 30.51 mGy. Impression: Fluoroscopic guidance for interventional pain injection. Primary Diagnostic Code: No immediate attention required Primary Interpreting Staff: DEJAN TENORIO JR, Radiologist (Skates Operator) /DEJAN VAZQUEZ JR [facility] Encounter Notes: All associated encounter notes This section contains the clinical notes associated to the Encounter. Date/Time Encounter Note(s) Provider Source Jun 12, 2024 09:41 AM PHYSICIAN GERMAN TEACHER NOTE: LOCAL TITLE: [place] NOTE STANDARD TITLE: PHYSICIAN GERMAN TEACHER NOTE DATE OF NOTE: JUN 12, 2024@09:41 ENTRY DATE: JUN 12, 2024@09:42:02 AUTHOR: ENRIQUE BHANDARI COSIGNER: URGENCY: STATUS: COMPLETED CC/HPI/A/P: 78 year old MALE here in follow-up for; htn, he thinks he stopped clonidine, will check and let me know. Low dose of CCB MAY be the cause of mild edema. labs reviewed. He will double check our medlist, let me know about clonidine, then I will address htn. Review of systems: Patient reports no changes from [facility], in meds or any admissions. Active problems - Computerized Problem List is the source for the followin. HTN - Hypertension ([facility] [id number]) 2. Exposure to potentially hazardous substance 3. Acute nontraumatic kidney injury 4. Benign Prostatic Hypertrophy With Outflow Obstruction ([facility] [id number]) 5. PTSD - Post-Traumatic Stress Disorder ([facility] [id number]) 6. Injury - disorder Polytrauma/fractures 03/2018. 7. Urticarial rash 8. Calcific tendinitis ([facility] CT [id number]) 9. Thrombocytopenia Dr Karimi, [facility], [phone]. SERVICE CONNECTED % - 80 VA and Non VA meds were reconciled with the patient who left with a corrected copy. See medication page for details. Active and Recently Outpatient Medications (excluding Supplies): Active Outpatient Medications Status 1) AMLODIPINE BESYLATE 2.5MG TAB TAKE ONE TABLET BY MOUTH ONCE ACTIVE DAILY FOR BLOOD PRESSURE/HEART, DO NOT TAKE WITH GRAPEFRUIT JUICE Indication: FOR HIGH BLOOD PRESSURE 2) CLONIDINE HCL 0.2MG TAB TAKE ONE TABLET BY MOUTH EVERY ACTIVE MORNING TO CONTROL BLOOD PRESSURE Indication: FOR HIGH BLOOD PRESSURE 3) FINASTERIDE 5MG TAB TAKE ONE TABLET BY MOUTH ONCE DAILY FOR ACTIVE PROSTATE 4) LIDOCAINE 5% PATCH APPLY 1 PATCH TOPICALLY ONCE DAILY ACTIVE (LEAVE PATCH ON FOR 12 HOURS, THEN REMOVE PATCH) Indication: FOR PAIN 5) MIRTAZAPINE 30MG TAB TAKE ONE-HALF TABLET BY MOUTH AT ACTIVE BEDTIME FOR DEPRESSION/MOOD 6) PREGABALIN 25MG ORAL CAP TAKE ONE CAPSULE BY MOUTH ONCE ACTIVE DAILY CALL OR MESSAGE AFTER A MONTH TO CONSIDER DOSE INCREASE. Indication: FOR PAIN 7) TAMSULOSIN HCL 0.4MG CAP TAKE TWO CAPSULES BY MOUTH AT ACTIVE BEDTIME DIRECTED BY PROVIDER 8) TRAZODONE HCL 100MG TAB TAKE TWO TABLETS BY MOUTH AT BEDTIME ACTIVE Active Non-VA Medications Status 1) Non-VA BETA CAROTENE 39605 UNT CAP [id number] BY MOUTH DAILY ACTIVE 2) Non-VA FISH OIL CAP/TAB 1200MG TWICE DAILY ACTIVE 3) Non-VA FLAXSEED MISCELLANEOUS DAILY ACTIVE 4) Non-VA GLUCOSAMINE/CHONDROITIN CAP/TAB + HYALURONIC ACID. ACTIVE DAILY 5) Non-VA LACTOBACILLUS ACIDOPHILUS TAB 1 CAPSULE BY MOUTH ONCE ACTIVE DAILY 6) Non-VA MULTIVITAMIN CHEWABLE TABLETS 1 TABLET BY MOUTH DAILY ACTIVE 7) Non-VA PHYTONADIONE TAB 100MCG BY MOUTH DAILY ACTIVE 8) Non-VA TURMERIC CAP/TAB CURCUMIN BY MOUTH ONCE DAILY ACTIVE 16 Total Medications 97.9 F [36.6 C] (06/12/2024 09:28) 61 (06/12/2024 09:28) 16 (06/12/2024 09:28) 164/82 (06/12/2024 09:28) 7 (06/12/2024 09:28) 68 in [172.7 cm] (06/13/2019 10:54) 170 lb [77.11 kg] (06/12/2024 09:28) BMI: 25.9 Neuro: Alert and oriented times three, grossly nonfocal, nasolabial folds intact. Recent labs reviewed with patient today:yes Follow-Up Pos PTSD/Depression: I have reviewed the results of the Mental Health screens and have evaluated the patient. Based on the evaluation, the following disposition plan will be implemented: Already receiving needed treatment. Contact information and instructions for accessing emergency services provided. /essence/ Enrique Bhandari PA-C STAFF PHYSICIAN GERMAN TEACHER Signed: 06/12/2024 09:57 ENRIQUE BHANDARI [place] [facility] [place] [facility] Jun 12, 2024 09:25 AM PREVENTIVE MEDICINE NURSING NOTE: LOCAL TITLE: CLINICAL REMINDERS/NURSING STANDARD TITLE: PREVENTIVE MEDICINE NURSING NOTE DATE OF NOTE: JUN 12, 2024@09:25 ENTRY DATE: JUN 12, 2024@09:26:03 AUTHOR: JADEN MICHAEL EXP COSIGNER: URGENCY: STATUS: COMPLETED Advance Directive Screen MH AD: Patient has an Advance Directive on file at this [facility]. No updates are needed at this time. The patient received education about Advance Directives and written notification of his/her rights. Depression Screening: Perform PHQ-2 A PHQ-2 screen was performed. The score was 3 which is a positive screen for depression. Over the past two weeks, how often have you been bothered by the following problems? 1. Little interest or pleasure in doing things Not at all 2. Feeling down, depressed, or hopeless Nearly every day Licensed Independent Provider notified of positive screen and need for follow-up. Name of provider notified: Enrique Bhandari Influenza Immunization: Deferral / Refusal The patient declines to receive the recommended dose of seasonal influenza vaccine. Immunization: INFLUENZA, UNSPECIFIED FORMULATION Refusal Reason: PATIENT DECISION Patient refuses all immunization(s) in the FLU group Date Documented: 06/12/24 09:27 COVID-19 Immunization: Refused Moderna Monovalent COVID-19 vaccine Immunization: COVID-19 (MODERNA), MRNA, LNP-S, PF, 50 MCG/0.5 ML (AGES 12+ YEARS) Refusal Reason: PATIENT DECISION Patient refuses all immunization(s) in the COVID-19 group Date Documented: 06/12/24 09:27 RSV Immunization: Respiratory Syncytial Virus (RSV) Vaccine: Refused GlaxoSmithKline (RSV vaccine, adjuvanted, Arexvy). Immunization: RSV, RECOMBINANT, PROTEIN SUBUNIT RSVPREF3, ADJUVANT RECONSTITUTED, 0.5 ML, PF Refusal Reason: PATIENT DECISION Patient refuses all immunization(s) in the RSV group Date Documented: 06/12/24 09:27 Sexual Orientation: The patient thinks of their sexual orientation as: Straight or Heterosexual /essence/ JADEN MICHAEL LPN License Practical Nurse Signed: 06/12/2024 09:27 JADEN MICHAEL [facility]
--- OUTSIDE RECORDS SUMMARY | 2024-07-09 09:25 | XMS_ITS | Clinical Summary ---
Author Organization [facility] Facility Address [address] [place] [address] Care Team Providers Care Funeral Assistant Name Role Phone Unavailable Primary Care Provider Unavailabl e Social History Tobacco Use Types Packs/Day Years Used Date Smoking Tobacco: Never Assessed Sex and Gender Information Value Date Recorded Sex Assigned at Not on file Legal Sex Male 10:06 AM EDT Gender Identity Not on file Sexual Orientation Not on file Plan of Treatment Health Maintenance Due Date Last Done Comments Pneumococcal Vaccine: 65+ Ye ars (1 of 1 - PCV) 2010 Influenza Vaccine (#1) 2024 Hepatitis B Vaccine Aged Out No longe r eligible based on patient's age to complete this topic Insurance [facility] 1,2,3 (VACCN) [facility] 1,2,3 (VACCN)
--- OUTSIDE RECORDS SUMMARY | 2024-07-09 09:25 | XMS_ITS | Encounter Summary ---
Author Name [facility] [facility] [place] Address [address] [place] [address] Care Team Providers Care Cigar Sorter Name Role Phone REBECA CASTILLO Primary Care Provider Unavail able Insurance Providers: [...] Name Patient's Relationship to Policy [facility] ([facility]) MEDICARE ADVANTAGE [facility] ([facility]) May 08, 2002 [id number] ALEXIS RIVERA PATIENT MEDICARE ([facility]) MEDICARE () PART A Jun 08, 2010 PART A [id number] ALEXIS RIVERA PATIENT MEDICARE ([facility]) MEDICARE (M) PART B Jun 08, 2010 PART B [id number] ALEXIS RIVERA PATIENT MEDICARE ([facility]) MEDICARE () PART A Jun 08, 2010 PART A [id number] [phone] [id number] ALEXIS RIVERA PATIENT MEDICARE ([facility]) MEDICARE (M) PART B Jun 08, 2010 PART B [id number] [phone] ALEXIS RIVERA PATIENT MEDICARE ([facility]) MEDICARE () PART A Jun 08, 2010 PART A [id number] ALEXIS RIVERA PATIENT MEDICARE ([place]) MEDICARE (M) PART A Jun 08, 2010 PART A [id number] ALEXIS RIVERA PATIENT MEDICARE ([place]) MEDICARE (M) PART B Jun 08, 2010 PART B [id number] ALEXIS RIVERA PATIENT MEDICARE ([place]) MEDICARE (M) PART A Jun 08, 2010 PART A [id number] ALEXIS RIVERA PATIENT MEDICARE ([place]) MEDICARE (M) PART B Jun 08, 2010 PART B [id number] ALEXIS RIVERA PATIENT MEDICARE ([place]) MEDICARE (M) PART B Jun 08, 2010 PART B [id number] ALEXIS RIVERA PATIENT Selected Encounter This section includes the information on record at [place] for the Encounter. Date/Time Encounter Type Encounter Description Reason Provider Source Jan 12, 2024 09:00 AM COMPRE OPH EXAM EST PT 1/> OPTOMETRY ICD-10-CM Z96.1 Presence of intraocular lens AMARA SEGUNDO [facility] Encounter Template Text not used by [place] Assessments - Encounter Diagnoses This section includes the primary and secondary diagnoses documented for the Encounter. Date/Time Primary/Secondary Diagnosis Diagnosis Name Provider Source Jan 12, 2024 09:44 AM PRIMARY Presence of intraocular lens [facility] Jan 12, 2024 09:44 AM SECONDARY Drusen (degenerative) of macula, bilateral [facility] Jan 12, 2024 09:44 AM SECONDARY Unspecified disorder of refraction AMARA SEGUNDO [facility] Plan of Treatment: Future Appointments (+ 6 months) and Future Tests (+/- 45 days) The Plan of Treatment section includes future care activities for the patient from all [place] treatmentfacilities. This section includes future appointments and future orders which are active, pending or scheduled. Future Appointments This section includes appointments that were scheduled to occur 6 months from the date of the Encounter, up to a maximum of 20 appointments. The data comes from all [place] treatment facilities. Appointment Date/Time Appointment Type Appointme nt Facility Name Jan 31, 2024 09:00 AM [facility]UL[facility] [place] [facility] Feb 27, 2024 09:00 AM AMBULATORY [facility] [place] [facility] Feb 27, 2024 10:00 AM AM[facility]ULATORY [facility]IC[facility] [place] [facility] Mar 11, 2024 12:00 PM AMBULATORY [facility] MEDICINE [facility] [place] [facility] May 16, 2024 09:00 AM [facility]AT[facility] [place] [facility] Jun 05, 2024 01:00 PM AMBULATORY - [facility] [place] [facility] Jun 12, 2024 09:30 AM AMBULATORY [facility] MEDICINE [facility] [place] [facility] Jun 19, 2024 10:15 AM AM[place] [facility] [place] [facility] 2024 09:00 AM AMBULATORY - PSYCHIATRY [facility] Jul 09, 2024 09:00 AM AM[place]ORY [place] [facility] [place] [facility] Active, Pending, and Scheduled Orders This section includes a listing of several types of active, pending, and scheduled orders, including clinic medications orders, diagnostic test orders, procedure orders and consult orders; where the start date of the order is 45 days before the date of the Encounter or 45 days after the date of theEncounter. The data comes from all [place] treatment [facility]. Test Date/Time Test Type Test Details Facility Name Dec 19, 2023 09:37 AM Consult Order COMMUNITY CARE-HEMATOLOGY Cons [place] [facility] [place] [facility] Social History: Smoking Status (Most current) and Tobacco Use (All prior to encounter date) This section includes the most current, and the historical, smoking and tobacco- related health factors from the [facility] facility where the Encounter took place. Current Smoking Status This section includes the most current smoking, or tobacco-related health factor, from the [place] facility where the Encounter took place. Date/Time Current Smoking Status Comment Angle velazquez September 22, 2023 11:23 AM VA-TOBACCO FORMER USER [facility] [place] [facility] Tobacco Use History This section includes a history of the smoking, or tobacco-related health factors, that were collected on or before the date of the Encounter. The data comes from the [place] facility where the Encounter took place. Date/Time Smoking Status/Tobacco Use Comment F acility September 22, 2023 11:23 AM VA-TOBACCO QUIT 15 YRS OR MORE [facility] Aug 22, 2022 11:35 AM [facility]AC[facility] Aug 22, 2022 11:35 AM VA-TOBACCO QUIT 15 YRS OR MORE [facility] Aug 02, 2021 03:30 PM VA-TOBACCO FORMER USER [facility] Aug 02, 2021 03:30 PM VA-TOBACCO QUIT 15 YRS OR MORE [facility] Jun 27, 2018 10:47 AM VA-TOBACCO FORMER USER [facility] Jun 27, 2018 10:47 AM [place]-TO[place]AC[place] QUIT 15 YRS OR MORE [facility] September 06, 2017 08:50 AM CURRENT [facility] September 06, 2017 08:50 AM V1-PT NOT INTEREST ED IN QUIT TOBACCO USE [facility] Jun 03, 2015 10:19 AM LIFETIME NON-TOBACCO USER [facility] Advance Directives: All historical and current Section Date Range: From patient's date of to the date document was created. This section includes ALL of a patient's completed or amended [place] Advance and Rescinded Directives. The entries below indicate that a directive exists for the patient, but an actual copy is not included with this document. The data comes from all [place] facilities. Date Advance Directives Provider Source Dec 14, 2022 ADVANCE DIRECTIVE KEELEY JONES [facility] Encounter Notes: All associated encounter notes This section contains the clinical notes associated to the Encounter. Date/Time Encounter Note(s) Provider Source Jan 12, 2024 09:12 AM OPTOMETRY NOTE: LOCAL TITLE: OPTOMETRY NOTE(T) STANDARD TITLE: OPTOMETRY NOTE DATE OF NOTE: JAN 12, 2024@09:12 ENTRY DATE: JAN 12, 2024@09:12:59 AUTHOR: AMARA SEGUNDO EXP COSIGNER: URGENCY: STATUS: COMPLETED I saw this patient in conjunction with the student and agree to the stated findings and plan after reviewing both history and repeating addison elements of physical exam. 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 Otherwise no other acute ocular disease was seen today. Ordered clear and sunglasses PAL for glare sensitivity. The patient will return in 12 months or sooner if any problems arise. /essence/ AMARA SEGUNDO OD STAFF CRIPPLE CHASER Signed: 01/12/2024 09:44 AMARA SEGUNDO [place] [facility] [place] [facility] Jan 12, 2024 07:29 AM OPTOMETRY NOTE: LOCAL TITLE: OPTOMETRY NOTE STANDARD TITLE: OPTOMETRY NOTE DATE OF NOTE: JAN 12, 2024@07:29 ENTRY DATE: JAN 12, 2024@07:29:37 AUTHOR: LAUREN VASQUEZ EXP COSIGNER: AMARA SEGUNDO URGENCY: STATUS: COMPLETED Active problems - Computerized Problem List is the source for the followin. HTN - Hypertension ([facility] [id number]) 2. Exposure to potentially hazardous substance 3. Acute nontraumatic kidney injury 4. Benign Prostatic Hypertrophy With Outflow Obstruction ([facility] [id number]) 5. PTSD - Post-Traumatic Stress Disorder ([facility] [id number]) 6. Injury - disorder 7. Urticarial rash 8. Calcific tendinitis ([facility] [id number]) 9. Thrombocytopenia Active Outpatient Medications (including Supplies): Active Outpatient Medications Status 1) CLONIDINE HCL 0.2MG TAB TAKE ONE TABLET BY MOUTH ACTIVE EVERY MORNING AND TAKE TWO TABLETS EVERY EVENING TO CONTROL BLOOD PRESSURE 2) FINASTERIDE 5MG TAB TAKE ONE TABLET BY MOUTH ONCE ACTIVE (S) DAILY FOR PROSTATE 3) INCONT LINER DEPEND GUARDS USE 1 PAD TOPICALLY ONCE ACTIVE DAILY NEEDED 4) LIDOCAINE 5% PATCH APPLY 1 PATCH TOPICALLY ONCE DAILY ACTIVE FOR PAIN (LEAVE PATCH ON FOR 12 HOURS, THEN REMOVE PATCH) 5) MIRTAZAPINE 30MG TAB TAKE ONE-HALF TABLET BY MOUTH AT ACTIVE BEDTIME FOR DEPRESSION/MOOD 6) PREGABALIN 25MG ORAL CAP TAKE ONE CAPSULE BY MOUTH ACTIVE ONCE DAILY FOR PAIN CALL OR MESSAGE AFTER A MONTH TO CONSIDER DOSE INCREASE. 7) TAMSULOSIN HCL 0.4MG CAP TAKE TWO CAPSULES BY MOUTH ACTIVE AT BEDTIME DIRECTED BY PROVIDER 8) TRAZODONE HCL 100MG TAB TAKE TWO TABLETS BY MOUTH AT ACTIVE BEDTIME Active Non-VA Medications Status 1) Non-VA BETA CAROTENE 86483 UNT CAP [id number] BY MOUTH ACTIVE DAILY 2) Non-VA FISH OIL CAP/TAB 1200MG TWICE DAILY ACTIVE 3) Non-VA FLAXSEED MISCELLANEOUS DAILY ACTIVE 4) Non-VA GLUCOSAMINE/CHONDROITIN CAP/TAB + HYALURONIC ACTIVE ACID. DAILY 5) Non-VA LACTOBACILLUS ACIDOPHILUS TAB 1 CAPSULE BY ACTIVE MOUTH ONCE DAILY 6) Non-VA MULTIVITAMIN CHEWABLE TABLETS 1 TABLET BY ACTIVE MOUTH DAILY 7) Non-VA PHYTONADIONE TAB 100MCG BY MOUTH DAILY ACTIVE 8) Non-VA TURMERIC CAP/TAB CURCUMIN BY MOUTH ONCE DAILY ACTIVE 16 Total Medications Allergies: BETHANECOL CHLORIDE, ATENOLOL All medications including those prescribed by outside VA's, community providers, and all OTC meds were reviewed and reconciled with patient to the best of their abilities. This 78 year old MALE is seen today for annual CEE MARIO: 01/04/23 Chief Complaint: His near vision in PALs is blurry and he wants the same frame style for updated SRx OHx: 1. Pseudophakia OU 2. Astigmatism OS and presbyopia OU Ocular Medications: none (-) Pain: (-) WILKINS: (-) Diplopia: (-) Flashes: (-) Floaters: (-) Amaurosis Fugax/Tia's: (+) Eye Injury: CE OU (-) Eye Surgery: (-) TBI FOHx: (-) Glaucoma/ARMD/Blindness VITALS (most recent, as listed in the electronic record): B/P: 144/90 (12/19/2023 09:02) Pulse: 67 (12/19/2023 09:02) Temperature: 98.3 F [36.8 C] (12/19/2023 09:02) Weight: 175.4 lb [79.56 kg] (12/19/2023 09:02) Height: 68 in [172.7 cm] (06/13/2019 10:54) BMI: BMI: 26.7 PERTINENT LABS: HEMOGLOBIN A1C TREND Collection DT Spec HGBA1c 08/25/2014 13:12 BLOOD 5.7 (-) Smoker/Length of Time/PPD: Current Rx with last BCVA: OD: +0.25 SPH 20/20 OS: PL-1.00 x097 20/20 Add: +2.50 DVA ( )sc ( x )cc - phoropter OD: 20/20-2 OS: 20/20 Pupils: PERRL (-)APD EOMs: SAFE OU, (-)Pain/Diplopia CVF (facial, peripheral): FTFC OU Subjective Refraction: OD: +1.00-1.00 x080 20/20 OS: PL-1.25 x095 20/20 Add: 20/20 Today given SRx OD: +1.00-1.00 x080 20/20 OS: PL-1.25 x095 20/20 Add: 20/20 All the above performed by student, reviewed by attending Anterior segment: Performed by student, repeated by attending Lids: clear OU Conj: white and quiet OU Cornea: (+) opacification inf temp OU from CE incision AC: D&Q OU Angles: 4x4 OU Iris: flat and clear Lens: Well centered PCIOL OU Tonometry: Performed by student, reviewed by attending [x] GAT [ ] iCare OD 13 mmHg OS 13 mmHg Time:9:15am Fundus exam: Dilated:x Non dilated: Dilating Drops: 1GTT 1 % Tropicamide OU & 1GTT 2.5% Phenylephrine OU (Pt. ed. on side effects, dilation warning given and verbal consent obtained) Patient advised not to drive if they feel they have any symptoms which could affect their ability to drive safely. Patient advised not to engage in any activities which could put themselves or others at risk if they feel they have any symptoms which could affect their ability to perform those activities safely. Performed by student, repeated by attending Vit: (+) PVD OD C/D: 0.40 OU pink & healthy rim tissue Macula: Trace hard drusen troy-macula OU PPole: clear A/V: 2/3 Vessels: normal caliber Periph: flat and intact (-) holes, tears, detachments 360 OU Assessment/Plan: 1.Pseudophakia OU - PCIOLs appear well centered and stable today - Pt. ed. on findings - Monitor 2. Macular drusen OU - Mild OU, BCVA 20/20; pt is a non-smoker - Educated pt aabout condition and recommended sun protection, healthy diet - Monitor yearly 3.Astigmatism and presbyopia OU - Pt. ed. on todays findings - Mild change in SRx OD; trial framed and pt appreciated new SRx - Is going to pick out new frames for PALs, clear and sun - Monitor Return to Clinic 1yr or earlier PRN Education: After discussion and answering all 's questions, demonstrated and verbalized understanding of diagnosis and treatment. Yes [x] No [ ] Medication Reconciliation: Outpatient: Has the patient been taking medications as documented in the EMLR? YES: The patient has been taking medications as documented in the EMLR. Essential Medication List for Review used to complete this medication reconciliation. INCLUDED IN THIS LIST: Alphabetical list of active outpatient prescriptions dispensed from this VA (local) and dispensed from another VA or DoD facility (remote) as well as inpatient orders (local, pending and active), local clinic medications, locally documented non-VA medications, and local prescriptions that have or been discontinued in the past 90 days. - All changes in medications, including all non-VA/Herbal/OTC medications were entered into CPRS. - If there were any medications the patient should no longer take, they were discontinued. - The patient/caregiver was instructed to update this list, discard old lists, and take this list to the next appointment, whether with a VA or non-VA provider. /essence/ LAUREN VASQUEZ OPTOMETRY STUDENT Signed: 01/12/2024 10:18 /essence/ AMARA SEGUNDO OD STAFF CRIPPLE CHASER Cosigned: 01/12/2024 10:58 LAUREN VASQUEZ [facility]
--- OUTSIDE RECORDS SUMMARY | 2024-07-09 09:26 | XMS_ITS | Encounter Summary ---
Author Name [facility] [place] [facility] [place] Address [address] [place] [address] Care Team Providers Care Transformer Shop Supervisor Name Role Phone REBECA CASTILLO Primary Care [...] Name Patient's Relationship to Policy [facility] ([facility]) MEDICARE ADVANTAGE [facility] ([facility]) May 08, 2002 [id number] [id number] ALEXIS RIVERA PATIENT MEDICARE ([facility]) MEDICARE () PART A Jun 08, 2010 PART A [id number] [phone] MIGUEL ALEXIS PATIENT MEDICARE (WNR) MEDICARE (M) PART B Jun 08, 2010 PART B [id number] MIGUEL ALEXIS PATIENT MEDICARE (WNR) MEDICARE (M) PART A Jun 08, 2010 PART A [id number] ALEXIS RIVERA PATIENT MEDICARE (WNR) MEDICARE (M) PART B Jun 08, 2010 PART B [id number] ALEXIS RIVERA PATIENT MEDICARE (WNR) MEDICARE (M) PART A Jun 08, 2010 PART A [id number] ALEXIS RIVERA PATIENT MEDICARE (WNR) MEDICARE (M) PART B Jun 08, 2010 PART B [id number] ALEXIS RIVERA PATIENT MEDICARE (WNR) MEDICARE (M) PART A Jun 08, 2010 PART A [id number] ALEXIS RIVERA PATIENT MEDICARE (WNR) MEDICARE (M) PART B Jun 08, 2010 PART B [id number] ALEXIS RIVERA PATIENT MEDICARE (WNR) MEDICARE (M) PART A Jun 08, 2010 PART A [id number] [phone] ALEXIS RIVERA PATIENT MEDICARE (WNR) MEDICARE (M) PART B Jun 08, 2010 PART B [id number] ALEXIS RIVERA PATIENT Selected Encounter This section includes the information on record at [place] for the Encounter. Date/Time Encounter Type Encounter Description Reason Provider Source Jun 05, 2024 01:00 PM OFFICE O/P EST HI 40 MIN PM&RS PHYSICIAN ICD-10-CM M47.895 Other spondylosis, thoracolumbar region LIT MCKEON [facility] Encounter Template Text not used by [place] Assessments - Encounter Diagnoses This section includes the primary and secondary diagnoses documented for the Encounter. Date/Time Primary/Secondary Diagnosis Diagnosis Name Provider Source Jun 05, 2024 04:38 PM PRIMARY Other spondylosis, thoracolumbar region [facility] Jun 05, 2024 04:38 PM SECONDARY Other [facility] [place] Plan of Treatment: Future Appointments (+ 6 months) and Future Tests (+/- 45 days) The Plan of Treatment section includes future care activities for the patient from all [place] treatmentfacilities. This section includes future appointments and future orders which are active, pending or scheduled. Future Appointments This section includes appointments that were scheduled to occur 6 months from the date of the Encounter, up to a maximum of 20 appointments. The data comes from all [place] treatment facilities. Appointment Date/Time Appointment Type Appointme nt Facility Name Jun 12, 2024 09:30 AM AMBULATORY - MEDICINE [place] [facility] [place] [facility] Jun 19, 2024 10:15 AM AMBULATORY - MEDICINE [place] [facility] [place] [facility] 2024 09:00 AM AMB[facility]ORY [facility] Jul 09, 2024 09:00 AM AMBULATORY - MEDICINE [place] [facility] [place] [facility] September 16, 2024 09:45 AM AMBULATORY - MEDICINE [place] [facility] [facility] Active, Pending, and Scheduled Orders This section includes a listing of several types of active, pending, and scheduled orders, including clinic medications orders, diagnostic test orders, procedure orders and consult orders; where the start date of the order is 45 days before the date of the Encounter or 45 days after the date of theEncounter. The data comes from all [place] treatment facilities. Test Date/Time Test Type Test Details Facility Name Jun 21, 2024 01:15 PM Consult Order [facility] Cons Welfare Worker's Choice [facility] [place] [facility] Jul 08, 2024 09:42 AM Consult Order [facility] Cons Welfare [facility] Lab Results: +/- 30 days of the encounter This section includes the Chemistry and Hematology Lab Results on record with [place] for the patient. Radiology Reports and Pathology Reports are provided separately, in subsequent sections. Lab Results This section contains the Chemistry/Hematology Results that were resulted 30 days before or 30 daysafter the date of the Encounter. Date/Time Source Result Type Result - Unit Interpretation Reference Range Comment Jun 05, 2024 12:38 PM [facility] PSA Specimen Type: SERUM No comment entered. Ordering Provider: TIKI CASTILLO Report Released Date/Time: Dec 19, 2023 09:37 AM Reporting Lab: [facility] [address] [address] Performing Lab: [address] [address] PSA 0.81 ng/mL 0.00-4.00 Jun 05, 2024 12:38 PM [facility] LIPID PANEL FASTING Specimen Type: SERUM No comment entered. Ordering Provider: TIKI CASTILLO Report Released Date/Time: Dec 19, 2023 09:37 AM Reporting Lab: [facility] [address] [address] Performing Lab: [address] [address] CHOLESTEROL 206 mg/dL H TRIGLYCERIDE 114 mg/dL 0-150 LDL calculated 119 mg/dL 0-129 CHOL/HDL 3.2 HDL CHOLESTEROL 64 mg/dL H 40-60 Jun 05, 2024 12:38 PM [facility] LIVER FUNCTION Specimen Type: SERUM No comment entered. Ordering Provider: TIKI CASTILLO Report Released Date/Time: Dec 19, 2023 09:37 AM Reporting Lab: [address] [address] Performing Lab: [address] [address] PROTEIN,TOTAL 7.0 g/dL 6.0-8.3 ALBUMIN 3.9 g/dL 3.5-5.0 ALKALINE PHOSPHATASE 50 U/L 40-150 AST 14 U/L 5-34 ALT 15 U/L BILIRUBIN, TOTAL 0.4 mg/dL 0.2-1.2 Jun 05, 2024 12:38 PM [facility] BASIC METABOLIC PANEL (fasting) Specimen Type: SERUM No comment entered. Ordering Provider: TIKI CASTILLO Report Released Date/Time: Dec 19, 2023 09:37 AM Reporting Lab: [address] [address] Performing Lab: [address] [address] UREA NITROGEN 27 mg/dL H 7-25 GLUCOSE 104 mg/dL H 65-100 SODIUM 139 mmol/L 135-145 POTASSIUM 5.0 mmol/L 3.5-5.0 CHLORIDE 106 mmol/L 100-110 CO2 26 meq/L 20-30 CREATININE, Serum 1.98 mg/dL H 0.50-1.40 eGFR(CKD-EPI 2020) 34 mL/min L >60 Jun 05, 2024 12:38 PM [facility] CBC AND DIFF (AUTO) Specimen Type: BLOOD Comment: Verified by repeat analysis. Platelet. Ordering Provider: TIKI CASTILLO Report Released Date/Time: Dec 19, 2023 09:37 AM Reporting Lab: [facility] [address] [address] Performing Lab: [facility] [address] [address] WBC 11.26 10*3/uL H 4.50-11.00 RBC 5.17 [...] Height Weight Body Mass Index Source Jun 05, 2024 02:10 PM 69 158/82 18 98 6 [facility] [facility] Jun 05, 2024 01:09 PM 69 156/82 20 96 7 [facility] [place] [facility] Social History: Smoking Status (Most current) and Tobacco Use (All prior to encounter date) This section includes the most current, and the historical, smoking and tobacco- related health factors from the [place] facility where the Encounter took place. Current Smoking Status This section includes the most current smoking, or tobacco-related health factor, from the [place] facility where the Encounter took place. Date/Time Current Smoking Status Comment Facil ity September 22, 2023 11:23 AM VA-TOBACCO FORMER USER [facility] [place] [facility] Tobacco Use History This section includes a history of the smoking, or tobacco-related health factors, that were collected on or before the date of the Encounter. The data comes from the [place] facility where the Encounter took place. Date/Time Smoking Status/Tobacco Use Comment F acility September 22, 2023 11:23 AM VA-TOBACCO QUIT 15 YRS OR MORE [facility] [place] [facility] Aug 22, 2022 11:35 AM VA-TOBACCO FORMER USER [facility] [place] [facility] Aug 22, 2022 11:35 AM VA-TOBACCO QUIT 15 YRS OR MORE [facility] [place] [facility] Aug 02, 2021 03:30 PM VA-TOBACCO FORMER USER [facility] Aug 02, 2021 03:30 PM VA-TOBACCO QUIT 15 YRS OR MORE [facility] Jun 27, 2018 10:47 AM VA-TOBACCO FORMER USER [facility] Jun 27, 2018 10:47 AM VA-TOBACCO QUIT 15 YRS OR MORE [facility] September 06, 2017 08:50 AM CURRENT SMOKER [facility] [place] [facility] September 06, 2017 08:50 AM V1-PT NOT INTEREST ED IN QUIT TOBACCO USE [facility] Jun 03, 2015 10:19 AM LIFETIME NON-TOBACCO USER [facility] Advance Directives: All historical and current Section Date Range: From patient's date of to the date document was created. This section includes ALL of a patient's completed or amended [place] Advance and Rescinded Directives. The entries below indicate that a directive exists for the patient, but an actual copy is not included with this document. The data comes from all [place] facilities. Date Advance Directives Provider Source Dec 14, 2022 ADVANCE DIRECTIVE KEELEY JONES [facility] Radiology Reports: +/- 30 days of [...] the Encounter. The data comes from all [place] treatment facilities. Date/Time Radiology Report Provider Source Jun 05, 2024 01:19 PM FLUOROSCOPIC MARIA INES NCE OF NEEDLE/SPINE: ALEXIS RIVERA [id number] -[id number] M Exm Date: JUN 05, 2024@13:19 Req Phys: LIT MCKEON THI Pat Loc: [facility] SPN ALICIA STONE (Req' Img Loc: [facility] 1 Service: Unknown [facility] [place] [address] (Case [id number] COMPLETE) FLUOROSCOPIC GUIDANCE OF NEEDLE/S(RAD Detailed) CPT:52497 Reason for Study: Facet joint injections Clinical History: Report Status: Verified Date Reported: JUN 05, 2024 Date Verified: JUN 05, 2024 Recreational Assistant E-Sig:/ES/DEJAN TENORIO JR Report: Study: Pain injection [...] Primary Interpreting Staff: DEJAN TENORIO JR, Radiologist (Recreational Assistant) /DEJAN VAZQUEZ JR [facility] Encounter Notes: All associated encounter notes This section contains the clinical notes associated to the Encounter. Date/Time Encounter Note(s) Provider Source Jun 05, 2024 04:27 PM PHYSICAL MEDICINE REHAB NOTE: LOCAL TITLE: PM&R BACK/JOINT PROCEDURE NOTE STANDARD TITLE: PHYSICAL MEDICINE REHAB NOTE DATE OF NOTE: JUN 05, 2024@16:27 ENTRY DATE: JUN 05, 2024@16:28:01 AUTHOR: LIT MCKEON TH EXP COSIGNER: URGENCY: STATUS: COMPLETED PROCEDURE NOTE FACET JOINT INJECTION WITH FLUOROSCOPY PROCEDURE: 1) Bilateral T12-L1 and L1-L2 facet joint injections. 1) Fluoroscopic needle guidance REASON FOR PROCEDURE: Thoracolumbar spondylosis PHYSICIAN: Lit Mckeon DO MEDICATIONS INJECTED: 20mg methylprednisolone + 0.5 mL of 1% lidocaine at each facet joint. Total methylprednisolone: 80mg Lot#: [id number] Exp: 07/2025 LOCAL ANESTHETIC INJECTED: 4 mL of 1% lidocaine total CONTRAST AGENT USED: 1mL of Omnipaque 300 CONTRAST AGENT WASTED: 0mL of Omnipaque 300 SEDATION MEDICATIONS: None ESTIMATED BLOOD LOSS: None COMPLICATIONS: None HISTORY: [place] presents for recurrence of back pain, this time more localized to the upper lumbar/lower thoracic region without radiation. Reports intermittent tingling of the inner thighs. Symptoms worsen with arching of the back or twisting motions, and improved with rest. Prior facet joint injections in the lumbosacral region as well as SI joints were very effective. Denies any new weakness, numbness, or tingling of the trunk or lower extremities. Patient is on pregabalin and lidocaine patches as needed, which does provide some pain relief though pain is still rated at 10/10 at worst and 7/10 on average. He continues to engage in home exercises. He denies bowel or bladder issues, fever, chills, or recent weight loss. EXAM: Vitals in chart. Vet presents well groomed, awake, alert, in NAD. Exam shows kyphotic posture. Spinal mobility is limited, especially in thoracolumbar extension and rotation bilaterally, mimicking some of his pain at the thoracolumbar region. Significant tenderness palpation of bilateral T12-L2 paraspinal muscles and over facet joints, replicating his pain. Trigger points are palpated in the same area. No tenderness palpation of bilateral SI joints or lower lumbar paraspinal region. No focal weakness in the lower extremities. Sensations intact to light touch in the legs. Gait is nonantalgic, no foot drop. INFORMED CONSENT: verbal and written consent in iMed. TIME OUT NOTE TIME: JUN 05, 2024@13 [place] correctly stated: [X]Full name: ALEXIS RIVERA [X]Last 4 of #: [id number] [X]: Jun STAFF NAME: Em Ramsay LPN LOCATION: Marked sites in the mid to low back. TECHNIQUE: Time-out was taken to identify the correct patient, procedure and side prior to starting the procedure. With the patient lying in the prone position, the patient was prepped and draped in the usual sterile fashion using ChloraPrep and a fenestrated drape. The above-named facet levels were determined under fluoroscopy. Local anesthetic was given by raising a skin wheal and going down to the hub of a 30-gauge 0.5-inch needle. The 25-gauge 3.5-inch Quincke needle was introduced into each facet joint above. After a negative aspiration to make sure that there was no intravascular placement, Omnipaque 300 was also injected to confirm intraarticular spread, and confirm no vascular runoff. Medication was then injected slowly. The procedure was completed without complications and was tolerated well. The patient was monitored after the procedure. The patient (or responsible green party) was given post-procedure and discharge instructions to follow at home. The patient was discharged in stable condition. Pre-procedure pain level: 7/10 Post-procedure pain level: 6/10 ASSESSMENT: 78 year-old [place] with thoracolumbar spondylosis with facet mediated pain. Patient also has history of left greater trochanteric bursitis. PLAN: - Thoracolumbar facet joint injections provided today. - Post-injection follow-up with PM&R DERMATOLOGY TEACHER in 2-4 weeks. - Patient is also receiving left greater trochanteric bursa injection q4 months prn, last injected 02/27/2024. Will continue as long as injection is effective, and allows patient to function at a higher level. - Discharge instructions provided including the use of ice q2 hrs x 48 hrs prn post injection soreness/pain. - Continue home/gym based exercises as previously recommended. - Continue all medications. - Contact me with any issues/questions MDM: 50 minutes Medication Reconciliation: Outpatient: Has the patient been taking pain medications as documented in the EMLR? YES: The patient has been taking medications as documented in the EMLR. Essential Medication List for Review used to complete this medication reconciliation. INCLUDED IN THIS LIST: Alphabetical list of active outpatient prescriptions dispensed from this [place] (local) and dispensed from another [place] or [facility] facility (remote) as well as inpatient orders [...] with a VA or non-VA provider. /essence/ LIT MCKEON DO [employer] CLAIM EXAMINER Signed: 06/05/2024 16:38 LIT MCKEON [facility] [place] [facility] Jun 05, 2024 01:19 PM DISCHARGE NOTE: LOCAL TITLE: DISCHARGE INSTRUCTIONS/OUTPATIENT STANDARD TITLE: DISCHARGE NOTE DATE OF NOTE: JUN 05, 2024@13:19 ENTRY DATE: JUN 05, 2024@13:19:17 AUTHOR: LIT MCKEON EXP COSIGNER: URGENCY: STATUS: COMPLETED Your ATTENDING PHYSICIAN for today's injection is: Lit Mckeon DO Reason for Visit: Bilateral T12-L1 and L1-2 facet joint injections - Physical/Activity Limitations: No strenous activity for 24 Hours - Diet: Resume Previous Diet - Medication reconciliation performed. Active Outpatient Medications (including Supplies): Active Outpatient Medications Status 1) AMLODIPINE [...] MOUTH ONCE DAILY FOR ACTIVE PROSTATE 4) INCONT LINER DEPEND GUARDS USE 1 PAD TOPICALLY ONCE DAILY ACTIVE NEEDED 5) LIDOCAINE 5% PATCH APPLY 1 PATCH TOPICALLY ONCE DAILY ACTIVE (LEAVE PATCH ON FOR 12 HOURS, THEN REMOVE PATCH) Indication: FOR PAIN 6) MIRTAZAPINE 30MG TAB TAKE ONE-HALF TABLET BY MOUTH AT ACTIVE BEDTIME FOR DEPRESSION/MOOD 7) PREGABALIN 25MG ORAL CAP TAKE ONE CAPSULE BY MOUTH ONCE ACTIVE DAILY CALL OR MESSAGE AFTER A MONTH TO CONSIDER DOSE INCREASE. Indication: FOR PAIN 8) TAMSULOSIN HCL 0.4MG CAP TAKE TWO CAPSULES BY MOUTH AT ACTIVE BEDTIME DIRECTED BY PROVIDER 9) TRAZODONE HCL 100MG TAB TAKE TWO TABLETS BY MOUTH AT BEDTIME ACTIVE Active Non-VA Medications Status 1) Non-VA BETA CAROTENE [id number] UNT CAP [id number] BY MOUTH DAILY ACTIVE 2) Non-VA FISH [...] CAP/TAB CURCUMIN BY MOUTH ONCE DAILY ACTIVE 17 Total Medications No changes to current medications Resume your prior meds at you next regular scheduled dose except Aspirin, Plavix, Warfarin which can be restarted the next day if you are taking these medications. Medication Education 1. Take medications in the exact amount ordered by the clinician. Do not take more or less. 2. Keep each medication in the original and separate containers. 3. Ice every 2 hours as needed for post injection soreness/pain. Keep on for 15 minutes. Do not use heat within the first 48 hours unless specifically instructed by your doctor. 4. Keep a complete list of all your medications and share with all your health care providers, include all over the counter medications, vitamins or supplements. 5. Do not drink alcoholic beverage, drive or operate machinery, cook or make important decisions for twenty-four (24) hours. A responsible adult should remain with you for the next twenty-four hours and you should REST quietly during this time. Recommended plan for follow up: As scheduled Please call TELEPHONE ASSISTANCE if you experience: Fever 101.5, Dizziness or light-headedness, Redness, discharge, warmth to the touch or foul smelling discharge from wound, Shortness of breath, Nausea, vomiting, diarrhea, or no bowel movement for more than 48 hrs, Newly onset headache, Changes in behavior If you feel the medications are making you sick, your symptoms worsen or you are experiencing problems contact: TELEPHONE ASSISTANCE at [phone] or extension [phone] Or [phone] extension [phone] (ZAN Strickland) or extension [phone] (ASHLEY Kent) If you are in an emotional crisis, feeling suicidal or having any troubling or self-destructive or violent impulses - please call [phone] (or [phone]); press 1 for Veterans to ask for help 24hours per day. Discharge Instructions printed and given to patient: No. Verbal instructions provided due to COVID-19 restrictions. Patient/Caregiver verbalizes understanding of discharge instructions: Yes Diagnostic studies discussed with patient: N/A I have discussed these instructions with the patient/responsible adult and/or demonstrated appropriate care for the patient post discharge. A copy of these discharge instructions have been printed and given to the patient at the time of discharge. /essence/ LIT MCKEON DO [employer] CLAIM EXAMINER Signed: 06/05/2024 16:26 [facility]
--- OUTSIDE RECORDS SUMMARY | 2024-07-09 09:26 | XMS_ITS | Encounter Summary ---
Author Name [facility] Organization [facility] [place] Address [address] [place] [id number] Care Team Providers Care Executive Secretary Name Role Phone REBEAC CASTILLO Primary Care Provider Unavail able Insurance [...] Name Patient's Relationship to Policy [facility] ([facility]) MEDICARE ADVANTAGE [facility] ([facility]) May 08, 2002 [id number] ALEXIS RIVERA PATIENT MEDICARE ([facility]) MEDICARE (M) PART A Jun 08, 2010 PART A [id number] ALEXIS RIVERA PATIENT MEDICARE (R) MEDICARE (M) PART B Jun 08, 2010 PART B [id number] [phone] ALEXIS RIVERA PATIENT MEDICARE (WNR) MEDICARE (M) PART A Jun 08, 2010 PART A [id number] RIVERA ALEXIS PATIENT MEDICARE (WNR) MEDICARE (M) PART B Jun 08, 2010 PART B [id number] [phone] ALEXIS RIVERA PATIENT MEDICARE (R) MEDICARE (M) PART A Jun 08, 2010 PART A [id number] [phone] ALEXIS RIVERA PATIENT MEDICARE (WNR) MEDICARE (M) PART A Jun 08, 2010 PART A [id number] ALEXIS RIVERA PATIENT MEDICARE (WNR) MEDICARE (M) PART B Jun 08, 2010 PART B [id number] [phone] ALEXIS RIVERA PATIENT MEDICARE (WNR) MEDICARE (M) PART A Jun 08, 2010 PART A [id number] ALEXIS RIVERA PATIENT MEDICARE (WNR) MEDICARE (M) PART B Jun 08, 2010 PART B [id number] ALEXIS RIVERA PATIENT MEDICARE (WNR) MEDICARE (M) PART B Jun 08, 2010 PART B [id number] [phone] ALEXIS RIVERA PATIENT Selected Encounter This section includes the information on record at [place] for the Encounter. Date/Time Encounter Type Encounter Description Reason Provider Source 2024 09:00 AM OFFICE O/P EST LOW 20 [facility] - IND ICD-10-CM F43.10 Post-traumatic stress disorder, unspecified REESE CHAVEZ [facility] Encounter Template Text not used by [place] Assessments - Encounter Diagnoses This section includes the primary and secondary diagnoses documented for the Encounter. Date/Time Primary/Secondary Diagnosis Diagnosis Name Provider Source 2024 02:26 PM PRIMARY Post-traumatic stress disorder, unspecified REESE CHAVEZ [facility] Plan of Treatment: Future Appointments (+ 6 months) and Future Tests (+/- 45 days) The Plan of Treatment section includes future care activities for the patient from all [place] treatmentfacilities. This section includes future appointments and future orders which are active, pending or scheduled. Future Appointments This section includes appointments that were scheduled to occur 6 months from the date of the Encounter, up to a maximum of 20 appointments. The data comes from all [place] treatment facilities. Appointment Date/Time Appointment Type Appointme nt Facility Name Jul 09, 2024 09:00 AM AMBULATORY - MEDICINE [facility] September 16, 2024 09:45 AM [facility]BULATORY [facility] Dec 10, 2024 09:00 AM AM[facility]ATORY - [facility] Active, Pending, and Scheduled Orders This section includes a listing of several types of active, pending, and scheduled orders, including clinic medications orders, diagnostic test orders, procedure orders and consult orders; where the start date of the order is 45 days before the date of the Encounter or 45 days after the date of theEncounter. The data comes from all [place] treatment facilities. Test Date/Time Test Type Test Details Facility Name Jun 21, 2024 01:15 PM Consult Order [facility] Cons [place] Operator's Choice [facility] Jul 08, 2024 09:42 AM Consult Order [facility] Cons [place] Operator's Choice [facility] Lab Results: +/- 30 days of the encounter This section includes the Chemistry and Hematology Lab Results on record with [place] for the patient. Radiology Reports and Pathology Reports are provided separately, in subsequent sections. Lab Results This section contains the Chemistry/Hematology Results that were resulted 30 days before or 30 daysafter the date of the Encounter. Date/Time Source Result Type Result - Unit Interpretation Reference Range Comment Jun 05, 2024 12:38 PM [facility] PSA Specimen Type: SERUM No comment entered. Ordering Provider: TIKI CASTILLO Report Released Date/Time: Dec 19, 2023 09:37 AM Reporting Lab: [facility] [address] [facility] [address] Performing Lab: [facility] [address] [address] PSA 0.81 ng/mL 0.00-4.00 Jun 05, 2024 12:38 PM [facility] LIPID PANEL FASTING Specimen Type: SERUM No comment entered. Ordering Provider: TIKI CASTILLO Report Released Date/Time: Dec 19, 2023 09:37 AM Reporting Lab: [facility] [address] [facility] [address] Performing Lab: [address] [address] CHOLESTEROL 206 mg/dL H TRIGLYCERIDE 114 mg/dL 0-150 LDL calculated 119 mg/dL 0-129 CHOL/HDL 3.2 HDL CHOLESTEROL 64 mg/dL H 40-60 Jun 05, 2024 12:38 PM [facility] LIVER FUNCTION Specimen Type: SERUM No comment entered. Ordering Provider: TIKI CASTILLO Report Released Date/Time: Dec 19, 2023 09:37 AM Reporting Lab: [address] [address] Performing Lab: [address] [address] PROTEIN,TOTAL 7.0 g/dL 6.0-8.3 ALBUMIN 3.9 g/dL 3.5-5.0 ALKALINE PHOSPHATASE 50 U/L 40-150 AST 14 U/L 5-34 ALT 15 U/L BILIRUBIN, TOTAL 0.4 mg/dL 0.2-1.2 Jun 05, 2024 12:38 PM [facility] BASIC METABOLIC PANEL (fasting) Specimen Type: SERUM No comment entered. Ordering Provider: TIKI CASTILLO Report Released Date/Time: Dec 19, 2023 09:37 AM Reporting Lab: [address] [address] Performing Lab: [address] [address] UREA NITROGEN 27 mg/dL H 7-25 GLUCOSE 104 mg/dL H 65-100 SODIUM 139 mmol/L 135-145 POTASSIUM 5.0 mmol/L 3.5-5.0 CHLORIDE 106 mmol/L 100-110 CO2 26 meq/L 20-30 CREATININE, Serum 1.98 mg/dL H 0.50-1.40 eGFR(CKD-EPI 2020) 34 mL/min L >60 Jun 05, 2024 12:38 PM [facility] CBC AND DIFF (AUTO) Specimen Type: BLOOD Comment: Verified by repeat analysis. Platelet. Ordering Provider: TIKI CASTILLO Report Released Date/Time: Dec 19, 2023 09:37 AM Reporting Lab: [address] [address] Performing Lab: [place] [facility] [address] [facility] [address] WBC 11.26 10*3/uL H 4.50-11.00 RBC 5.17 [...] 0.0 0.0-0.0 NRBC, ABS 0.00 10*3/uL 0.00-0.00 Social History: Smoking Status (Most current) and Tobacco Use (All prior to encounter date) This section includes the most current, and the historical, smoking and tobacco- related health factors from the [place] facility where the Encounter took place. Current Smoking Status This section includes the most current smoking, or tobacco-related health factor, from the [place] facility where the Encounter took place. Date/Time Current Smoking Status Comment Facil [facility] Sep 01, 2020 11:30 AM [place]-TOBACCO NEVER USED [facility] Tobacco Use History This section includes a history of the smoking, or tobacco-related health factors, that were collected on or before the date of the Encounter. The data comes from the [place] facility where the Encounter took place. Date/Time Smoking Status/Tobacco Use Comment F acility Aug 14, 2019 11:30 AM VA-TOBACCO NEVER USED [facility] Jun 29, 2016 09:40 AM LIFETIME NON-TOBACCO USER [facility] May 12, 2004 01:00 PM LIFETIME NON-SMOKER [facility] May 12, 2004 01:00 PM LIFETIME NON-TOBACCO USER [facility] Advance Directives: All historical and current Section Date Range: From patient's date of to the date document was created. This section includes ALL of a patient's completed or amended [place] Advance and Rescinded Directives. The entries below indicate that a directive exists for the patient, but an actual copy is not included with this document. The data comes from all [place] facilities. Date Advance Directives Provider Source Dec 14, 2022 ADVANCE DIRECTIVE [facility] Radiology Reports: +/- 30 days of [...] the Encounter. The data comes from all [place] treatment facilities. Date/Time Radiology Report Provider Source Jun 05, 2024 01:19 PM FLUOROSCOPIC MARIA INES NCE OF NEEDLE/SPINE: ALEXIS RIVERA [id number] -[id number] M Ex Date: JUN 05, 2024@13:19 Req Phys: LIT MCKEON Pat Loc: [facility] ALICIA STONE (Req' Img Loc: [facility]/BUILDING 1 Service: Unknown [facility] MAREN, MARGOTH [id number] (Case [id number] COMPLETE) FLUOROSCOPIC GUIDANCE OF NEEDLE/S(RAD Detailed) CPT:00589 Reason for Study: Facet joint injections Clinical History: Report Status: Verified Date Reported: JUN 05, 2024 Date Verified: JUN 05, 2024 [employer] E-Sig:/ES/DEJAN TENORIO JR Report: Study: Pain injection [...] Primary Interpreting Staff: DEJAN TENORIO JR, Radiologist ([employer]) /DEJAN VAZQUEZ JR [facility] Encounter Notes: All associated encounter notes This section contains the clinical notes associated to the Encounter. Date/Time Encounter Note(s) Provider Source 2024 08:16 AM CLINICAL NURSE SPE CIALIST NOTE: LOCAL TITLE: CLINICAL NURSE SPECIALIST/MENTAL HEALTH STANDARD TITLE: CLINICAL NURSE SPECIALIST NOTE DATE OF NOTE: 2024@08:16 ENTRY DATE: 2024@08:16:08 AUTHOR: REESE CHAVEZ EXP COSIGNER: URGENCY: STATUS: COMPLETED Dx PTSD- medication management In person visit 25 min No change since last visit Lives alone but has family contacts- primarily with his son. The following VA and Non-VA medications were reconciled with the patient: Active Outpatient Medications (including Supplies): CLONIDINE HCL 0.2MG TAB TAKE ONE TABLET BY MOUTH TWICE ACTIVE DAILY TO CONTROL BLOOD PRESSURE FINASTERIDE 5MG TAB TAKE ONE TABLET BY MOUTH ONCE DAILY ACTIVE FOR PROSTATE INCONT LINER DEPEND GUARDS USE 1 PAD TOPICALLY ONCE DAILY ACTIVE NEEDED KETOROLAC TROMETHAMINE 0.5% OPH SOLN INSTILL 1 DROP ACTIVE TOPICALLY TWICE DAILY INTO OPERATIVE EYE STARTING 2 DAYS BEFORE SURPERY. MIRTAZAPINE 30MG TAB TAKE ONE-HALF TABLET BY MOUTH AT ACTIVE BEDTIME FOR DEPRESSION/MOOD SODIUM FLUORIDE 1.1% TOOTHPASTE BRUSH SMALL AMOUNT TO ACTIVE TEETH AT BEDTIME FOR TWO MINUTES, IN PLACE OF YOUR REGULAR TOOTHPASTE. AFTER USE, SPIT OUT. FOR PREVENTION OF DENTAL CARIES. TAMSULOSIN HCL 0.4MG CAP TAKE TWO CAPSULES BY MOUTH AT ACTIVE BEDTIME DIRECTED BY PROVIDER TRAZODONE HCL 100MG TAB TAKE TWO TABLETS BY MOUTH AT ACTIVE BEDTIME UNDERPAD,BED 30IN X 36IN PLASTIC BACK USE 1 PAD TOPICALLY ACTIVE ONCE DAILY Non-VA BETA CAROTENE [id number] UNT CAP [id number] BY MOUTH ACTIVE DAILY Non-VA FISH OIL CAP/TAB 1200MG TWICE DAILY ACTIVE Non-VA FLAXSEED MISCELLANEOUS DAILY ACTIVE Non-VA GLUCOSAMINE/CHONDROITIN CAP/TAB + HYALURONIC ACID. ACTIVE DAILY Non-VA LACTOBACILLUS ACIDOPHILUS TAB 1 CAPSULE BY MOUTH ACTIVE ONCE DAILY Non-VA MULTIVITAMIN CHEWABLE TABLETS 1 TABLET BY MOUTH ACTIVE DAILY Non-VA PHYTONADIONE TAB 100MCG BY MOUTH DAILY ACTIVE Non-VA TURMERIC CAP/TAB CURCUMIN BY MOUTH ONCE DAILY ACTIVE Well groomed, friendly- Thought process- goal directed Speech : normal rate and tone No a/v hallucination/ delusions. Judgement and insight -intact Orientation- x 3 Associations intact Recent and remote memory- intact Attention and concentration- good Language- intact Good fund of knowledge Mood frustrated generally -tied to pain level. No S/I PTSD symptoms: hypervigilance, revisiting memories, social withdrawal, sleep disturbance- minimal in good control Alexis is taking Trazodone for sleep prn. He states that he is no longer on pain medications except CBD tablets that help. He does report back and side pain related to injury. Assessment: multiple chronic medical problems that impact mood. Has problems with urinary obstruction and elevated creatinine levels-- BP is labile. .He has chronic Thrombocytopenia that complicate and surgical options PTSD symptoms in good control. Has family support helping his son, who lives in [place]. Plan: Renew Trazodone 200mg at hs , has middle insomnia, No longer taking Mirtazapine. Current dosage - fair- good response and he agrees to stay at current dosages. Declines need for therapist . VN combat . Discussed recurrent thoughts of VN triggered by smells Rt in 6 months/ prn by request The rationale for the psychiatric medications and the alternatives to treatment were discussed with the patient. The side effect profile of the psychiatric medications was reviewed with the patient. Patient demonstrated reasonable understanding of the medication side effects and the above issues. The benefits of psychiatric medications outweigh risks for this patient. Medication Reconciliation: Outpatient: Has the patient been [...] whether with a VA or non-VA provider. Medication Reconciliation: Outpatient: Has the patient been taking medications as documented in the EMLR? YES: The patient has been taking medications as documented in the EMLR. Essential Medication List for Review used to complete this medication reconciliation. INCLUDED IN THIS LIST: Alphabetical list of active outpatient prescriptions dispensed from this [place] (local) and dispensed from another [place] or [facility] facility (remote) as well as inpatient orders [...] with a VA or non-VA provider. /essence/ Reese Chavez APRN, STAFF CLINICAL NURSE SPECIALIST Signed: 2024 14:27 REESE CHAVEZ [facility]
--- OUTSIDE RECORDS SUMMARY | 2024-07-09 09:26 | XMS_ITS | Encounter Summary ---
Author Name [facility] [place] [facility] [place] Address [address] [place] [address] Care Team Providers Care Surveyor Helper Rod Name Role Phone REBECA CASTILLO Primary Care [...] Name Patient's Relationship to Policy [facility] ([facility]) MEDICARE ADVANTAGE [facility] ([facility]) May 08, 2002 [id number] ALEXIS RIVERA PATIENT MEDICARE ([facility]) MEDICARE () PART B Jun 08, 2010 PART B [id number] [phone] RIVERA ALEXIS PATIENT MEDICARE (WNR) MEDICARE (M) PART A Jun 08, 2010 PART A [id number] MIGUEL ALEXIS PATIENT MEDICARE (WNR) MEDICARE (M) PART B Jun 08, 2010 PART B [id number] MIGUEL ALEXIS PATIENT MEDICARE (WNR) MEDICARE (M) PART A Jun 08, 2010 PART A [id number] [phone] RIVERA ALEXIS PATIENT MEDICARE (WNR) MEDICARE (M) PART B Jun 08, 2010 PART B [id number] ALEXIS RIVERA PATIENT MEDICARE (WNR) MEDICARE (M) PART B Jun 08, 2010 PART B [id number] ALEXIS RIVERA PATIENT MEDICARE (WNR) MEDICARE (M) PART A Jun 08, 2010 PART A [id number] ALEXIS RIVERA PATIENT MEDICARE (WNR) MEDICARE (M) PART A Jun 08, 2010 PART A [id number] [id number] ALEXIS RIVERA PATIENT MEDICARE (WNR) MEDICARE (M) PART B Jun 08, 2010 PART B [id number] [phone] ALEXIS RIVERA PATIENT MEDICARE (WNR) MEDICARE (M) PART A Jun 08, 2010 PART A [id number] ALEXIS RIVERA PATIENT Selected Encounter This section includes the information on record at [place] for the Encounter. Date/Time Encounter Type Encounter Description Reason Provider Source Aug 08, 2023 09:30 AM OFFICE O/P EST MOD 30 MIN PM&RS PHYSICIAN ICD-10-CM M70.62 Trochanteric bursitis, left hip [facility] Encounter Template Text not used by [place] Assessments - Encounter Diagnoses This section includes the primary and secondary diagnoses documented for the Encounter. Date/Time Primary/Secondary Diagnosis Diagnosis Name Provider Source Aug 08, 2023 10:07 AM PRIMARY Trochanteric bursitis, left [facility] [place] [facility] Aug 08, 2023 10:07 AM SECONDARY Sacroiliitis, not elsewhere classified [facility] [facility] Aug 08, 2023 10:07 AM SECONDARY Spondylosis w/o myelopathy or radiculopathy, lumbar region [facility] [place] [facility] Plan of Treatment: Future Appointments (+ 6 months) and Future Tests (+/- 45 days) The Plan of Treatment section includes future care activities for the patient from all [facility] treatmentfacilities. This section includes future appointments and future orders which are active, pending or scheduled. Future Appointments This section includes appointments that were scheduled to occur 6 months from the date of the Encounter, up to a maximum of 20 appointments. The data comes from all [place] treatment facilities. Appointment Date/Time Appointment Type Appointme nt Facility Name September 13, 2023 03:15 PM AMBULATORY - MEDICINE [place] [facility] [place] [facility] Dec 06, 2023 09:30 AM AMBULATORY - REH[facility] MEDICIN [facility] [place] [facility] Dec 06, 2023 02:45 PM AMBULATORY - MEDICINE [place] [facility] [place] [facility] Dec 19, 2023 09:00 AM AMBULATORY - MEDICINE [place] [facility] [place] [facility] Dec 28, 2023 01:00 PM AMBULATORY - REHAB MEDICIN E [facility] [place] [facility] Jan 02, 2024 01:00 PM AMBULATORY - PSYCHIATRY [facility] Jan 05, 2024 09:30 AM AMBULATORY - MEDICINE [place] [facility] [place] [facility] Jan 12, 2024 09:00 AM AMBULATORY - MEDICINE [place] [facility] [place] [facility] Jan 31, 2024 09:00 AM AMBULATORY - REHAB MEDICIN E [facility] [place] [facility] Lab Results: +/- 30 days of the encounter This section includes the Chemistry and Hematology Lab Results on record with [place] for the patient. Radiology Reports and Pathology Reports are provided separately, in subsequent sections. Lab Results This section contains the Chemistry/Hematology Results that were resulted 30 days before or 30 daysafter the date of the Encounter. Date/Time Source Result Type Result - Unit Interpretation Reference Range Comment Aug 08, 2023 10:21 AM [facility] PSA Specimen Type: SERUM No comment entered. Ordering Provider: TIKI CASTILLO Report Released Date/Time: Jun 23, 2023 01:40 PM Reporting Lab: [facility] [address] [address] Performing Lab: [facility] [address] [address] PSA 0.75 ng/mL 0.00-4.00 Aug 08, 2023 10:21 AM [facility] URINALYSIS Specimen Type: URINE Comment: If Glucose = >500 and Ketones are positive, please alert the Physician. Ordering Provider: TIKI CASTILLO Report Released Date/Time: Jun 23, 2023 01:40 PM Reporting Lab: [facility] [address] [address] Performing Lab: [address] [address] UA COLOR Colorless Yellow UA APPEARANCE Clear Clear UA GLUCOSE NEGATIVE mg/dL Negative UA KETONES NEGATIVE mg/dL Negative UA BLOOD NEGATIVE mg/dL Negative UA PROTEIN NEGATIVE mg/dL Negative UA NITRITE NEGATIVE mg/dL Negative UA BILIRUBIN NEGATIVE mg/dL Negative UA SPECIFIC GRAVITY 1.008 L 1.016-1.022 UA pH 6.0 5.0-9.0 UA UROBILINOGEN <2.0 mg/dL <2.0 UA LEUKOCYTE NEGATIVE Negative Aug 08, 2023 10:21 AM [facility] LIPID PANEL FASTING Specimen Type: SERUM No comment entered. Ordering Provider: TIKI CASTILLO Report Released Date/Time: Dec 27, 2022 02:11 PM Reporting Lab: [address] [address] Performing Lab: [address] [address] CHOLESTEROL 193 mg/dL TRIGLYCERIDE 87 mg/dL 0-150 LDL calculated 110 mg/dL 0-129 CHOL/HDL 2.9 HDL CHOLESTEROL 66 mg/dL H 40-60 Aug 08, 2023 10:21 AM [facility] LIVER FUNCTION Specimen Type: SERUM No comment entered. Ordering Provider: TIKI CASTILLO Report Released Date/Time: Dec 27, 2022 02:11 PM Reporting Lab: [address] [address] Performing Lab: [address] [address] PROTEIN,TOTAL 7.0 g/dL 6.0-8.3 ALBUMIN 4.1 g/dL 3.5-5.0 ALKALINE PHOSPHATASE 57 U/L 40-150 AST 18 U/L 5-34 ALT 14 U/L BILIRUBIN, TOTAL 0.4 mg/dL 0.2-1.2 Aug 08, 2023 10:21 AM [facility] BASIC METABOLIC PANEL (fasting) Specimen Type: SERUM No comment entered. Ordering Provider: TIKI CASTILLO Report Released Date/Time: Dec 27, 2022 02:11 PM Reporting Lab: [facility] [address] [address] Performing Lab: [facility] [address] [address] UREA NITROGEN 34 mg/dL H 7-25 GLUCOSE 84 mg/dL 65-100 SODIUM 139 mmol/L 135-145 POTASSIUM 4.7 mmol/L 3.5-5.0 CHLORIDE 107 mmol/L 100-110 CO2 21 meq/L 20-30 CREATININE, Serum 2.24 mg/dL H 0.50-1.40 eGFR(CKD-EPI 2020) 29 mL/min L >60 Aug 08, 2023 10:21 AM [facility] CBC AND DIFF (AUTO) Specimen Type: BLOOD Comment: Verified by repeat analysis. PLATELETS Ordering Provider: TIKI CASTILLO Report Released Date/Time: Dec 27, 2022 02:11 PM Reporting Lab: [facility] [address] [address] Performing Lab: [address] [address] WBC 11.72 10*3/uL H 4.50-11.00 RBC 5.35 10*6/uL 4.23-5.66 HGB 14.6 g/dL 12.8-17 HCT 44.5 39.2-50.4 MCV 83.2 fL 82-99 MCHC 32.8 g/dL 30.8-35.1 PLT 18 10*3/uL LL 140-360 RDW-CV 12.8 12.0-16.0 [place], Abs 1.02 10*3/uL 0.30-1.10 MCH 27.3 pg 26.2-32.6 Neut % 64.6 43.7-75.8 Lymph % 21.0 14.0-42.3 [place] % 8.7 5.1-13.7 Eos % 3.8 0.4-6.8 Baso % 1.6 0.1-2.0 Neut, Abs 7.57 10*3/uL 2.20-7.60 Lymph, Abs 2.46 10*3/uL 1.00-3.20 Eos, Abs 0.45 10*3/uL H 0.03-0.44 Baso, Abs 0.19 10*3/uL H 0.01-0.13 Immature Gran % 0.3 0.0-0.7 Immature Gran, Abs 0.03 10*3/uL 0.00-0.06 Vital Signs: All taken on the encounter date This section contains inpatient and outpatient Vital Signs collected on the date of the Encounter. Date/Time Temperature Pulse Blood Pressure Respiratory Rate SP02 Pain Height Weight Body Mass Index Source Aug 08, 2023 10:03 AM 160/90 [place] [facility] [facility] Aug 08, 2023 09:42 AM 75 180/100 20 97 6 [place] [facility] [facility] Social History: Smoking Status (Most current) and Tobacco Use (All prior to encounter date) This section includes the most current, and the historical, smoking and tobacco- related health factors from the [place] facility where the Encounter took place. Current Smoking Status This section includes the most current smoking, or tobacco-related health factor, from the [place] facility where the Encounter took place. Date/Time Current Smoking Status Comment Facil ity Aug 22, 2022 11:35 AM [facility] Tobacco Use History This section includes a history of the smoking, or tobacco-related health factors, that were collected on or before the date of the Encounter. The data comes from the [place] facility where the Encounter took place. Date/Time Smoking Status/Tobacco Use Comment F acility Aug 22, 2022 11:35 AM VA-TOBACCO QUIT 15 YRS OR MORE [place] [facility] [facility] Aug 02, 2021 03:30 PM VA-TOBACCO FORMER USER [place] [facility] [facility] Aug 02, 2021 03:30 PM VA-TOBACCO QUIT 15 YRS OR MORE [place] [facility] [place] [facility] Jun 27, 2018 10:47 AM VA-TOBACCO FORMER USER [place] [facility] Jun 27, 2018 10:47 AM VA-TOBACCO QUIT 15 YRS OR MORE [place] [facility] September 06, 2017 08:50 AM [facility] September 06, 2017 08:50 AM V1-PT NOT INTEREST ED IN QUIT TOBACCO USE [facility] Jun 03, 2015 10:19 AM LIFETIME NON-TOBACCO USER [facility] Advance Directives: All historical and current Section Date Range: From patient's date of to the date document was created. This section includes ALL of a patient's completed or amended [place] Advance and Rescinded Directives. The entries below indicate that a directive exists for the patient, but an actual copy is not included with this document. The data comes from all [place] facilities. Date Advance Directives Provider Source Dec 14, 2022 ADVANCE DIRECTIVE KEELEY JONES [facility] Encounter Notes: All associated encounter notes This section contains the clinical notes associated to the Encounter. Date/Time Encounter Note(s) Provider Source Aug 08, 2023 09:58 AM PHYSICAL MEDICINE REHAB NOTE: LOCAL TITLE: PM&R BACK/JOINT PROCEDURE NOTE STANDARD TITLE: PHYSICAL MEDICINE REHAB NOTE DATE OF NOTE: AUG 08, 2023@09:58 ENTRY DATE: AUG 08, 2023@09:58:54 AUTHOR: LIT MCKEON EXP COSIGNER: URGENCY: STATUS: COMPLETED PROCEDURE NOTE PROCEDURE: 1. Left greater trochanteric bursa injection with cortisone. 2. Trigger point injections. INDICATION: Greater trochanteric bursitis and trigger points. MEDICATIONS: 1. 40mg methylprednisolone + 4mL of 0.5% bupivacaine into the bursa. 2. 3mL of 0.5% bupivacaine into trigger points. Lot#: [id number] Exp: 08/2023 HISTORY: Vet reports to me positive response to cortisone injections into the left greater trochanteric bursa. Last injection was 04/11/2023 -denies adverse side effects. Symptoms have since returned, not as severe as prior to injections, but bothersome. Denies swelling, erythema or increased warmth of the left hip, but does have swelling of b/l legs attributed to BP medications. Denies any trauma or new symptoms, or fever, chills. Denies lower extremity weakness. Requests to repeat GT bursa injection as prior injections were effective. Continues to engage in daily exercises including home stretching and strengthening exercises and gym-based workouts. Patient also reports over 90% pain relief status post right SI joint and L4-L5 and L5-S1 facet injections on 06/21/2023. Denies adverse side effects. Prior injections were effective for over a year. No new symptoms. With decreased pain, he has been more functional. Patient is seeing his PCP after this appointment to discuss blood pressure issues. EXAM: Vitals in chart. Vet presents well groomed, awake, alert, in NAD. Gets on/off exam table without difficulties. Left GT bursa significant TTP. A couple trigger points in the left glut medius muscle. No erythema, ecchymosis, or edema of the left greater trochanteric region. Weak left>>right hip abductor. Otherwise, no focal weakness in the LEs. Sensation intact to LT in the legs. Nonantalgic gait. 1+ nonpitting edema of b/l LEs to mid calves. ANESTHESIA: None. INFORMED CONSENT: Obtained verbally, and through IMED. The steps of the procedure, potential risks and benefits of today's injection, as well as alternatives were discussed with patient. The potential risks include, but not limited to: local injection reaction, pain, bruising/hematoma, nerve damage, adverse side effects to cortisone or lidocaine including rash/itching, infection, and swelling of the knee. Patient agreed to proceed with the injection. TIME OUT NOTE TIME: AUG 08, 2023@09:46 correctly stated: [X]Full name: ALEXIS RIVERA [X]Last 4 of #: [id number] [X]: Jun PROVIDER NAME: Lit Mckeon DO STAFF NAME: Em Ramsay LPN LOCATION: Marked site of injection on left hip. The procedure was performed with the patient in the lateral recumbant position. Sterile techniques were utilized throughout today's procedure. Landmarks were palpated and the area of maximal pain over the greater trochanteric bursa was marked. After cleaning the area with Chlorhexidine x 3, a 25G 3.5 Quincke needle and attached syringe were introduced perpendicular to the skin and into the bursa. Once contact with os was made, the needle was withdrawn 1mm and medication was injected without any difficulties after negative aspiration for heme. The needle was withdrawn and light compression was applied with a 2x2 gauze until bleeding stopped. A band-aid was applied. Three trigger points in the left gluteus medius was then injected with 1ml of 0.5% bupivacaine each for a total of 3mL. No complications. No blood loss. The patient tolerated the procedure well without any immediate adverse side effects. Patient was instructed on the use of ice prn post injection pain/swelling. The patient was able to ambulate out of the office today, and was discharged home with instructions to monitor for any adverse reactions/side effects, and to contact me with any issues. Pre-procedure pain level: 10/15 Post-procedure pain level: 06/17 ASSESSMENT: 78yo very active gentleman with chronic pain due to multiple etiologies. Today's left hip pain generator is due to left greater trochanteric bursitis with trigger points in the left gluteus medius. He also has history of pain due to sacroiliitis and lumbar facet arthropathy. He has responded well to intermittent GT bursa injections, SI joint injections, lumbar facet joint injections and trigger point injections at various points. Plan: - Left greater trochanteric bursitis injection provided today along with trigger point injections. - Discharge instructions provided. - Will repeat injection in 4 months, or later if pain is still controlled at that time. - If pain returns before 4 months, trigger point injections can be provided. Another option is referral to [facility] for manipulation and possible shockwave therapy. - SI joint injection and/or lumbar facet injections can also be repeated when necessary. Discussed the importance of minimizing cortisone injections as much as possible. - Continue home exercises to strengthen hip stabilizer muscles to address MSK imbalance and SI joint dysfunction. - Con't working on on hip stabilizer strengthening exercises, as reviewed. Stretch tight hip flexors, hamstrings, quads and hip adductors. Daily self trigger point release techniques using a tennis ball as needed. - Con't using abdominal binder prn strenuous activities. - No medication changes. MDM: 30 min, dedicated to reviewing chart, documenting, educating, counseling, and coordinating care. Suicide Screen: C-SSRS Screening [place]-Suicide Severity Rating Scale (C-SSRS Screener) 1. Over the past month, have you wished you were or wished you could go to sleep and not wake up? No 2. Over the past month, have you had any actual thoughts of killing yourself? No 3. Over the past month, have you been thinking about how you might do this? Response not required due to responses to other questions. 4. Over the past month, have you had these thoughts and had some intention of acting on them? Response not required due to responses to other questions. 5. Over the past month, have you started to work out or worked out the details of how to kill yourself? Response not required due to responses to other questions. 6. If yes, at any time in the past month did you intend to carry out this plan? Response not required due to responses to other questions. 7. In your lifetime, have you ever done anything, started to do anything, or prepared to do anything to end your life (for example, collected pills, obtained a gun, gave away valuables, went to the roof but didn't jump)? No 8. If YES, was this within the past 3 months? Response not required due to responses to other questions. Medication Reconciliation: Outpatient: Has the patient been [...] or non-VA provider. /essence/ LIT MCKEON DO SUPPLIER DEVELOPMENT MANAGER Signed: 08/08/2023 10:07 [facility]IT [facility]ON [facility]
--- OUTSIDE RECORDS SUMMARY | 2024-07-09 09:26 | XMS_ITS | Continuity of Care Document ---
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 It does not include entries that were removed or entered in error. 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 [facility] PTSD - Post-Traumatic Stress Disorder (SCT 74362253) Active Condition [facility] Thrombocytopenia Active Condition Apr 18, 2012 Entered By: Thea CASTILLO Comment: Dr Karimi, [facility], [phone]. [facility] Urticarial rash Active Condition [facility] Chest Pains * (ICD-9-CM 786.50) Inactive Condition 08/21/2013 [facility] Diagnosis: ICD-10-CM F43.10 Post-traumatic stress disorder, unspecified Active Diagnosis [facility] Diagnosis: ICD-10-CM I10 Essential (primary) hypertension Active Diagnosis [facility] Diagnosis: ICD-10-CM M47.895 Other spondylosis, thoracolumbar region Active Diagnosis [facility] Diagnosis: ICD-10-CM H90.A22 Snsrnrl hear loss, uni, l ear, with rstrcd hear cntra side Active Diagnosis [facility] Diagnosis: ICD-10-CM M70.62 Trochanteric bursitis, left hip Active Diagnosis [facility] Diagnosis: ICD-10-CM Z46.1 Encounter for fitting and adjustment of hearing aid Active Diagnosis [facility] Diagnosis: ICD-10-CM Z46.0 Encounter for fit/adjst of spectacles and contact lenses Active Diagnosis [facility] Diagnosis: ICD-10-CM Z96.1 Presence of intraocular lens Active Diagnosis [facility] Diagnosis: ICD-10-CM H90.3 Sensorineural hearing loss, bilateral Active Diagnosis [facility] Diagnosis: ICD-10-CM M54.59 Other low back pain Active Diagnosis [facility] Diagnosis: ICD-10-CM R52 Pain, unspecified Active Diagnosis [facility] Diagnosis: ICD-10-CM M47.896 Other spondylosis, lumbar region Active Diagnosis [facility] Diagnosis: ICD-10-CM M46.1 Sacroiliitis, not elsewhere classified Active Diagnosis [facility] Diagnosis: ICD-10-CM R60.9 Edema, unspecified Active Diagnosis [facility] Diagnosis: ICD-10-CM Z11.52 Encounter for screening for COVID-19 Active Diagnosis [facility] Diagnosis: ICD-10-CM M25.559 Pain in unspecified hip Active Diagnosis [facility] Medications Combined list of outpatient medications from Department of Defense and Veterans Affairs facilities.Medications provided include 1) outpatient medications from the last 15 months, and 2) patient-reported medications. Medication Details Route Status Patient Instructions Prescription Expires Prescription Number Last Dispense Date Ordering Provider Order Date Order Qty Source AMLODIPINE BESYLATE 2.5MG TAB TAKE ONE TABLET BY MOUTH ONCE DAILY FOR BLOOD PRESSURE /HEART, DO NOT TAKE WITH GRAPEFRU IT JUICE ORAL ACTIVE 03/07/2025 [id number] REBECA CASTILLO 2023 [facility] ATENOLOL 25MG TAB TAKE ONE TABLET BY MOUTH ONCE DAILY FOR BLOOD PRESSURE /HEART ORAL DISCONT INUED BY PROVIDE R 08/08/2024 [id number] REBECA CASTILLO 2023 30 [facility] BETA CAROTENE [id number] CAP TAKE 1 CAPSULE BY MOUTH DAILY ORAL ACTIVE REBECA CASTILLO 2010 [facility] CHILDRENS CHEWABLE VITAMINS TAB TAKE ONE TABLET BY MOUTH DAILY ORAL ACTIVE REBECA CASTILLO 2010 [facility] CHLORTHALID ONE 25MG TAB TAKE ONE TABLET BY MOUTH ONCE DAILY TO REMOVE FLUID/CO NTROL BLOOD PRESSURE ORAL 09/29/2023 [id number] REBECA CASTILLO 2022 30 [facility] CLONIDINE HCL 0.2MG TAB TAKE ONE TABLET BY MOUTH EVERY MORNING TO CONTROL BLOOD PRESSURE ORAL ACTIVE 03/07/2025 [id number] REBECA CASTILLO 2023 90 [facility] CLONIDINE HCL 0.2MG TAB TAKE ONE TABLET BY MOUTH EVERY MORNING AND TAKE TWO TABLETS EVERY EVENING TO CONTROL BLOOD PRESSURE ORAL DISCONT INUED (EDIT) 10/31/2024 [id number] REBECA CASTILLO 2023 270 [facility] CLONIDINE HCL 0.2MG TAB TAKE ONE TABLET BY MOUTH TWICE DAILY DIRECTED BY PROVIDER - MAY SKIP EVENING DOSE IF BLOOD PRESSURE AND EDEMA WITHIN GUIDELIN ES FROM PROVIDER DIRECTED BY PROVIDER - MAY SKIP EVENING DOSE IF BLOOD PRESSURE AND EDEMA WITHIN GUIDELIN ES FROM PROVIDER ORAL DISCONT INUED BY PROVIDE R 08/02/2024 [id number] REBECA CASTILLO 2023 180 [facility] FINASTERIDE 5MG TAB TAKE ONE TABLET BY MOUTH ONCE DAILY FOR PROSTATE ORAL ACTIVE 12/19/2024 [id number] BHAVIKREBECA ODEN 2023 90 [facility] FINASTERIDE 5MG TAB TAKE ONE TABLET BY MOUTH ONCE DAILY FOR PROSTATE ORAL DISCONT INUED 05/09/2024 [id number] ANNA REBECA 2023 90 [facility] FISH OIL CAP/TAB 1200MG oral TWICE DAILY ACTIVE IONAREBECA WATSON 2010 [facility] FLAXSEED MISCELLANEO US DAILY ACTIVE ELISALEFTYREBECA WATSON 2010 [facility] GLUCOSAMINE /CHONDROITI N CAP/TAB + HYALURON IC ACID. DAILY ACTIVE ELISALEFTYSHIRLEY REBECA Braswell 2010 [facility] LACTOBACILL US ACIDOPHILUS TAB TAKE 1 CAPSULE BY MOUTH ONCE DAILY ORAL ACTIVE TIKI LAUREANO 2018 [facility] LIDOCAINE 5% PATCH APPLY 1 PATCH TOPICALL Y ONCE DAILY FOR PAIN (LEAVE PATCH ON FOR 12 HOURS, THEN REMOVE PATCH) TOPICA L 06/13/2024 [id number] LONI MCKEON THI 2023 30 [facility] MIRTAZAPINE 30MG TAB TAKE ONE-HALF TABLET BY MOUTH AT BEDTIME FOR DEPRESSI ON/MOOD ORAL DISCONT INUED BY CORRINE R 08/01/2024 [id number] ELIOT CHAVEZ 2023 45 [facility] IELD PHYTONADION E TAB TAKE 100MCG BY MOUTH DAILY ORAL ACTIVE ANNA REBECA 2010 [facility] PREGABALIN 25MG CAP,ORAL TAKE ONE CAPSULE BY MOUTH ONCE DAILY FOR PAIN CALL OR MESSAGE AFTER A MONTH TO CONSIDER DOSE INCREASE . ORAL 06/20/2024 [id number] ANNAREBECA Braswell 2023 30 [facility] SODIUM FLUORIDE 1.1% TOOTHPASTE BRUSH SMALL AMOUNT TO TEETH TWICE DAILY FOR TOOTH DECAY PREVENTI ON DENTAL 12/15/2023 [id number] HAY MORAN 2022 204 [facility] TAMSULOSIN HCL 0.4MG CAP TAKE TWO CAPSULES BY MOUTH AT BEDTIME DIRECTED BY PROVIDER ORAL 06/23/2024 [id number] REBECA CASTILLO F 2023 120 [facility] TRAZODONE HCL 100MG TAB TAKE TWO TABLETS BY MOUTH AT BEDTIME ORAL ACTIVE 08/01/2024 [id number] ELIOT CHAVEZ F 2023 180 [place] [facility] CAP/TAB TAKE CURCUMIN BY MOUTH ONCE DAILY ORAL ACTIVE TIKI LAUREANO 2018 [facility] Allergies, Adverse Reactions, Alerts Combined list of allergies from Department of Defense and Veterans Affairs facilities. It does not include entries that were removed or entered in error. Substance Category Reaction Severity Reaction type Status Date Reported Comments Source ATENOLOL Propensity to adverse reactions to drug (finding) [facility] BETHANECOL CHLORIDE Propensity to adverse reactions to drug (finding) Sweating active 1 [facility] Immunizations Combined list of available immunizations from the Department of Defense and Veterans Affairs facilities. Immunization Series Date Given Administered By Site Reaction Lot Number CVX Code Drug Voltmeter Operator Status Comments Source INFLUENZA VACCINE, QUADRIVALENT, ADJUVANTED 2021 205 complet ed [facility] ZOSTER RECOMBINANT 2 2021 187 complet ed [facility] COVID-19 (MODERNA), MRNA, LNP-S, PF, 100 MCG/0.5 ML DOSE 2 2020 207 complet ed MOD; [id number]; 1 [facility] COVID-19 (MODERNA), MRNA, LNP-S, PF, 100 MCG/0.5 ML DOSE 1 2020 207 complet ed MOD; [id number]; 1 [facility] INFLUENZA, INJECTABLE, QUADRIVALENT, PRESERVATIVE FREE 2019 150 complet ed Site: Right Deltoid [facility] ZOSTER RECOMBINANT 2 2019 187 complet ed [facility] INFLUENZA, INJECTABLE, QUADRIVALENT, PRESERVATIVE FREE 2018 150 complet ed Site: Left Deltoid [facility] PNEUMOCOCCAL POLYSACCHARID E PPV23 2018 33 complet ed [facility] TDAP 2018 115 complet ed Site: Left Deltoid [facility] PNEUMOCOCCAL CONJUGATE PCV 13 2018 133 complet ed [facility] INFLUENZA, INJECTABLE, QUADRIVALENT 2018 158 complet ed Site: Left Deltoid [facility] TD(ADULT) UNSPECIFIED FORMULATION 2006 139 complet ed after dropping a 40 lb weight on his foot. [facility] TDAP 2006 115 complet ed after dropping a 40 lb weight on his foot. [facility] Results Combined list of recent chemistry, hematology and other laboratory results from Department of Defense and Veterans Affairs, ranging from 15 months to all on record, depending upon the facility. Order Name Results Value Reference Range Date Interpretation Specimen Comments Source PSA PROSTATE SPECIFIC AG [MASS/VOLUM E] IN SERUM OR PLASMA 0.81 ng/mL 0.00 - 4.00 06/05 Specimen Type: SERUM No comment entered. Ordering Provider: Thea CASTILLO Report Released Date/Time: Dec 19, 2023 09:37 AM Reporting Lab: [facility] [place] [facility] [address] [facility] [address] Performing Lab: [facility] [place] [facility] [address] [facility] [address] [facility] [facility] LIPID PANEL FASTING CHOLESTEROL [MASS/VOLUM E] IN SERUM OR PLASMA 206 mg/dL 06/05 H Specimen Type: SERUM No comment entered. Ordering Provider: Thea CASTILLO Report Released Date/Time: Dec 19, 2023 09:37 AM Reporting Lab: [facility] [place] [facility] [address] [facility] [address] Performing Lab: [facility] [place] [facility] [address] [facility] [address] [facility] [place] [facility] LIPID PANEL FASTING TRIGLYCERID E [MASS/VOLUM E] IN SERUM OR PLASMA 114 mg/dL 0 - 150 06/05 Specimen Type: SERUM No comment entered. Ordering Provider: Thea CASTILLO Report Released Date/Time: Dec 19, 2023 09:37 AM Reporting Lab: [facility] [place] [address] [address] Performing Lab: [facility] [place] [address] [address] [facility] [facility] LIPID PANEL FASTING CHOLESTEROL IN LDL [MASS/VOLUM E] IN SERUM OR PLASMA BY CALCULATION 119 mg/dL 0 - 129 06/05 Specimen Type: SERUM No comment entered. Ordering Provider: Thea CASTILLO Report Released Date/Time: Dec 19, 2023 09:37 AM Reporting Lab: [facility] [place] [address] [address] Performing Lab: [facility] [place] [facility] [address] [facility] [address] [facility] [facility] LIPID PANEL FASTING CHOLESTEROL .TOTAL/CHOL ESTEROL IN HDL [MASS RATIO] IN SERUM OR PLASMA 3.2 06/05 Specimen Type: SERUM No comment entered. Ordering Provider: Thea CASTILLO Report Released Date/Time: Dec 19, 2023 09:37 AM Reporting Lab: [facility] [place] [address] [address] Performing Lab: [facility] [address] [facility] [address] [facility] [facility] LIPID PANEL FASTING CHOLESTEROL IN HDL [MASS/VOLUM E] IN SERUM OR PLASMA 64 mg/dL 40 - 60 06/05 H Specimen Type: SERUM No comment entered. Ordering Provider: Thea CASTILLO Report Released Date/Time: Dec 19, 2023 09:37 AM Reporting Lab: [facility] [place] [facility] [address] [facility] [address] Performing Lab: [facility] [place] [facility] [address] [facility] [address] [facility] [facility] LIVER FUNCTION PROTEIN [MASS/VOLUM E] IN SERUM OR PLASMA 7.0 g/dL 6.0 - 8.3 06/05 Specimen Type: SERUM No comment entered. Ordering Provider: Thea CASTILLO Report Released Date/Time: Dec 19, 2023 09:37 AM Reporting Lab: [facility] [place] [facility] [address] [facility] [address] Performing Lab: [facility] [place] [facility] [address] [facility] [address] [facility] [facility] LIVER FUNCTION ALBUMIN [MASS/VOLUM E] IN SERUM OR PLASMA 3.9 g/dL 3.5 - 5.0 06/05 Specimen Type: SERUM No comment entered. Ordering Provider: Thea CASTILLO Report Released Date/Time: Dec 19, 2023 09:37 AM Reporting Lab: [facility] [place] [facility] [address] [facility] [address] Performing Lab: [facility] [place] [address] [address] [facility] [facility] LIVER FUNCTION ALKALINE PHOSPHATASE [ENZYMATIC ACTIVITY/VO LUME] IN SERUM OR PLASMA 50 U/L 40 - 150 06/05 Specimen Type: SERUM No comment entered. Ordering Provider: Thea CASTILLO Report Released Date/Time: Dec 19, 2023 09:37 AM Reporting Lab: [facility] [place] [facility] [address] [facility] [address] Performing Lab: [facility] [place] [facility] [address] [facility] [address] [facility] [facility] LIVER FUNCTION ASPARTATE AMINOTRANSF ERASE [ENZYMATIC ACTIVITY/VO LUME] IN SERUM OR PLASMA 14 U/L 5 - 34 06/05 Specimen Type: SERUM No comment entered. Ordering Provider: Thea CASTILLO Report Released Date/Time: Dec 19, 2023 09:37 AM Reporting Lab: [facility] [place] [facility] [address] [facility] [address] Performing Lab: [facility] [place] [facility] [address] [facility] [address] [facility] [facility] LIVER FUNCTION ALANINE AMINOTRANSF ERASE [ENZYMATIC ACTIVITY/VO LUME] IN SERUM OR PLASMA 15 U/L 06/05 Specimen Type: SERUM No comment entered. Ordering Provider: Thea CASTILLO Report Released Date/Time: Dec 19, 2023 09:37 AM Reporting Lab: [facility] [place] [facility] [address] [facility] [address] Performing Lab: [facility] [place] [facility] [address] [facility] [address] [facility] [facility] LIVER FUNCTION BILIRUBIN.T OTAL [MASS/VOLUM E] IN SERUM OR PLASMA 0.4 mg/dL 0.2 - 1.2 06/05 Specimen Type: SERUM No comment entered. Ordering Provider: Thea CASTILLO Report Released Date/Time: Dec 19, 2023 09:37 AM Reporting Lab: [facility] [place] [facility] [address] [facility] [address] Performing Lab: [facility] [place] [facility] [address] [facility] [address] [facility] BASIC METABOLIC PANEL (fasting) UREA NITROGEN [MASS/VOLUM E] IN SERUM OR PLASMA 27 mg/dL 7 - 25 06/05 H Specimen Type: SERUM No comment entered. Ordering Provider: Thea CASTILLO Report Released Date/Time: Dec 19, 2023 09:37 AM Reporting Lab: [facility] [place] [facility] [address] [facility] [address] Performing Lab: [facility] [place] [facility] [address] [facility] [address] [facility] BASIC METABOLIC PANEL (fasting) GLUCOSE [MASS/VOLUM E] IN SERUM OR PLASMA 104 mg/dL 65 - 100 06/05 H Specimen Type: SERUM No comment entered. Ordering Provider: Thea CASTILLO Report Released Date/Time: Dec 19, 2023 09:37 AM Reporting Lab: [facility] [place] [facility] [address] [facility] [address] Performing Lab: [facility] [place] [facility] [address] [facility] [address] [facility] [facility] BASIC METABOLIC PANEL (fasting) SODIUM [MOLES/VOLU ME] IN SERUM OR PLASMA 139 mmol/L 135 - 145 06/05 Specimen Type: SERUM No comment entered. Ordering Provider: Thea CASTILLO Report Released Date/Time: Dec 19, 2023 09:37 AM Reporting Lab: [facility] [place] [facility] [address] [facility] [address] Performing Lab: [facility] [place] [facility] [address] [facility] [address] [facility] BASIC METABOLIC PANEL (fasting) POTASSIUM [MOLES/VOLU ME] IN SERUM OR PLASMA 5.0 mmol/L 3.5 - 5.0 06/05 Specimen Type: SERUM No comment entered. Ordering Provider: Thea CASTILLO Report Released Date/Time: Dec 19, 2023 09:37 AM Reporting Lab: [facility] [place] [facility] [address] [facility] [address] Performing Lab: [facility] [place] [facility] [address] [facility] [address] [facility] [place] [facility] BASIC METABOLIC PANEL (fasting) CHLORIDE [MOLES/VOLU ME] IN SERUM OR PLASMA 106 mmol/L 100 - 110 06/05 Specimen Type: SERUM No comment entered. Ordering Provider: Thea CASTILLO Report Released Date/Time: Dec 19, 2023 09:37 AM Reporting Lab: [facility] [address] [address] Performing Lab: [facility] [address] [address] [facility] BASIC METABOLIC PANEL (fasting) CARBON DIOXIDE, TOTAL [MOLES/VOLU ME] IN SERUM OR PLASMA 26 meq/L 20 - 30 06/05 Specimen Type: SERUM No comment entered. Ordering Provider: Thea CASTILLO Report Released Date/Time: Dec 19, 2023 09:37 AM Reporting Lab: [facility] [address] [address] Performing Lab: [facility] [address] [address] [facility] BASIC METABOLIC PANEL (fasting) CREATININE [MASS/VOLUM E] IN SERUM OR PLASMA 1.98 mg/dL 0.50 - 1.40 06/05 H Specimen Type: SERUM No comment entered. Ordering Provider: Thea CASTILLO Report Released Date/Time: Dec 19, 2023 09:37 AM Reporting Lab: [facility] [address] Performing Lab: [facility] [address] [facility] BASIC METABOLIC PANEL (fasting) GLOMERULAR FILTRATION RATE/1.73 SQ M.PREDICTED [VOLUME RATE/AREA] IN SERUM, PLASMA OR BLOOD BY CREATININE- BASED FORMULA (CKD-EPI 2020) 34 mL/min 60 06/05 L Specimen Type: SERUM No comment entered. Ordering Provider: Thea CASTILLO Report Released Date/Time: Dec 19, 2023 09:37 AM Reporting Lab: [facility] [place] [facility] [address] [facility] [address] Performing Lab: [facility] [place] [facility] [address] [facility] [address] [facility] CBC AND DIFF (AUTO) LEUKOCYTES [#/VOLUME] IN BLOOD BY AUTOMATED COUNT 11.26 10*3/u L 4.50 - 11.00 06/05 H Specimen Type: BLOOD Comment: Verified by repeat analysis. Platelet. Ordering Provider: Thea CASTILLO Report Released Date/Time: Dec 19, 2023 09:37 AM Reporting Lab: [facility] [place] [address] [address] Performing Lab: [facility] [place] [facility] [address] [facility] [address] [facility] [place] [facility] CBC AND DIFF (AUTO) ERYTHROCYTE S [#/VOLUME] IN BLOOD BY AUTOMATED COUNT 5.17 10*6/u L 4.23 - 5.66 06/05 Specimen Type: BLOOD Comment: Verified by repeat analysis. Platelet. Ordering Provider: Thea CASTILLO Report Released Date/Time: Dec 19, 2023 09:37 AM Reporting Lab: [facility] [place] [facility] [address] [facility] [address] Performing Lab: [facility] [place] [address] [address] [facility] [place] [facility] CBC AND DIFF (AUTO) HEMOGLOBIN [MASS/VOLUM E] IN BLOOD 14.3 g/dL 12.8 - 17 06/05 Specimen Type: BLOOD Comment: Verified by repeat analysis. Platelet. Ordering Provider: Thea CASTILLO Report Released Date/Time: Dec 19, 2023 09:37 AM Reporting Lab: [facility] [place] [facility] [address] [facility] [address] Performing Lab: [facility] [place] [address] [address] [facility] [place] [facility] CBC AND DIFF (AUTO) HEMATOCRIT [VOLUME FRACTION] OF BLOOD BY AUTOMATED COUNT 42.9 39.2 - 50.4 06/05 Specimen Type: BLOOD Comment: Verified by repeat analysis. Platelet. Ordering Provider: Thea CASTILLO Report Released Date/Time: Dec 19, 2023 09:37 AM Reporting Lab: [facility] [place] [address] [address] Performing Lab: [facility] [place] [address] [address] [facility] [place] [facility] CBC AND DIFF (AUTO) MCV [ENTITIC VOLUME] BY AUTOMATED COUNT 83.0 fL 82 - 99 06/05 Specimen Type: BLOOD Comment: Verified by repeat analysis. Platelet. Ordering Provider: Thea CASTILLO Report Released Date/Time: Dec 19, 2023 09:37 AM Reporting Lab: [facility] [place] [address] [address] Performing Lab: [facility] [place] [address] [address] [facility] [place] [facility] CBC AND DIFF (AUTO) MCHC [MASS/VOLUM E] BY AUTOMATED COUNT 33.3 g/dL 30.8 - 35.1 06/05 Specimen Type: BLOOD Comment: Verified by repeat analysis. Platelet. Ordering Provider: Thea CASTILLO Report Released Date/Time: Dec 19, 2023 09:37 AM Reporting Lab: [facility] [place] [address] [address] Performing Lab: [facility] [place] [address] [address] [facility] [facility] CBC AND DIFF (AUTO) PLATELETS [#/VOLUME] IN BLOOD BY AUTOMATED COUNT 18 10*3/u L 140 - 360 06/05 LL Specimen Type: BLOOD Comment: Verified by repeat analysis. Platelet. Ordering Provider: Thea CASTILLO Report Released Date/Time: Dec 19, 2023 09:37 AM Reporting Lab: [facility] [place] [facility] [address] [facility] [id number] Performing Lab: [facility] [place] [facility] [address] [facility] [address] [facility] [facility] CBC AND DIFF (AUTO) ERYTHROCYTE DISTRIBUTIO N WIDTH [RATIO] BY AUTOMATED COUNT 13.7 12.0 - 16.0 06/05 Specimen Type: BLOOD Comment: Verified by repeat analysis. Platelet. Ordering Provider: Thea CASTILLO Report Released Date/Time: Dec 19, 2023 09:37 AM Reporting Lab: [facility] [place] [facility] [address] [facility] [phone] Performing Lab: [facility] [place] [facility] [address] [facility] [phone] [facility] [place] [facility] CBC AND DIFF (AUTO) MONOCYTES [#/VOLUME] IN BLOOD BY AUTOMATED COUNT 1.01 10*3/u L 0.30 - 1.10 06/05 Specimen Type: BLOOD Comment: Verified by repeat analysis. Platelet. Ordering Provider: Thea CASTILLO Report Released Date/Time: Dec 19, 2023 09:37 AM Reporting Lab: [facility] [place] [facility] [address] [facility] [address] Performing Lab: [facility] [place] [facility] [address] [facility] [address] [facility] CBC AND DIFF (AUTO) MCH [ENTITIC MASS] BY AUTOMATED COUNT 27.7 pg 26.2 - 32.6 06/05 Specimen Type: BLOOD Comment: Verified by repeat analysis. Platelet. Ordering Provider: Thea CASTILLO Report Released Date/Time: Dec 19, 2023 09:37 AM Reporting Lab: [facility] [facility] [place] [facility] [address] [facility] [address] Performing Lab: [facility] [place] [facility] [address] [facility] [address] [facility] [facility] CBC AND DIFF (AUTO) NEUTROPHILS /100 LEUKOCYTES IN BLOOD BY AUTOMATED COUNT 68.9 43.7 - 75.8 06/05 Specimen Type: BLOOD Comment: Verified by repeat analysis. Platelet. Ordering Provider: Thea CASTILLO Report Released Date/Time: Dec 19, 2023 09:37 AM Reporting Lab: [facility] [place] [address] [address] Performing Lab: [facility] [place] [address] [address] [facility] [place] [facility] CBC AND DIFF (AUTO) LYMPHOCYTES /100 LEUKOCYTES IN BLOOD BY AUTOMATED COUNT 18.5 14.0 - 42.3 06/05 Specimen Type: BLOOD Comment: Verified by repeat analysis. Platelet. Ordering Provider: Thea CASTILLO Report Released Date/Time: Dec 19, 2023 09:37 AM Reporting Lab: [facility] [place] [address] [address] Performing Lab: [facility] [place] [address] [address] [place] [facility] [place] [facility] CBC AND DIFF (AUTO) MONOCYTES/1 00 LEUKOCYTES IN BLOOD BY AUTOMATED COUNT 9.0 5.1 - 13.7 06/05 Specimen Type: BLOOD Comment: Verified by repeat analysis. Platelet. Ordering Provider: Thea CASTILLO Report Released Date/Time: Dec 19, 2023 09:37 AM Reporting Lab: [facility] [place] [address] [address] Performing Lab: [facility] [place] [address] [address] [facility] [place] [facility] CBC AND DIFF (AUTO) EOSINOPHILS /100 LEUKOCYTES IN BLOOD BY AUTOMATED COUNT 1.9 0.4 - 6.8 06/05 Specimen Type: BLOOD Comment: Verified by repeat analysis. Platelet. Ordering Provider: Thea CASTILLO Report Released Date/Time: Dec 19, 2023 09:37 AM Reporting Lab: [facility] [place] [address] [address] Performing Lab: [facility] [place] [facility] [address] [facility] [address] [facility] [place] [facility] CBC AND DIFF (AUTO) BASOPHILS/1 00 LEUKOCYTES IN BLOOD BY AUTOMATED COUNT 1.3 0.1 - 2.0 06/05 Specimen Type: BLOOD Comment: Verified by repeat analysis. Platelet. Ordering Provider: Thea CASTILLO Report Released Date/Time: Dec 19, 2023 09:37 AM Reporting Lab: [facility] [place] [address] [address] Performing Lab: [place] [facility] [place] [address] [address] [place] [facility] [place] [facility] CBC AND DIFF (AUTO) NEUTROPHILS [#/VOLUME] IN BLOOD BY AUTOMATED COUNT 7.76 10*3/u L 2.20 - 7.60 06/05 H Specimen Type: BLOOD Comment: Verified by repeat analysis. Platelet. Ordering Provider: Thea CASTILLO Report Released Date/Time: Dec 19, 2023 09:37 AM Reporting Lab: [place] [facility] [place] [address] [address] Performing Lab: [place] [facility] [place] [address] [address] [place] [facility] [place] [facility] CBC AND DIFF (AUTO) LYMPHOCYTES [#/VOLUME] IN BLOOD BY AUTOMATED COUNT 2.08 10*3/u L 1.00 - 3.20 06/05 Specimen Type: BLOOD Comment: Verified by repeat analysis. Platelet. Ordering Provider: Thea CASTILLO Report Released Date/Time: Dec 19, 2023 09:37 AM Reporting Lab: [place] [facility] [place] [address] [address] Performing Lab: [facility] [place] [address] [address] [facility] [place] CBC AND DIFF (AUTO) EOSINOPHILS [#/VOLUME] IN BLOOD BY AUTOMATED COUNT 0.21 10*3/u L 0.03 - 0.44 06/05 Specimen Type: BLOOD Comment: Verified by repeat analysis. Platelet. Ordering Provider: Thea CASTILLO Report Released Date/Time: Dec 19, 2023 09:37 AM Reporting Lab: [facility] [place] [address] [address] Performing Lab: [place] [facility] [place] [address] [address] [facility] [place] [facility] CBC AND DIFF (AUTO) BASOPHILS [#/VOLUME] IN BLOOD BY AUTOMATED COUNT 0.15 10*3/u L 0.01 - 0.13 06/05 H Specimen Type: BLOOD Comment: Verified by repeat analysis. Platelet. Ordering Provider: Thea CASTILLO Report Released Date/Time: Dec 19, 2023 09:37 AM Reporting Lab: [place] [facility] [place] [address] [address] Performing Lab: [place] [facility] [place] [address] [address] [place] [facility] [place] [facility] CBC AND DIFF (AUTO) IMMATURE GRANULOCYTE S/100 LEUKOCYTES IN BLOOD BY AUTOMATED COUNT 0.4 0.0 - 0.7 06/05 Specimen Type: BLOOD Comment: Verified by repeat analysis. Platelet. Ordering Provider: Thea CASTILLO Report Released Date/Time: Dec 19, 2023 09:37 AM Reporting Lab: [place] [facility] [place] [address] [address] Performing Lab: [place] [facility] [place] [address] [address] [place] [facility] [place] [facility] CBC AND DIFF (AUTO) IMMATURE GRANULOCYTE S [#/VOLUME] IN BLOOD 0.05 10*3/u L 0.00 - 0.06 06/05 Specimen Type: BLOOD Comment: Verified by repeat analysis. Platelet. Ordering Provider: Thea CASTILLO Report Released Date/Time: Dec 19, 2023 09:37 AM Reporting Lab: [place] [facility] [place] [address] [address] Performing Lab: [place] [facility] [facility] [address] [facility] [address] [facility] [place] [facility] CBC AND DIFF (AUTO) NRBC % 0.0 0.0 - 0.0 06/05 Specimen Type: BLOOD Comment: Verified by repeat analysis. Platelet. Ordering Provider: Thea CASTILLO Report Released Date/Time: Dec 19, 2023 09:37 AM Reporting Lab: [facility] [place] [facility] [address] [facility] [address] Performing Lab: [place] [facility] [facility] [address] [facility] [address] [place] [facility] [place] [facility] CBC AND DIFF (AUTO) NRBC, ABS 0.00 10*3/u L 0.00 - 0.00 06/05 Specimen Type: BLOOD Comment: Verified by repeat analysis. Platelet. Ordering Provider: Thea CASTILLO Report Released Date/Time: Dec 19, 2023 09:37 AM Reporting Lab: [place] [facility] [facility] [address] [facility] [address] Performing Lab: [place] [facility] [place] [address] [address] [facility] [place] [facility] BASIC METABOLIC PANEL (fasting) UREA NITROGEN [MASS/VOLUM E] IN SERUM OR PLASMA 36 mg/dL 7 - 25 12/11 H Specimen Type: SERUM No comment entered. Ordering Provider: Thea CASTILLO Report Released Date/Time: Jun 23, 2023 01:40 PM Reporting Lab: [place] [facility] [place] [facility] [address] [facility] [address] Performing Lab: [place] [facility] [place] [address] [address] [place] [facility] [place] [facility] BASIC METABOLIC PANEL (fasting) GLUCOSE [MASS/VOLUM E] IN SERUM OR PLASMA 79 mg/dL 65 - 100 12/11 Specimen Type: SERUM No comment entered. Ordering Provider: Thea CASTILLO Report Released Date/Time: Jun 23, 2023 01:40 PM Reporting Lab: [facility] [place] [facility] [address] [facility] [address] Performing Lab: [facility] [place] [facility] [address] [facility] [address] [facility] [place] [facility] BASIC METABOLIC PANEL (fasting) SODIUM [MOLES/VOLU ME] IN SERUM OR PLASMA 136 mmol/L 135 - 145 12/11 Specimen Type: SERUM No comment entered. Ordering Provider: Thea CASTILLO Report Released Date/Time: Jun 23, 2023 01:40 PM Reporting Lab: [facility] [place] [facility] [address] [facility] [address] Performing Lab: [facility] [place] [facility] [address] [facility] [address] [place] [facility] [place] [facility] BASIC METABOLIC PANEL (fasting) POTASSIUM [MOLES/VOLU ME] IN SERUM OR PLASMA 4.5 mmol/L 3.5 - 5.0 12/11 Specimen Type: SERUM No comment entered. Ordering Provider: Thea CASTILLO Report Released Date/Time: Jun 23, 2023 01:40 PM Reporting Lab: [facility] [place] [facility] [address] [facility] [address] Performing Lab: [facility] [place] [facility] [address] [facility] [address] [facility] [place] [facility] BASIC METABOLIC PANEL (fasting) CHLORIDE [MOLES/VOLU ME] IN SERUM OR PLASMA 107 mmol/L 100 - 110 12/11 Specimen Type: SERUM No comment entered. Ordering Provider: Thea CASTILLO Report Released Date/Time: Jun 23, 2023 01:40 PM Reporting Lab: [facility] [facility] [address] [facility] [address] Performing Lab: [facility] [facility] [address] [facility] [address] [facility] [place] [facility] BASIC METABOLIC PANEL (fasting) CARBON DIOXIDE, TOTAL [MOLES/VOLU ME] IN SERUM OR PLASMA 22 meq/L 20 - 30 12/11 Specimen Type: SERUM No comment entered. Ordering Provider: Thea CASTILLO Report Released Date/Time: Jun 23, 2023 01:40 PM Reporting Lab: [facility]ATRN [facility]ITALUSE[address] [address] Performing Lab: [facility] [address] [facility] BASIC METABOLIC PANEL (fasting) CREATININE [MASS/VOLUM E] IN SERUM OR PLASMA 2.41 mg/dL 0.50 - 1.40 12/11 H Specimen Type: SERUM No comment entered. Ordering Provider: Thea CASTILLO Report Released Date/Time: Jun 23, 2023 01:40 PM Reporting Lab: [facility] [address] Performing Lab: [facility] [address] [facility] BASIC METABOLIC PANEL (fasting) GLOMERULAR FILTRATION RATE/1.73 SQ M.PREDICTED [VOLUME RATE/AREA] IN SERUM, PLASMA OR BLOOD BY CREATININE- BASED FORMULA (CKD-EPI 2020) 27 mL/min 60 12/11 L Specimen Type: SERUM No comment entered. Ordering Provider: Thea CASTILLO Report Released Date/Time: Jun 23, 2023 01:40 PM Reporting Lab: [facility] [address] Performing Lab: [facility]ERN [facility] [address] [facility] LIVER FUNCTION PROTEIN [MASS/VOLUM E] IN SERUM OR PLASMA 6.1 g/dL 6.0 - 8.3 12/11 Specimen Type: SERUM No comment entered. Ordering Provider: Thea CASTILLO Report Released Date/Time: Jun 23, 2023 01:40 PM Reporting Lab: [facility] [place] [facility] [address] [facility] [address] Performing Lab: [facility] [place] [facility] [address] [facility] [address] [facility] [place] [facility] LIVER FUNCTION ALBUMIN [MASS/VOLUM E] IN SERUM OR PLASMA 3.6 g/dL 3.5 - 5.0 12/11 Specimen Type: SERUM No comment entered. Ordering Provider: Thea CASTILLO Report Released Date/Time: Jun 23, 2023 01:40 PM Reporting Lab: [facility] [place] [facility] [address] [facility] [address] Performing Lab: [facility] [place] [facility] [address] [facility] [address] [place] [facility] [place] [facility] LIVER FUNCTION ALKALINE PHOSPHATASE [ENZYMATIC ACTIVITY/VO LUME] IN SERUM OR PLASMA 47 U/L 40 - 150 12/11 Specimen Type: SERUM No comment entered. Ordering Provider: Thea CASTILLO Report Released Date/Time: Jun 23, 2023 01:40 PM Reporting Lab: [facility] [place] [facility] [address] [facility] [address] Performing Lab: [facility] [place] [facility] [address] [facility] [address] [facility] [place] [facility] LIVER FUNCTION ASPARTATE AMINOTRANSF ERASE [ENZYMATIC ACTIVITY/VO LUME] IN SERUM OR PLASMA 14 U/L 5 - 34 12/11 Specimen Type: SERUM No comment entered. Ordering Provider: Thea CASTILLO Report Released Date/Time: Jun 23, 2023 01:40 PM Reporting Lab: [facility] [place] [facility] [address] [facility] [address] Performing Lab: [facility] [place] [facility] [address] [facility] [address] [facility] [place] [facility] LIVER FUNCTION ALANINE AMINOTRANSF ERASE [ENZYMATIC ACTIVITY/VO LUME] IN SERUM OR PLASMA 13 U/L 12/11 Specimen Type: SERUM No comment entered. Ordering Provider: Thea CASTILLO Report Released Date/Time: Jun 23, 2023 01:40 PM Reporting Lab: [facility] [place] [facility] [address] [facility] [address] Performing Lab: [facility] [place] [facility] [address] [facility] [address] [facility] [facility] LIVER FUNCTION BILIRUBIN.T OTAL [MASS/VOLUM E] IN SERUM OR PLASMA 0.4 mg/dL 0.2 - 1.2 12/11 Specimen Type: SERUM No comment entered. Ordering Provider: Thea CASTILLO Report Released Date/Time: Jun 23, 2023 01:40 PM Reporting Lab: [facility] [place] [facility] [address] [facility] [address] Performing Lab: [facility] [place] [facility] [address] [facility] [address] [place] [facility] [facility] LIPID PANEL FASTING CHOLESTEROL [MASS/VOLUM E] IN SERUM OR PLASMA 169 mg/dL 12/11 Specimen Type: SERUM No comment entered. Ordering Provider: Thea CASTILLO Report Released Date/Time: Jun 23, 2023 01:40 PM Reporting Lab: [facility] [place] [facility] [address] [facility] [address] Performing Lab: [facility] [place] [facility] [address] [facility] [address] [facility] [facility] LIPID PANEL FASTING TRIGLYCERID E [MASS/VOLUM E] IN SERUM OR PLASMA 72 mg/dL 0 - 150 12/11 Specimen Type: SERUM No comment entered. Ordering Provider: Thea CASTILLO Report Released Date/Time: Jun 23, 2023 01:40 PM Reporting Lab: [facility] [place] [facility] [address] [facility] [address] Performing Lab: [facility] [place] [facility] [address] [facility] [address] [facility] [place] [facility] LIPID PANEL FASTING CHOLESTEROL IN LDL [MASS/VOLUM E] IN SERUM OR PLASMA BY CALCULATION 99 mg/dL 0 - 129 12/11 Specimen Type: SERUM No comment entered. Ordering Provider: Thea CASTILLO Report Released Date/Time: Jun 23, 2023 01:40 PM Reporting Lab: [facility]CALOOSATRN [address] [address] Performing Lab: [facility]N [address] [address] [facility] LIPID PANEL FASTING CHOLESTEROL .TOTAL/CHOL ESTEROL IN HDL [MASS RATIO] IN SERUM OR PLASMA 3.0 12/11 Specimen Type: SERUM No comment entered. Ordering Provider: Thea CASTILLO Report Released Date/Time: Jun 23, 2023 01:40 PM Reporting Lab: [facility] [address] [address] Performing Lab: [facility]ERN [address] [address] [facility] LIPID PANEL FASTING CHOLESTEROL IN HDL [MASS/VOLUM E] IN SERUM OR PLASMA 56 mg/dL 40 - 60 12/11 Specimen Type: SERUM No comment entered. Ordering Provider: Thea CASTILLO Report Released Date/Time: Jun 23, 2023 01:40 PM Reporting Lab: [facility] [address] Performing Lab: [facility] [address] [facility]ITALRDE[facility]ERN [facility] CBC AND DIFF (AUTO) LEUKOCYTES [#/VOLUME] IN BLOOD BY AUTOMATED COUNT 9.62 10*3/u L 4.50 - 11.00 12/11 Specimen Type: BLOOD No comment entered. Ordering Provider: Thea CASTILLO Report Released Date/Time: Jun 23, 2023 01:40 PM Reporting Lab: [facility] [address] [address] Performing Lab: [place] [facility] [place] [facility] [address] [facility] [address] [facility] [place] [facility] CBC AND DIFF (AUTO) ERYTHROCYTE S [#/VOLUME] IN BLOOD BY AUTOMATED COUNT 4.75 10*6/u L 4.23 - 5.66 12/11 Specimen Type: BLOOD No comment entered. Ordering Provider: Thea CASTILLO Report Released Date/Time: Jun 23, 2023 01:40 PM Reporting Lab: [facility] [place] [facility] [address] [facility] [address] Performing Lab: [place] [facility] [place] [facility] [address] [facility] [address] [facility] [place] [facility] CBC AND DIFF (AUTO) HEMOGLOBIN [MASS/VOLUM E] IN BLOOD 13.0 g/dL 12.8 - 17 12/11 Specimen Type: BLOOD No comment entered. Ordering Provider: Thea CASTILLO Report Released Date/Time: Jun 23, 2023 01:40 PM Reporting Lab: [facility] [facility] [address] [facility] [address] Performing Lab: [place] [facility] [place] [facility] [address] [facility] [address] [facility] [place] [facility] CBC AND DIFF (AUTO) HEMATOCRIT [VOLUME FRACTION] OF BLOOD BY AUTOMATED COUNT 39.4 39.2 - 50.4 12/11 Specimen Type: BLOOD No comment entered. Ordering Provider: Thea CASTILLO Report Released Date/Time: Jun 23, 2023 01:40 PM Reporting Lab: [facility] [place] [facility] [address] [facility] [address] Performing Lab: [place] [facility] [place] [facility] [address] [facility] [address] [facility] [place] [facility] CBC AND DIFF (AUTO) MCV [ENTITIC VOLUME] BY AUTOMATED COUNT 82.9 fL 82 - 99 12/11 Specimen Type: BLOOD No comment entered. Ordering Provider: VANWAGNER,W ILLIAM F Report Released Date/Time: Jun 23, 2023 01:40 PM Reporting Lab: [facility] [place] [facility] [address] [facility] [address] Performing Lab: [facility] [place] [facility] [address] [facility] [address] [facility] [place] [facility] CBC AND DIFF (AUTO) MCHC [MASS/VOLUM E] BY AUTOMATED COUNT 33.0 g/dL 30.8 - 35.1 12/11 Specimen Type: BLOOD No comment entered. Ordering Provider: Thea CASTILLO Report Released Date/Time: Jun 23, 2023 01:40 PM Reporting Lab: [facility] [place] [facility] [address] [facility] [address] Performing Lab: [facility] [place] [facility] [address] [facility] [address] [facility] [place] [facility] CBC AND DIFF (AUTO) PLATELETS [#/VOLUME] IN BLOOD BY AUTOMATED COUNT 16 10*3/u L 140 - 360 12/11 LL Specimen Type: BLOOD No comment entered. Ordering Provider: Thea CASTILLO Report Released Date/Time: Jun 23, 2023 01:40 PM Reporting Lab: [facility] [place] [facility] [address] [facility] [address] Performing Lab: [facility] [place] [facility] [address] [facility] [address] [facility] [place] [facility] CBC AND DIFF (AUTO) ERYTHROCYTE DISTRIBUTIO N WIDTH [RATIO] BY AUTOMATED COUNT 13.2 12.0 - 16.0 12/11 Specimen Type: BLOOD No comment entered. Ordering Provider: Thea CASTILLO Report Released Date/Time: Jun 23, 2023 01:40 PM Reporting Lab: [facility] [place] [facility] [address] [facility] [address] Performing Lab: [facility] [place] [facility] [address] [facility] [address] [facility] [place] [facility] CBC AND DIFF (AUTO) MONOCYTES [#/VOLUME] IN BLOOD BY AUTOMATED COUNT 0.90 10*3/u L 0.30 - 1.10 12/11 Specimen Type: BLOOD No comment entered. Ordering Provider: Thea CASTILLO Report Released Date/Time: Jun 23, 2023 01:40 PM Reporting Lab: [place] [facility] [place] [address] [address] Performing Lab: [facility] [place] [facility] [address] [facility] [address] [facility] [place] CBC AND DIFF (AUTO) MCH [ENTITIC MASS] BY AUTOMATED COUNT 27.4 pg 26.2 - 32.6 12/11 Specimen Type: BLOOD No comment entered. Ordering Provider: Thea CASTILLO Report Released Date/Time: Jun 23, 2023 01:40 PM Reporting Lab: [place] [facility] [place] [address] [address] Performing Lab: [facility] [address] [address] [place] [facility] [place] [facility] CBC AND DIFF (AUTO) NEUTROPHILS /100 LEUKOCYTES IN BLOOD BY AUTOMATED COUNT 57.3 43.7 - 75.8 12/11 Specimen Type: BLOOD No comment entered. Ordering Provider: Thea CASTILLO Report Released Date/Time: Jun 23, 2023 01:40 PM Reporting Lab: [facility] [place] [address] [address] Performing Lab: [facility] [place] [address] [address] [facility] [place] [facility] CBC AND DIFF (AUTO) LYMPHOCYTES /100 LEUKOCYTES IN BLOOD BY AUTOMATED COUNT 25.4 14.0 - 42.3 12/11 Specimen Type: BLOOD No comment entered. Ordering Provider: Thea CASTILLO Report Released Date/Time: Jun 23, 2023 01:40 PM Reporting Lab: [facility] [place] [address] [address] Performing Lab: [facility] [place] [facility] [address] [facility] [address] [facility] [place] [facility] CBC AND DIFF (AUTO) MONOCYTES/1 00 LEUKOCYTES IN BLOOD BY AUTOMATED COUNT 9.4 5.1 - 13.7 12/11 Specimen Type: BLOOD No comment entered. Ordering Provider: Thea CASTILLO Report Released Date/Time: Jun 23, 2023 01:40 PM Reporting Lab: [facility] [place] [facility] [address] [facility] [address] Performing Lab: [facility] [place] [place] [facility] [address] [facility] [address] [facility] [place] [facility] CBC AND DIFF (AUTO) EOSINOPHILS /100 LEUKOCYTES IN BLOOD BY AUTOMATED COUNT 5.9 0.4 - 6.8 12/11 Specimen Type: BLOOD No comment entered. Ordering Provider: Thea CASTILLO Report Released Date/Time: Jun 23, 2023 01:40 PM Reporting Lab: [facility] [place] [facility] [address] [facility] [address] Performing Lab: [facility] [place] [facility] [address] [facility] [address] [facility] [place] [facility] CBC AND DIFF (AUTO) BASOPHILS/1 00 LEUKOCYTES IN BLOOD BY AUTOMATED COUNT 1.7 0.1 - 2.0 12/11 Specimen Type: BLOOD No comment entered. Ordering Provider: Thea CASTILLO Report Released Date/Time: Jun 23, 2023 01:40 PM Reporting Lab: [facility] [place] [facility] [address] [facility] [address] Performing Lab: [facility] [place] [facility] [address] [facility] [address] [facility] [place] [facility] CBC AND DIFF (AUTO) NEUTROPHILS [#/VOLUME] IN BLOOD BY AUTOMATED COUNT 5.52 10*3/u L 2.20 - 7.60 12/11 Specimen Type: BLOOD No comment entered. Ordering Provider: Thea CASTILLO Report Released Date/Time: Jun 23, 2023 01:40 PM Reporting Lab: [facility] [place] [facility] [address] [facility] [address] Performing Lab: [facility] [place] [facility] [address] [facility] [address] [facility] [place] CBC AND DIFF (AUTO) LYMPHOCYTES [#/VOLUME] IN BLOOD BY AUTOMATED COUNT 2.44 10*3/u L 1.00 - 3.20 12/11 Specimen Type: BLOOD No comment entered. Ordering Provider: Thea CASTILLO Report Released Date/Time: Jun 23, 2023 01:40 PM Reporting Lab: [facility] [place] [address] [address] Performing Lab: [facility] [place] [address] [address] [facility] [place] [facility] CBC AND DIFF (AUTO) EOSINOPHILS [#/VOLUME] IN BLOOD BY AUTOMATED COUNT 0.57 10*3/u L 0.03 - 0.44 12/11 H Specimen Type: BLOOD No comment entered. Ordering Provider: Thea CASTILLO Report Released Date/Time: Jun 23, 2023 01:40 PM Reporting Lab: [facility] [place] [address] [address] Performing Lab: [facility] [place] [address] [address] [facility] [place] [facility] CBC AND DIFF (AUTO) BASOPHILS [#/VOLUME] IN BLOOD BY AUTOMATED COUNT 0.16 10*3/u L 0.01 - 0.13 12/11 H Specimen Type: BLOOD No comment entered. Ordering Provider: Thea CASTILLO Report Released Date/Time: Jun 23, 2023 01:40 PM Reporting Lab: [facility] [place] [address] [address] Performing Lab: [facility] [place] [address] [address] [facility] [place] [facility] CBC AND DIFF (AUTO) IMMATURE GRANULOCYTE S/100 LEUKOCYTES IN BLOOD BY AUTOMATED COUNT 0.3 0.0 - 0.7 12/11 Specimen Type: BLOOD No comment entered. Ordering Provider: Thea CASTILLO Report Released Date/Time: Jun 23, 2023 01:40 PM Reporting Lab: [facility] [place] [facility] [facility] [address] [facility] [address] Performing Lab: [facility] [address] [facility] [address] [facility] CBC AND DIFF (AUTO) IMMATURE GRANULOCYTE S [#/VOLUME] IN BLOOD 0.03 10*3/u L 0.00 - 0.06 12/11 Specimen Type: BLOOD No comment entered. Ordering Provider: Thea CASTILLO Report Released Date/Time: Jun 23, 2023 01:40 PM Reporting Lab: [facility] [address] [facility] [address] Performing Lab: [facility] [address] [facility] [address] [facility] CBC AND DIFF (AUTO) NRBC % 0.0 0.0 - 0.0 12/11 Specimen Type: BLOOD No comment entered. Ordering Provider: Thea CASTILLO Report Released Date/Time: Jun 23, 2023 01:40 PM Reporting Lab: [facility] [address] [facility] [address] Performing Lab: [facility] [address] [facility] [address] [facility] CBC AND DIFF (AUTO) NRBC, ABS 0.00 10*3/u L 0.00 - 0.00 12/11 Specimen Type: BLOOD No comment entered. Ordering Provider: Thea CASTILLO Report Released Date/Time: Jun 23, 2023 01:40 PM Reporting Lab: [facility] [address] [facility] [address] Performing Lab: [facility] [address] [facility] [address] [facility] PSA PROSTATE SPECIFIC AG [MASS/VOLUM E] IN SERUM OR PLASMA 0.75 ng/mL 0.00 - 4.00 08/07 Specimen Type: SERUM No comment entered. Ordering Provider: Thea CASTILLO Report Released Date/Time: Jun 23, 2023 01:40 PM Reporting Lab: [facility] [address] [facility] [address] Performing Lab: [facility] [address] [facility] [address] [facility] Vital Signs Combined list of inpatient and outpatient Vital Signs from Department of Defense and Veterans Affairs, ranging from 12 months to all on record, depending upon the facility. Vital Sign Value Date Comments Source SYSTOLIC BLOOD PRESSURE 164 06/12/19 25 09:28:25 [facility] DIASTOLIC BLOOD PRESSURE 82 025 09:28:25 [facility] PULSE OXIMETRY 98 06/12/2024 09:28:25 [facility] WEIGHT 170 06/12/2024 09:28:25 [facility] BMI 26 kg/m2 06/12/2024 09:28:25 [facility] PAIN 7 06/12/2024 09:28:25 [facility] TEMPERATURE 97.9 06/12/2024 09:28:25 [facility] PULSE 61 06/12/2024 09:28:25 [facility] RESPIRATION 16 06/12/2024 09:28:25 [facility] SYSTOLIC BLOOD PRESSURE 156 06/05/19 25 13:09:05 [facility] DIASTOLIC BLOOD PRESSURE 82 025 13:09:05 [facility] PULSE OXIMETRY 96 06/05/2024 13:09:05 [facility] PAIN 7 06/05/2024 13:09:05 [facility] PULSE 69 06/05/2024 13:09:05 [facility] RESPIRATION 20 06/05/2024 13:09:05 [facility] SYSTOLIC BLOOD PRESSURE 158 02/27/20 24 08:49:08 [facility] DIASTOLIC BLOOD PRESSURE 90 024 08:49:08 [facility] PULSE OXIMETRY 97 02/27/2024 08:49:08 [facility] PAIN 6 02/27/2024 08:49:08 [facility] PULSE 65 02/27/2024 08:49:08 [facility] RESPIRATION 20 02/27/2024 08:49:08 [facility] SYSTOLIC BLOOD PRESSURE 144 12/19/19 24 09:02:42 [facility] DIASTOLIC BLOOD PRESSURE 90 024 09:02:42 [facility] PULSE OXIMETRY 97 12/19/2023 09:02:42 [facility] WEIGHT 175.4 12/19/2023 09:02:42 [facility] BMI 27 kg/m2 12/19/2023 09:02:42 [facility] PAIN 0 12/19/2023 09:02:42 [facility] TEMPERATURE 98.3 12/19/2023 09:02:42 [facility] PULSE 67 12/19/2023 09:02:42 [facility] RESPIRATION 16 12/19/2023 09:02:42 [facility] SYSTOLIC BLOOD PRESSURE 180 08/08/19 24 09:42:55 [facility] DIASTOLIC BLOOD PRESSURE 100 024 09:42:55 [facility] PULSE OXIMETRY 97 08/08/2023 09:42:55 [facility] PAIN 6 08/08/2023 09:42:55 [facility] PULSE 75 08/08/2023 09:42:55 [facility] RESPIRATION 20 08/08/2023 09:42:55 [facility] Encounters Combined list of: 1) Encounters from Department of Veterans Affairs facilities going backup to the last 18 months, not all VA inpatient encounters are included; 2) Encounters from the Department of Defense facilities going backup to 280 months. Location Location Details Encounter Type Encounter Number Reason For Visit Attending Provider ADM Date DC Date Status Disposition Source [facility] Outpatient Encounter [id number] 01/12 [facility] [place] [id number] Diagnos is: ICD-10- CM H90.3 Sensori neural hearing loss, bilater al RIBBE,SUSI I 02/01 [facility] OFFICE O/P EST MOD 30-39 MIN [id number] Diagnos is: ICD-10- CM M70.62 Trochan teric bursiti s, left hip MCKEON,QUE ANDREWS THI 02/01 [facility] Outpatient Encounter [id number] 02/01 [facility] HC PRO PHONE CALL 5-10 MIN [id number] Diagnos is: ICD-10- CM M25.559 Pain in unspeci fied hip RA ALKA ROBERTS M 02/17 [facility] OFFICE O/P EST MOD 30-39 MIN [id number] Diagnos is: ICD-10- CM M70.62 Trochan teric bursiti s, left hip MCKEON,QUE [facility] 03/27 [facility] OFFICE O/P EST HI 40-54 MIN [id number] Diagnos is: ICD-10- CM M70.62 Trochan teric bursiti s, left hip MCKEON,QUE [facility] 04/11 [facility] Out[facility] Encounter [id number] 04/11 [facility] OFF/OP EST MAY X REQ PHY/QHP [id number] Diagnos is: ICD-10- CM Z11.52 Encount er for screeni ng for COVID-1 9 Luli MENDOZA 04/11 [facility] Out[facility] Encounter [id number] 04/13 [facility] Out[facility] Encounter [id number] 04/17 [facility] Out[facility] Encounter [id number] 04/18 [facility] Out[facility] Encounter [id number] 05/09 [facility] Out[facility] Encounter [id number] 05/09 [facility] [place] ORTHC/PROS TC MGMT SBSQ ENC [id number] Diagnos is: ICD-10- CM R60.9 Edema, unspeci fied Eber TORRESIN 05/11 [place] [facility] Out[facility] Encounter [id number] 05/15 [facility] Out[facility] Encounter [id number] 05/18 [facility] Out[facility] Encounter [id number] 05/23 [facility] Out[facility] Encounter [id number] 05/24 [facility] OFFICE O/P EST MOD 30 MIN [id number] Diagnos is: ICD-10- CM M46.1 Sacroil iitis, not elsewhe re classif ied LIT MCKEON 06/13 [facility] Out[facility] Encounter [id number] 06/13 [facility] OFFICE O/[place] HI 40 MIN [id number] Diagnos is: ICD-10- CM M47.896 Other spondyl osis, lumbar region LIT [facility]KEON [facility] 06/21 [facility] Out[facility] Encounter [id number] 06/21 [facility] OFFICE O/P EST LOW 20 MIN [id number] Diagnos is: ICD-10- CM I10 Essenti al (primar y) hyperte REBECA Blair 06/23 [facility] Out[facility] Encounter [id number] 07/30 [facility] OFFICE O/P EST MOD 30 MIN [id number] Diagnos is: ICD-10- CM M70.62 Trochan teric bursiti s, left hip LIT MCKEON [facility] 08/07 [facility] Out[facility]counter [id number] 08/07 [facility] Out[facility] Encounter [id number] 08/07 [facility] Out[facility] Encounter [id number] 08/14 [facility] Out[facility] Encounter [id number] 09/12 [facility] Out[facility] Encounter [id number] 09/21 [facility] Out[facility] Encounter [id number] 10/15 [facility] Out[facility] Encounter [id number] 10/30 [facility] Out[facility] Encounter [id number] 12/01 [facility] Out[facility] Encounter [id number] 12/04 [facility] Out[facility]counter [id number] 12/05 [facility] Out[facility] Encounter [id number]/05 [facility] Out[facility] Encounter [id number] 12/12 [facility] OFFICE O/P EST LOW 20 MIN [id number] Diagnos is: ICD-10- CM I10 Essenti al (primar y) hyperte REBECA Blair 12/18 [facility] QNHP OL DIG ASSMT&MGMT 11-20 [id number] 1. Diagnos is: ICD-10- CM R52 Pain, unspeci fied YANELIS HARRIS A 12/18 [facility] QNHP OL DIG ASSMT&MGMT 5-10 [id number] Diagnos is: ICD-10- CM M54.59 Other low back pain EARL LUX S 12/19 [facility] HEARING AID FITTING/CH ECKING [id number] Diagnos is: ICD-10- CM H90.3 Sensori neural hearing loss, bilater al SENIOR,MANDI OLE L 12/27 [facility] [place] OFFICE O/P EST LOW 20 MIN [id number] Diagnos is: ICD-10- CM F43.10 Post-tr aumatic stress disorde r, unspeci fied CHAVEZ,LER OY F 01/01 [place] [facility] Outpatient Encounter [id number] 01/01 [facility] Out[facility] Encounter [id number] 01/04 [facility] Outpatient Encounter [id number] 01/09 [facility] COMPRE OPH EXAM EST PT 1/> [id number] Diagnos is: ICD-10- CM Z96.1 Presenc e of intraoc ular lens DARSHANA SEGUNDO 01/11 [facility] FIT SPECTACLES MULTIFOCAL [id number] Diagnos is: ICD-10- CM Z46.0 Encount er for fit/adj st of spectac les and contact lenses DARSHANA SEGUNDO 01/11 [facility] HEARING SERVICE [id number] Diagnos is: ICD-10- CM Z46.1 Encount er for fitting and adjustm ent of hearing aid JUSTINE GOMEZ 01/30 [facility] Out[facility] Encounter [id number] 02/26 [facility] OFFICE O/[place] HI 40 MIN [id number] Diagnos is: ICD-10- CM M70.62 Trochan teric bursiti s, left hip LIT MCKEON THI 02/26 [facility] Out[facility] Encounter [id number] 02/26 [facility] OFF/OP CNSLTJ NEW/EST MOD 40 [id number] Diagnos is: ICD-10- CM H90.A22 Snsrnrl hear loss, uni, l ear, with rstrcd hear cntra side ELENITA BADILLO R 02/26 [facility] Out[facility] Encounter [id number] [facility] Outpatient Encounter [id number] 04/20 [facility] OFFICE O/[place] HI 40 MIN [id number] Diagnos is: ICD-10- CM M47.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, thoraco lumbar region LIT MCKEON THI 06/05 [facility] Out[facility] Encounter [id number] 06/05 [facility] OFFICE O/P EST LOW 20 MIN [id number] Diagnos is: ICD-10- CM I10 Essenti al (primar y) hyperte REBECA Blair F 06/12 [facility] Outpatient Encounter [id number] 06/21 [facility] [place] OFFICE O/P EST LOW 20 MIN [id number] Diagnos is: ICD-10- CM F43.10 Post-tr aumatic stress disorde r, unspeci fied KATHY,LER OY F 06/25 [place] [facility] Outpatient Encounter [id number] 07/08 [facility] Social History Combined list of available smoking, tobacco, and other social history from Department of Defense and Veterans Affairs facilities. Social History Type Response Date Comment [facility] e Tobacco smoking status [facility] VA-TOBACCO FORMER USER 09/22/2023 [facility] History of tobacco use VA-TOBACCO QUIT 15 YRS OR MORE 09/22/2023 [facility] History of tobacco use VA-TOBACCO QUIT 15 YRS OR MORE 08/22/2022 [facility] History of tobacco use VA-TOBACCO FORMER USER 08/02/2021 [facility] History of tobacco use VA-TOBACCO NEVER USED 09/01/2020 [facility] History of tobacco use VA-TOBACCO NEVER USED 08/14/2019 [place] History of tobacco use VA-TOBACCO FORMER USER 06/27/2018 [facility] History of tobacco use CURRENT SMOKER 09/06/2017 [facility] History of tobacco use LIFETIME NON-TOBACCO USER 06/29/2016 [facility] History of tobacco use LIFETIME NON-TOBACCO USER 06/03/2015 [facility] History of tobacco use LIFETIME NON-TOBACCO USER 05/12/2004 [facility] Plan of Care List of future care activities from [facility] facilities. Additional future care activities may be listed in the Assessment and Plan section. Date/Time Care Activity Care Activity Detail Facili ty 07/09/2024 AMBULATORY - MEDICINE AMBULATORY - MEDICI NE [facility] 09/16/2024 AMBULATORY - MEDICINE AMBULATORY - MEDICI NE [facility] 12/10/2024 AMBULATORY - PSYCHIATRY AMBULATORY - PSYC HIATRY [facility] 06/21/2024 Consult Order [facility]-D ENTAL GENERAL Cons Operations Developer's Choice [facility] 07/08/2024 Consult Order [facility]-U ROLOGY Cons Operations Developer's Choice [facility] Advance Directives List of completed, amended, or rescinded Advance Directives on record at [facility] facilities. An actual copy of the Directive is not included. Date Advance Directive Provider Source 12/14/2022 ADVANCE DIRECTIVE KEELEY JONES [facility]
--- OUTSIDE RECORDS SUMMARY | 2024-07-09 09:26 | XMS_ITS ---
[facility] [place] Address Unknown Problems Problem Status Start Date End Date STABLE BURST FRACTURE OF T9- T10 VERTEBRA, INITIAL ENCOUNTER FOR CLOSED FRACTURE (Primary) (S22.071A - ICD-10-CM) ACTIVE 03/15/2018 FRACTURE OF UNSPECIFIED PART OF LEFT CLAVICLE, INITIAL ENCOUNTER FOR CLOSED FRACTURE (S42.002A - ICD-10-CM) ACTIVE 018 THROMBOCYTOPENIA, UNSPECIFIED (D69.6 - ICD-10-CM) ACTI VE 03/15/2018 NONDISPLACED COMMINUTED FRAC TURE OF SHAFT OF HUMERUS, RIGHT ARM, INITIAL ENCOUNTER FOR CLOSED FRACTURE (S42.354A - ICD-10-CM) ACTIVE 03/15/2018 MULTIPLE FRACTURES OF RIBS, BILATERAL, INITIAL ENCOUNTER FOR CLOSED FRACTURE (S22.43XA - ICD-10-CM) ACTIVE 03/15/2018 WEDGE COMPRESSION FRACTURE O F T7-T8 VERTEBRA, INITIAL ENCOUNTER FOR CLOSED FRACTURE (S22.060A - ICD-10-CM) ACTIVE 018 CONCUSSION WITH LOSS OF CONS CIOUSNESS OF UNSPECIFIED DURATION, INITIAL ENCOUNTER (S06.0X9A - ICD-10-CM) ACTIVE 8 Encounters Encounter Performer Performer Role Encounter Diagnoses Location Date Leave - [facility] [place] 03/15/2018 05:42 pm EST - 03/17/2018 10:18 pm EST Leave - [facility] [place] 03/17/2018 10:19 pm EST - 04/19/2018 03:00 pm EST Leave - [facility] [place] 04/23/2018 06:30 pm EST - 05/12/2018 11:05 am EST Discharge - Discharged to home or self care - *Home Care Agency To Be Determined - Private home/apt. with home health services [facility] [place] 05/17/2018 03:13 pm EST - 06/22/2018 04:59 pm EST Reason For Referral Abnormal Other lab value or study (describe) Immunizations Vaccine Date Influenza (standard dose syringe) Social History
--- OUTSIDE RECORDS SUMMARY | 2024-07-09 09:26 | XMS_ITS | Continuity of Care Document ---
Author Organization [facility] Address [address] [place] [address]- Care Team Providers Care Refiner Operator Name Role Phone Enrique Espinosa Primary Care Physician Encounter [facility] Date(s): 05/13/24 - 06/12/24 [facility] [address] [place] [id number] Attending Physician: Ben Cuellar Admitting Physician: Ben Cuellar Referring Physician: AdmtrBen Encounter Type: Triage Allergies, Adverse Reactions, Alerts No Known Allergies Medications acetaminophen 325 mg oral tablet 650 mg, 2, tablet, By Mouth, Every 4 hours, PRN, Maintenance, as needed for pain, 04/19/18 10:24:37PM EST Start Date: 04/19/18 Status: Ordered Repeat number: 1 Biofreeze 4% topical gel 1 application, Topically, Every 4 hours, PRN as needed for pain, Maintenance, 04/19/18 10:24:00 PM EST, Gel Start Date: 04/19/18 Status: Ordered Repeat number: 1 cloNIDine 0.2 mg oral tablet 0.2 mg, 1, tablet, By Mouth, 2 times a day, Refills 0, Maintenance, 05/04/21 3:42:00 PM EST, Partial fill upon patient request if the prescription is for a schedule II opioid drug. Start Date: 05/04/21 Status: Ordered Repeat number: 1 cyclobenzaprine 10 mg oral tablet 10 mg, 1, tablet, By Mouth, 3 times a day, Maintenance, 04/19/18 10:25:04 PM EST Start Date: 04/19/18 Status: Ordered Repeat number: 1 Dulcolax 10 mg rectal suppository 1 supp = 10 mg, Rectally, Daily, PRN for constipation, Maintenance, 04/19/18 10:25:22 PM EST, Suppository Start Date: 04/19/18 Status: Ordered Repeat number: 1 finasteride 5 mg oral tablet 1 tablet = 5 mg, By Mouth, Daily, 0 Refills, Maintenance, 05/04/21 3:42:00 PM EST, Partial fill upon patient request if the prescription is for a schedule II opioid drug. Start Date: 05/04/21 Status: Ordered Repeat number: 1 Fleet Bisacodyl 10 mg rectal solution 1 each = 10 mg, Rectally, Daily, PRN as needed for constipation, Maintenance, 04/19/18 10:25:35 PM EST, Enema Start Date: 04/19/18 Status: Ordered Repeat number: 1 gabapentin 300 mg oral capsule 300 mg, 1, capsule, By Mouth, 3 times a day, Maintenance, 04/19/18 10:25:51 PM EST Start Date: 04/19/18 Status: Ordered Repeat number: 1 Lidoderm 5% film 1 patch, Topically, Daily at bedtime, Maintenance, 04/19/18 10:26:10 PM EST Start Date: 04/19/18 Status: Ordered Repeat number: 1 melatonin 3 mg oral tablet 1 tablet = 3 mg, By Mouth, Daily at bedtime, PRN for insomnia, Maintenance, 04/19/18 10:26:37 PM EST, Tablet Start Date: 04/19/18 Status: Ordered Repeat number: 1 Milk of Magnesia 8% oral suspension 30 mL = 2.4 Gm, By Mouth, Daily at bedtime, PRN for constipation, Maintenance, 04/19/18 10:26:57 PMEST, Suspension Start Date: 04/19/18 Status: Ordered Repeat number: 1 OxyCONTIN 10 mg oral tablet, extended release 10 mg, 1, tablet, By Mouth, Every 12 hours, PRN, # 10 tablet, Refills 0, Tot. Refills 0, Maintenance, moderate/severe pain, 04/23/18 11:56:00 AM EST, Print Requisition Start Date: 04/23/18 Status: Ordered Quantity: 10.0 Unit: tablet Repeat number: 1 OxyCONTIN 15 mg oral tablet, extended release 1 tablet = 15 mg, By Mouth, Every 12 hours, PRN moderate/severe pain, # 14 tablet, 0 Refills, Maintenance, 04/23/18 11:56:02 AM EST, ER Tablet Start Date: 04/23/18 Stop Date: 04/30/18 Status: Ordered Quantity: 14.0 Unit: tablet Repeat number: 1 phytonadione 100 mcg oral tablet 1 tablet = 100 mcg, By Mouth, Daily, Maintenance, 04/19/18 10:29:21 PM EST, Tablet Start Date: 04/19/18 Status: Ordered Repeat number: 1 Protonix 20 mg oral delayed release tablet 1 tablet = 20 mg, By Mouth, Daily, # 60 tablet, 0 Refills, Maintenance, 05/29/18 12:59:52 PM EST, ECTablet Start Date: 05/29/18 Status: Ordered Quantity: 60.0 Unit: tablet Repeat number: 1 sildenafil 100 mg oral tablet 1 tablet, By Mouth, Daily, PRN NEEDED FOR ERECTILE DYSFUNCTION, BEFORE SEXUAL ACTIVITY., # 10 tablet, 6 Refills, Maintenance, 03/26/24 2:44:00 PM EST, [facility], 173, cm, 05/18/23 8:46:00 EST, Height, 79.2, kg, 05/18/23 8:46:00 EST, Dry Weight Start Date: 03/26/24 Stop Date: 03/26/24 Status: Ordered Quantity: 10.0 Unit: tablet Repeat number: 7 tamsulosin 0.4 mg oral capsule 0.4 mg, By Mouth, Daily at bedtime, # 30 tablet, Refills 0, Tot. Refills 0, Maintenance, 04/23/18 11:55:25 AM EST, Print Requisition Start Date: 04/23/18 Status: Ordered Quantity: 30.0 Unit: tablet Repeat number: 1 Viagra 100 mg oral tablet 1 tablet = 100 mg, By Mouth, Daily, PRN for erectile dysfunction, Generic 1 hour before sexual activity, # 10 tablet, 10 Refills, Maintenance, 10/12/22 12:35:00 PM EDT, Tablet, [facility], 173, cm, 05/10/22 9:05:00 EST, Height, 74.7, kg, 05/10/22 9:05:00 EST, Dry Weight Start Date: 10/12/22 Status: Ordered Quantity: 10.0 Unit: tablet Repeat number: 11 Zoloft 25 mg oral tablet 1 tablet = 25 mg, By Mouth, Daily, # 30 tablet, 0 Refills, Maintenance, 05/29/18 12:59:43 PM EST, Tablet Start Date: 05/29/18 Status: Ordered Quantity: 30.0 Unit: tablet Repeat number: 1 Problem List Condition Confirmation Course Effective Dates Status Health St [facility] Informant ITP Confirmed Active Vital Signs Most recent to oldest [Reference Range]: 1 Height 178.00 cm (08/11/11 9:10 AM) Weight 85.100 kg (08/11/11 9:10 AM) Pulse Rate [55-90 bpm] 61 bpm (08/11/11 9:10 AM) Body Mass Index [18.50-24.99] 26.86 *H* (08/11/11 9:10 AM) Blood Pressure [90-138/55-84 mm Hg] 145/ 71mm Hg *H* (08/11/11 9:10 AM) Temperature [96.8-100.4 DegF] 97.6 DegF (08/11/11 9:10 AM) Blood pressure sites Arm, right (08/11/11 9:10 AM) Temperature Route Oral (08/11/11 9:10 AM) Dry Weight 85.100 kg (08/11/11 9:10 AM) Weight Obtained Via Standing scale (08/11/11 9:10 AM) Dry Weight Obtained Via Standing scale (08/11/11 9:10 AM) Social History Social History Type Response Smoking Status Never smoker entered on: 06/22/17 Sex Male Sex Representation Male (finding) Laboratory * Event Display: Non Lab Results Authored Date: Patient Care team information Care Team Personnel Name: Shruti Garcia Position: [facility] Onco RN Member Role: Primary Care Nurse Name: Kike Darby RN Position: [facility] RN Member Role: Primary Care Nurse Name: Yumiko Benitez RN Position: [facility] HBO Wound Member Role: Primary Care Nurse Name: Kourtney Rossi Position: [facility] Amb Office Staff Member Role: Primary Care Nurse Name: Mimi Gutierres RN Position: [facility] AMB Nurse Member Role: Primary Care Nurse Name: Dc Shrestha MA Position: [facility] [place] Member Role: Primary Care Nurse Name: Enrique Espinosa Position: Reference Physician Member Role: PCP Address: [address] [place] [id number] Telecom: Care Team Related Persons Name: BARBIE RIVERA Name: DEONDRE SMITH Insurance Providers Guarantor name: ALEXIS RIVERA Health Plan Information #: 1 Payer: [employer] Member Number: NA Policy Number: NA Group Number: NA
--- OUTSIDE RECORDS SUMMARY | 2024-07-09 09:26 | XMS_ITS | Encounter Summary ---
Author Name [facility] [place] [facility] [place] Address [address] [place] [address] Care Team Providers Care Buttermaker Continuous Churn Name Role Phone REBECA BHANDARI Primary Care Provider Unavail able Insurance [...] Name Patient's Relationship to Policy [facility] ([facility]) MEDICARE ADVANTAGE [facility] ([facility]) May 08, 2002 [id number] ALEXIS RIVERA PATIENT MEDICARE ([facility]) MEDICARE () PART A Jun 08, 2010 PART A [id number] ALEXIS RIVERA PATIENT MEDICARE ([facility]) MEDICARE () PART B Jun 08, 2010 PART B [id number] ALEXIS RIVERA PATIENT MEDICARE ([facility]) MEDICARE () PART A Jun 08, 2010 PART A [id number] ALEXIS RIVERA PATIENT MEDICARE ([facility]) MEDICARE () PART B Jun 08, 2010 PART B [id number] ALEXIS RIVERA PATIENT MEDICARE (WNR) MEDICARE (M) PART A Jun 08, 2010 PART A [id number] ALEXIS RIVERA PATIENT MEDICARE (WNR) MEDICARE (M) PART A Jun 08, 2010 PART A [id number] ALEXIS RIVERA PATIENT MEDICARE (WNR) MEDICARE (M) PART B Jun 08, 2010 PART B [id number] ALEXIS RIVERA PATIENT MEDICARE ([place]NR) MEDICARE (M) PART A Jun 08, 2010 PART A [id number] ALEXIS RIVERA PATIENT MEDICARE ([place]NR) MEDICARE (M) PART B Jun 08, 2010 PART B [id number] ALEXIS RIVERA PATIENT MEDICARE ([place]NR) MEDICARE (M) PART B Jun 08, 2010 PART B [id number] ALEXIS RIVERA PATIENT Selected Encounter This section includes the information on record at [place] for the Encounter. Date/Time Encounter Type Encounter Description Reason Provider Source Dec 19, 2023 11:57 AM QNHP OL DIG ASSMT&MGMT 11-20 CLINICAL PHARMACY ICD-10-CM R52 Pain, unspecified GDULA,YANELIS A [facility] Encounter Template Text not used by [place] Assessments - Encounter Diagnoses This section includes the primary and secondary diagnoses documented for the Encounter. Date/Time Primary/Secondary Diagnosis Diagnosis Name Provider Source Dec 19, 2023 12:15 PM PRIMARY Pain, unspecified GDULA,[facility]IS [facility] Plan of Treatment: Future Appointments (+ 6 months) and Future Tests (+/- 45 days) The Plan of Treatment section includes future care activities for the patient from all [place] treatmentfacilities. This section includes future appointments and future orders which are active, pending or scheduled. Future Appointments This section includes appointments that were scheduled to occur 6 months from the date of the Encounter, up to a maximum of 20 appointments. The data comes from all [place] treatment facilities. Appointment Date/Time Appointment Type Appointme nt Facility Name Dec 28, 2023 01:00 PM AMBULAT[facility] - [facility] Jan 02, 2024 01:00 PM AMBULATORY - PSYCHIATRY [facility] Jan 05, 2024 09:30 AM AMBULATORY [place]ICINE [place] [facility] [place] [facility] Jan 12, 2024 09:00 AM AMBULATORY [place]ICINE [place] [facility] [place] [facility] Jan 31, 2024 09:00 AM AMBULATORY - [place] MEDICIN [place] [facility] [place] [facility] Feb 27, 2024 09:00 AM AMBULATORY - REHAB MEDICIN E [place] [facility] [place] [facility] Feb 27, 2024 10:00 AM AMBULATORY - MEDICINE [place] [facility] [place] [facility] Mar 11, 2024 12:00 PM AMBULATORY - [place]ICINE [place] [facility] [place] [facility] May 16, 2024 09:00 AM AMBULATORY - MEDICINE [place] [facility] [place] [facility] Jun 05, 2024 01:00 PM AMBULATORY - REHAB MEDICIN E [place] [facility] [place] [facility] Jun 12, 2024 09:30 AM AMBULATORY - MEDICINE [place] [facility] [place] [facility] Jun 19, 2024 10:15 AM AMBULATORY - [place]ICINE [place] [facility] [place] [facility] Active, Pending, and Scheduled Orders This section includes a listing of several types of active, pending, and scheduled orders, including clinic medications orders, diagnostic test orders, procedure orders and consult orders; where the start date of the order is 45 days before the date of the Encounter or 45 days after the date of theEncounter. The data comes from all [place] treatment facilities. Test Date/Time Test Type Test Details Facility Name Dec 19, 2023 09:37 AM Consult Order COMMUNITY CARE-HEMATOLOGY Cons Biological Lab [facility]'s [facility] Lab Results: +/- 30 days of the encounter This section includes the Chemistry and Hematology Lab Results on record with [place] for the patient. Radiology Reports and Pathology Reports are provided separately, in subsequent sections. Lab Results This section contains the Chemistry/Hematology Results that were resulted 30 days before or 30 daysafter the date of the Encounter. Date/Time Source Result Type Result - Unit Interpretation Reference Range Comment Dec 12, 2023 10:21 AM [facility] LIVER FUNCTION Specimen Type: SERUM No comment entered. Ordering Provider: TIKI BHANDARI Report Released Date/Time: Jun 23, 2023 01:40 PM Reporting Lab: [facility] [address] [phone] Performing Lab: [facility] [address] [address] PROTEIN,TOTAL 6.1 g/dL 6.0-8.3 ALBUMIN 3.6 g/dL 3.5-5.0 ALKALINE PHOSPHATASE 47 U/L 40-150 AST 14 U/L 5-34 ALT 13 U/L BILIRUBIN, TOTAL 0.4 mg/dL 0.2-1.2 Dec 12, 2023 10:21 AM [facility] LIPID PANEL FASTING Specimen Type: SERUM No comment entered. Ordering Provider: TIKI BHANDARI Report Released Date/Time: Jun 23, 2023 01:40 PM Reporting Lab: [address] [address] Performing Lab: [facility] [address] [address] CHOLESTEROL 169 mg/dL TRIGLYCERIDE 72 mg/dL 0-150 LDL calculated 99 mg/dL 0-129 CHOL/HDL 3.0 HDL CHOLESTEROL 56 mg/dL 40-60 Dec 12, 2023 10:21 AM [facility] BASIC METABOLIC PANEL (fasting) Specimen Type: SERUM No comment entered. Ordering Provider: TIKI BHANDARI Report Released Date/Time: Jun 23, 2023 01:40 PM Reporting Lab: [facility] [address] [address] Performing Lab: [address] [address] UREA NITROGEN 36 mg/dL H 7-25 GLUCOSE 79 mg/dL 65-100 SODIUM 136 mmol/L 135-145 POTASSIUM 4.5 mmol/L 3.5-5.0 CHLORIDE 107 mmol/L 100-110 CO2 22 meq/L 20-30 CREATININE, Serum 2.41 mg/dL H 0.50-1.40 eGFR(CKD-EPI 2020) 27 mL/min L >60 Dec 12, 2023 10:21 AM [facility] CBC AND DIFF (AUTO) Specimen Type: BLOOD No comment entered. Ordering Provider: TIKI BHANDARI Report Released Date/Time: Jun 23, 2023 01:40 PM Reporting Lab: [facility] [address] [address] Performing Lab: [facility] [address] [address] WBC 9.62 10*3/uL 4.50-11.00 RBC 4.75 10*6/uL 4.23-5.66 HGB 13.0 g/dL 12.8-17 HCT 39.4 39.2-50.4 MCV 82.9 fL 82-99 MCHC 33.0 g/dL 30.8-35.1 PLT 16 10*3/uL LL 140-360 RDW-CV 13.2 12.0-16.0 MONO, ABS 0.90 10*3/uL 0.30-1.10 MCH 27.4 pg 26.2-32.6 NEUT % 57.3 43.7-75.8 LYMPH % 25.4 14.0-42.3 MONO % 9.4 5.1-13.7 EOS % 5.9 0.4-6.8 BASO % 1.7 0.1-2.0 NEUT, ABS 5.52 10*3/uL 2.20-7.60 LYMPH, ABS 2.44 10*3/uL 1.00-3.20 EOS, ABS 0.57 10*3/uL H 0.03-0.44 BASO, ABS 0.16 10*3/uL H 0.01-0.13 IMMATURE GRAN % 0.3 0.0-0.7 IMMATURE GRAN, ABS 0.03 10*3/uL 0.00-0.06 NRBC % 0.0 0.0-0.0 NRBC, ABS 0.00 10*3/uL 0.00-0.00 Vital Signs: All taken on the encounter date This section contains inpatient and outpatient Vital Signs collected on the date of the Encounter. Date/Time Temperature Pulse Blood Pressure Respiratory Rate SP02 Pain Height Weight Body Mass Index Source Dec 19, 2023 09:02 AM 98.3 67 144/90 16 97 0 175.4 27 [place] [facility] [place] [place] [facility] Social History: Smoking Status (Most current) and Tobacco Use (All prior to encounter date) This section includes the most current, and the historical, smoking and tobacco- related health factors from the [place] facility where the Encounter took place. Current Smoking Status This section includes the most current smoking, or tobacco-related health factor, from the [place] facility where the Encounter took place. Date/Time Current Smoking Status Comment Facil ity September 22, 2023 11:23 AM [place]-TOBACCO FORMER [facility]ER [place] [facility] Tobacco Use History This section includes a history of the smoking, or tobacco-related health factors, that were collected on or before the date of the Encounter. The data comes from the [place] facility where the Encounter took place. Date/Time Smoking Status/Tobacco Use Comment F acyoselin September 22, 2023 11:23 AM VA-TOBACCO QUIT 15 YRS OR MORE [place] [facility] [place] [facility] Aug 22, 2022 11:35 AM VA-TOBACCO FORMER USER [place] [facility] [place] [facility] Aug 22, 2022 11:35 AM VA-TOBACCO QUIT 15 YRS OR MORE [place] [facility] [place] [facility] Aug 02, 2021 03:30 PM VA-TOBACCO FORMER USER [place] [facility] [place] [facility] Aug 02, 2021 03:30 PM VA-TOBACCO QUIT 15 YRS OR MORE [place] [facility] [place] [facility] Jun 27, 2018 10:47 AM VA-TOBACCO FORMER USER [place] [facility] [facility] Jun 27, 2018 10:47 AM VA-TOBACCO QUIT 15 YRS OR MORE [place] [facility] [place] [facility] September 06, 2017 08:50 AM CURRENT SMOKER [place] [facility] [place] [facility] September 06, 2017 08:50 AM V1-PT NOT INTEREST ED IN QUIT TOBACCO USE [place] [facility] [place] [facility] Jun 03, 2015 10:19 AM LIFETIME NON-TOBACCO USER [place] [facility] [place] [facility] Advance Directives: All historical and current Section Date Range: From patient's date of to the date document was created. This section includes ALL of a patient's completed or amended [place] Advance and Rescinded Directives. The entries below indicate that a directive exists for the patient, but an actual copy is not included with this document. The data comes from all [place] facilities. Date Advance Directives Provider Source Dec 14, 2022 ADVANCE DIRECTIVE KEELEY JONES [place] [facility] [place] [facility] Encounter Notes: All associated encounter notes This section contains the clinical notes associated to the Encounter. Date/Time Encounter Note(s) Provider Source Dec 19, 2023 11:58 AM PHARMACY MEDICATIO N MGT NOTE: LOCAL TITLE: CLINICAL PHARMACIST DRUG REGIMEN REVIEW STANDARD TITLE: PHARMACY MEDICATION MGT NOTE DATE OF NOTE: DEC 19, 2023@11:58 ENTRY DATE: DEC 19, 2023@11:58:05 AUTHOR: YANELIS HARRIS COSIGNER: URGENCY: STATUS: COMPLETED This consult is for drug information questions, requests for clinical recommendations from Clinical Pharmacy Specialists (CPS), poly-pharmacy medication reviews, or general chart reviews for medication appropriateness. This consult is not for medication management as it is only an e-consult. Recommendations are included in this response. QUESTION: 78 year old MALE here in follow-up for; back and leg pain, this is a bit worse this summer. He recalls failing gabapentin in the past and does not recall pregabalin. CPP, please review use of pregabalin vs his poor renal function, might this be safe? PERTINENT INFORMATION: Active Problem HTN - Hypertension (SCT 98493017) I 09/27/2022 REBECA BHANDARI Exposure to potentially hazardous s 06/13/2022 SAVAGE,CHANTE A Acute nontraumatic kidney injury N1 05/20/2020 REBECA BHANDARI Benign Prostatic Hypertrophy With O 05/20/2020 REBECA BHANDARI PTSD - Post-Traumatic Stress Disord 09/01/2020 CK CHAVEZ Injury - disorder R69. 12/18/2018 REBECA BHANDARI Urticarial rash L50.0 06/03/2015 REBECA BHANDARI Calcific tendinitis (SNOMED CT 9541 09/18/2013 ALLIE CASTRO Thrombocytopenia D69.49 03/20/2019 LIT MCKEONONG MAGGIE Active and Recently Outpatient Medications (including Supplies): Active Outpatient Medications Status 1) CLONIDINE HCL 0.2MG TAB TAKE ONE TABLET BY MOUTH ACTIVE EVERY MORNING AND TAKE TWO TABLETS EVERY EVENING TO CONTROL BLOOD PRESSURE 2) FINASTERIDE 5MG TAB TAKE ONE TABLET BY MOUTH ONCE ACTIVE DAILY FOR PROSTATE 3) INCONT LINER DEPEND GUARDS USE 1 PAD TOPICALLY ONCE ACTIVE DAILY NEEDED 4) LIDOCAINE 5% PATCH APPLY 1 PATCH TOPICALLY ONCE DAILY ACTIVE FOR PAIN (LEAVE PATCH ON FOR 12 HOURS, THEN REMOVE PATCH) 5) MIRTAZAPINE 30MG TAB TAKE ONE-HALF TABLET BY MOUTH AT ACTIVE BEDTIME FOR DEPRESSION/MOOD 6) TAMSULOSIN HCL 0.4MG CAP TAKE TWO CAPSULES BY MOUTH ACTIVE AT BEDTIME DIRECTED BY PROVIDER 7) TRAZODONE HCL 100MG TAB TAKE TWO TABLETS BY MOUTH AT ACTIVE BEDTIME Pending Outpatient Medications Status 1) FINASTERIDE 5MG TAB TAKE ONE TABLET BY MOUTH ONCE PENDING DAILY FOR PROSTATE 2) INCONT LINER DEPEND GUARDS USE 1 PAD TOPICALLY ONCE PENDING DAILY NEEDED Inactive Outpatient Medications Status 1) ATENOLOL 25MG TAB TAKE ONE TABLET BY MOUTH ONCE DAILY DISCONTINUED FOR BLOOD PRESSURE/HEART 2) BETHANECHOL CHLORIDE 25MG TAB TAKE TWO TABLETS BY MOUTH TWICE DAILY FOR URINARY RETENTION 3) CHLORTHALIDONE 25MG TAB TAKE ONE TABLET BY MOUTH ONCE DAILY TO REMOVE FLUID/CONTROL BLOOD PRESSURE 4) CLONIDINE HCL 0.2MG TAB TAKE ONE TABLET BY MOUTH DISCONTINUED TWICE DAILY DIRECTED BY PROVIDER - MAY SKIP EVENING DOSE IF BLOOD PRESSURE AND EDEMA WITHIN GUIDELINES FROM PROVIDER 5) SODIUM FLUORIDE 1.1% TOOTHPASTE BRUSH SMALL AMOUNT TO TEETH TWICE DAILY FOR TOOTH DECAY PREVENTION Active Non-VA Medications Status 1) Non-VA BETA CAROTENE 87698 UNT CAP [id number] BY MOUTH ACTIVE DAILY 2) Non-VA FISH [...] CAP/TAB CURCUMIN BY MOUTH ONCE DAILY ACTIVE 22 Total Medications Labs: [facility] TREND Collection DT Spec WBC RBC HGB HCT MCV MCH PLT 12/12/2023 10:21 BLOOD 9.62 4.75 13.0 39.4 82.9 27.4 16 L* 08/08/2023 10:21 BLOOD 11.72 H 5.35 14.6 44.5 83.2 27.3 18 L* 12/20/2022 07:36 BLOOD 10.44 5.28 14.5 44.1 83.5 27.5 16 L* 09/20/2022 07:53 BLOOD 11.24 H 5.19 14.1 43.0 82.9 27.2 18 L* 03/08/2022 07:47 BLOOD 11.58 H 5.01 13.5 40.9 81.6 L 26.9 12 L* CHEM 7 TREND LAB CUMULATIVE SELECTED Collection DT Spec GLUCOSE BUN CREATIN Sodium K+/Pot CL CO2 12/12/2023 10:21 SERUM 79 36 H 2.41 H 136 4.5 107 22 08/08/2023 10:21 SERUM 84 34 H 2.24 H 139 4.7 107 21 12/20/2022 07:36 SERUM 91 41 H 2.26 H 139 4.1 105 24 09/20/2022 07:53 SERUM 95 48 H 2.27 H 140 4.4 108 23 03/08/2022 07:47 SERUM 94 39 H 2.07 H 136 4.2 104 24 LAB CUMULATIVE SELECTED 2 No selection items chosen for this component. CHEM 7 Results Collection DT Spec Sodium K+/Pot CL CO2 GLUCOSE BUN 12/12/2023 10:21 SERUM 136 4.5 107 22 79 36 H 08/08/2023 10:21 SERUM 139 4.7 107 21 84 34 H 12/20/2022 07:36 SERUM 139 4.1 105 24 91 41 H 09/20/2022 07:53 SERUM 140 4.4 108 23 95 48 H 03/08/2022 07:47 SERUM 136 4.2 104 24 94 39 H 11/11/2021 07:40 SERUM 139 4.1 106 25 92 38 H 09/22/2021 07:54 SERUM 140 4.9 106 25 95 48 H 07/22/2021 09:05 SERUM 136 4.7 102 26 99 52 H LIVER PANEL TREND Collection DT Spec AST ALT T BILI ALK JAMAR T. PROT ALBUMIN 12/12/2023 10:21 SERUM 14 13 0.4 47 6.1 3.6 08/08/2023 10:21 SERUM 18 14 0.4 57 7.0 4.1 12/20/2022 07:36 SERUM 16 14 0.4 52 6.7 4.0 09/20/2022 07:53 SERUM 15 16 0.4 48 6.7 4.0 03/08/2022 07:47 SERUM 16 15 0.4 44 6.6 3.5 LIPID PANEL TREND Collection DT Spec CHOL HDL CHO/HDL LDL-c TRIG 12/12/2023 10:21 SERUM 169 56 3.0 99 72 08/08/2023 10:21 SERUM 193 66 H 2.9 110 87 12/20/2022 07:36 SERUM 195 64 H 3.0 115 81 09/20/2022 07:53 SERUM 198 69 H 2.9 117 61 03/08/2022 07:47 SERUM 172 60 2.9 100 62 HEMOGLOBIN A1C TREND Collection DT Spec HGBA1c 08/25/2014 13:12 BLOOD 5.7 IRON PANEL TREND Collection DT Spec IRON Ferrit 05/10/2017 14:36 SERUM 93 138.3 05/12/2004 14:13 SERUM 101.0 05/12/2004 14:13 SERUM 74 No data for IRON & TIBC PANEL THYROID PANEL Collection DT Specimen Test Name Result Units Ref Range 09/20/2022 07:53 SERUM TSH 2.07 uIU/mL 0.35 - 5.00 VITAMIN D 25-OH Collection DT Specimen Test Name Result Units Ref Range 07/22/2021 09:05 SERUM VITAMIN D (25-OH) 37 ng/mL 20 - 50 Dec 12, 2023@10:21 SERUM eGFR(CKD-EPI 2020): 27 L mL/min Ref: >=60 Vitals: Ht: 68 in [172.7 cm] (06/13/2019 10:54) Wt: 175.4 lb [79.56 kg] (12/19/2023 09:02) BMI: BMI: 26.7 BP: 144/90 (12/19/2023 09:02) HR: 67 (12/19/2023 09:02) Pain: 0 (12/19/2023 09:02) ASSESSMENT/RECOMMENDATIONS: Calculated CrCl Actual BW: 28.4 ml/min Calculated CrCl Adjusted BW: 26 ml/min Given calculated crcl above for the indication of neuropathic pain would recommend the following: - Initial dose: Pregabalin 25 mg IR once daily x at least 1 week - May increase in increments of 25 to 50 mg at weekly intervals based on response and tolerability up to a max dose of 150 mg/day in 1 to 2 divided doses. -Above information sourced from UpToDate Time spent: 15 minutes PBM PharmD Pharmacotherapy Rem V12: PHARMACIST INTERVENTIONS: PAIN MANAGEMENT Medication Intervention(s) Non-opioid pain medication intervention(s) Adjust dose or frequency of current medication /essence/ YANELIS HARRIS PHARMD,[facility] PRACTITIONER Signed: 12/19/2023 12:15 Receipt Acknowledged By: 12/19/2023 17:27 /essence/ Rebeca Bhandari PA-C STAFF PHYSICIAN [employer] YANELIS HARRIS [facility]
--- OUTSIDE RECORDS SUMMARY | 2024-07-09 09:26 | XMS_ITS | Encounter Summary ---
Author Name [place] Address [address] [place] [address] Care Team Providers Care Legal Administrative Assistant Name Role Phone REBECA CASTILLO Primary Care [...] Name Patient's Relationship to Policy [facility] ([facility]) MEDICARE ADVANTAGE [facility] ([facility]) May 08, 2002 [id number] MIGUEL ALEXIS PATIENT MEDICARE ([facility]) MEDICARE () PART B Jun 08, 2010 PART B [id number] RIVERA ALEXIS PATIENT MEDICARE ([facility]) MEDICARE (M) PART A Jun 08, 2010 PART A [id number] MIGUEL ALEXIS PATIENT MEDICARE ([facility]) MEDICARE () PART B Jun 08, 2010 PART B [id number] MIGUEL ALEXIS PATIENT MEDICARE ([facility]) MEDICARE () PART A Jun 08, 2010 PART A [id number] [phone] MIGUEL ALEXIS PATIENT MEDICARE ([facility]) MEDICARE () PART B Jun 08, 2010 PART B [id number] ALEXIS RIVERA PATIENT MEDICARE (WNR) MEDICARE (M) PART A Jun 08, 2010 PART A [id number] ALEXIS RIVERA PATIENT MEDICARE (WNR) MEDICARE (M) PART B Jun 08, 2010 PART B [id number] ALEXIS RIVERA PATIENT MEDICARE (WNR) MEDICARE (M) PART A Jun 08, 2010 PART A [id number] ALEXIS RIVERA PATIENT MEDICARE (WNR) MEDICARE (M) PART B Jun 08, 2010 PART B [id number] ALEXIS RIVERA PATIENT MEDICARE (WNR) MEDICARE (M) PART A Jun 08, 2010 PART A [id number] ALEXIS RIVERA PATIENT Selected Encounter This section includes the information on record at [place] for the Encounter. Date/Time Encounter Type Encounter Description Reason Provider Source Jan 31, 2024 09:00 AM HEARING SERVICE AUDIOLOGY ICD-10-CM Z46.1 Encounter for fitting and adjustment of hearing aid MIMI GOMEZ [place] Encounter Template Text not used by [place] Assessments - Encounter Diagnoses This section includes the primary and secondary diagnoses documented for the Encounter. Date/Time Primary/Secondary Diagnosis Diagnosis Name Provider Source Jan 31, 2024 09:34 AM PRIMARY Encounter for fitting and adjustment of hearing aid MATTHEW GOMEZ [facility] Jan 31, 2024 09:34 AM SECONDARY Sensorineural hearing loss, bilateral MATTHEW GOMEZ [facility] Plan of Treatment: Future Appointments (+ 6 months) and Future Tests (+/- 45 days) The Plan of Treatment section includes future care activities for the patient from all [place] treatmentfacilities. This section includes future appointments and future orders which are active, pending or scheduled. Future Appointments This section includes appointments that were scheduled to occur 6 months from the date of the Encounter, up to a maximum of 20 appointments. The data comes from all [place] treatment facilities. Appointment Date/Time Appointment Type Appointme nt Facility Name Feb 27, 2024 09:00 AM AMBULATORY [facility] [facility] [place] [facility] [place] [facility] Feb 27, 2024 10:00 AM AMBULATORY - MEDICINE [facility] [place] [facility] Mar 11, 2024 12:00 PM AMBULATORY - MEDICINE [place] [facility] [place] [facility] May 16, 2024 09:00 AM AMBULATORY - MEDICINE [facility] [place] [facility] Jun 05, 2024 01:00 PM AMBULATORY - REHAB MEDICIN E [facility] [place] [facility] Jun 12, 2024 09:30 AM AMBULATORY - MEDICINE [place] [facility] [place] [facility] Jun 19, 2024 10:15 AM AMBULATORY - MEDICINE [place] [facility] [place] [facility] 2024 09:00 AM AMBULATORY - PS[facility]CHIATRY [facility] Jul 09, 2024 09:00 AM AMBULATORY - MEDICINE [facility] Active, Pending, and Scheduled Orders This section includes a listing of several types of active, pending, and scheduled orders, including clinic medications orders, diagnostic test orders, procedure orders and consult orders; where the start date of the order is 45 days before the date of the Encounter or 45 days after the date of theEncounter. The data comes from all [place] treatment facilities. Test Date/Time Test Type Test Details Facility Name Dec 19, 2023 09:37 AM Consult Order COMMUNITY CARE-HEMATOLOGY Cons Wood Heel Finisher[facility] [place] [facility] Mar 14, 2024 11:02 AM Consult Order COMMUNITY CARE-DENTAL GENERAL Cons [facility]el [facility] Social History: Smoking Status (Most current) and Tobacco Use (All prior to encounter date) This section includes the most current, and the historical, smoking and tobacco- related health factors from the [place] facility where the Encounter took place. Current Smoking Status This section includes the most current smoking, or tobacco-related health factor, from the [place] facility where the Encounter took place. Date/Time Current Smoking Status Comment Facil ity September 22, 2023 11:23 AM [facility]CO [facility] Tobacco Use History This section includes a history of the smoking, or tobacco-related health factors, that were collected on or before the date of the Encounter. The data comes from the [place] facility where the Encounter took place. Date/Time Smoking Status/Tobacco Use Comment F acility September 22, 2023 11:23 AM VA-TOBACCO QUIT 15 YRS OR MORE [place] [facility] [place] [facility] Aug 22, 2022 11:35 AM VA-TOBACCO FORMER USER [facility] [place] [facility] Aug 22, 2022 11:35 AM VA-TOBACCO QUIT 15 YRS OR MORE [place] [facility] [place] [facility] Aug 02, 2021 03:30 PM VA-TOBACCO FORMER USER [facility] [place] [facility] Aug 02, 2021 03:30 PM VA-TOBACCO QUIT 15 YRS OR MORE [place] [facility] [facility] Jun 27, 2018 10:47 AM VA-TOBACCO FORMER USER [place] [facility] [place] [facility] Jun 27, 2018 10:47 AM VA-TOBACCO QUIT 15 YRS OR MORE [place] [facility] [facility] September 06, 2017 08:50 AM CURRENT SMOKER [place] [facility] [place] [facility] September 06, 2017 08:50 AM V1-PT NOT INTEREST ED IN QUIT TOBACCO USE [place] [facility] [place] [facility] Jun 03, 2015 10:19 AM LIFETIME NON-TOBACCO [facility] Advance Directives: All historical and current Section Date Range: From patient's date of to the date document was created. This section includes ALL of a patient's completed or amended [place] Advance and Rescinded Directives. The entries below indicate that a directive exists for the patient, but an actual copy is not included with this document. The data comes from all [place] facilities. Date Advance Directives Provider Source Dec 14, 2022 ADVANCE DIRECTIVE KEELEY JONES [place] [facility] Encounter Notes: All associated encounter notes This section contains the clinical notes associated to the Encounter. Date/Time Encounter Note(s) Provider Source Jan 31, 2024 07:20 AM AUDIOLOGY E & M NOTE: LOCAL TITLE: AUDIOLOGY CLINIC STANDARD TITLE: AUDIOLOGY E & M NOTE DATE OF NOTE: JAN 31, 2024@07:20 ENTRY DATE: JAN 31, 2024@07:20:51 AUTHOR: MIMI GOMEZ COSIGNER: URGENCY: STATUS: COMPLETED AUDIOLOGY CLINIC Has ADDENDA Dx CODE: Z46.1- Encounter for Fitting/Programming Hearing Aid(s); H90.3- Sensorineural Hearing Loss, Bilateral APPOINTMENT TYPE: Hearing Aid Fitting SUBJECTIVE (S): The patient was seen for hearing aid fitting and issuance. He had previously been evaluated and found to exhibit significant hearing loss for which amplification was recommended. He is a previous user of hearing aids. was provided with his one-time L&D replacement Trent Evolv AI micro RICs (SN:[id number]). Retention tails replaced. User settings were restored for these devices and feedback manager of network completed. How does the patient best learn? Verbal instruction, demonstration Does the patient have any cultural and buddhism beliefs, emotional barriers, physical or cognitive limitations, and communication barriers which may impact his ability to learn? No Desire and motivation to learn? Good OBJECTIVE (O): Physical fit of hearing aids was good*. Patient verified comfort. Verification of an appropriate acoustic response was obtained using Real Ear measurements (speech mapping) and NAL-NL2 targets. The patient reported good subjective benefit as well. Feedback manager of network was run. Hearing aids were found to be meeting targets adequately and MPO was not exceeding estimated UCL. Settings stored in ALONZO. *Hearing aids protruded slightly from ears, however reported satisfaction with fit and appearance of hearing aids. ASSESSMENT (A): The following devices were issued: Make: Trent Model: Sincere ITCs Right Serial Number: [id number] Left Serial Number: [id number] Battery size: 312 Warranty ends: 02/03/27 Trial Period ends: 07/03/24 Wax guards: Hear Clear Program(s): Automatic Button(s): Short press= right raise, left lower Fitting Formula: NAL-NL2 Remote Programming: n/a BlueTooth: n/a Counseling was completed throughout todays appointment using a standardized curriculum that includes but is not limited to; realistic expectations with amplification in adverse listening environments, acclimatization to own voice and environmental sounds (following real-ear measurements), the importance of consistent use of amplification, proper insertion/removal, care and maintenance (including wax guards/domes if applicable), signal and alerts of devices, and charging/batteries. The was provided the opportunity to practice in office and reports confidence/understanding in all items reviewed. Time Spent= 20 minutes The patient was informed of and signed/agreed to [place] policy on hearing aid issuance: Yes Users are responsible for the maintenance and security of their devices. Determination of need to replace a hearing aid is made by the [place] golf ball marker. Hearing aids will not be replaced in cases of neglect, abuse, or excessive loss. Items issued are for personal use only. Prognosis for successful hearing aid use is good. PLAN (P): 1. Follow-up for programming/adjustments as needed. 2. The International Outcome Inventory-Hearing Aids (IOI-WILKINS) will be mailed to the in four weeks. He was asked to complete and mail back to clinic after completion. Patient Education Education provided on the following topics: Hearing aid use, care, maintenance Education provided to: P Response to Education: MELANIA GREENE, PI Regalado Patient P Family F Significant Other SO Verbalizes Understanding VU Returns Demonstration RD Performs Independently PI Lacks Comprehension LC Refused Education RE Not Applicable NA /essence/ MIMI GOMEZ STAFF SPRIGGER Signed: 01/31/2024 09:34 03/20/2024 ADDENDUM STATUS: COMPLETED [place] returned IOI-WILKINS Outcome Measure to the clinic via mail with an overall score of 27 Based on this score: i. No follow-up call is indicated _XX_ ii. Follow-up call is indicated and fitting clinician will be notified __ /es/ MARTY BISWAS Audiology Health Cinder Crusher Operator Signed: 03/20/2024 13:58 MIMI GOMEZ [facility] [place] [facility]
--- OUTSIDE RECORDS SUMMARY | 2024-07-09 09:27 | XMS_ITS | Encounter Summary ---
Author Name [place] Address [address] [place] [id number] Care Team Providers Care Dumper [employer] Name Role Phone REBECA CASTILLO Primary Care [...] Name Patient's Relationship to Policy Ord[facility] ([facility]) MEDICARE ADVANTAGE [facility] ([facility]) May 08, 2002 [id number] MIGUEL ALEXIS PATIENT MEDICARE ([facility]) MEDICARE () PART A Jun 08, 2010 PART A [id number] ALEXIS RIVERA PATIENT MEDICARE (WNR) MEDICARE (M) PART B Jun 08, 2010 PART B [id number] ALEXIS RIVERA PATIENT MEDICARE (WNR) MEDICARE (M) PART A Jun 08, 2010 PART A [id number] MIGUEL ALEXIS PATIENT MEDICARE (R) MEDICARE (M) PART B Jun 08, 2010 PART B [id number] ALEXIS RIVERA PATIENT MEDICARE (R) MEDICARE () PART A Jun 08, 2010 PART A [id number] ALEXIS RIVERA PATIENT MEDICARE (WNR) MEDICARE (M) PART B Jun 08, 2010 PART B [id number] ALEXIS RIVERA PATIENT MEDICARE (WNR) MEDICARE (M) PART A Jun 08, 2010 PART A [id number] [phone] ALEXIS RIVERA PATIENT MEDICARE (WNR) MEDICARE (M) PART B Jun 08, 2010 PART B [id number] ALEXIS RIVERA PATIENT MEDICARE (WNR) MEDICARE (M) PART A Jun 08, 2010 PART A [id number] ALEXIS RIVERA PATIENT MEDICARE (WNR) MEDICARE (M) PART B Jun 08, 2010 PART B [id number] ALEXIS RIVERA PATIENT Selected Encounter This section includes the information on record at [place] for the Encounter. Date/Time Encounter Type Encounter Description Reason Provider Source Jan 02, 2024 01:00 PM OFFICE O/P EST LOW 20 MIN MENTAL HEALTH CLINIC - IND ICD-10-CM F43.10 Post-traumatic stress disorder, unspecified REESE CHAVEZ [facility] Encounter Template Text not used by [place] Assessments - Encounter Diagnoses This section includes the primary and secondary diagnoses documented for the Encounter. Date/Time Primary/Secondary Diagnosis Diagnosis Name Provider Source Jan 02, 2024 02:03 PM PRIMARY Post-traumatic stress disorder, unspecified REESE CHAVEZ [place] Plan of Treatment: Future Appointments (+ 6 [...] Appointment Type Appointme nt Facility Name Jan 05, 2024 09:30 AM AMBULATORY - MEDICINE [facility] Jan 12, 2024 09:00 AM AMBULATORY - MEDICINE [facility] Jan 31, 2024 09:00 AM AMBULATORY - REHAB MEDICIN [facility] [place] [facility] Feb 27, 2024 09:00 AM AMBULATORY - REHAB MEDICIN E [facility] [place] [facility] Feb 27, 2024 10:00 AM AMBULATORY - MEDICINE [facility] [place] [place] [facility] Mar 11, 2024 12:00 PM AMBULATORY - MEDICINE [facility] [place] [place] [facility] May 16, 2024 09:00 AM AMBULATORY - MEDICINE [place] [facility] [place] [facility] Jun 05, 2024 01:00 PM AMBULATORY - REHAB MEDICIN E [facility] [place] [facility] Jun 12, 2024 09:30 AM AMBULATORY - MEDICINE [place] [facility] [place] [facility] Jun 19, 2024 10:15 AM AMBULATORY - MEDICINE [place] [facility] [place] [facility] 2024 09:00 AM AMBULATORY - PSYCHIATRY WHITE [...] data comes from all [place] treatment facilities. Test Date/Time Test Type Test Details Facility Name Dec 19, 2023 09:37 AM Consult Order COMMUNITY [facility]-HEMATOLOGY Cons Winding Inspector And Tester's Choice [facility] Lab Results: +/- 30 days of the encounter This section includes the Chemistry and Hematology Lab Results on record with [place] for the patient. Radiology Reports and Pathology Reports are provided separately, in subsequent sections. Lab Results This section contains the Chemistry/Hematology Results that were resulted 30 days before or 30 daysafter the date of the Encounter. Date/Time Source Result Type Result - Unit Interpretation Reference Range Comment Dec 12, 2023 10:21 AM [facility] BASIC METABOLIC PANEL (fasting) Specimen Type: SERUM No comment entered. Ordering Provider: TIKI CASTILLO Report Released Date/Time: Jun 23, 2023 01:40 PM Reporting Lab: [facility] [address] [address] Performing Lab: [facility] [address] [address] UREA NITROGEN 36 mg/dL H 7-25 GLUCOSE 79 mg/dL 65-100 SODIUM 136 mmol/L 135-145 POTASSIUM 4.5 mmol/L 3.5-5.0 CHLORIDE 107 mmol/L 100-110 CO2 22 meq/L 20-30 CREATININE, Serum 2.41 mg/dL H 0.50-1.40 eGFR(CKD-EPI 2020) 27 mL/min L >60 Dec 12, 2023 10:21 AM [facility] LIPID PANEL FASTING Specimen Type: SERUM No comment entered. Ordering Provider: ITKI CASTILLO Report Released Date/Time: Jun 23, 2023 01:40 PM Reporting Lab: [address] [address] Performing Lab: [address] [address] CHOLESTEROL 169 mg/dL TRIGLYCERIDE 72 mg/dL 0-150 LDL calculated 99 mg/dL 0-129 CHOL/HDL 3.0 HDL CHOLESTEROL 56 mg/dL 40-60 Dec 12, 2023 10:21 AM [facility] LIVER FUNCTION Specimen Type: SERUM No comment entered. Ordering Provider: TIKI CASTILLO Report Released Date/Time: Jun 23, 2023 01:40 PM Reporting Lab: [address] [address] Performing Lab: [address] [address] PROTEIN,TOTAL 6.1 g/dL 6.0-8.3 ALBUMIN 3.6 g/dL 3.5-5.0 ALKALINE PHOSPHATASE 47 U/L 40-150 AST 14 U/L 5-34 ALT 13 U/L BILIRUBIN, TOTAL 0.4 mg/dL 0.2-1.2 Dec 12, 2023 10:21 AM [facility] CBC AND DIFF (AUTO) Specimen Type: BLOOD No comment entered. Ordering Provider: TIKI CASTILLO Report Released Date/Time: Jun 23, 2023 01:40 PM Reporting Lab: [facility] [address] [address] Performing Lab: [facility] [address] [address] WBC 9.62 10*3/uL 4.50-11.00 RBC 4.75 10*6/uL [...] and tobacco- related health factors from the [place] facility where the Encounter took place. Current Smoking Status This section includes the most current smoking, or tobacco-related health factor, from the [place] facility where the Encounter took place. Date/Time Current Smoking Status Comment Facil ity Sep 01, 2020 11:30 AM [place]-TOBACCO NEVER USED [place] Tobacco Use History This section includes a history of the smoking, or tobacco-related health factors, that were collected on or before the date of the Encounter. The data comes from the [place] facility where the Encounter took place. Date/Time Smoking Status/Tobacco Use Comment Michaelle arshad Aug 14, 2019 11:30 AM [place]-TOBACCO NEVER USED [place] Jun 29, 2016 09:40 AM LIFETIME NON-TOBACCO USER [place] May 12, 2004 01:00 PM LIFETIME NON-SMOKER [place] May 12, 2004 01:00 PM LIFETIME NON-TOBACCO USER [place] Advance Directives: All historical and current Section [...] Provider Source Dec 14, 2022 ADVANCE DIRECTIVE [facility] Encounter Notes: All associated encounter notes This section contains the clinical notes associated to the Encounter. Date/Time Encounter Note(s) Provider Source Jan 02, 2024 01:13 PM CLINICAL NURSE SPE CIALIST NOTE: LOCAL TITLE: CLINICAL NURSE SPECIALIST/MENTAL HEALTH STANDARD TITLE: CLINICAL NURSE SPECIALIST NOTE DATE OF NOTE: JAN 02, 2024@13:13 ENTRY DATE: JAN 02, 2024@13:13:12 AUTHOR: REESE CHAVEZ EXP COSIGNER: URGENCY: STATUS: COMPLETED Dx PTSD- medication management In person visit 25 min Multiple physical problems continue. Has kidney disease. Discussed history. He is maintaining Covig precautions. Lives alone but has family contacts- primarily with his son. The following [place] and Non-[place] medications were reconciled with the patient: Active [...] TOPICALLY ACTIVE ONCE DAILY Non-VA BETA CAROTENE [id number] UNT CAP [id number] BY MOUTH ACTIVE DAILY Non-VA FISH OIL [...] withdrawal, sleep disturbance- minimal in good control Espinoza is taking Mirtazapine and Trazodone for sleep. He states that he is no longer [...] support helping his son, who lives in [place]. Plan: Renew Trazodone 200mg at hs , has middle insomnia, and Mirtazapine 15mg at hs for mood/sleep. Current dosage - fair- good response and he agrees to stay at current dosages. Declines need for therapist . VN combat . Rt in 6 months/ prn The rationale for the psychiatric medications and the alternatives to treatment were discussed with the patient. The side effect profile of the psychiatric medications was reviewed with the patient. Patient demonstrated reasonable understanding of the medication side effects and the above issues. The benefits of psychiatric medications outweigh risks for this patient. I asked the patient call [phone] ([facility]) or to come to open access if Medication Reconciliation: Medication Reconciliation: Outpatient: Has the patient been taking medications as documented in the EMLR? YES: The patient has been taking medications as documented in the EMLR. Essential Medication List for Review used to complete this medication reconciliation. INCLUDED IN THIS LIST: Alphabetical list of active outpatient prescriptions dispensed from this [place] (local) and dispensed from another [place] or [facility] facility (remote) as well as inpatient orders [...] Chavez APRN, STAFF CLINICAL NURSE SPECIALIST Signed: 01/02/2024 14:03 REESE CHAVEZ
--- OUTSIDE RECORDS SUMMARY | 2024-07-09 09:27 | XMS_ITS | Encounter Summary ---
Author Name [facility] [place] [facility] [place] [facility] [place] [facility] [place] Address [address] [place] [address] Care Team Providers Care Ship'S Cook Name Role Phone REBECA CASTILLO Primary Care [...] Name Patient's Relationship to Policy [facility] ([facility]) MEDICARE ADVANTAGE [facility] ([facility]) May 08, 2002 [id number] ALEXIS RIVERA PATIENT MEDICARE ([facility]) MEDICARE () PART A Jun 08, 2010 PART A [id number] [phone] ALEXIS RIVERA PATIENT MEDICARE ([facility]) MEDICARE () PART B Jun 08, 2010 PART B [id number] ALEXIS RIVERA PATIENT MEDICARE ([facility]) MEDICARE () PART A Jun 08, 2010 PART A [id number] ALEXIS RIVERA PATIENT MEDICARE ([facility]) MEDICARE () PART B Jun 08, 2010 PART B [id number] ALEXIS RIVERA PATIENT MEDICARE (WNR) MEDICARE (M) PART A Jun 08, 2010 PART A [id number] [phone] ALEXIS RIVERA PATIENT MEDICARE (WNR) MEDICARE (M) PART B Jun 08, 2010 PART B [id number] [phone] ALEXIS RIVERA PATIENT MEDICARE (WNR) MEDICARE (M) PART A Jun 08, 2010 PART A [id number] ALEXIS RIVERA PATIENT MEDICARE (WNR) MEDICARE (M) PART B Jun 08, 2010 PART B [id number] [phone] ALEXIS RIVERA PATIENT MEDICARE (WNR) MEDICARE (M) PART A Jun 08, 2010 PART A [id number] ALEXIS RIVERA PATIENT MEDICARE (WNR) MEDICARE (M) PART B Jun 08, 2010 PART B [id number] [phone] ALEXIS RIVERA PATIENT Selected Encounter This section includes the information on record at [place] for the Encounter. Date/Time Encounter Type Encounter Description Reason Provider Source Feb 27, 2024 10:00 AM OFF/OP CNSLTJ NEW/EST MOD 40 OTOLARYNGOLOGY/ENT ICD-10-CM H90.A22 Snsrnrl hear loss, uni, l ear, with rstrcd hear cntra side KENY BALBUENA [facility] Encounter Template Text not used by [place] Assessments - Encounter Diagnoses This section includes the primary and secondary diagnoses documented for the Encounter. Date/Time Primary/Secondary Diagnosis Diagnosis Name Provider Source Feb 27, 2024 10:53 AM PRIMARY Snsrnrl hear loss, uni, l ear, with rstrcd hear cntra side KENY BALBUENA [facility] [place] [facility] Feb 27, 2024 10:53 AM SECONDARY Dizziness and giddiness KENY BALBUENA [facility] [place] [facility] Plan of Treatment: Future Appointments [...] 20 appointments. The data comes from all [facility]. Appointment Date/Time Appointment Type Appointme nt Facility Name Mar 11, 2024 12:00 PM AMBULATORY - MEDICINE [facility] [place] [facility] May 16, 2024 09:00 AM AMBULATORY - MEDICINE [facility] [place] [facility] Jun 05, 2024 01:00 PM [facility] Jun 12, 2024 09:30 AM AMBULATORY - MEDICINE [facility] [place] [facility] Jun 19, 2024 10:15 AM [facility]BULATORY - [facility]ICINE [facility] 2024 09:00 AM AMBULATORY - PSYCHIATRY [facility] Jul 09, 2024 09:00 AM [facility] Active, Pending, and Scheduled Orders This section includes a listing of several types of active, pending, and scheduled orders, including clinic medications orders, diagnostic test orders, procedure orders and consult orders; where the start date of the order is 45 days before the date of the Encounter or 45 days after the date of theEncounter. The data comes from all [facility]. Test Date/Time Test Type Test Details Facility Name Mar 14, 2024 11:02 AM Consult Order [facility] Cons Roof [employer] [facility] [facility] Vital Signs: All taken on the encounter date This section contains inpatient and outpatient Vital Signs collected on the date of the Encounter. Date/Time Temperature Pulse Blood Pressure Respiratory Rate SP02 Pain Height Weight Body Mass Index Source Feb 27, 2024 09:50 AM 96.9 60 155/89 16 96 6 174 27 [facility] Feb 27, 2024 08:49 AM 65 158/90 20 97 6 [facility] Social History: Smoking Status (Most current) and Tobacco Use (All prior to encounter date) This section includes the most current, and the historical, smoking and tobacco- related health factors from the [place] facility where the Encounter took place. Current Smoking Status This section includes the most current smoking, or tobacco-related health factor, from the [place] facility where the Encounter took place. Date/Time Current Smoking Status Comment Angle [email or web address] September 22, 2023 11:23 AM VA-TOBACCO FOR[facility] Tobacco Use History This section includes a history of the smoking, or tobacco-related health factors, that were collected on or before the date of the Encounter. The data comes from the [place] facility where the Encounter took place. Date/Time Smoking Status/Tobacco Use Comment Michaelle [email or web address] September 22, 2023 11:23 AM VA-TOBACCO QUIT 15 YRS OR MORE [place] [facility] [place] [place] [facility] Aug 22, 2022 11:35 AM VA-TOBACCO FORMER USER [place] [facility] [place] [facility] Aug 22, 2022 11:35 AM VA-TOBACCO QUIT 15 YRS OR MORE [place] [facility] [place] [facility] Aug 02, 2021 03:30 PM VA-TOBACCO FORMER USER [place] [facility] [place] [facility] Aug 02, 2021 03:30 PM VA-TOBACCO QUIT 15 YRS OR MORE [place] [facility] [place] [facility] Jun 27, 2018 10:47 AM VA-TOBACCO FORMER USER [place] [facility] [place] [facility] Jun 27, 2018 10:47 AM VA-TOBACCO QUIT 15 YRS OR MORE [place] [facility] [place] [facility] September 06, 2017 08:50 AM CURRENT SMOKER [place] [facility] [place] [facility] September 06, 2017 08:50 AM V1-PT NOT INTEREST ED IN QUIT TOBACCO USE [place] [facility] [place] [facility] Jun 03, 2015 10:19 AM LIFETIME NON-TOBACCO USER [facility] Advance Directives: All historical and current Section Date Range: From patient's date of to the date document was created. This section includes ALL of a patient's completed or amended [place] Advance and Rescinded Directives. The entries below indicate that a directive exists for the patient, but an actual copy is not included with this document. The data comes from all [place] facilities. Date Advance Directives Provider Source Dec 14, 2022 ADVANCE DIRECTIVE KEELEY JONES [facility] Encounter Notes: All associated encounter notes This section contains the clinical notes associated to the Encounter. 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 Patient states that over the last year he has noticed that his balance is not as good as it was. If he turns he often feels as though he could fall. He describes the sensation as lightheadedness. He does not have spinning or sensation of seasickness. It happens multiple times a day and he has had several falls. He had a very severe accident 5 years ago where he fell down a flight of stairs and according to him sustained 16 broken bones on his right side and his arms and legs multiple broken ribs as well as severe back injury. He was in rehab for 3-1/2 months. He states that it was determined that he could not tolerate back surgery because he has very severe thrombocytopenia and is followed by Dr. Camacho at [facility]. As a consequence the patient has chronic back pain. Patient does not have diabetes. He does have hypertension. He is on clonidine for his hypertension however he states he supposed to take 2 tabs and only takes 1 because he also has an issue with edema in his legs and states that his hypertensive medications makes that worse and it is very painful. As a consequence his blood pressure has been consistently high. Patient has had longstanding hearing loss. He is worn hearing aids for many years. He states that for as long as he can remember his left ear has not been as good as his right ear. As far back as 2006 he has had an asymmetric left sensorineural hearing loss with an asymmetric speech discrimination. Patient denies tinnitus. He has no history of ear infections. No history of ear surgery. He states that when he was in the he jumped off a cody in [facility] and had a tympanic membrane perforation which he states was very painful and he was admitted to the hospital for 1 week. Patient had very significant noise exposure. 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 Patient is right-handed. PMHx: Active problems - Computerized Problem List is the source for the followin. HTN - Hypertension ([facility] [id number]) 2. Exposure to potentially hazardous substance 3. Acute nontraumatic kidney injury 4. Benign Prostatic Hypertrophy With Outflow Obstruction ([facility] [id number]) 5. PTSD - Post-Traumatic Stress Disorder ([facility] [id number]) 6. Injury - disorder 7. Urticarial rash 8. Calcific tendinitis ([facility] [id number]) 9. Thrombocytopenia Service Connected Disabilities with % Eligibility: SERVICE CONNECTED 50% to 100% VERIFIED Total S/C %: 80 TINNITUS 10% S/C IMPAIRED HEARING 20% S/C POST-TRAUMATIC STRESS DISORDER 70% S/C MEDS: Active Outpatient Medications (including Supplies): CLONIDINE HCL 0.2MG TAB TAKE ONE TABLET BY MOUTH EVERY ACTIVE MORNING AND TAKE TWO TABLETS EVERY EVENING TO CONTROL BLOOD PRESSURE FINASTERIDE 5MG TAB TAKE ONE TABLET BY MOUTH ONCE DAILY ACTIVE FOR PROSTATE INCONT LINER DEPEND GUARDS USE 1 PAD TOPICALLY ONCE DAILY ACTIVE NEEDED LIDOCAINE 5% PATCH APPLY 1 PATCH TOPICALLY ONCE DAILY FOR ACTIVE PAIN (LEAVE PATCH ON FOR 12 HOURS, THEN REMOVE PATCH) MIRTAZAPINE 30MG TAB TAKE ONE-HALF TABLET BY MOUTH AT ACTIVE BEDTIME FOR DEPRESSION/MOOD PREGABALIN 25MG ORAL CAP TAKE ONE CAPSULE BY MOUTH ONCE ACTIVE DAILY FOR PAIN CALL OR MESSAGE AFTER A MONTH TO CONSIDER DOSE INCREASE. TAMSULOSIN HCL 0.4MG CAP TAKE TWO CAPSULES BY MOUTH AT ACTIVE BEDTIME DIRECTED BY PROVIDER TRAZODONE HCL 100MG TAB TAKE TWO TABLETS BY MOUTH AT ACTIVE BEDTIME Non-VA BETA CAROTENE [id number] UNT CAP [id number] BY MOUTH ACTIVE DAILY Non-VA FISH OIL CAP/TAB 1200MG TWICE DAILY ACTIVE Non-VA FLAXSEED MISCELLANEOUS DAILY ACTIVE Non-VA GLUCOSAMINE/CHONDROITIN CAP/TAB + HYALURONIC ACID. ACTIVE DAILY Non-VA LACTOBACILLUS ACIDOPHILUS TAB 1 CAPSULE BY MOUTH ACTIVE ONCE DAILY Non-VA MULTIVITAMIN CHEWABLE TABLETS 1 TABLET BY MOUTH ACTIVE DAILY Non-VA PHYTONADIONE TAB 100MCG BY MOUTH DAILY ACTIVE Non-VA TURMERIC CAP/TAB CURCUMIN BY MOUTH ONCE DAILY ACTIVE ALL: BETHANECOL CHLORIDE, ATENOLOL Fam Hx: Non - contributory Soc Hx: NON-SMOKER ROS: Denies any other relavent ROS Vitals Enter at: Feb 27, 2024@09:50:36 BP: 155/89 P: 60 R: 16 T: 96.9 174 lb [78.93 kg] (02/27/2024 09:50) BMI: 26.5 CONSTITUTION: GENERAL APPEARANCE:Well developed, well nourished and groomed. No apparent acute or chronic distress. HEAD, FACE, SALIVARY GLANDS AND TMJ: Palpation of Parotid and Submandibular glands: Normal. Facial Mobility: Normal. EAR, NOSE, MOUTH AND THROAT: Pinnas - normal. Otoscopic exam: RIGHT EAR: External auditory canal normal, tympanic membrane mobile LEFT EAR: External auditory canal normal, tympanic membrane mobile MODERATE HEARING LOSS Nasal Interior: Turbinates and middle meatus - Inferior turbinates normal. Normal mucosa with no swelling, polyps, active bleeding or evidence of bleeding. Lips, Teeth and Gums: Lips normal. Oral Cavity and Oropharynx: Oral mucosa with normal color and moisture. Anterior 2/3rds of tongue normal. Breath quality normal. Hard palate normal. Normal floor of mouth, Posterior pharynx normal. +1 TONSILS NECK AND THYROID: Neck: no adenopathy; no neck masses. RESPIRATORY: Respiratory effort normal. LYMPH NODES: Neck nodes: normal. NEUROLOGIC: Higher integrative functions: Normal orientation, memory, attention span and concentration, language, and fund of knowledge. Cranial nerves: Cranial nerves II-XII grossly intact and symmetrical. PATIENT WALKS WITH A WIDE-BASED GAIT. ROMBERG WITH EYES OPEN AND NORMAL. ROMBERG WITH EYES CLOSED UNSTEADY, NONLOCALIZING, UNABLE TO PERFORM TANDEM GAIT, NONLOCALIZING PSYCHIATRIC: Mood and affect: normal and appropriate to the situation. EXTREMITY: PITTING EDEMA TO MID CALF AUDIOGRAM 12-28-2023 Otoscopy was WNL bilaterally. Normal tympanograms obtained bilaterally. Pure tone audiometric testing under headphones in the right ear revealed normal hearing from 250-1500 Hz, sloping to a moderate to severe sensorineural hearing loss (SNHL) from 4016-4702 Hz. Testing in the left ear revealed normal hearing at 250 Hz, sloping to a mild SNHL at 500 Hz, rising to normal hearing at 1000 Hz, and sloping to a moderate to profound SNHL from 6184-8115 Hz. SRT WORD RECOGNITION (Recorded [place] [facility] 1/2 Word List) Right 20dBHL 88% @ 80dBHL/50dBm Left 20dBHL 64% @ 80dBHL/50dBm, 56% @ 80dBHL/50dBm No significant changes were found when compared to the 2022 audiological evaluation. Assessment/Plan FEB 27, 2024: 78-year-old male referred secondary to a left asymmetric sensorineural hearing loss and imbalance. Physical exam shows normal ear exam. Patient has nonlocalizing unsteady Romberg with his eyes closed and is unable to perform tandem gait. 1. Left asymmetric sensorineural hearing loss -patient's hearing loss has been asymmetric since 2006. Patient was also right-handed in the and therefore asymmetric hearing loss on his left side is not unexpected. THEREFORE PATIENT IS MEDICALLY CLEARED FOR AMPLIFICATION. 2. Imbalance -patient's imbalance is not otologic in nature. Given his past injuries it is not unexpected that he would have difficulty with balance. We discussed the possibility of physical therapy for his balance. He politely declined because he states I have had enough physical therapy . Patient states that he goes to the gym regularly. I suggested doing unilateral body weight exercises to help with his balance. He states that he does a lot of [employer] work. I discussed that this is good for strength but not for balance and he could consider working some other exercises into his routine. I also discussed with him that it might be best for him not to be alone in the [employer] ([employer] given his balance issues. 3. Hypertension - patient's blood pressure was elevated today and he states it is consistently elevated. He indicated that he is not taking his medication as prescribed and he did have pitting edema -up to his mid calf. I have recommended that he follow-up with his PCP. Patient will follow-up as needed. All questions were answered. Complete encounter includes: Review of past medical records Time spent with patient including obtaining history, physical exam, shared decision making, procedures, counseling and answering questions. Post visit documentation to include but not limited to medication and lab ordering. Total time = Minimum 45 min MEDICATION RECONCILIATION Outpatient: Has the patient been taking medications as documented in the EMLR? YES: The patient has been taking medications as documented in the EMLR. Essential Medication List for Review used to complete this medication reconciliation. INCLUDED IN THIS LIST: Alphabetical list of active outpatient prescriptions dispensed from this [place] (local) and dispensed from another [place] or [facility]D facility (remote) as well as [...] whether with a VA or non-VA provider. JLV Link Data on this list may not be complete. Please check JLV. Allergies/ADRs (Tool #5) FACILITY ALLERGY/ADR -------- No Remote Allergy/ADR Data available for this patient [place] [facility] [place] [facility] ATENOLOL [place] [facility] [place] [facility] BETHANECOL CHLORIDE Med Recon NoGlossary (Tool #1) INCLUDED IN THIS LIST: Alphabetical list of active outpatient prescriptions dispensed from this [place] (local) and dispensed from another [place] or [facility] facility (remote) as well as inpatient orders (local pending and active), local clinic medications, locally documented non-VA medications, and local prescriptions that have or been discontinued in the past 90 days. Non-VA Meds Last Documented On: October 03, 2018 NOTE The display of VA prescriptions dispensed from another [place] or [facility]D facility (remote) is limited to active outpatient prescription entries matched to National Drug File at the originating site and may not include some items such as investigational drugs, compounds, etc. NOT INCLUDED IN THIS LIST: Medications self-entered by the patient into personal health records (i.e. [employer]) are NOT included in this list. Non-VA medications documented outside this [place], remote inpatient orders (regardless of status) and remote clinic medications are NOT included in this list. The patient and provider must always discuss medications the patient is taking, regardless of where the medication was dispensed or obtained. Non-VA BETA CAROTENE 28584 UNT CAP TAKE 1 CAPSULE BY MOUTH DAILY OUTPT CLONIDINE HCL 0.2MG TAB (Status = Active) TAKE ONE TABLET BY MOUTH EVERY MORNING AND TAKE TWO TABLETS EVERY EVENING TO CONTROL BLOOD PRESSURE Rx# [id number] Last Released: 11/03/23 Qty/Days Supply: Rx Expiration Date: 10/31/24 Refills Remainin OUTPT FINASTERIDE 5MG TAB (Status = Discontinued) TAKE ONE TABLET BY MOUTH ONCE DAILY FOR PROSTATE Rx# [id number] Last Released: 11/03/23 Qty/Days Supply: Rx Expiration Date: 05/09/24 Refills Remainin OUTPT FINASTERIDE 5MG TAB (Status = Active) TAKE ONE TABLET BY MOUTH ONCE DAILY FOR PROSTATE Rx# [id number] Last Released: 01/16/24 Qty/Days Supply: Rx Expiration Date: 12/19/24 Refills Remainin Non-VA FISH OIL CAP/TAB 1200MG oral TWICE DAILY Non-VA FLAXSEED MISCELLANEOUS DAILY Non-VA GLUCOSAMINE/CHONDROITIN CAP/TAB + HYALURONIC ACID. DAILY Non-VA LACTOBACILLUS ACIDOPHILUS TAB TAKE 1 CAPSULE BY MOUTH ONCE DAILY OUTPT LIDOCAINE 5% PATCH (Status = Active) APPLY 1 PATCH TOPICALLY ONCE DAILY FOR PAIN (LEAVE PATCH ON FOR 12 HOURS, THEN REMOVE PATCH) Rx# [id number] Last Released: 11/03/23 Qty/Days Supply: Rx Expiration Date: 06/13/24 Refills Remainin Indication: FOR PAIN OUTPT MIRTAZAPINE 30MG TAB (Status = Active) TAKE ONE-HALF TABLET BY MOUTH AT BEDTIME FOR DEPRESSION/MOOD Rx# [id number] Last Released: 08/03/23 Qty/Days Supply: Rx Expiration Date: 08/01/24 Refills Remainin Non-VA MULTIVITAMIN CHEWABLE TABLETS TAKE ONE TABLET BY MOUTH DAILY Non-VA PHYTONADIONE TAB TAKE 100MCG BY MOUTH DAILY OUTPT PREGABALIN 25MG ORAL CAP (Status = Active) TAKE ONE CAPSULE BY MOUTH ONCE DAILY FOR PAIN CALL OR MESSAGE AFTER A MONTH TO CONSIDER DOSE INCREASE. Rx# [id number] Last Released: 12/20/23 Qty/Days Supply: Rx Expiration Date: 06/20/24 Refills Remainin Indication: FOR PAIN OUTPT SODIUM FLUORIDE 1.1% TOOTHPASTE (Status = ) BRUSH SMALL AMOUNT TO TEETH TWICE DAILY FOR TOOTH DECAY PREVENTION Rx# [id number] Last Released: 09/29/23 Qty/Days Supply: Rx Expiration Date: 12/15/23 Refills Remainin Indication: FOR TOOTH DECAY PREVENTION OUTPT TAMSULOSIN HCL 0.4MG CAP (Status = Active) TAKE TWO CAPSULES BY MOUTH AT BEDTIME DIRECTED BY PROVIDER Rx# [id number] Last Released: 02/19/24 Qty/Days Supply: 120/60 Rx Expiration Date: 06/23/24 Refills Remainin OUTPT TRAZODONE HCL 100MG TAB (Status = Active) TAKE TWO TABLETS BY MOUTH AT BEDTIME Rx# [id number] Last Released: 08/03/23 Qty/Days Supply: 180/90 Rx Expiration Date: 08/01/24 Refills Remainin Non-VA TURMERIC CAP/TAB TAKE CURCUMIN BY MOUTH ONCE DAILY SUPPLIES OUTPT INCONT LINER DEPEND GUARDS (Status = Discontinued) USE 1 PAD TOPICALLY ONCE DAILY NEEDED Rx# [id number] Last Released: 09/06/23 Qty/Days Supply: 104/30 Rx Expiration Date: 12/28/23 Refills Remainin OUTPT INCONT LINER DEPEND GUARDS (Status = Active) USE 1 PAD TOPICALLY ONCE DAILY NEEDED Rx# [id number] Last Released: 12/20/23 Qty/Days Supply: 104/30 Rx Expiration Date: 12/19/24 Refills Remainin /essence/ Keny Balbuena MD Otolaryngology Signed: 02/27/2024 10:53 K[facility]Y [facility]NA [facility]
--- OUTSIDE RECORDS SUMMARY | 2024-07-09 09:27 | XMS_ITS | Encounter Summary ---
Author Name [facility] [place] [facility] [place] Address [address] [place] [address] Care Team Providers Care Hop Separator Name Role Phone REBECA CASTILLO Primary Care [...] Name Patient's Relationship to Policy [facility] ([facility]) MEDICARE ADVANTAGE [facility] ([facility]) May 08, 2002 [id number] ALEXIS RIVERA PATIENT MEDICARE ([facility]) MEDICARE () PART A Jun 08, 2010 PART A [id number] ALEXIS RIVERA PATIENT MEDICARE ([facility]) MEDICARE (M) PART B Jun 08, 2010 PART B [id number] [phone] ALEXIS RIVERA PATIENT MEDICARE ([facility]) MEDICARE (M) PART A Jun 08, 2010 PART A [id number] [phone] MIGUEL ALEXIS PATIENT MEDICARE (R) MEDICARE (M) PART B Jun 08, 2010 PART B [id number] [phone] ALEXIS RIVERA PATIENT MEDICARE ([facility]) MEDICARE (M) PART A Jun 08, 2010 PART A [id number] ALEXIS RIVERA PATIENT MEDICARE (WNR) MEDICARE (M) PART A Jun 08, 2010 PART A [id number] [phone] ALEXIS RIVERA PATIENT MEDICARE (WNR) MEDICARE (M) PART B Jun 08, 2010 PART B [id number] ALEXIS RIVERA PATIENT MEDICARE (WNR) MEDICARE (M) PART A Jun 08, 2010 PART A [id number] ALEXIS RIVERA PATIENT MEDICARE (WNR) MEDICARE (M) PART B Jun 08, 2010 PART B [id number] ALEXIS RIVERA PATIENT MEDICARE (WNR) MEDICARE (M) PART B Jun 08, 2010 PART B [id number] ALEXIS RIVERA PATIENT Selected Encounter This section includes the information on record at [place] for the Encounter. Date/Time Encounter Type Encounter Description Reason Provider Source Feb 27, 2024 09:00 AM OFFICE O/P EST HI 40 MIN PM&RS PHYSICIAN ICD-10-CM M70.62 Trochanteric bursitis, left hip [facility] Encounter Template Text not used by [place] Assessments - Encounter Diagnoses This section includes the primary and secondary diagnoses documented for the Encounter. Date/Time Primary/Secondary Diagnosis Diagnosis Name Provider Source Feb 27, 2024 10:37 AM PRIMARY Trochanteric bursitis, left hip MCKEON,LIT [facility] [place] [facility] Feb 27, 2024 10:37 AM SECONDARY Myalgia, other [facility] [place] [facility] Feb 27, 2024 10:37 AM SECONDARY Sacroiliitis, not elsewhere classified [facility]KEONLIT [facility] [place] [facility] Feb 27, 2024 10:37 AM SECONDARY Spondylosis w/o myelopathy or radiculopathy, lumbar region [facility]KELIT [facility] [place] [place] [facility] Plan of Treatment: Future Appointments (+ 6 months) and Future Tests (+/- 45 days) The Plan of Treatment section includes future care activities for the patient from all [place] [facility]. This section includes future appointments and future orders which are active, pending or scheduled. Future Appointments This section includes appointments that were scheduled to occur 6 months from the date of the Encounter, up to a maximum of 20 appointments. The data comes from all [facility]. Appointment Date/Time Appointment Type Appointme nt Facility Name Mar 11, 2024 12:00 PM AMBULATORY - MEDICINE [facility] [place] [facility] May 16, 2024 09:00 AM AMBULATORY - MEDICINE [facility] Jun 05, 2024 01:00 PM AMBULATORY - REH[place] MEDICIN [place] [facility] [place] [place] [facility] Jun 12, 2024 09:30 AM AMBULATORY - MEDICINE [facility] [place] [facility] Jun 19, 2024 10:15 AM AMBULATORY - MEDICINE [facility] 20[facility] 09:00 AM [facility] - PSYCHIATRY [facility] Jul 09, 2024 09:00 AM AMBULATORY - MEDICINE [facility] Active, Pending, and Scheduled Orders This section includes a listing of several types of active, pending, and scheduled orders, including clinic medications orders, diagnostic test orders, procedure orders and consult orders; where the start date of the order is 45 days before the date of the Encounter or 45 days after the date of theEncounter. The data comes from all [facility]. Test Date/Time Test Type Test Details Facility Name Mar 14, 2024 11:02 AM Consult Order [facility] GENERAL Cons Wiper [employer] [facility] Vital Signs: All taken on the encounter date This section contains inpatient and outpatient Vital Signs collected on the date of the Encounter. Date/Time Temperature Pulse Blood Pressure Respiratory Rate SP02 Pain Height Weight Body Mass Index Source Feb 27, 2024 09:50 AM 96.9 60 155/89 16 96 6 174 27 [facility] Feb 27, 2024 08:49 AM 65 158/90 20 97 6 [facility] Social History: Smoking Status (Most current) and Tobacco Use (All prior to encounter date) This section includes the most current, and the historical, smoking and tobacco- related health factors from the [place] facility where the Encounter took place. Current Smoking Status This section includes the most current smoking, or tobacco-related health factor, from the [place] facility where the Encounter took place. Date/Time Current Smoking Status Comment Angle ity September 22, 2023 11:23 AM [facility]BACCO [facility] [place] [facility] Tobacco Use History This section includes a history of the smoking, or tobacco-related health factors, that were collected on or before the date of the Encounter. The data comes from the [place] facility where the Encounter took place. Date/Time Smoking Status/Tobacco Use Comment Michaelle acyoselin September 22, 2023 11:23 AM VA-TOBACCO QUIT 15 YRS OR MORE [place] [facility] [place] [facility] Aug 22, 2022 11:35 AM VA-TOBACCO FORMER USER [place] [facility] [place] [facility] Aug 22, 2022 11:35 AM VA-TOBACCO QUIT 15 YRS OR MORE [place] [facility] [place] [facility] Aug 02, 2021 03:30 PM VA-TOBACCO FORMER USER [place] [facility] [place] [facility] Aug 02, 2021 03:30 PM VA-TOBACCO QUIT 15 YRS OR MORE [place] [facility] [place] [facility] Jun 27, 2018 10:47 AM VA-TOBACCO FORMER USER [place] [facility] [place] [facility] Jun 27, 2018 10:47 AM VA-TOBACCO QUIT 15 YRS OR MORE [place] [facility] [place] [facility] September 06, 2017 08:50 AM CURRENT SMOKER [place] C [facility] [place] [facility] September 06, 2017 08:50 AM V1-PT NOT INTEREST ED IN QUIT TOBACCO USE [place] [facility] [place] [facility] Jun 03, 2015 10:19 AM LIFETIME NON-TOBACCO USER [place] [facility] [place] [facility] Advance Directives: All historical and current Section Date Range: From patient's date of to the date document was created. This section includes ALL of a patient's completed or amended [place] Advance and Rescinded Directives. The entries below indicate that a directive exists for the patient, but an actual copy is not included with this document. The data comes from all [place] facilities. Date Advance Directives Provider Source Dec 14, 2022 ADVANCE DIRECTIVE KEELEY JONES [facility] [place] [facility] Encounter Notes: All associated encounter notes This section contains the clinical notes associated to the Encounter. Date/Time Encounter Note(s) Provider Source Feb 27, 2024 09:24 AM PHYSICAL MEDICINE REHAB NOTE: LOCAL TITLE: PM&R BACK/JOINT PROCEDURE NOTE STANDARD TITLE: PHYSICAL MEDICINE REHAB NOTE DATE OF NOTE: FEB 27, 2024@09:24 ENTRY DATE: FEB 27, 2024@09:24:16 AUTHOR: LIT MCKEON TH EXP COSIGNER: URGENCY: STATUS: COMPLETED PROCEDURE NOTE PROCEDURE: 1. Left greater trochanteric bursa injection with cortisone. 2. Trigger point injections. INDICATION: Greater trochanteric bursitis and trigger points. MEDICATIONS: 1. 40mg methylprednisolone + 4mL of 0.5% bupivacaine into the bursa. 2. 3mL of 0.5% bupivacaine into trigger points. Lot#: [id number] Exp: 02/2024 HISTORY: Vet reports good response to cortisone injections into the left greater trochanteric bursa. Last injection was 08/08/23 - denies adverse side effects. Symptoms have since returned, not as severe as prior to injections, but bothersome. Denies swelling, erythema or increased warmth of the left hip. Denies any trauma or new symptoms, or fever, chills. Denies lower extremity weakness. Requests to repeat GT bursa injection as prior injections were effective. Continues to engage in daily exercises including home stretching and strengthening exercises and gym-based workouts. Patient also reports recurrence of right low back pain after having had over 90% pain relief status post right SI joint and L4-L5 and L5-S1 facet injections on 06/21/2023. Denies adverse side effects. Prior injections were effective for over a year and patient requests repeat injection. No new symptoms. No new trauma or inciting events. Denies bowel/bladder incontinence. EXAM: Vitals in chart. Vet presents well groomed, awake, alert, in NAD. Gets on/off exam table without difficulties. Left GT bursa TTP, replicating his pain. A couple trigger points in the left glut medius muscle. No erythema, ecchymosis, or edema of the left greater trochanteric region. Some weakness of left>>right hip abductor. Otherwise, no focal weakness in the LEs. Sensation intact to LT in the legs. Nonantalgic gait. 1+ nonpitting edema of b/l LEs to mid calves. Low back with mild TTP at the L/S junction, worsens with lumbar extension and rotation to the right. +Mercedez's sign with TTP right SI joint. ANESTHESIA: None. INFORMED CONSENT: Obtained verbally, and [...] with the injection. TIME OUT NOTE TIME: FEB 27, 2024@09:03 [place] correctly stated: [X]Full name: RIVERAALEXIS [X]Last of #: [id number] [X]: Jun PROVIDER NAME: [...] me with any issues. Pre-procedure pain level: 6/10 Post-procedure pain level: 2/10 ASSESSMENT: 78yo very active gentleman with chronic [...] is still controlled at that time. - Right SI joint injection and lumbar facet injections will be repeated in 4 months. - Continue home exercises to strengthen hip stabilizer muscles to address MSK imbalance and SI joint dysfunction. Daily self trigger point release techniques using a tennis ball as needed. - Con't working on on hip stabilizer strengthening exercises, as reviewed. Stretch tight hip flexors, hamstrings, quads and hip adductors. - Con't using abdominal binder prn strenuous activities. - No medication changes. MDM: 40 min, dedicated to reviewing chart, documenting, educating, counseling, and coordinating care. Medication Reconciliation: Outpatient: Has the patient been taking medications as documented in the EMLR? YES: The patient has been taking medications as documented in the EMLR. Essential Medication List for Review used to complete this medication reconciliation. INCLUDED IN THIS LIST: Alphabetical list of active outpatient [facility] and dispensed from another [place] or [facility] facility (remote) as well as [...] or non-VA provider. /essence/ LIT MCKEON DO [employer] Signed: 02/27/2024 10:37 LIT MCKEON [facility]
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
--- OUTSIDE RECORDS SUMMARY | 2024-07-09 09:27 | XMS_ITS | Encounter Summary ---
Author Name [facility] [place] Organization [place] Address [address] [place] [address] Care Team Providers Care Embedded Engineer Name Role Phone REBECA CASTILLO Primary Care [...] Name Patient's Relationship to Policy Ordaz [facility] ([facility]) MEDICARE ADVANTAGE [facility] ([facility]) May 08, 2002 [id number] ALEXIS RIVERA PATIENT MEDICARE (WNR) MEDICARE (M) PART A Jun 08, 2010 PART A [id number] ALEXIS RIVERA PATIENT MEDICARE (WNR) MEDICARE (M) PART B Jun 08, 2010 PART B [id number] ALEXIS RIVERA PATIENT MEDICARE (WNR) MEDICARE (M) PART A Jun 08, 2010 PART A [id number] ALEXIS RIVERA PATIENT MEDICARE (WNR) MEDICARE (M) PART B Jun 08, 2010 PART B [id number] ALEXIS RIVERA PATIENT MEDICARE (WNR) MEDICARE (M) PART A Jun 08, 2010 PART A [id number] ALEXIS RIVERA PATIENT MEDICARE (WNR) MEDICARE (M) PART B Jun 08, 2010 PART B [id number] ALEXIS RIVERA PATIENT MEDICARE (WNR) MEDICARE (M) PART A Jun 08, 2010 PART A [id number] ALEXIS RIVERA PATIENT MEDICARE (WNR) MEDICARE (M) PART B Jun 08, 2010 PART B [id number] ALEXIS RIVERA PATIENT MEDICARE (WNR) MEDICARE (M) PART A Jun 08, 2010 PART A [id number] ALEXIS RIVERA PATIENT MEDICARE (WNR) MEDICARE (M) PART B Jun 08, 2010 PART B [id number] ALEXIS RIVERA PATIENT Selected Encounter This section includes the information on record at [place] for the Encounter. Date/Time Encounter Type Encounter Description Reason Pro vider Source Jul 08, 2024 08:52 AM Outpatient Encounter ADMIN PAT ACTIVTIES (MASNONCT) IHE Encounter Template Text not used by [place] Plan of Treatment: Future Appointments (+ 6 [...] 09, 2024 09:00 AM [facility] September 16, 2024 09:45 AM [facility] Dec 10, 2024 09:00 AM AMBULATORY - PSYCHIATRY [facility] Active, Pending, and Scheduled Orders This [...] PM Consult Order COMMUNITY CARE-DENTAL GENERAL Cons Help Desk Intern's Choice [place] [facility] [place] [facility] Jul 08, 2024 09:42 AM Consult Order COMMUNITY CARE-UROLOGY Cons Help Desk Intern's Choice [place] [facility] [place] [facility] Social History: Smoking Status (Most current) [...] 22, 2023 11:23 AM VA-TOBACCO FORMER USER [place] [facility] [place] [facility] Tobacco Use History This section includes a history of the smoking, or tobacco-related health factors, that were collected on or before the date of the Encounter. The data comes from the [place] facility where the Encounter took place. Date/Time Smoking Status/Tobacco Use Comment F acility September 22, 2023 11:23 AM VA-TOBACCO QUIT 15 YRS OR MORE [facility] [place] [facility] Aug 22, 2022 11:35 AM VA-TOBACCO FORMER USER [facility] [place] [facility] Aug 22, 2022 11:35 AM VA-TOBACCO QUIT 15 YRS OR MORE [facility] [place] [facility] Aug 02, 2021 03:30 PM VA-TOBACCO FORMER USER [facility] [place] [facility] Aug 02, 2021 03:30 PM VA-TOBACCO QUIT 15 YRS OR MORE [facility] [place] [facility] Jun 27, 2018 10:47 AM VA-TOBACCO FORMER USER [facility] [place] [facility] Jun 27, 2018 10:47 AM VA-TOBACCO QUIT 15 YRS OR MORE [facility] [place] [facility] September 06, 2017 08:50 AM CURRENT SMOKER [facility] [place] [facility] September 06, 2017 08:50 AM V1-PT NOT INTEREST ED IN QUIT TOBACCO USE [facility] [place] [facility] Jun 03, 2015 10:19 AM LIFETIME NON-TOBACCO USER [facility] Advance Directives: All historical and [...] Dec 14, 2022 ADVANCE DIRECTIVE KEELEY JONES [facility] Encounter Notes: All associated encounter notes This section contains the clinical notes associated to the Encounter. Date/Time Encounter Note(s) Provider Source Jul 08, 2024 08:52 AM ADMINISTRATIVE NOTE: LOCAL TITLE: CCC: SCHEDULING ADMINISTRATION STANDARD TITLE: ADMINISTRATIVE NOTE DATE OF NOTE: JUL 08, 2024@08:52:10 ENTRY DATE: JUL 08, 2024@08:52:11 AUTHOR: DARELL CARL COSIGNER: URGENCY: STATUS: COMPLETED CCC: SCHEDULING ADMINISTRATION Has ADDENDA Patient Demographics Patient Name: ALEXIS RIVERA Patient Primary Phone: [phone] Patient Primary Address: [address] [place] [address] [place] [address] Patient : 1945 Patient Age: 79 Call Back Number: Caller/Recipient Relation to Patient: Self Caller Name: ALEXIS RIVERA Administrative Administrative Note Reason: Other Administrative Note Comments: [place] is requesting a return call regarding a Urology consult. [place] states that he has a pending appointment with Dr. Fall at [facility] scheduled for tomorrow, 07/08/2024. states that this provider reached out to him to make aware that there is no active consult and urged him to contact [facility] dept, which in turn directed to contact his Primary Care physician. [place] would like a return call as soon as possible and can best be reached at . IMPORTANT: This note was created by [facility] Clinical Contact Center staff. Please do not alert the staff member by adding them as a signer for future communications. Alerts are not monitored by this user. /essence/ DARELL CARL VISN1 [facility] A[facility] Signed: 07/08/2024 08:52 Receipt Acknowledged By: 07/09/2024 08:56 /es/ RUBY MENDOZA, RN REGISTERED NURSE 07/08/2024 13:38 /es/ MEET SARMIENTO LPN 07/08/2024 ADDENDUM STATUS: COMPLETED A new CC Urology consult placed and held for provider signature /essence/ RUDOLPH TERRAZAS, MSN, RN, CNL PRIMARY CARE TEAM NURSE Signed: 07/08/2024 09:41 [facility]
--- OUTSIDE RECORDS SUMMARY | 2024-07-09 09:27 | XMS_ITS | Encounter Summary ---
Author Name [facility] [facility] [place] [facility] [place] Address [address] [place] [address] Care Team Providers Care Build And Release Manager Name Role Phone REBECA CASTILLO Primary Care [...] Name Patient's Relationship to Policy [facility] ([facility]) MEDICARE ADVANTAGE [facility] ([facility]) May 08, 2002 [id number] ALEXIS RIVERA PATIENT MEDICARE ([facility]) MEDICARE () PART A Jun 08, 2010 PART A [id number] [phone] RIVERA ALEXIS PATIENT MEDICARE (R) MEDICARE (M) PART B Jun 08, 2010 PART B [id number] [phone] ALEXIS RIVERA PATIENT MEDICARE (WNR) MEDICARE (M) PART A Jun 08, 2010 PART A [id number] RIVERA ALEXIS PATIENT MEDICARE (R) MEDICARE (M) PART B Jun 08, 2010 PART B [id number] ALEXIS RIVERA PATIENT MEDICARE ([facility]) MEDICARE (M) PART A Jun 08, 2010 PART A [id number] ALEXIS RIVERA PATIENT MEDICARE (WNR) MEDICARE (M) PART A Jun 08, 2010 PART A [id number] [phone] ALEXIS RIVERA PATIENT MEDICARE (WNR) MEDICARE (M) PART B Jun 08, 2010 PART B [id number] ALEXIS RIVERA PATIENT MEDICARE (WNR) MEDICARE (M) PART A Jun 08, 2010 PART A [id number] ALEXIS RIVERA PATIENT MEDICARE (WNR) MEDICARE (M) PART B Jun 08, 2010 PART B [id number] ALEXIS RIVERA PATIENT MEDICARE (WNR) MEDICARE (M) PART B Jun 08, 2010 PART B [id number] ALEXIS RIVERA PATIENT Selected Encounter This section includes the information on record at [place] for the Encounter. Date/Time Encounter Type Encounter Description Reason Pro vider Source Jun 21, 2024 11:12 AM Outpatient Encounter GENERAL INTERNAL MEDICINE I[facility] Encounter Template Text not used by [place] Plan of Treatment: Future Appointments (+ 6 months) and Future Tests (+/- 45 days) The Plan of Treatment section includes future care activities for the patient from all [place] treatmentfacilities. This section includes future appointments and future orders which are active, pending or scheduled. Future Appointments This section includes appointments that were scheduled to occur 6 months from the date of the Encounter, up to a maximum of 20 appointments. The data comes from all [place] treatment facilities. Appointment Date/Time Appointment Type Appointme nt Facility Name 2024 09:00 AM AMBULATORY - PSYCHIATRY [facility] Jul 09, 2024 09:00 AM [facility] September 16, 2024 09:45 AM AMBULATORY MEDICINE [facility] Dec 10, 2024 09:00 AM AMBULATORY - PSYCHIATRY [facility] Active, Pending, and Scheduled Orders This section includes a listing of several types of active, pending, and scheduled orders, including clinic medications orders, diagnostic test orders, procedure orders and consult orders; where the start date of the order is 45 days before the date of the Encounter or 45 days after the date of theEncounter. The data comes from all [place] treatment facilities. Test Date/Time Test Type Test Details Facility Name Jun 21, 2024 01:15 PM Consult Order [facility]-DENTAL GENERAL Cons Cooking Instructor's Choice [place] [facility] [place] [facility] Jul 08, 2024 09:42 AM Consult Order [facility] Cons Cooking Instructor's [facility] Lab Results: +/- 30 days of the encounter This section includes the Chemistry and Hematology Lab Results on record with [place] for the patient. Radiology Reports and Pathology Reports are provided separately, in subsequent sections. Lab Results This section contains the Chemistry/Hematology Results that were resulted 30 days before or 30 daysafter the date of the Encounter. Date/Time Source Result Type Result - Unit Interpretation Reference Range Comment Jun 05, 2024 12:38 PM [facility] PSA Specimen Type: SERUM No comment entered. Ordering Provider: TIKI CASTILLO Report Released Date/Time: Dec 19, 2023 09:37 AM Reporting Lab: [facility] [address] [address] Performing Lab: [facility] [address] [address] PSA 0.81 ng/mL 0.00-4.00 Jun 05, 2024 12:38 PM [facility] LIPID PANEL FASTING Specimen Type: SERUM No comment entered. Ordering Provider: TIKI CASTILLO Report Released Date/Time: Dec 19, 2023 09:37 AM Reporting Lab: [facility] [address] [address] Performing Lab: [facility] [address] [address] CHOLESTEROL 206 mg/dL H TRIGLYCERIDE 114 mg/dL 0-150 LDL calculated 119 mg/dL 0-129 CHOL/HDL 3.2 HDL CHOLESTEROL 64 mg/dL H 40-60 Jun 05, 2024 12:38 PM [facility] LIVER FUNCTION Specimen Type: SERUM No comment entered. Ordering Provider: TIKI CASTILLO Report Released Date/Time: Dec 19, 2023 09:37 AM Reporting Lab: [address] [address] Performing Lab: [address] [address] PROTEIN,TOTAL 7.0 g/dL 6.0-8.3 ALBUMIN 3.9 g/dL 3.5-5.0 ALKALINE PHOSPHATASE 50 U/L 40-150 AST 14 U/L 5-34 ALT 15 U/L BILIRUBIN, TOTAL 0.4 mg/dL 0.2-1.2 Jun 05, 2024 12:38 PM [facility] BASIC METABOLIC PANEL (fasting) Specimen Type: SERUM No comment entered. Ordering Provider: TIKI CASTILLO Report Released Date/Time: Dec 19, 2023 09:37 AM Reporting Lab: [address] [address] Performing Lab: [address] [address] UREA NITROGEN 27 mg/dL H 7-25 GLUCOSE 104 mg/dL H 65-100 SODIUM 139 mmol/L 135-145 POTASSIUM 5.0 mmol/L 3.5-5.0 CHLORIDE 106 mmol/L 100-110 CO2 26 meq/L 20-30 CREATININE, Serum 1.98 mg/dL H 0.50-1.40 eGFR(CKD-EPI 2020) 34 mL/min L >60 Jun 05, 2024 12:38 PM [facility] CBC AND DIFF (AUTO) Specimen Type: BLOOD Comment: Verified by repeat analysis. Platelet. Ordering Provider: TIKI CASTILLO Report Released Date/Time: Dec 19, 2023 09:37 AM Reporting Lab: [address] [address] Performing Lab: [address] [address] WBC 11.26 10*3/uL H 4.50-11.00 RBC 5.17 [...] and tobacco- related health factors from the [place] facility where the Encounter took place. Current Smoking Status This section includes the most current smoking, or tobacco-related health factor, from the [place] facility where the Encounter took place. Date/Time Current Smoking Status Comment Facil ity September 22, 2023 11:23 AM VA-TOBACCO FORMER USER [facility] Tobacco Use History This section includes a history of the smoking, or tobacco-related health factors, that were collected on or before the date of the Encounter. The data comes from the [place] facility where the Encounter took place. Date/Time Smoking Status/Tobacco Use Comment F acility September 22, 2023 11:23 AM [place]-TOBACCO QUIT 15 YRS OR MORE [facility] Aug 22, 2022 11:35 AM VA-TOBACCO FORMER [...] September 06, 2017 08:50 AM CURRENT SMOKER [place] [facility] [place] [facility] September 06, 2017 08:50 AM V1-PT NOT INTEREST ED IN QUIT TOBACCO USE [facility] [place] [facility] Jun 03, 2015 10:19 AM LIFETIME NON-TOBACCO USER [place] [facility] [place] [facility] Advance Directives: All historical and current Section Date Range: From patient's date of to the date document was created. This section includes ALL of a patient's completed or amended [place] Advance and Rescinded Directives. The entries below indicate that a directive exists for the patient, but an actual copy is not included with this document. The data comes from all [place] facilities. Date Advance Directives Provider Source Dec 14, 2022 ADVANCE DIRECTIVE KEELEY JONES [place] [facility] Radiology Reports: +/- 30 days of [...] the Encounter. The data comes from all [place] treatment facilities. Date/Time Radiology Report Provider Source Jun 05, 2024 01:19 PM FLUOROSCOPIC MARIA INES NCE OF NEEDLE/SPINE: ALEXIS RIVERA [id number] -[id number] M Exm Date: JUN 05, 2024@13:19 Req Phys: LIT MCKEON Pat Loc: [facility] JORGE VARGAS MD (Req' Img Loc: [facility]/BUILDING 1 Service: Unknown [facility] [address] (Case [id number] COMPLETE) FLUOROSCOPIC GUIDANCE OF NEEDLE/S(RAD Detailed) CPT:95610 Reason for Study: Facet joint injections Clinical History: Report Status: Verified Date Reported: JUN 05, 2024 Date Verified: JUN 05, 2024 Medical Observer E-Sig:/[email or web address]/DEJAN TENORIO JR Report: Study: Pain injection of [...] Primary Interpreting Staff: DEJAN TENORIO JR, Radiologist (Medical Observer) /DEJAN VAZQUEZ JR [facility] Encounter Notes: All associated encounter notes This section contains the clinical notes associated to the Encounter. Date/Time Encounter Note(s) Provider Source Jun 21, 2024 11:12 AM TELEPHONE ENCOUNTE R NOTE: LOCAL TITLE: TELEPHONE NOTE/SPECIALTY CLINIC STANDARD TITLE: TELEPHONE ENCOUNTER NOTE DATE OF NOTE: JUN 21, 2024@11:12 ENTRY DATE: JUN 21, 2024@11:12:33 AUTHOR: EM JENKINS EXP COSIGNER: URGENCY: STATUS: COMPLETED DATE OF PROCEDURE: June 05 2024 PROCEDURE/LOCATION: Bilateral T12-L1 and L1-L2 facet joint injections. REASON FOR PROCEDURE: Thoracolumbar spondylosis PRE-PROCEDURE PAIN: 7/10 POST-PROCEDURE PAIN: 6/10 [employer] Operator called and spoke with regarding 2-week post procedure outcome. reported the following: AVERAGE PAIN LEVEL THE LAST 2 DAYS: 5/10 % IMPROVEMENT: 50% GREATER ADVERSE EFFECTS: none noted NEW SYMPTOMS: none noted SATISFACTION WITH RESULT: [facility] SPINE INJECTION CLINIC: REQUESTING PROVIDER F/U: ADDITIONAL COMMENTS: /liz/ Em Jenkins LPN LPN Signed: 06/21/2024 11:18 EM JENKINS [facility]
--- OUTSIDE RECORDS SUMMARY | 2024-07-09 09:27 | XMS_ITS | Encounter Summary ---
Author Name [facility] [place] [facility] [place] Address [address] [place] [address] Care Team Providers Care Linux Engineer Name Role Phone REBECA BHANDARI Primary Care [...] Name Patient's Relationship to Policy [facility] ([facility]) MEDICARE ADVANTAGE [facility] ([facility]) May 08, 2002 [id number] [phone] ALEXIS RIVERA PATIENT MEDICARE ([facility]) MEDICARE (M) PART A Jun 08, 2010 PART A [id number] [phone] ALEXIS RIVERA PATIENT MEDICARE (R) MEDICARE (M) PART B Jun 08, 2010 PART B [id number] [phone] ALEXIS RIVERA PATIENT MEDICARE (WNR) MEDICARE (M) PART A Jun 08, 2010 PART A [id number] [phone] ALEXIS RIVERA PATIENT MEDICARE (R) MEDICARE (M) PART B Jun 08, 2010 PART B [id number] ALEXIS RIVERA PATIENT MEDICARE ([facility]) MEDICARE (M) PART A Jun 08, 2010 PART A [id number] ALEXIS RIVERA PATIENT MEDICARE (WNR) MEDICARE (M) PART A Jun 08, 2010 PART A [id number] [phone] ALEXIS RIVERA PATIENT MEDICARE (WNR) MEDICARE (M) PART B Jun 08, 2010 PART B [id number] ALEXIS RIVERA PATIENT MEDICARE (WNR) MEDICARE (M) PART A Jun 08, 2010 PART A [id number] ALEXIS RIVERA PATIENT MEDICARE (WNR) MEDICARE (M) PART B Jun 08, 2010 PART B [id number] [phone] ALEXIS RIVERA PATIENT MEDICARE (WNR) MEDICARE (M) PART B Jun 08, 2010 PART B [id number] ALEXIS RIVERA PATIENT Selected Encounter This section includes the information on record at [place] for the Encounter. Date/Time Encounter Type Encounter Description Reason Pro vider Source Jul 31, 2023 06:37 PM Outpatient Encounter ADMIN PAT ACTIVTIES (MASNONCT) IHE Encounter Template Text not used by [place] Plan of Treatment: Future Appointments (+ 6 [...] Date/Time Appointment Type Appointme nt Facility Name Aug 08, 2023 09:30 AM AM[facility]ULAT[facility] [place] [facility] [place] [facility] September 13, 2023 03:15 PM AMBULATORY - MEDICINE [place] [facility] [place] [facility] Dec 06, 2023 09:30 AM AMBULATORY - [facility] MEDICIN [facility] [place] [facility] Dec 06, 2023 02:45 PM AMBULATORY - [place]ICINE [place] [facility] [place] [facility] Dec 19, 2023 09:00 AM AMBULATORY [place]ICINE [place] [facility] [place] [facility] Dec 28, 2023 01:00 PM AMBULATORY - REHAB MEDICIN E [facility] [place] [facility] Jan 02, 2024 01:00 PM [facility] Jan 05, 2024 09:30 AM AMBULATORY - MEDICINE [place] [facility] [place] [facility] Jan 12, 2024 09:00 AM AMBULATORY - MEDICINE [facility] [place] [facility] Jan 31, 2024 09:00 AM AM[facility]UL[facility] Lab Results: +/- 30 days of the [...] Range Comment Aug 08, 2023 10:21 AM [facility] PSA Specimen Type: SERUM No comment entered. Ordering Provider: TIKI BHANDARI Report Released Date/Time: Jun 23, 2023 01:40 PM Reporting Lab: [address] [address] Performing Lab: [address] [address] PSA 0.75 ng/mL 0.00-4.00 Aug 08, 2023 10:21 AM [facility] URINALYSIS Specimen Type: URINE Comment: If Glucose = >500 and Ketones are positive, please alert the Physician. Ordering Provider: TIKI BHANDARI Report Released Date/Time: Jun 23, 2023 01:40 PM Reporting Lab: [address] [address] Performing Lab: [address] [address] UA COLOR Colorless Yellow UA APPEARANCE Clear Clear UA GLUCOSE NEGATIVE mg/dL Negative UA KETONES NEGATIVE mg/dL Negative UA BLOOD NEGATIVE mg/dL Negative UA PROTEIN NEGATIVE mg/dL Negative UA NITRITE NEGATIVE mg/dL Negative UA BILIRUBIN NEGATIVE mg/dL Negative UA SPECIFIC GRAVITY 1.008 L 1.016-1.022 UA pH 6.0 5.0-9.0 UA UROBILINOGEN <2.0 mg/dL <2.0 UA LEUKOCYTE NEGATIVE Negative Aug 08, 2023 10:21 AM [facility] LIPID PANEL FASTING Specimen Type: SERUM No comment entered. Ordering Provider: TIKI BHANDARI Report Released Date/Time: Dec 27, 2022 02:11 PM Reporting Lab: [facility] [address] [address] Performing Lab: [address] [address] CHOLESTEROL 193 mg/dL TRIGLYCERIDE 87 mg/dL 0-150 LDL calculated 110 mg/dL 0-129 CHOL/HDL 2.9 HDL CHOLESTEROL 66 mg/dL H 40-60 Aug 08, 2023 10:21 AM [facility] LIVER FUNCTION Specimen Type: SERUM No comment entered. Ordering Provider: TIKI BHANDARI Report Released Date/Time: Dec 27, 2022 02:11 PM Reporting Lab: [address] [address] Performing Lab: [address] [address] PROTEIN,TOTAL 7.0 g/dL 6.0-8.3 ALBUMIN 4.1 g/dL 3.5-5.0 ALKALINE PHOSPHATASE 57 U/L 40-150 AST 18 U/L 5-34 ALT 14 U/L BILIRUBIN, TOTAL 0.4 mg/dL 0.2-1.2 Aug 08, 2023 10:21 AM [facility] BASIC METABOLIC PANEL (fasting) Specimen Type: SERUM No comment entered. Ordering Provider: TIKI BHANDARI Report Released Date/Time: Dec 27, 2022 02:11 PM Reporting Lab: [address] [address] Performing Lab: [address] [address] UREA NITROGEN 34 mg/dL H 7-25 GLUCOSE 84 mg/dL 65-100 SODIUM 139 mmol/L 135-145 POTASSIUM 4.7 mmol/L 3.5-5.0 CHLORIDE 107 mmol/L 100-110 CO2 21 meq/L 20-30 CREATININE, Serum 2.24 mg/dL H 0.50-1.40 eGFR(CKD-EPI 2020) 29 mL/min L >60 Aug 08, 2023 10:21 AM [facility] CBC AND DIFF (AUTO) Specimen Type: BLOOD Comment: Verified by repeat analysis. PLATELETS Ordering Provider: TIKI BHANDARI Report Released Date/Time: Dec 27, 2022 02:11 PM Reporting Lab: [facility] [address] [address] Performing Lab: [facility] [address] [address] WBC 11.72 10*3/uL H 4.50-11.00 RBC 5.35 10*6/uL 4.23-5.66 HGB 14.6 g/dL 12.8-17 HCT 44.5 39.2-50.4 MCV 83.2 fL 82-99 MCHC 32.8 g/dL 30.8-35.1 PLT 18 10*3/uL LL 140-360 RDW-CV 12.8 12.0-16.0 Gosper, Abs 1.02 10*3/uL 0.30-1.10 MCH 27.3 pg 26.2-32.6 Neut % 64.6 43.7-75.8 Lymph % 21.0 14.0-42.3 Gosper % 8.7 5.1-13.7 Eos % 3.8 0.4-6.8 Baso % 1.6 0.1-2.0 Neut, Abs 7.57 10*3/uL 2.20-7.60 Lymph, Abs 2.46 10*3/uL 1.00-3.20 Eos, Abs 0.45 10*3/uL H 0.03-0.44 Baso, Abs 0.19 10*3/uL H 0.01-0.13 Immature Gran % 0.3 0.0-0.7 Immature Gran, Abs 0.03 10*3/uL 0.00-0.06 Social History: Smoking Status (Most current) and [...] 22, 2022 11:35 AM [facility] Tobacco Use History This section includes a history of the smoking, or tobacco-related health factors, that were collected on or before the date of the Encounter. The data comes from the [place] facility where the Encounter took place. Date/Time Smoking Status/Tobacco Use Comment F acility Aug 22, 2022 11:35 AM VA-TOBACCO QUIT 15 YRS OR MORE [facility] Aug 02, 2021 03:30 PM VA-TOBACCO FORMER USER [place] [facility] [place] [facility] Aug 02, 2021 03:30 PM VA-TOBACCO QUIT 15 YRS OR MORE [place] [facility] [place] [facility] Jun 27, 2018 10:47 AM VA-TOBACCO FORMER USER [place] [facility] [place] [facility] Jun 27, 2018 10:47 AM VA-TOBACCO QUIT 15 YRS OR MORE [place] [facility] [place] [facility] September 06, 2017 08:50 AM CURRENT SMOKER [place] [facility] [place] [facility] September 06, 2017 08:50 AM V1-PT NOT INTEREST ED IN QUIT TOBACCO USE [place] [facility] [place] [facility] Jun 03, 2015 10:19 AM LIFETIME NON-TOBACCO USER [place] [facility] Advance Directives: All historical and current Section Date Range: From patient's date of to the date document was created. This section includes ALL of a patient's completed or amended [place] Advance and Rescinded Directives. The entries below indicate that a directive exists for the patient, but an actual copy is not included with this document. The data comes from all [place] facilities. Date Advance Directives Provider Source Dec 14, 2022 ADVANCE DIRECTIVE KEELEY JONES [place] [facility] [place] [facility] Radiology Reports: +/- 30 days of the [...] the Encounter. The data comes from all [place] treatment facilities. Date/Time Radiology Report Provider Source Jul 04, 2023 10:08 AM KIDNEY AND BLADDER ULTRASOUND: ALEXIS RIVERA [id number] -[phone] M Exm Date: JUL 04, 2023@10:08 Req Phys: REBECA BHANDARI Loc: CWM/NO/PACT 3 (Req'g Loc) Img Loc: ULTRASOUND Service: Unknown (Case [id number] COMPLETE) ULTRASOUND KIDNEYS (US Detailed) CPT:01591 Reason for Study: hydronephrosis. (Case [id number] COMPLETE) ULTRASOUND URINARY BLADDER (US Detailed) CPT:82766 Clinical History: Report Status: Verified Date Reported: JUL 05, 2023 Date Verified: JUL 05, 2023 Mold Tooling Technician E-Sig: Report: ULTRASOUND KIDNEYS [PRINTSET], ULTRASOUND URINARY BLADDER [PRINTSET] Clinical History: Hydronephrosis Comparison: Ultrasound from October 13, 2022 Technique: Renal and bladder ultrasound was supervised and protocoled [place] facility and images have been sent to [place] national teleradiology program for interpretation Findings: A total of 48 images were sent for review. Right kidney: The right kidney remains atrophic measuring 8.4 cm in length with thinned renal parenchyma diffusely. There remains moderate pelvocaliectasis not significantly changed from prior. No focal mass or calcification. Left kidney: The left kidney measures 13 cm in length with severe pelvocaliectasis similar to prior examination. 4.7 cm cyst arising from the inferior pole. Negative for calcification. Urinary bladder: The bladder is distended with trabeculation of the bladder wall. Bilateral ureteral jets are present with continued dilatation of distal right ureter to the level of UVJ. Bilateral ureteral jets however present. Postvoid residual corresponding to 685 cc. Prostate gland: The prostate gland measures 4 x 3.4 x 3.6 cm corresponding to a volume of 26 cc. Impression: Continued atrophy of right kidney and stable moderate hydroureteronephrosis of the level of the UVJ. However, a right ureteral jet is present. Stable severe left hydronephrosis with simple cysts. Left ureteral jet is present Bladder wall trabeculations with large postvoid residual measuring 685 cc. Normal size prostate gland READING PHYSICIAN: Bebo [id number] 07/05/2023 5:42 EST [facility] National Teleradiology Program [phone] (For Medical Practitioner Use Only) Attention Patients / Veterans: If you have questions or concerns about these test results, please contact your ordering provider or primary care team. Primary Diagnostic Code: NO ALERT REQUIRED Primary Interpreting Staff: RADIOLOGY,OUTSIDE SERVICE, Staff Physician / RADIOLOGY,OUTSIDE SERVICE [place] [facility] Encounter Notes: All associated encounter notes This section contains the clinical notes associated to the Encounter. Date/Time Encounter Note(s) Provider Source Aug 02, 2023 03:08 PM ADDENDUM: LOCAL TITLE: Addendum STANDARD TITLE: ADDENDUM DATE OF NOTE: AUG 02, 2023@15:08:05 ENTRY DATE: AUG 02, 2023@15:08:06 AUTHOR: REBECA BHANDARI COSIGNER: URGENCY: STATUS: COMPLETED one tab bid prn ordered for overnight. Please ask him in for a bP check on 08/07. /essence/ Rebeca Bhandari PA-C STAFF PHYSICIAN AEROSPACE ENGINEER OFFICER ARMAMENT Signed: 08/02/2023 15:08 Receipt Acknowledged By: 08/03/2023 09:59 /es/ RUBY MENDOZA RN REGISTERED NURSE ========= --- Original Document --- 07/31/23 V1 PHARMACY CUSTOMER CARE MEDICATION RENEWAL: Date: Jul Division: [facility] referred by Pharmacy Call Center for medication renewal: Non-controlled/maintena nce medication Medications requested: [id number] CLONIDINE HCL 0.2MG TAB has 3 days of medication remaining, please alert outpatient pharmacy when order is placed so it can be expedited Defer to primary care provider To be mailed . Please review and renew if appropriate. *This note was generated by [facility] Pharmacy Customer Care. If you have any questions or need assistance, do not contact this author. Please refer all questions to your local, on-site pharmacy departments. /essence/ SALLY MCKEON CPhT [employer], [place]/Pharmacy Customer Care Signed: 07/31/2023 18:38 Receipt Acknowledged By: 08/02/2023 14:15 /essence/ RUBY MENDOZA RN REGISTERED NURSE 08/02/2023 15:01 /essence/ Rebeca Bhandari PA-C STAFF PHYSICIAN AEROSPACE ENGINEER OFFICER ARMAMENT 08/02/2023 ADDENDUM STATUS: COMPLETED He got a 3 month supply 6 months ago. Please how much he actually takes? Daily or? then we can overnight the correct dose. Ask him in for bp check next week when he comes for shot. /essence/ Rebeca Bhandari PA-C STAFF PHYSICIAN AEROSPACE ENGINEER OFFICER ARMAMENT Signed: 08/02/2023 13:49 Receipt Acknowledged By: 08/02/2023 14:30 /essence/ RUBY MENDOZA RN REGISTERED NURSE 08/02/2023 ADDENDUM STATUS: COMPLETED Spoke to who reports he takes one pill in the morning and one pill in the evening but may skip the evening pill depending on his lower leg edema. Stated I never had problems with the edema until starting BP meds. /essence/ RUBY MENDOZA RN REGISTERED NURSE Signed: 08/02/2023 14:33 Receipt Acknowledged By: 08/02/2023 15:15 /essence/ Rebeca Bhandari PA-C STAFF PHYSICIAN AEROSPACE ENGINEER OFFICER ARMAMENT REBECA BHANDARI [place] [facility] [place] [facility] Aug 02, 2023 02:32 PM ADDENDUM: LOCAL TITLE: Addendum STANDARD TITLE: ADDENDUM DATE OF NOTE: AUG 02, 2023@14:32:11 ENTRY DATE: AUG 02, 2023@14:32:11 AUTHOR: RUBY MENDOZA EXP COSIGNER: URGENCY: STATUS: COMPLETED Spoke to who reports he takes one pill in the morning and one pill in the evening but may skip the evening pill depending on his lower leg edema. Stated I never had problems with the edema until starting BP meds. /essence/ RUBY MENDOZA RN REGISTERED NURSE Signed: 08/02/2023 14:33 Receipt Acknowledged By: 08/02/2023 15:15 /essence/ Rebeca Bhandari PA-C STAFF PHYSICIAN AEROSPACE ENGINEER OFFICER ARMAMENT ========= --- Original Document --- 07/31/23 V1 PHARMACY CUSTOMER CARE MEDICATION RENEWAL: Date: Jul Division: [facility] referred by Pharmacy Call Center for medication renewal: Non-controlled/maintena nce medication Medications requested: [id number] CLONIDINE HCL 0.2MG TAB has 3 days of medication remaining, please alert outpatient pharmacy when order is placed so it can be expedited Defer to primary care provider To be mailed . Please review and renew if appropriate. *This note was generated by [facility] Pharmacy Customer Care. If you have any questions or need assistance, do not contact this author. Please refer all questions to your local, on-site pharmacy departments. /essence/ SALLY MCKEON CPhT [employer], [place]/Pharmacy Customer Care Signed: 07/31/2023 18:38 Receipt Acknowledged By: 08/02/2023 14:15 /essence/ RUBY MENDOZA RN REGISTERED NURSE 08/02/2023 15:01 /essence/ Rebeca Bhandari PA-C STAFF PHYSICIAN AEROSPACE ENGINEER OFFICER ARMAMENT 08/02/2023 ADDENDUM STATUS: COMPLETED He got a 3 month supply 6 months ago. Please how much he actually takes? Daily or? then we can overnight the correct dose. Ask him in for bp check next week when he comes for shot. /essence/ Rebeca Bhandari PA-C STAFF PHYSICIAN AEROSPACE ENGINEER OFFICER ARMAMENT Signed: 08/02/2023 13:49 Receipt Acknowledged By: 08/02/2023 14:30 /essence/ RUBY MENDOZA RN REGISTERED NURSE 08/02/2023 ADDENDUM STATUS: COMPLETED one tab bid prn ordered for overnight. Please ask him in for a bP check on 08/07. /essence/ Rebeca Bhandari PA-C STAFF PHYSICIAN AEROSPACE ENGINEER OFFICER ARMAMENT Signed: 08/02/2023 15:08 Receipt Acknowledged By: * AWAITING SIGNATURE * RUBY MENDOZA LAUREN M [place] [facility] [place] [facility] Aug 02, 2023 01:49 PM ADDENDUM: LOCAL TITLE: Addendum STANDARD TITLE: ADDENDUM DATE OF NOTE: AUG 02, 2023@13:49 ENTRY DATE: AUG 02, 2023@13:49:01 AUTHOR: REBECA BHANDARI COSIGNER: URGENCY: STATUS: COMPLETED He got a 3 month supply 6 months ago. Please how much he actually takes? Daily or? then we can overnight the correct dose. Ask him in for bp check next week when he comes for shot. /essence/ Rebeca Bhandari PA-C STAFF PHYSICIAN AEROSPACE ENGINEER OFFICER ARMAMENT Signed: 08/02/2023 13:49 Receipt Acknowledged By: 08/02/2023 14:30 /essence/ RUBY MENDOZA RN REGISTERED NURSE ========= --- Original Document --- 07/31/23 V1 PHARMACY CUSTOMER CARE MEDICATION RENEWAL: Date: Jul Division: [facility] referred by Pharmacy Call Center for medication renewal: Non-controlled/maintena nce medication Medications requested: [id number] CLONIDINE HCL 0.2MG TAB has 3 days of medication remaining, please alert outpatient pharmacy when order is placed so it can be expedited Defer to primary care provider To be mailed . Please review and renew if appropriate. *This note was generated by [facility] Pharmacy Customer Care. If you have any questions or need assistance, do not contact this author. Please refer all questions to your local, on-site pharmacy departments. /essence/ SALLY MCKEON CPhT [employer], [place]/Pharmacy Customer Care Signed: 07/31/2023 18:38 Receipt Acknowledged By: 08/02/2023 14:15 /essence/ RUBY MENDOZA, ASHLEY REGISTERED NURSE * AWAITING SIGNATURE * IONASOCRATESAKSHATREBECA Michaelle REBECA BHANDARI Micha[facility] Jul 31, 2023 06:39 PM PHARMACY NOTE: LOCAL TITLE: V1 PHARMACY CUSTOMER CARE MEDICATION RENEWAL STANDARD TITLE: PHARMACY NOTE DATE OF NOTE: JUL 31, 2023@18:39 ENTRY DATE: JUL 31, 2023@18:39:47 AUTHOR: SALLY MCKEON EXP COSIGNER: URGENCY: STATUS: COMPLETED Date: Jul Division: [facility] referred by Pharmacy Call Center for medication renewal: Non-controlled/maintena nce medication Medications requested: [id number] MIRTAZAPINE 30MG TAB [id number] TRAZODONE HCL 100MG TAB Defer to specialty clinic To be mailed . Please review and renew if appropriate. *This note was generated by [facility] Pharmacy Customer Care. If you have any questions or need assistance, do not contact this author. Please refer all questions to your local, on-site pharmacy departments. /keith MCKEON CPhT [employer], [place]/Pharmacy Customer Care Signed: 07/31/2023 18:40 Receipt Acknowledged By: 08/01/2023 12:17 /essence/ Reese Turner APRN STAFF CLINICAL NURSE SPECIALIST SALLY MCKEON [facility] Jul 31, 2023 06:37 PM PHARMACY NOTE: LOCAL TITLE: V1 PHARMACY CUSTOMER CARE MEDICATION RENEWAL STANDARD TITLE: PHARMACY NOTE DATE OF NOTE: JUL 31, 2023@18:37 ENTRY DATE: JUL 31, 2023@18:37:51 AUTHOR: SALLY MCKEON EXP COSIGNER: URGENCY: STATUS: COMPLETED V1 PHARMACY CUSTOMER CARE MEDICATION RENEWAL Has ADDENDA Date: Jul Division: [facility] referred by Pharmacy Call Center for medication renewal: Non-controlled/maintena nce medication Medications requested: [id number] CLONIDINE HCL 0.2MG TAB has 3 days of medication remaining, please alert outpatient pharmacy when order is placed so it can be expedited Defer to primary care provider To be mailed . Please review and renew if appropriate. *This note was generated by [facility] Pharmacy Customer [facility]. If you have any questions or need assistance, do not contact this author. Please refer all questions to your local, on-site pharmacy departments. /essence/ SALLY MCKEON CPhT [employer], [place]/Pharmacy Customer Care Signed: 07/31/2023 18:38 Receipt Acknowledged By: 08/02/2023 14:15 /essence/ RUBY MENDOZA RN REGISTERED NURSE 08/02/2023 15:01 /essence/ Rebeca Bhandari PA-C STAFF PHYSICIAN AEROSPACE ENGINEER OFFICER ARMAMENT 08/02/2023 ADDENDUM STATUS: COMPLETED He got a 3 month supply 6 months ago. Please how much he actually takes? Daily or? then we can overnight the correct dose. Ask him in for bp check next week when he comes for shot. /keith Bhandari PA-C STAFF PHYSICIAN AEROSPACE ENGINEER OFFICER ARMAMENT Signed: 08/02/2023 13:49 Receipt Acknowledged By: 08/02/2023 14:30 /keith MENDOZA RN REGISTERED NURSE 08/02/2023 ADDENDUM STATUS: COMPLETED Spoke to who reports he takes one pill in the morning and one pill in the evening but may skip the evening pill depending on his lower leg edema. Stated I never had problems with the edema until starting BP meds. /keith MENDOZA RN REGISTERED NURSE Signed: 08/02/2023 14:33 Receipt Acknowledged By: 08/02/2023 15:15 /keith Bhandari PA-C STAFF PHYSICIAN AEROSPACE ENGINEER OFFICER [employer]AMENT 08/02/2023 ADDENDUM STATUS: COMPLETED one tab bid prn ordered for overnight. Please ask him in for a bP check on 08/07. /keith Bhandari PA-C STAFF PHYSICIAN AEROSPACE ENGINEER OFFICER ARMAMENT Signed: 08/02/2023 15:08 Receipt Acknowledged By: 08/03/2023 09:59 /keith MENDOZA RN REGISTERED NURSE 08/03/2023 ADDENDUM STATUS: COMPLETED Spoke to and relayed message per provider. [place] understood and agreed to plan. /es/ RUBY M FREEDMAN, RN REGISTERED NURSE Signed: 08/03/2023 10:00 SALLY MCKEON [facility]
== END 2024-07-09 09:19 | disposition home or self-care (01) ==
PROVIDERS: PCP Physician Assistant; Visit Provider Urology
DX: N40.1 Benign prostatic hyperplasia with lower urinary tract symptoms (principal); R33.8 Other retention of urine; R33.9 Retention of urine, unspecified; Z13.9 Encounter for screening, unspecified
CPT/HCPCS: 99213; G2211

== ENCOUNTER → 2024-07-09 08:46 | Outpatient (BNVA) | payer OTHER, SELFPAY | PROVIDERS: PCP Physician Assistant; Visit Provider Urology | DX: N40.1 Benign prostatic hyperplasia with lower urinary tract symptoms (principal); R33.8 Other retention of urine; R33.9 Retention of urine, unspecified | CPT/HCPCS: 51798; 81003; 99212 ==

== ENCOUNTER 2025-01-15 08:32 | Outpatient (AMB) | payer OTHER, SELFPAY ==
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
--- OUTSIDE RECORDS SUMMARY | 2025-01-15 09:51 | XMS_ITS | Clinical Summary ---
Author Organization [facility] Facility Address [address] [address] Care Team Providers Care Belt Sander Name Role Phone Unavailable Primary Care Provider Unavailabl e Social History Tobacco Use Types Packs/Day Years Used Date Smoking Tobacco: Never Assessed Sex and Gender Information Value Date Recorded Sex Assigned at Not on file Legal Sex Male 10:06 AM EDT Gender Identity Not on file Sexual Orientation Not on file Plan of Treatment Health Maintenance Due Date Last Done Comments Pneumococcal Vaccine: 50+ Ye ars (1 of 1 - PCV) 1995 Influenza Vaccine (#1) 2025 Hepatitis B Vaccine Aged Out No longe r eligible based on patient's age to complete this topic Insurance [facility] Regions 1,2,3 (VACCN) [facility] [employer] 1,2,3 (VACCN)
--- OUTSIDE RECORDS SUMMARY | 2025-01-15 09:51 | XMS_ITS ---
Author Organization [facility] Care Team Providers Care [employer] Name Role Phone , September Unavailable Unavailable Allergies and adverse reactions No Known Allergies Care Team Name Role Address Phone Organization Dates September [address] [place], [address], [place] States (Office): : [facility] 03/15/2018 - 06/22/2018 Immunizations Immunization Status Vaccine Details Vaccine Code CodeSystem Date Notes Influenza (standard dose syringe) cancelled Influenza, Madin Harrison Canine Kidney, subunit, quadrivalent, injectable, preservative free 171 CVX created date: 03/15/2018 consent date: 03/15/2018 does not take any vaccines at all including the flu, pneumovax Mental Status Section Date Assessment Total Score Description 06/22/2018 CAM 0 No delirium ind icated 05/12/2018 CAM 0 No delirium ind icated Problems Problem # Description Date of onset Resolved Date Code CodeSystem Concern Status 1 CONCUSSION WITH LOSS OF CONSCIOUSNESS OF UNSPECIFIED DURATION, INITIAL ENCOUNTER 03/15/[address] active 2 FRACTURE OF UNSPECIFIED PART OF LEFT CLAVICLE, INITIAL ENCOUNTER FOR CLOSED FRACTURE 03/15/[address] active 3 MULTIPLE FRACTURES OF RIBS, BILATERAL, INITIAL ENCOUNTER FOR CLOSED FRACTURE 03/15/[address] active 4 NONDISPLACED COMMINUTED FRACTURE OF SHAFT OF HUMERUS, RIGHT ARM, INITIAL ENCOUNTER FOR CLOSED FRACTURE 03/15/[address] active 5 STABLE BURST FRACTURE OF T9-T10 VERTEBRA, INITIAL ENCOUNTER FOR CLOSED FRACTURE 03/15/[address] active 6 THROMBOCYTOPENIA, UNSPECIFIED 03/15/[address] active 7 WEDGE COMPRESSION FRACTURE OF T7-T8 VERTEBRA, INITIAL ENCOUNTER FOR CLOSED FRACTURE 03/15/[id number] active Reason for Referral No Reasons for Referral Entered Social History Social History Observation Description Start Date End Date Code Code System Current Smoking Status Tobacco smoking consumption unknown 539389992 SNOMED CT Sex Assigned At Male 1945 90773-2 [facility] Gender Identity Sexual Orientation Vital Signs Code Code System Vitals Name Values and Units Timing Information 32912-5 [facility] Weight Adhxa=433.6 Units=Lbs 09/2018 62366-2 [facility] Pain Level Value=0.0 06/07/2018 9279-1 [facility] Respiratory Rate Value=18.0 Units=/m in 05/31/2018 8867-4 [facility] Heart rate Value=78.0 Units=/min 44391-0 [facility] O2 % BldC Oximetry Value=96.0 Units= % 05/31/2018 8310-5 [facility] Body Temperature Value=98.4 Units= F 05/30/2018 8462-4 [facility] Blood Pressure-Diastolic Value=89 Un its=mmHg 05/25/2018 8480-6 [facility] Blood Pressure-Systolic Nxmmw=844 Un its=mmHg 05/25/2018 2339-0 [facility] Blood Sugar Kchak=551.0 Units=mg/dL 05/11/2018 8302-2 [facility] Height Value=65.0 Units=Inches 03/15/2018
== END 2025-01-15 09:46 | disposition home or self-care (01) ==
LOC: HO.HUSH 08:32
PROVIDERS: PCP Physician Assistant; Visit Provider Urology
DX: N40.1 Benign prostatic hyperplasia with lower urinary tract symptoms (principal); R33.8 Other retention of urine; R33.9 Retention of urine, unspecified; Z13.9 Encounter for screening, unspecified
CPT/HCPCS: 99213; G2211

== ENCOUNTER → 2025-01-15 08:32 | Outpatient (BNVA) | payer OTHER, SELFPAY | PROVIDERS: PCP Physician Assistant; Visit Provider Urology | DX: N40.1 Benign prostatic hyperplasia with lower urinary tract symptoms (principal); R33.8 Other retention of urine; R33.9 Retention of urine, unspecified | CPT/HCPCS: 51798; 81003; 99212 ==

== ENCOUNTER 2025-03-07 11:58 | Emergency (ER) | payer OTHER, SELFPAY ==
--- NOTE | ~2025-03-07 | CT_ITS ---
EXAMINATION: CT CHEST WITHOUT CONTRAST CLINICAL INFORMATION: Chronic cough COMPARISON: Same-day chest x-ray and CT abdomen and pelvis 02/02/2021 TECHNIQUE: Multidetector volumetric CT imaging of the chest was done. Axial MIP volume rendering provided. Sagittal and coronal reformatted images were obtained. This CT examination was performed using dose optimization techniques as appropriate, variously including the following: *Automated exposure control *Adjustment of mA and/or kV according to patient size (this includes techniques or standardized protocols for targeted exams where dose is matched to indication/reason for exam; i.e. extremities or head) *Use of iterative reconstruction technique FINDINGS: LUNGS: Right lung is clear. Linear densities are present in the left lung base. Left lung is otherwise clear. MEDIASTINUM: Unremarkable CORONARY ARTERY CALCIFICATION: Present PLEURA: There is no pleural effusion. No pleural mass or thickening. AXILLA: No lymphadenopathy. UPPER ABDOMEN: There is moderate right and severe left hydronephrosis with severe right renal cortical thinning and mild left cortical thinning. Cortical thinning has progressed since the prior. There is a hiatal hernia involving most of the stomach fundus. OSSEOUS STRUCTURES: There is a chronic burst fracture of T9 with extrusion of the anterior vertebral body and focal hyperkyphosis. There is subtle retropulsion of the posterior vertebral body. Otherwise, there are degenerative changes with vacuum phenomena in multiple discs spaces. There are also anterior osteophytes in the lower thoracic spine. CT/CT chest wo IV con IMPRESSION: There is minimal linear atelectasis in the left lung base. There is chronic moderate right and severe left hydronephrosis with severe right and mild left renal cortical thinning that has progressed since the prior. There is a sliding hiatal hernia involving gastric fundus. There is a chronic T9 burst fracture with associated focal hyperkyphosis. Fleischner guidelines were followed. Electronically signed by: Richard Joyce MD 03/07/2025 01:29 PM EDT
--- NOTE | ~2025-03-07 | XR_ITS ---
EXAMINATION: XR CHEST CLINICAL INFORMATION: chest pain, cough COMPARISON: February 16, 2022 TECHNIQUE: 2 views of the chest were obtained. FINDINGS: Low lung volumes with vascular crowding is identified. No airspace opacities are seen. There is mild pleural thickening in the right apex. No pleural effusion is noted. Heart size is within normal limits. Again seen is evidence of a hiatal hernia involving gastric fundus. Severe chronic wedge-shaped deformity of T9 is similar to the prior. XR/XR chest 2V IMPRESSION: No acute abnormalities, low lung volumes. Hiatal hernia. Severe wedge-shaped deformity of T9, chronic. Electronically signed by: Richard Joyce MD 03/07/2025 01:13 PM EDT
[2025-03-07 12:01] VITALS: BP 214/107; PULSE 97; RESP 18; TEMP 36.4; O2SAT 98; BMI 25.8
--- NOTE | 2025-03-07 12:01 | ECG_ITS ---
Test Reason : cp Blood Pressure : */* mmHG Vent. Rate : 80 BPM Atrial Rate : 312 BPM P-R Int : * ms QRS Dur : 64 ms QT Int : 344 ms P-R-T Axes : 18 -25 -8 degrees QTcB Int : 396 ms Artifact in tracing Normal sinus rhythm cannot exclude old Inferior infarct , age undetermined Borderline ECG When compared with ECG of 02-Feb-2021 17:11, No significant changes seen Referred By: Anny Abdalla Electronically Signed By: GRISELDA GREGORY
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
[2025-03-07 12:56] LABS: Hematocrit 42.2 % (42.0-52.0); Hemoglobin 13.9 g/dl (14.0-18.0); Imm Gran Abs Auto 0.11 X10*3/uL (0.00-0.03); Imm Gran Pct Auto 0.7 % (0.0-0.4); Lymphocytes Absolute Auto 1.6 X10*3/uL (1.2-4.9); MANUAL DIFF FLAG SCAN; Mean Corpuscular HGB Conc 32.9 g/dl (31.0-36.0); Mean Corpuscular Hemoglobin 27.5 pg (27.0-33.0); Mean Corpuscular Volume 83.4 fL (80.0-98.0); NRBC Abs Auto 0.000 X10*3/uL (0.0-0.012); NRBC Pct Auto 0.0 /100WBC (0.0-0.2); Red Blood Count 5.06 X10*6/uL (4.60-5.80); SCAN SMEAR FLAG 1; White Blood Count 16.9 X10*3/uL (4.8-10.8)
[2025-03-07 13:02] LABS: Platelet Count 6 X10*3/uL (160-400)
--- NOTE | 2025-03-07 13:05 | MHC.EDTECH ---
Ekg delay due to ekg being used on another patient. nurse aware.
[2025-03-07 13:07] LABS: Alanine Aminotransferase 16 U/L (0-40); Albumin Level 4.0 g/dL (3.5-5.0); Alkaline Phosphatase 51 U/L (39-117); Anion Gap 12 (12-20); Aspartate Amino Transferase 16 U/L (5-37); Blood Urea Nitrogen 40 mg/dL (9-16); Calcium 9.0 mg/dL (8.4-10.2); Carbon Dioxide 23 mmol/L (22-29); Chloride 109 mmol/L (96-108); Creatinine Clr Calc Pharmacy 26.5; Estimated Glomerular Filt Rate 29; Lipase 23 U/L (8-78); Magnesium 1.9 mg/dL (1.6-2.6); Potassium 4.5 mmol/L (3.3-5.1); Sodium 139 mmol/L (135-145); Total Protein 6.5 g/dL (6.5-8.0)
[2025-03-07 13:08] LABS: COVID-19 Test Negative (Negative); IDNOW Serial# 55D5AD1C; IDNOW Serial# 58CA691E; Influenza B2 Negative (Negative)
[2025-03-07 13:17] LABS: Troponin-I High Sensitivity < 2.7 ng/L (<3.5-35.0)
[2025-03-07 13:29] VITALS: BP 178/87
--- OUTSIDE RECORDS SUMMARY | 2025-03-07 13:44 | XMS_ITS | Clinical Summary ---
Author Organization [facility] Facility Address [address] [address] Care Team Providers Care Digester Operator Name Role Phone Unavailable Primary Care Provider [...] patient's age to complete this topic Insurance [facility] Reg[employer] 1,2,3 (VACCN) [facility] Reg[employer] 1,2,3 (VACCN)
[2025-03-07 14:59] VITALS: BP 151/79; PULSE 70; RESP 14; TEMP 36.5; O2SAT 97
[2025-03-07 15:43] VITALS: BP 151/79; PULSE 70; RESP 14; TEMP 36.5; O2SAT 97
== END 2025-03-07 15:44 | disposition home or self-care (01) ==
PROVIDERS: Physician Assistant Medical; Emergency Provider Emergency Medicine; PCP Physician Assistant; Referring Provider Emergency Medicine
DX: R05.9 Cough, unspecified (principal); D69.6 Thrombocytopenia, unspecified; I12.9 Hypertensive chronic kidney disease with stage 1 through stage 4 chronic kidney disease, or unspecified chronic kidney disease; N17.9 Acute kidney failure, unspecified; N18.9 Chronic kidney disease, unspecified; R07.9 Chest pain, unspecified; Z03.818 Encounter for observation for suspected exposure to other biological agents ruled out
CPT/HCPCS: 36415; 71046; 71250; 80053; 83690; 83735; 84484; 85025; 86140; 87502; 87635; 93005; 96360; 96361; 99284; 99285

== ENCOUNTER → 2025-03-07 12:01 | Outpatient (BNV) | payer OTHER, SELFPAY | PROVIDERS: Emergency Provider Emergency Medicine; PCP Physician Assistant; Visit Provider Internal Medicine | DX: R07.9 Chest pain, unspecified (principal) | CPT/HCPCS: 93010 ==

== ENCOUNTER → 2025-03-07 12:01 | Outpatient (BNV) | payer OTHER, SELFPAY | PROVIDERS: Emergency Provider Emergency Medicine; PCP Physician Assistant; Visit Provider Radiology Diagnostic Radiology | DX: R05.3 Chronic cough (principal); N13.30 Unspecified hydronephrosis; R07.9 Chest pain, unspecified; K44.9 Diaphragmatic hernia without obstruction or gangrene | CPT/HCPCS: 71046; 71250 ==